=== PATIENT | female | born 1935 | race Caucasian/White ===

== ENCOUNTER 2023-12-02 19:39 | Inpatient (IN) | payer MEDICARE, SELFPAY ==
[2023-12-02 14:59] VITALS: BP 165/105
[2023-12-02 15:16] LABS: Glucose - Point of Care 185 mg/dl (70-99)
--- NOTE | 2023-12-02 15:25 | ED.CVA ---
History of Present Illness
General
Chief Complaint: CVA/TIA Symptoms
Source: patient and spouse
Exam Limitations: none
Time Seen by Provider: 12/02/23 15:22
Nursing documentation reviewed up to this point in time: agreed with
Onset of Stroke Symptoms
Onset of symptoms known: Yes
Date of onset of symptoms: 12/02/23
Time of onset of symptoms: 13:00
Travel History
Have you had any contact with someone who has COVID-19?: No
Do you have any symptoms of coronavirus? Fever > 100 degrees, chills, cough, shortness of breath, sore throat, loss of taste or smell, muscle aches, or headache?: No
History of Present Illness
History of Present Illness:
88 yo female presents to the emergency department c/o difficulty speaking lasting about 1 hour. It started at 1pm after eating lunch. Her symptoms have resolved en route to the ED.
Past History
Past History
ED Past Medical History: GERD, HTN, Hypercholesterolemia, NIDDM and Other (Thoracic vertebral compression fracture (T12), Headaches, Anemia, Breast calcifications, )
ED Past Surgical History: Cardiac (Heart valve replacement), Gynecological (Hysterectomy), Tonsilectomy and Other (Cataracts)
Social History
Tobacco: Former smoker
Alcohol: Daily (Vodka 1)
Drug: None
Personal:
Living: with family
Review of Systems
Review of Systems
Allergies reviewed?: Yes
All Other Systems: Not applicable
Constitutional: Reports no symptoms
EENT: Reports no symptoms
Respiratory: Reports no symptoms
Cardiac: Reports no symptoms
ABD/GI: Reports no symptoms
: Reports no symptoms
Musculoskeletal: Reports no symptoms
Skin: Reports no symptoms
Neurological: Reports other (Difficulty speaking)
Endocrine: Reports no symptoms
Hematologic/Lymphatic: Reports no symptoms
Psychiatric: Reports no symptoms
Phy Exam
Physical Exam
Physical Exam:
Physical Exam
General: no apparent distress, not acutely ill
Neck: supple. no meningeal signs. normal posterior pharynx
Heart: s1/s2 tachycardia, no murmur. equal radial
pulses.
HEENT: Pupils equal round reactive to light, EOMI
Lungs: no acute respiratory distress. clear bilaterally
Abdomen: normal bowel sounds. not tender. no CVAT
Neuro: alert and oriented. no focal neurological deficits cranial nerves II through XII intact
Skin: no rash
Psychiatric: well kept. interactive and cooperative
Extremities: no edema. no calf tenderness. negative homans. good distal pulses
Course
Orders/Labs/Results
Orders:
Orders
12/02/23 15:05
Electrocardiogram (*1) Urgent
Reason for Study: TIA/Stroke
EKG- Treatment ONCE
12/02/23 15:16
Complete Blood Count/With Diff Urgent
Comprehensive Metabolic Panel Urgent
Prothrombin Time Urgent
12/02/23 15:31
CT Head W/o Iv Contrast Urgent
Comment:
Reason For Exam: Stroke symptoms
12/02/23 18:17
Diltiazem HCl [Cardizem] 5 mg IV NOW STA
12/02/23 18:58
CT Head & Neck Angio W/wo IV Stat
Reason For Exam: aphasia, transient
12/02/23 18:59
CR Chest - 2 Views Stat
Comment:
Reason For Exam: cough
12/02/23 19:04
Admit/Transfer Patient As Directed
Co-Sign Provider:
Level of Care: Inpatient admission
Assign to:: Telemetry
Physician / Group: hospitalist
Diagnosis: CVA
Reason for Telemetry: Arrhythmia
Date to Stop Telemetry: 12/05/23
Time to Stop Telemetry: 11:00
Reason for Hospitalization: CVA/TIA, afib with RVR
Expected length of stay greater than two midnights?: Yes
ELOS- Estimated Length of Stay in days: 2
I certify the patient meets the requirements for IP care: Yes
12/02/23 19:06
Code Status As Directed
Resuscitation Status: Do not resuscitate
Reached after discussion with pt or family/Healthcare POA: Yes
12/02/23 19:07
DNR Bracelet Application ONCE
12/02/23 21:42
Acetaminophen [Tylenol/Feverall] 650 mg RECTAL Q4HPRN PRN
Acetaminophen [Tylenol] 650 mg PO Q4HPRN PRN
Apixaban [Eliquis] 2.5 mg PO BID
12/02/23 21:42
Echo 2D MMode Color/Doppler Routine
Reason for Study: stroke/TIA
CARDIOLOGY CONSULT Routine
Consulting Provider: Lance Mcdonald
Was physician already notified: Yes
Reason for consult: Afib with RVR
Case Management Consult ONCE
Case Management Consult: Discharge Planning
Comment: stroke/tia
DIETARY CONSULT Routine
Reason for Consult: stroke/TIA
NEUROLOGY CONSULT Urgent
Consulting Provider: Travis Peng
Was physician already notified: Yes
Reason for consult: CVA/TIA
Supervisor Sterile Processing Urgent
MR Brain Without Contrast Routine
Comment:
Reason For Exam: stroke/TIA
Recent pill cam endoscopy?: No
Activity As Directed
Activity Level: Out of Bed-Early Mobility
NIH Stroke Scale As Directed
Directions: Per protocol
Comment: every shift and with any change in condition or mental status
Neurological Checks As Directed
Frequency: q4h
Additional Instructions:: q4h x 24h upon admission to the floor, then qshift & with any change in condition
and mental status
Patient Education As Directed
Type: Stroke education packet
Comment: provide to patient and family
Pneumatic Compression Sleeves As Directed
Type: Knee high
Swallow Screening CVA/TIA ONLY As Directed
Comment: NPO until swallowing screening completed
If patient FAILS swallow screening:: NPO, Speech Therapy consult, Aspiration Precautions
If patient PASSES swallow screening, diet:: 1800 valentine/ 15 CHO Diabetic
Vital Signs As Directed
Frequency: Per unit guidelines
O2 Therapy [RESP] Routine
Nasal Cannula Liter Flow: 2 LPM
Titrate/Wean O2 to maintain O2 sat greater than (%): 94
Special Instructions: Titrate oxygen via nasal cannula starting at 2 liters/minute to keep SpO2 greater than
94%. Notify physician if greater than or equal to 6 liters/minute of O2
Ot Eval And Treat Routine
Pt Eval And Treat Routine
Activity Level: Out of Bed-Early Mobility
Speech Therapy Eval & Treat Routine
DX Deep Vein Thrombosis Video Routine
12/02/23 22:00
Magnesium Oxide 500 mg PO HS
12/03/23 06:00
Cardiovascular Evaluation IN AM
Complete Blood Count/No Diff IN AM
Comprehensive Metabolic Panel IN AM
Glycohemoglobin (HgbA1c) IN AM
LDL Cholesterol, Direct IN AM
Magnesium IN AM
TSH Reflex To Free T4 IN AM
12/03/23 08:00
Allopurinol [Zyloprim] 100 mg PO DAILY
Diltiazem Extended Release [Cardizem Cd] 180 mg PO DAILY
Ferrous Sulfate [Feosol] 325 mg PO DAILY
Pantoprazole [Protonix] 40 mg PO DAILY
12/05/23 11:00
DC Protocol for Telemetry ONCE
Abnormal Lab Results
12/02/23 12/02/23
15:15 15:16
RBC 3.82 L 10^6/uL
(4.20-5.40)
Hgb 11.4 L g/dL
(12.0-16.0)
Hct 34.3 L %
(37.0-47.0)
RDW 14.8 H %
(11.5-14.5)
MPV 11.2 H fL
(7.4-10.4)
Absolute Lymphs (auto) 0.7 L 10^3/uL
(1.2-3.4)
Neutrophils % 78.1 H %
(42.2-75.2)
Lymphocytes % 12.1 L %
(20.5-51.1)
PT 15.6 H Sec
(11.4-14.6)
Glucose 195 H mg/dl
(70-99)
POC Glucose 185 H mg/dl
(70-99)
12/02/23 15:16
12/02/23 15:16
Vital Signs
Initial and Last Documented VS:
Initial Vital Signs
Temp Pulse Resp BP Pulse Ox
98.7 F 117 18 165/105 94
12/02/23 14:59 12/02/23 14:59 12/02/23 14:59 12/02/23 14:59 12/02/23 14:59
Last Documented Vital Signs
Temp Pulse Resp BP Pulse Ox
97.8 F 103 20 166/103 98
12/02/23 21:57 12/02/23 21:57 12/02/23 21:57 12/02/23 21:57 12/02/23 21:57
MDM/Problems Addressed
Differential Diagnosis Includes:
TIA, CVA, intracranial hemorrhage
MDM/Problems Addressed:
88-year-old female with TIA. No indication for TNK or IAT. Admit to hospital for further workup.
Chronic conditions affecting care: Cardiomyopathy and Arrhythmia
Acute Exacerbation and/or Progression of Chronic Illness: Cardiomyopathy and Arrhythmia
*Radiology
Radiology exam reviewed: radiology read reviewed (CT head no acute findings)
*Pulse Oximetry
Patient hypoxic: no
*EKG
Interpreted by ED Provider?: Yes
EKG Intrepretation Date: 12/02/23
EKG Intrepretation Time: 15:08
Interpretation: abnormal
Comparison EKG: changes noted
Heart Rate: 129
Rate: tachycardiac
Rhythm: PVC's and sinus tachycardia
[place]: normal axis
Interval: normal interval
QRS Pattern: normal QRS
Ischemia: no ischemia
*Pacu Rn Interpretation
Rate: tachycardiac
Interpretation: abnormal
Heart Rate: 105
Rhythm: a-fib
*Critical Care Note
Total Time (30-74mins, 75-104mins- exclusive of procedures): 30
comment:
Critical care statement: A total of 30 minutes of critical care time was provided for this patient. This includes management of unstable vital signs, evaluation of the patient at bedside, reviewing the patient's pertinent medical records, discussion
with consultants, review of old EKGs and review of pertinent medical records. This time with separate from time utilized to perform the aforementioned documented procedures
Data Reviewed
Review of Other/Old Records Reveals: Testing (Prior echo shows left EF 65 to 70% on 05/02/2023)
Source: records
Patient Management
Social determinants of health affecting care: Living situation
Discussion with other providers: Hospitalist
Escalation/DeEscalation of care consider admission/obs:
Admit indicated
ED Attending Note
-
Portions of this chart may have been created with voice recognition software.� Occasional wrong word or��sound alike� substitutions may have occurred due to the inherent limitations of voice recognition software.
Discharge Plan
Departure
Patient Disposition: Admit
Date of Disposition: 12/02/23
Time of Disposition: 18:18
Admit to: Telemetry
Presentation/result/management discussed w/ accepting MD/DO: Hospitalist
Patient with high blood pressure during this ER visit?: Yes
Condition: Good
Discharge Problem:
TIA (transient ischemic attack), Atrial fibrillation with rapid ventricular response
Interventions
Interventions:
*Risk Screen - Suicide Last Done: 12/02/23 21:59
*General Assessment Last Done: 12/02/23 14:59
*Neglect/Abuse Screening Last Done: 12/02/23 14:59
ED- Fall Risk Assessment Last Done: 12/02/23 15:21
*ED COVID-19 Vaccine History Last Done: 12/02/23 21:59
*Nursing Disposition Last Done: 12/02/23 21:49
ED- Pulmonary Assessment Last Done: 12/02/23 15:21
ED- Neurological Assessment Last Done: 12/02/23 15:21
ED- Cardiac Assessment Last Done: 12/02/23 15:21
Discharge Date and Time
Discharge Date/Time: 12/02/23 21:53
[2023-12-02 15:35] LABS: % Basophils 0.8 % (0-2); % Eosinophils 1.3 % (0-6); % Immature Granulocytes 0.3 % (0-0.5); % Lymphocytes 12.1 % (20.5-51.1); % Monocytes 7.4 % (1.7-9.3); % Neutrophils 78.1 % (42.2-75.2); Absolute Basophils 0.1 10^3/uL (0-0.2); Absolute Eosinophils 0.1 10^3/uL (0-0.7); Absolute Lymphocytes 0.7 10^3/uL (1.2-3.4); Absolute Monocytes 0.5 10^3/uL (0.1-0.6); Absolute Neutrophils 4.8 10^3/uL (1.4-6.5); Hematocrit 34.3 % (37.0-47.0); Hemoglobin 11.4 g/dL (12.0-16.0); Mean Corp Hgb Conc. 33.2 g/dL (33.0-37.0); Mean Corpuscular Hgb 29.8 pg (27.0-31.0); Mean Corpuscular Volume 89.8 fL (81.0-99.0); Mean Platelet Volume 11.2 fL (7.4-10.4); Nucleated Red Blood Cells % 0 %; Platelet Count 202 10^3/uL (130-400); Red Blood Cell Count 3.82 10^6/uL (4.20-5.40); Red Cell Dist. Width 14.8 % (11.5-14.5); White Blood Cell Count 6.1 10^3/uL (4.8-10.8)
[2023-12-02 15:42] LABS: INR 1.26; PT 15.6 Sec (11.4-14.6)
[2023-12-02 15:47] LABS: ALT (SGPT) 13 U/L (0-35); AST (SGOT) 27 U/L (14-36); Albumin 4.3 g/dl (3.5-5.0); Alkaline Phosphatase 108 U/L (38-126); Blood Urea Nitrogen 15 mg/dl (7-17); Calcium 9.3 mg/dl (8.4-10.2); Carbon Dioxide 24 mmol/L (22-30); Chloride 101 mmol/L (98-107); Glucose 195 mg/dl (70-99); Potassium 4.3 mmol/L (3.5-5.1); Sodium 136 mmol/L (135-145); Total Bilirubin 0.7 mg/dl (0.2-1.3); Total Protein 7.7 g/dl (6.3-8.2); eGFR > 60.00
[2023-12-02 16:00] VITALS: BP 148/86
[2023-12-02 17:29] VITALS: BP 139/95
[2023-12-02 18:00] VITALS: BP 139/92
[2023-12-02] MEDS: CARDIZEM 5 MG IV (18:33)
--- NOTE | 2023-12-02 19:13 | HPS.HSE ---
Family Physician
-
Family Physician: Ricardo Alcantara MD
Chief Complaint
-
aphasia
History of Present Illness
88yo F with PMHx of bioprosthetic AV, Afib, HTN, HFpEF, DM, BECKA, gout came after 1 hour of transient aphasia on the day of admisision. In ED with no neurological deficit, so no additional w/u done. Also found in poorly controlled AFib with HR 110-130
Medical History
Past Medical History
Past Medical History: Reports Other
Additional Past Medical History:
See HPI
Past Surgical History: Reports Other
Additional Past Surgical History:
See HPI
Social History
Tobacco: Non-smoker
Alcohol: None
Drug: None
Family History
Family History: Not pertinent
Allergies / Home Medications
Allergies reflects when Allergies were last updated in [facility].
Home Medications with original date entered in [facility]
Allergy/Medication List:
Allergies
Allergy/AdvReac Type Severity Reaction Status Date / Time
ezetimibe [From Zetia] Allergy Unknown pain in Verified 07/28/23 22:44
muscles
simvastatin [From Zocor] Allergy Unknown pain in Verified 07/28/23 22:44
muscles
Home Medications
calcium carbonate 500 mg-vitamin D3 3.125 mcg (125 unit) tablet 1 tab PO DAILY Supplement 08/27/15
omeprazole 20 mg capsule,delayed release 20 mg PO DAILY Gastrointestinal issue 08/27/15
allopurinol 100 mg tablet 100 mg PO DAILY Gout 07/28/22
apixaban 2.5 mg tablet (Eliquis) 2.5 mg PO BID Arrhythmia 07/28/22
diltiazem HCl 120 mg capsule,extended release 24 hr 120 mg PO DAILY Arrhythmia 07/28/22
metformin 1,000 mg tablet 1,000 mg PO BID Diabetes 07/28/22
mirtazapine 7.5 mg tablet 7.5 mg PO HS Sleep 07/28/22
ferrous sulfate 325 mg (65 mg iron) tablet (FeroSul) 325 mg PO DAILY 12/02/23
magnesium oxide 500 mg PO HS 12/02/23
sitagliptin phosphate 100 mg tablet (Januvia) 100 mg PO HS 12/02/23
Review of Systems
-
A 12 point ROS was completed and negative except as noted: Yes
Neurological: Reports See HPI
Physical Exam
Vital Signs
Vital Signs
Temp Pulse Resp BP Pulse Ox
98.7 F 118 27 139/92 95
12/02/23 14:59 12/02/23 18:15 12/02/23 18:15 12/02/23 18:00 12/02/23 18:15
Physical Exam
General: No Apparent Distress and Comfortable
HEENT: NormoCephalic and Anicteric
Respiratory: Clear; No Wheezes or Rales
Cardiac: S1/S2 and Irregular Rhythm
GI: Soft, Non Tender and Non Distended
Genito-urinary: No costovertebral tender
Musculoskeletal: No Clubbing, No Cyanosis and No Edema
Neuro: Awake, Alert, Oriented, AO x 3 and No Motor Deficits
Psych: Calm
Laboratory Results
-
12/02/23 15:16
12/02/23 15:16
Laboratory Results
PT 15.6 Sec (11.4-14.6) H 12/02/23 15:16
INR 1.26 12/02/23 15:16
Total Bilirubin 0.7 mg/dl (0.2-1.3) 12/02/23 15:16
AST 27 U/L (14-36) 12/02/23 15:16
ALT 13 U/L (0-35) 12/02/23 15:16
Alkaline Phosphatase 108 U/L (38-126) 12/02/23 15:16
Data Reviewed
-
Lab Data: Labs Reviewed by me
Impression/Plan
-
IMPRESSION/PLAN:
#CVA/TIA
Echo, telemetry
CTA head/Neck
MRI brain
Neurochecks
Neurology consult
Intollerant of statinand zetia
HgbA1c, TSH, LDL
Permissive HTN
Labetalol for BP >180/105
#Acute hypoxic insufficiency
on 2L o2
with PMHx of COVID-19 in Jul 2023.
Chest HR
cont O2 and wean off, if able
#Afib, unspecified with RVR on admission
cont cardizem - increase to 180mg
cardio consult
COnt Eliquis
Telemetry
#HFpEF, chronic
#Essential HTN
#gout
#Bioprosthetic AV
cont home meds
#DM type 2 with neuropathy
Accuchecks, Insulin SS, DM diet, hold metformin
DVT ppx Eliquis
DNR/DNI as per patient and bedside
I have spent at least 78min preparing admission, communication with family and direct patient care
[2023-12-02 21:57] VITALS: BP 166/103
[2023-12-02 21:59] VITALS: BMI 20.8
[2023-12-02] MEDS: ELIQUIS 2.5 MG PO (22:27)
[2023-12-02] MEDS: MAGNESIUM OXIDE 500 MG PO (22:27)
[2023-12-02 23:30] VITALS: BP 154/97
[2023-12-03] VITALS (8 sets, daily range): BP systolic 96–147; BP diastolic 66–100; PULSE 93
[2023-12-03] MEDS: TYLENOL 650 MG PO (05:43)
[2023-12-03 06:47] LABS: Hematocrit 29.5 % (37.0-47.0); Hemoglobin 9.7 g/dL (12.0-16.0); Mean Corp Hgb Conc. 32.9 g/dL (33.0-37.0); Mean Corpuscular Hgb 29.8 pg (27.0-31.0); Mean Corpuscular Volume 90.5 fL (81.0-99.0); Mean Platelet Volume 9.9 fL (7.4-10.4); Platelet Count 168 10^3/uL (130-400); Red Blood Cell Count 3.26 10^6/uL (4.20-5.40); Red Cell Dist. Width 14.8 % (11.5-14.5); White Blood Cell Count 5.1 10^3/uL (4.8-10.8)
[2023-12-03 07:14] LABS: ALT (SGPT) 11 U/L (0-35); AST (SGOT) 23 U/L (14-36); Albumin 3.7 g/dl (3.5-5.0); Alkaline Phosphatase 90 U/L (38-126); Blood Urea Nitrogen 10 mg/dl (7-17); Calcium 8.9 mg/dl (8.4-10.2); Carbon Dioxide 26 mmol/L (22-30); Chloride 99 mmol/L (98-107); Estimated Creatinine Clearance 41 ml/min; Glucose 158 mg/dl (70-99); HDL Cholesterol 84 mg/dl; LDL Cholesterol, Calculated 43 mg/dl; Magnesium 1.1 mg/dl (1.6-2.3); Potassium 3.6 mmol/L (3.5-5.1); Sodium 135 mmol/L (135-145); Total Bilirubin 0.9 mg/dl (0.2-1.3); Total Cholesterol 144 mg/dl (50-199); Total Protein 6.9 g/dl (6.3-8.2); Triglyceride 89 mg/dl (10-149); Very Low Density Lipoprotein 17 mg/dl (0-30); eGFR > 60.00
[2023-12-03 07:25] LABS: LDL Cholesterol, Direct 68 mg/dl
[2023-12-03] MEDS: FEOSOL 325 MG PO ×2 (07:32→20:27)
[2023-12-03] MEDS: PROTONIX 40 MG PO (07:32)
[2023-12-03] MEDS: ELIQUIS 2.5 MG PO ×2 (07:32→20:27)
[2023-12-03] MEDS: ZYLOPRIM 100 MG PO (07:32)
[2023-12-03] MEDS: CARDIZEM CD 180 MG PO (07:33)
[2023-12-03 07:40] LABS: TSH Reflex To Free T4 3.93 uIU/ml (0.47-4.68)
--- NOTE | 2023-12-03 08:22 | CON.CAR ---
Consultation
Consultation Request
Date/Time Consultation Requested: 12/02/23 7:00pm
Date/Time Consultation Performed: 12/03/23 7:30 AM
Requesting Provider: Dr Helms
Performing Provider: Dr Mcdonald
Reason for Consultation: afib
Medical History
-
Chief Complaint: aphasia
History of Present Illness:
88-year-old female with past medical history of paroxysmal atrial fibrillation, aortic valve replacement, stroke, chronic diastolic heart failure, hypertension and hyperlipidemia presents with an episode of expressive aphasia. She states she was in
her usual state of health when she noticed yesterday difficulty finding words at the table. Ultimately she was brought to the emergency room. Her symptoms then resolved. She has also noticed some palpitations recently. She denies any chest pains
or shortness of breath. She denies any orthopnea or PND. She does get some intermittent leg edema. She has no fevers or chills. She has no coughing or wheezing. She was found to be in atrial fibrillation with modestly elevated rates. Her
neurologic symptoms have resolved. She has no bleeding.
Past Medical History
Past Medical History: Arrhythmias (Paroxysmal atrial fibrillation/atrial tachycardia), CHF (Chronic diastolic heart failure), CVA, HTN, Hypercholesterolemia, NIDDM and Valvular Disease (Status post aortic valve replacement)
Past Surgical History: Cardiac (Bioprosthetic aortic valve replacement 2016)
Social History
Tobacco: Non-Smoker
Alcohol: None
Drug: None
Living: With Family
Employment: Retired
Family History
Family History: Hypertension
Allergies / Home Medications
Allergy/AdvReac Type Severity Reaction Status Date / Time
ezetimibe [From Zetia] Allergy Unknown pain in Verified 07/28/23 22:44
muscles
simvastatin [From Zocor] Allergy Unknown pain in Verified 07/28/23 22:44
muscles
�Medication �Instructions �Recorded �Confirmed �Type
calcium carbonate 500 mg-vitamin 1 tab PO DAILY Supplement 08/27/15 12/02/23 History
D3 3.125 mcg (125 unit) tablet
omeprazole 20 mg capsule,delayed 20 mg PO DAILY Gastrointestinal 08/27/15 12/02/23 History
release issue
allopurinol 100 mg tablet 100 mg PO DAILY Gout 07/28/22 12/02/23 History
apixaban 2.5 mg tablet (Eliquis) 2.5 mg PO BID Arrhythmia 07/28/22 12/02/23 History
diltiazem HCl 120 mg 120 mg PO DAILY Arrhythmia 07/28/22 12/02/23 History
capsule,extended release 24 hr
metformin 1,000 mg tablet 1,000 mg PO BID Diabetes 07/28/22 12/02/23 History
mirtazapine 7.5 mg tablet 7.5 mg PO HS Sleep 07/28/22 12/02/23 History
ferrous sulfate 325 mg (65 mg 325 mg PO DAILY 12/02/23 12/02/23 History
iron) tablet (FeroSul)
magnesium oxide 500 mg PO HS 12/02/23 12/02/23 History
sitagliptin phosphate 100 mg 100 mg PO HS 12/02/23 12/02/23 History
tablet (Januvia)
Review of Systems
-
History Source: Patient
Constitutional: Weight Loss
EENT: No Symptoms
Respiratory: No Symptoms
Cardiac: Palpitations
Abdomen/GI: No Symptoms
: No Symptoms
Musculoskeletal: No Symptoms
Skin: No Symptoms
Neurological: Other (Expressive aphasia)
Endocrine: No Symptoms
Hematologic/Lymphatic: No Symptoms
Physical Exam
Vital Signs
Temp Pulse Resp BP Pulse Ox
98.0 F 118 18 147/100 91
12/03/23 07:30 12/03/23 07:33 12/03/23 07:30 12/03/23 07:33 12/03/23 07:30
Lab Results
12/03/23 06:30
12/03/23 06:30
Physical Exam
General: Well Developed, Well Nourished and No Apparent Distress
HEENT: Normocephalic and Anicteric
Respiratory: Clear and Non Labored Respirations
Cardiac: S1/S2, Irregular Rhythm and Murmur (2/6 systolic murmur at left sternal border)
GI: Soft, Non Tender and Non Distended
Musculoskeletal: No Clubbing, No Cyanosis and Edema (Trace edema)
Skin: Warm and Dry
Neuro: Awake and No Motor Deficits
Psych: Calm
Impression / Plan
-
PCP: Wandy Cody
Automotive Internet Sales Manager: Dr. Ness
Impression:
TIA/CVA, expressive aphasia
Atrial fibrillation with rapid ventricular rate
COVID-19 infection (07/28/2022) and discharge on 08/03/2022
Aortic valve replacement with 19 mm Trifecta supra-annular valve 08/26/2015
Severe tricuspid regurgitation, moderate mitral regurgitation
SVT
Atrial tachycardia
Hypertension
Hyperlipidemia
Type 2 diabetes
Stroke December 2015
Gout
History of falls with compression fractures
Skin cancer
Anxiety
Hysterectomy
Echo: 02/22/2022: EF 70%, severe biatrial enlargement, mild MR, mild MS with mean gradient 9, well-seated bioprosthetic AVR with peak/mean gradient 24/14 mmHg, moderate to severe TR with moderate pulmonary hypertension PAP 50 to 55 mmHg
Echo : May 02, 2023, EF 65 to 70%, mild mitral stenosis with moderate right regurgitation mean gradient of 6, stable bioprosthetic AVR with mean gradient of 15 and trace AI, severe TR with PA pressure 65
Cardiac catheterization 08/27/2015: No significant coronary artery disease
Plan:
She presents with expressive aphasia and possible stroke. MRI of the brain is pending although CT scan of the head and CTA of head and neck are both unremarkable.
She is in A-fib with elevated rates. At this point I would plan on rate control strategy. Continue diltiazem. Will add back metoprolol 100 mg p.o. every 12. She was on this medication as an outpatient.
With possible TIA/CA would avoid hypotension.
If she did have a stroke on Eliquis we could consider switching to a different anticoagulant, but for now I would await MRI. Another option would be to add aspirin to the Eliquis, however at 88 she clearly would be a bleeding risk. Hemoglobin is
also at 9.7. Would continue to follow. For now would continue Eliquis 2.5 mg p.o. twice daily.
Check lipids, however she has not tolerated statins or Zetia.
Will check echo if she remains in hospital, however if she needs to be discharged can be done as an outpatient.
Will discuss case with outpatient test engineer Dr. Ness.
Data Reviewed
-
EKG: Report Reviewed by me
Medical Tests (Nuc Med, Echo etc): Report Reviewed by me
Labs: Labs Reviewed by me
Old Records: Reviewed
--- NOTE | 2023-12-03 08:27 | CON.NEURO ---
Neuro Assessment/Plan
Assessment
CTA head and neck:No acute pathology. No evidence of M1 nor M2 occlusion. No carotid dissection.
CT head: negative
IMPRESSIONS/RECOMMENDATIONS:
Abrupt onset aphasia
May be due to TIA/stroke involving the left MCA territory although not demonstrated by CT of head. Differential diagnosis would include relative hypotension producing symptomatology
Continue current medications including apixaban
add Atorvastatin 10 mg daily to further lower the LDL from 68
Follow orthostatics
Gait dysfunction
May be due to a combination of sensory neuropathy and orthostasis
Will continue to follow patient. Thank you.
Plan
Subsequent to the initial evaluation of this patient during this hospitalization, approximately 30 minutes later, the patient underwent a stroke alert due to sudden aphasia recurrence. Reevaluation by means of CT of the head again failed to
demonstrate an acute ischemic or hemorrhagic lesion.
Patient was not a candidate for either tenecteplase or intra-arterial thrombectomy based on symptomatology and diagnosis. CTA was not repeated as it was performed the day before and failed to demonstrate using the patient's symptomatology.
The most likely etiology is either vascular in origin in the form of hypotension or seizure (unlikely).
Consultation
Order
Date of Consultation: 12/03/23
Requesting Provider: Hospitalists
Reason for Consult: Aphasia
Subjective/Objective
Subjective Data
Date of Service: December 03, 2023
Adapted from consultation in December 2015
80 year old right handed female admitted with c/o daily h/a x 1 month. The h/a's are bi-temporal. She came to ED with h/a 2 nights ago since it was more severe, had neg head CT and sent home. Returned yesterday with h/a and expressive and receptive
aphasia noted by around 1700. He thought she was incoherent-no prior hx of similar episodes in past. no associated visual changes, focal weakness or balance difficultly. He thinks she is better this AM but not back to normal. 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 feels h/a is worse in the evening. patient does recall her thinking she had a problem yesterday but she did
not feel she did. no prior hx strokes. still with c/o h/a but feels it is much better now. Feels tylenol sometimes took the pain away. She has been in an exercise program and her BP's have been ok. 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
decreased d/t her c/o headaches then but there has been no change in her h/a since then. Patient was not felt to be IV tpa candidate d/t NIHSS 0 in ED.
~~~
Subsequently, patient found to have a left MCA territory acute ischemic stroke. Patient was placed on a combination of aspirin and clopidogrel, then told to continue aspirin alone.
Patient returned to this hospital's emergency department with sudden onset aphasia lasting approximately 1 hour, resolving prior to presentation to this hospital's emergency department. BP was 'high' according to patient's prior to ED
presentation.
Objective Data
Vital Signs
Temp Pulse Resp BP Pulse Ox
36.7 C 118 18 147/100 91
12/03/23 07:30 12/03/23 07:33 12/03/23 07:30 12/03/23 07:33 12/03/23 07:30
Lab Results
12/03/23 06:30
12/03/23 06:30
PT 15.6 Sec (11.4-14.6) H 12/02/23 15:16
INR 1.26 12/02/23 15:16
Sodium 135 mmol/L (135-145) 12/03/23 06:30
Potassium 3.6 mmol/L (3.5-5.1) 12/03/23 06:30
BUN 10 mg/dl (7-17) 12/03/23 06:30
Glucose 158 mg/dl (70-99) H 12/03/23 06:30
Calcium 8.9 mg/dl (8.4-10.2) 12/03/23 06:30
LDL Cholesterol Direct 68 mg/dl 12/03/23 06:30
LDL Cholesterol, Calc 43 mg/dl 12/03/23 06:30
Patient Allergies
ezetimibe [From Zetia] Allergy (Unknown, Verified 07/28/23 22:44)
pain in muscles
simvastatin [From Zocor] Allergy (Unknown, Verified 07/28/23 22:44)
pain in muscles
CVA Assessment
Onset of Stroke Symptoms
Onset of symptoms known: Yes
Date of onset of symptoms: 12/03/23
Time of onset of symptoms: 11:45
Time pt last seen normal is known: Yes
Date last time pt seen normal: 12/03/23
Time last time pt seen normal: 11:45
NIH Stroke Score
Level of Consciousness: 0 - Alert
LOC Questions: 1-Answers one correctly
LOC Commands: 1-Performs one correctly
Best Horizontal Gaze: 0-Normal
Visual Robbins: 0=Normal, no visual loss
Facial Palsy: 0=Normal, symmetrical
Motor - Right Arm: 0=No drift 10 seconds
Motor - Left Arm: 0=No drift 10 seconds
Motor - Right Le-No drift 5 seconds
Motor - Left Le-No drift 5 seconds
Limb Ataxia: 0-Absent
Sensation: 0-Normal
Best Language: 1-Mild aphasia
Dysarthria: 0-Normal
Extinction and Inattention: 0-No abnormality
Total Score:: 3
Tenecteplase Contraindications
Inclusion and Exclusion criteria reviewed: Yes
IAT Contraindications: NIHSS < 6
Modified [place] Score (MRS)
-
Modified [place] Scale (mRS): Moderate disability. Requires some help, able to walk unassisted.
Score: 3
Review of Systems
-
History Source: Patient and Family
All other systems: Reviewed and negative
EENT: Negative Decreased Vision or Swallowing Difficulty
Respiratory: Negative Trouble Breathing
Cardiac: Negative Chest Pain
Abdomen/GI: Negative Incontinence of Stool
Genitourinary: Negative Incontinence
Musculoskeletal: Negative Back Pain or Neck Pain
Neuro: Negative Dizzy or Headache
Physical Exam
-
General: No Apparent Distress and Appears Stated Age
Eyes: OU Absent Papilledema, Round OU, [place] Conjunctivae and No Ptosis
HEENT: Anicteric and Moist Mucous Membranes
Neck: Full Range of Motion
Respiratory: No Dyspnea
Cardiac: No JVD
GI: Non-distended
Skin: Unremarkable
Extremities: No Clubbing, No Cyanosis and No Edema
Psych: Intact Judgement/Insight
Extended Neurological Exam
Mood & Affect: Mood Unremarkable and Affect Unremarkable
Attention Span & Concentration: Awake, Alert, Interactive and No Difficulty with 2 Step Request
Memory: Unremarkable
Tremor: Hand Tremor Absent and Head Tremor Absent
Speech: Quality Unremarkable and Quantity Unremarkable
Cranial Nerve II: Left Eye: Pupillary Reactivity Unremarkable, Pupillary Size Unremarkable and Visual Robbins Intact
Cranial Nerve II: Right Eye: Pupillary Reactivity Unremarkable, Pupillary Size Unremarkable and Visual Robbins Intact
Cranial Nerves III, IV, : Extraocular Movement: Extraocular Movement Full in all Directions
Cranial Nerve VII: Facial Symmetry: Normal Facial Symmetry
Cranial Nerve VIII: Hearing: Unremarkable Hearing to Normal Conversational Volume
Cranial Nerves IX, X: Palate Movement: Palate Elevation Symmetric
Cranial Nerve XI: Shoulder Shrug: Unremarkable
Cranial Nerve XII: Tongue Protusion: Midline
Muscle Strength, Overall: Full Throughout
Muscle Bulk & Tone: Bulk Unremarkable and Tone Unremarkable
Pronator Drift: No Drift in Upper Extremities
Deep Tendon Reflexes: Unremarkable Throughout
Touch Sensation: Unremarkable
Coordination: Wyocsx-labh-vefpoh Testing Unremarkable
Babinski Sign: Absent Bilaterally
Data Reviewed
-
CT-A: Report Reviewed
CT Head: Report Reviewed
MRI Head: Pending
Labs: Report Reviewed
Reviewed with: Physician, Patient and Family
Old Records: Summarized
Medications
-
Active Medications
Generic Name Dose Route Start Last Admin
Trade Name Freq PRN Reason Stop Dose Admin
Acetaminophen 650 mg 12/02/23 21:42
Acetaminophen 650 Mg Rectal Suppository RECTAL 12/30/23 21:41
Q4HPRN PRN
LAGOS, mild pain, or temp >100.4F
Acetaminophen 650 mg 12/02/23 21:42 12/03/23 05:43
Acetaminophen 325 Mg Tablet PO 12/30/23 21:41 650 mg
Q4HPRN PRN Administration
LAGOS, mild pain, or temp >100.4F
Allopurinol 100 mg 12/03/23 08:00 12/03/23 07:32
Allopurinol 100 Mg Tablet PO 12/31/23 07:59 100 mg
DAILY GIANCARLO Administration
Apixaban 2.5 mg 12/02/23 21:42 12/03/23 07:32
Apixaban (Eliquis) 2.5 Mg Tablet PO 12/30/23 21:41 2.5 mg
BID GIANCARLO Administration
Diltiazem HCl 180 mg 12/03/23 08:00 12/03/23 07:33
Diltiazem 180 Mg Extended Release (24 H) Capsule PO 12/31/23 07:59 180 mg
DAILY GIANCARLO Administration
Ferrous Sulfate 325 mg 12/03/23 08:00 12/03/23 07:32
Ferrous Sulfate 325 Mg Tablet PO 12/31/23 07:59 325 mg
DAILY GIANCARLO Administration
Magnesium Oxide 500 mg 12/02/23 22:00 12/02/23 22:27
Magnesium Oxide 500 Mg Tablet PO 12/30/23 21:59 500 mg
HS GIANCARLO Administration
Pantoprazole Sodium 40 mg 12/03/23 08:00 12/03/23 07:32
Pantoprazole 40 Mg Delayed Release Tablet PO 12/31/23 07:59 40 mg
DAILY GIANCARLO Administration
Sodium Chloride 0 flush 12/02/23 22:00
Sodium Chloride 0.9% (Flush) Syringe IV 12/30/23 21:59
PER PROTOCOL GIANCARLO
Home Medications
�Medication �Instructions �Recorded
calcium carbonate 500 mg-vitamin 1 tab PO DAILY Supplement 08/27/15
D3 3.125 mcg (125 unit) tablet
omeprazole 20 mg capsule,delayed 20 mg PO DAILY Gastrointestinal 08/27/15
release issue
allopurinol 100 mg tablet 100 mg PO DAILY Gout 07/28/22
apixaban 2.5 mg tablet (Eliquis) 2.5 mg PO BID Arrhythmia 07/28/22
diltiazem HCl 120 mg 120 mg PO DAILY Arrhythmia 07/28/22
capsule,extended release 24 hr
metformin 1,000 mg tablet 1,000 mg PO BID Diabetes 07/28/22
mirtazapine 7.5 mg tablet 7.5 mg PO HS Sleep 07/28/22
ferrous sulfate 325 mg (65 mg 325 mg PO DAILY 12/02/23
iron) tablet (FeroSul)
magnesium oxide 500 mg PO HS 12/02/23
sitagliptin phosphate 100 mg 100 mg PO HS 12/02/23
tablet (Januvia)
Past History
Past History
ED Past Medical History: Arrthythmia (Afib), CHF (HFpEF), CVA (Left MCA 2015), GERD, HTN, Hypercholesterolemia, NIDDM and Other (Thoracic vertebral compression fracture (T12), Headaches, Anemia, Breast calcifications, COVID-19 07/2023, gout)
ED Past Surgical History: Cardiac (Aortic valve replacement), Gynecological (Hysterectomy), Tonsilectomy and Other (Cataracts)
Social History
Tobacco: Former smoker
Alcohol: Daily (Vodka 1)
Drug: None
Personal:
Living: with family
Family History
Family History: Other (Reviewed and noncontributory)
[2023-12-03 08:33] LABS: Glucose - Point of Care 175 mg/dl (70-99)
[2023-12-03] MEDS: LOPRESSOR 100 MG PO (09:04)
--- NOTE | 2023-12-03 09:16 | W.PN.HOSP.TC ---
Today's Communication/Plan
-
MRI
HR Control
PT OT
Assessment / Plan
Assessment / Plan
88-year-old female presented to the hospital with 1 hour of transient aphasia. Patient also was found to have poorly controlled A-fib on admission.
CT of the head and neck-no acute pathology. Multilevel lower cervical spine DJD, retrolisthesis C5 on C6
Echo 05/02/2023-LV size small with normal LV chamber size. EF 65 to 70%. Paradoxical septal motion. Stage II diastolic dysfunction. Moderately dilated RV. Mild mitral stenosis and moderate MR. Well-seated bioprosthetic aortic valve. Severe TR.
Pulmonary pressure of 65 mmHg
CVS: S1-S2 irregular and tachycardic, SM at apex and RHB
Chest: CTA B/L
Abdomen: Soft, NT / Bowel sounds present
Extremities: No edema
ANGIOGRAPHY NURSE: Non focal exam, No facial droop, No motor or sensory defecits
# CVA/TIA
Neurochecks, and NIH score
Already on Eliquis as outpatient was not a candidate for thrombolytic therapy
Intolerant of statins
Permissive hypertension-however needs medicines to control heart rate
Patient on Eliquis already got a dose this morning-rest of the doses per neurology
MRI of the brain
Check echo
Neurology evaluation
PT OT
# Atrial fibrillation with RVR on admission history of atrial tachycardia
On Cardizem 120 mg as outpatient along with Eliquis 2.5 twice daily
Cardizem increased 280 mg daily and metoprolol 100 mg twice daily added
Cardiology consultation
Normal TSH
Patient on Eliquis as outpatient already got a dose this morning
# Acute hypoxic respiratory insufficiency on 2 L of oxygen
Wean oxygen as tolerated
Chest x-ray without any acute changes
# Anemia-check iron studies
# Hypomagnesemia-replace IV
# Chronic heart failure with preserved ejection fraction
# Diabetes continue Januvia. Hold metformin with IV dye
Sliding-scale coverage with Accu-Cheks
# Essential hypertension-CCB,BB
# Bioprosthetic aortic valve
# Atherosclerosis/hyperlipidemia-allergic to steroids. May need to look at Repatha or Praluent as OP
# Gout-allopurinol
# Pulmonary hypertension
# Insomnia-on Remeron as outpatient
# GERD-continue PPI
# History of COVID-19 infection July 2023
# Cervical spine DJD
# Ex-smoker
# DVT prophylaxis-already got a dose of Eliquis
# DNR
D/W RN
Anticipated Discharge: Within 24 hours
Subjective/Interval History
-
Date of Service: December 03, 2023
Objective Data
-
Labs:
Laboratory Results
12/03/23
06:30
WBC 5.1
Hgb 9.7 L
Hct 29.5 L
Plt Count 168
Sodium 135
Potassium 3.6
Chloride 99
Carbon Dioxide 26
BUN 10
Creatinine 0.6
Glucose 158 H
Calcium 8.9
Total Bilirubin 0.9
AST 23
ALT 11
Alkaline Phosphatase 90
Vital Signs:
Vital Signs
Temp Pulse Resp BP Pulse Ox
98.0 F 118 18 147/100 91
12/03/23 07:30 12/03/23 09:04 12/03/23 07:30 12/03/23 09:04 12/03/23 07:30
I&O
12/02/23 12/03/23 12/04/23
06:59 06:59 06:59
Intake Total 480 / 480
Output Total 1350 / 1350
Balance -870 / -870
[2023-12-03 09:52] LABS: Iron 58 ug/dl (37-170)
[2023-12-03] MEDS: MAGNESIUM SULFATE 100 IV (09:54)
[2023-12-03 10:01] LABS: Percent Saturation 13 % (20-50); Total Iron Binding Capacity 430 ug/dl (265-497)
[2023-12-03 10:48] LABS: Glycohemoglobin (HgbA1c) 7.5 % (4.0-5.6)
[2023-12-03 10:59] LABS: Folate 18.2 ng/ml (2.76-20); Vitamin B12 204 pg/ml (239-931)
[2023-12-03 11:30] LABS: Erythrocyte Sed Rate 30 mm/hour (0-20)
[2023-12-03 11:46] LABS: Glucose - Point of Care 197 mg/dl (70-99)
[2023-12-03 12:30] LABS: INR 1.29; PT 15.9 Sec (11.4-14.6)
[2023-12-03 12:31] LABS: APTT 29.8 Sec (23.4-35.0)
[2023-12-03] MEDS: NOVOLOG FLEXPEN-LOW RESISTANCE SC (13:40)
--- NOTE | 2023-12-03 14:36 | PTOTSP ---
Speech Therapy Assessment
Patient presents with signs of mild expressive and receptive language deficits mainly with increased complexity and amount of information. Swallowing grossly wfl with intermittent throat clearing suggesting possible pharyngeal dysphagia.
Recommend
1. Continue regular solids and thin liquids
2. Meds as tolerated
3. Aspiration Precautions.
4. ST will follow and further assess language and cognitive communication skills, and ensure diet tolerance need for objective testing.
[2023-12-03] MEDS: FERRLECIT 110 MG IV (15:26)
[2023-12-03] MEDS: VITAMIN B-12 1000 MCG PO (16:22)
--- NOTE | 2023-12-03 16:52 | PTCARENOTE ---
1136 Called to pt room by tech after pt alerted her that pt was having the same symptoms that brought her in. Upon entering the room pt in bed aphasic and slurring her words. Pt with noticeable left side facial droop. Pt sitting in the
chair during this time. Vs assessed- 97.4--94-16-122/87- pox 95% on room air.
[2023-12-03 17:01] LABS: Glucose - Point of Care 209 mg/dl (70-99)
[2023-12-03] MEDS: NOVOLOG FLEXPEN-LOW RESISTANCE 2 UNITS SC (17:03)
[2023-12-03] MEDS: LIPITOR 10 MG PO (17:03)
[2023-12-03 19:40] LABS: Urine Albumin 1+ (Neg - Trace); Urine Bilirubin Negative (Negative); Urine Character Clear (Clear); Urine Color Yellow; Urine Glucose Trace (Negative); Urine Ketone Negative (Negative); Urine Leukocyte Trace (Negative); Urine Nitrite Negative (Negative); Urine Occult Blood Negative (Negative); Urine Specific Gravity 1.015 (<1.030); Urine Urobilinogen Negative (Neg - 1+)
[2023-12-03 19:48] LABS: Urine Bacteria Few (Negative); Urine Red Blood Cell None Seen /HPF (0-2)
[2023-12-03] MEDS: LOPRESSOR PO (20:27)
[2023-12-03] MEDS: REMERON 7.5 MG PO (20:27)
[2023-12-03] MEDS: MAGNESIUM OXIDE 500 MG PO (20:27)
[2023-12-03 22:00] LABS: Glucose - Point of Care 177 mg/dl (70-99)
[2023-12-03] MEDS: JANUVIA 100 MG PO (23:01)
[2023-12-04] VITALS (13 sets, daily range): BP systolic 82–131; BP diastolic 51–71; PULSE 81–85; O2SAT 95; BMI 20.5
[2023-12-04 06:54] LABS: Hematocrit 31.7 % (37.0-47.0); Hemoglobin 10.3 g/dL (12.0-16.0); Mean Corp Hgb Conc. 32.5 g/dL (33.0-37.0); Mean Corpuscular Hgb 29.6 pg (27.0-31.0); Mean Corpuscular Volume 91.1 fL (81.0-99.0); Mean Platelet Volume 10.3 fL (7.4-10.4); Platelet Count 163 10^3/uL (130-400); Red Blood Cell Count 3.48 10^6/uL (4.20-5.40); Red Cell Dist. Width 15.1 % (11.5-14.5); White Blood Cell Count 4.6 10^3/uL (4.8-10.8)
[2023-12-04 07:24] LABS: Blood Urea Nitrogen 13 mg/dl (7-17); Carbon Dioxide 26 mmol/L (22-30); Chloride 98 mmol/L (98-107); Estimated Creatinine Clearance 41 ml/min; Glucose 146 mg/dl (70-99); Potassium 3.7 mmol/L (3.5-5.1); Sodium 135 mmol/L (135-145); eGFR > 60.00
[2023-12-04] MEDS: PROTONIX 40 MG PO (07:46)
[2023-12-04] MEDS: LOPRESSOR 100 MG PO (07:46)
[2023-12-04] MEDS: ZYLOPRIM 100 MG PO (07:47)
[2023-12-04] MEDS: CARDIZEM CD 180 MG PO (07:47)
[2023-12-04] MEDS: VITAMIN B-12 1000 MCG PO (07:47)
[2023-12-04] MEDS: ELIQUIS 2.5 MG PO ×2 (07:47→20:00)
[2023-12-04 08:03] LABS: Glucose - Point of Care 157 mg/dl (70-99)
--- NOTE | 2023-12-04 08:39 | W.PN.VS ---
Today's Communication / Plan
-
no vascular intervention at this time
plan per neurology and medicine
call with any other questions
Assessment/Plan
-
carotids patent
no vascular intervention at this time
plan per neurology and medicine
call with any other questions
Subjective Data
-
88yo F with PMHx of bioprosthetic AV, Afib, HTN, HFpEF, DM, BECKA, gout came after 1 hour of transient aphasia on the day of admisision. CUrrently feels well with no deficit appreciated
Objective Data
-
Vital Signs
Temp Pulse Resp BP Pulse Ox
98.5 F 88 18 113/70 94
12/04/23 07:53 12/04/23 07:53 12/04/23 07:53 12/04/23 07:53 12/04/23 07:53
Intake and Output
12/03/23 12/04/23 12/05/23
06:59 06:59 06:59
Intake Total 480 / 480 450 / 450
Output Total 1350 / 1350 750 / 750
Balance -870 / -870 -300 / -300
Intake:
Oral fluids 480 / 480 240 / 240
IV piggybacks 210 / 210
Output:
Urine, Voided 1350 / 1350 300 / 300
Straight cath output 450 / 450
Other:
Number of approximated LARGE 1
amounts of urine
Lab Results
12/04/23 06:18
12/04/23 06:18
Calcium 9.0 mg/dl (8.4-10.2) 12/04/23 06:18
Magnesium 2.0 mg/dl (1.6-2.3) 12/04/23 06:18
Total Bilirubin 0.9 mg/dl (0.2-1.3) 12/03/23 06:30
AST 23 U/L (14-36) 12/03/23 06:30
ALT 11 U/L (0-35) 12/03/23 06:30
Alkaline Phosphatase 90 U/L (38-126) 12/03/23 06:30
Total Protein 6.9 g/dl (6.3-8.2) 12/03/23 06:30
Albumin 3.7 g/dl (3.5-5.0) 12/03/23 06:30
Physical Exam
-
rrr
ctab
nt,nd,soft
2+ radial bilat
moving all 4 extremities
CTA - patent carotids bilat with no sig stenosis
--- NOTE | 2023-12-04 08:45 | CON.VAS ---
Consultation
Consultation Request
Performing Provider: Rima
Reason for Consultation: transient aphasia
Medical History
-
Chief Complaint: 1 hour of transient aphasia
History of Present Illness:
88 yo female with past medical history of paroxysmal atrial fibrillation, aortic valve replacement, CVA, CHF, hypertension and hyperlipidemia presents with an episode of expressive aphasia lasting about 1 hour. She was brought to the emergency room
where her symptoms resolved. Vascular consult for carotid evaluation. Patient seen by Dr. Abarca. Patient was back to baseline during this consultation.
Brain MRI negative, CT head negative
Past Medical History
Past Medical History: Arrhythmias (Paroxysmal atrial fibrillation/atrial tachycardia), CHF, CVA, HTN, Hypercholesterolemia, NIDDM and Valvular Disease
Past Surgical History: Cardiac (Bioprosthetic aortic valve replacement 2016)
Social History
Tobacco: Non-Smoker
Alcohol: None
Drug: None
Living: With Family
Employment: Retired
Family History
Family History: Hypertension
Allergies / Home Medications
Allergy/AdvReac Type Severity Reaction Status Date / Time
ezetimibe [From Zetia] Allergy Unknown pain in Verified 07/28/23 22:44
muscles
simvastatin [From Zocor] Allergy Unknown pain in Verified 07/28/23 22:44
muscles
�Medication �Instructions �Recorded �Confirmed �Type
calcium carbonate 500 mg-vitamin 1 tab PO DAILY Supplement 08/27/15 12/02/23 History
D3 3.125 mcg (125 unit) tablet
omeprazole 20 mg capsule,delayed 20 mg PO DAILY Gastrointestinal 08/27/15 12/02/23 History
release issue
allopurinol 100 mg tablet 100 mg PO DAILY Gout 07/28/22 12/02/23 History
apixaban 2.5 mg tablet (Eliquis) 2.5 mg PO BID Arrhythmia 07/28/22 12/02/23 History
diltiazem HCl 120 mg 120 mg PO DAILY Arrhythmia 07/28/22 12/02/23 History
capsule,extended release 24 hr
metformin 1,000 mg tablet 1,000 mg PO BID Diabetes 07/28/22 12/02/23 History
mirtazapine 7.5 mg tablet 7.5 mg PO HS Sleep 07/28/22 12/02/23 History
ferrous sulfate 325 mg (65 mg 325 mg PO DAILY 12/02/23 12/02/23 History
iron) tablet (FeroSul)
magnesium oxide 500 mg PO HS 12/02/23 12/02/23 History
sitagliptin phosphate 100 mg 100 mg PO HS 12/02/23 12/02/23 History
tablet (Januvia)
Review of Systems
-
History Source: Patient
All other systems: Negative unless noted
Physical Exam
Vital Signs
Temp Pulse Resp BP Pulse Ox
98.1 F 74 20 114/69 93
12/05/23 03:00 12/05/23 03:00 12/05/23 03:00 12/05/23 03:00 12/05/23 03:00
Lab Results
12/05/23 06:25
12/05/23 06:25
Physical Exam
General: No Apparent Distress
HEENT: Normocephalic and Atraumatic
Respiratory: Non Labored Respirations
Cardiac: Regular Rhythm and Other (+2 radial pulses BL)
GI: Soft, Non Tender and Non Distended
Neuro: Nonfocal/Grossly Intact (moving all 4 extremities)
Assessment / Plan
-
CTA - patent carotids bilat with no sig stenosis
no vascular intervention at this time
plan per neurology and medicine
call with any other questions
Data Reviewed
-
CT Scan: Discussed with Patient
[2023-12-04] MEDS: NOVOLOG FLEXPEN-LOW RESISTANCE 1 UNITS SC ×3 (09:05→17:54)
--- NOTE | 2023-12-04 09:31 | W.PN.NEURO.1 ---
Today's Communication / Plan
-
Check EEG
Follow orthostatics
Neuro Assessment/Plan
Assessment
CTA head and neck:No acute pathology. No evidence of M1 nor M2 occlusion. No carotid dissection.
CT head: negative
MRI of brain was unremarkable
IMPRESSIONS/RECOMMENDATIONS:
Abrupt onset aphasia, improving and then worsening
No evidence of stroke, possibility of TIA is present although less likely based on the on and off aspects in rapid fashion. Additionally it is possible the patient has had significant orthostasis or seizures
Continue current medications including apixaban
added Atorvastatin 10 mg daily to further lower the LDL from 68
Follow orthostatics
Gait dysfunction
May be due to a combination of sensory neuropathy and orthostasis
Plan
Check EEG
Follow orthostatics
Subjective/Objective
Subjective Data
Date of Service: December 04, 2023
Patient unable to provide her own medical history at length.
Objective Data
Vital Signs
Temp Pulse Resp BP Pulse Ox
36.9 C 88 18 113/70 94
12/04/23 07:53 12/04/23 07:53 12/04/23 07:53 12/04/23 07:53 12/04/23 07:53
Lab Results
12/04/23 06:18
12/04/23 06:18
PT 15.9 Sec (11.4-14.6) H 12/03/23 11:50
INR 1.29 12/03/23 11:50
APTT 29.8 Sec (23.4-35.0) 12/03/23 11:50
Sodium 135 mmol/L (135-145) 12/04/23 06:18
Potassium 3.7 mmol/L (3.5-5.1) 12/04/23 06:18
BUN 13 mg/dl (7-17) 12/04/23 06:18
Glucose 146 mg/dl (70-99) H 12/04/23 06:18
Calcium 9.0 mg/dl (8.4-10.2) 12/04/23 06:18
LDL Cholesterol Direct 68 mg/dl 12/03/23 06:30
LDL Cholesterol, Calc 43 mg/dl 12/03/23 06:30
Vitamin B12 204 pg/ml (239-931) L 12/03/23 06:30
Patient Allergies
ezetimibe [From Zetia] Allergy (Unknown, Verified 07/28/23 22:44)
pain in muscles
simvastatin [From Zocor] Allergy (Unknown, Verified 07/28/23 22:44)
pain in muscles
Review of Systems
-
History Source: Patient
All other systems: Reviewed and negative
EENT: Negative Decreased Vision or Swallowing Difficulty
Respiratory: Negative Trouble Breathing
Cardiac: Negative Chest Pain
Abdomen/GI: Negative Incontinence of Stool
Genitourinary: Negative Incontinence
Musculoskeletal: Negative Back Pain or Neck Pain
Neuro: Negative Dizzy or Headache
Physical Exam
-
General: No Apparent Distress and Appears Stated Age
Eyes: Round OU, [place] Conjunctivae and No Ptosis
HEENT: Anicteric and Moist Mucous Membranes
Neck: Full Range of Motion
Respiratory: No Dyspnea
Cardiac: No JVD
GI: Non-distended
Skin: Unremarkable
Extremities: No Clubbing, No Cyanosis and No Edema
Psych: Intact Judgement/Insight
Extended Neurological Exam
Mood & Affect: Mood Unremarkable and Affect Unremarkable
Attention Span & Concentration: Awake, Alert, Interactive and Mild Difficulty with 2 Step Request
Memory: Able to Recall (Month) and Reduced (For the correct year)
Tremor: Hand Tremor Absent and Head Tremor Absent
Speech: Quantity Unremarkable and Other (Intermittent stuttering)
Cranial Nerve II: Left Eye: Pupillary Size Unremarkable and Visual Robbins Grossly Intact
Cranial Nerve II: Right Eye: Pupillary Size Unremarkable and Visual Robbins Grossly Intact
Cranial Nerves III, IV, : Extraocular Movement: Grossly Intact
Cranial Nerve VII: Facial Symmetry: Normal Facial Symmetry
Cranial Nerve VIII: Hearing: Unremarkable Hearing to Normal Conversational Volume
Muscle Strength, Overall: Spontaneously Moves (All extremities)
Muscle Bulk & Tone: Bulk Unremarkable and Tone Unremarkable
Pronator Drift: No Drift in Upper Extremities
Coordination: [id number] Testing Unremarkable
Data Reviewed
-
MRI Head: Report Reviewed
EEG: Ordered
Reviewed with: Physician, Patient and Family
Old Records: Summarized
Past History
Past History
ED Past Medical History: Arrthythmia (Afib), CHF (HFpEF), CVA (Left MCA 2016), GERD, HTN, Hypercholesterolemia, NIDDM and Other (Thoracic vertebral compression fracture (T12), Headaches, Anemia, Breast calcifications, COVID-19 07/2023, gout)
ED Past Surgical History: Cardiac (Aortic valve replacement), Gynecological (Hysterectomy), Tonsilectomy and Other (Cataracts)
Social History
Tobacco: Former smoker
Alcohol: Daily (Vodka 1)
Drug: None
Personal:
Living: with family
Family History
Family History: Other (Reviewed and noncontributory)
Medications
-
Medications:
Generic Name Dose Route Start Last Admin
Trade Name Freq PRN Reason Stop Dose Admin
Acetaminophen 650 mg 12/02/23 21:42
Acetaminophen 650 Mg Rectal Suppository RECTAL 12/30/23 21:41
Q4HPRN PRN
LAGOS, mild pain, or temp >100.4F
Acetaminophen 650 mg 12/02/23 21:42 12/03/23 05:43
Acetaminophen 325 Mg Tablet PO 12/30/23 21:41 650 mg
Q4HPRN PRN Administration
LAGOS, mild pain, or temp >100.4F
Allopurinol 100 mg 12/03/23 08:00 12/04/23 07:47
Allopurinol 100 Mg Tablet PO 12/31/23 07:59 100 mg
DAILY GIANCARLO Administration
Apixaban 2.5 mg 12/02/23 21:42 12/04/23 07:47
Apixaban (Eliquis) 2.5 Mg Tablet PO 12/30/23 21:41 2.5 mg
BID GIANCARLO Administration
Atorvastatin Calcium 10 mg 12/03/23 18:00 12/03/23 17:03
Atorvastatin (Lipitor) 10 Mg Tablet PO 12/31/23 17:59 10 mg
QPM GIANCARLO Administration
Cyanocobalamin 1,000 mcg 12/03/23 16:00 12/04/23 07:47
Cyanocobalamin 1,000 Mcg Tablet PO 12/31/23 15:59 1,000 mcg
DAILY GIANCARLO Administration
Dextrose 12.5 grams 12/03/23 08:59
Dextrose 50% (0.5 Grams/Ml) 50 Ml Syringe IV 12/31/23 08:58
[id number] PRN
hypoglycemia
Protocol
Diltiazem HCl 180 mg 12/03/23 08:00 12/04/23 07:47
Diltiazem 180 Mg Extended Release (24 H) Capsule PO 12/31/23 07:59 180 mg
DAILY GIANCARLO Administration
Ferrous Sulfate 325 mg 12/03/23 22:00 12/03/23 20:27
Ferrous Sulfate 325 Mg Tablet PO 12/31/23 21:59 325 mg
HS GIANCARLO Administration
Glucagon 1 mg 12/03/23 08:59
Glucagon 1 Mg Vial IM 12/31/23 08:58
PRN PRN
hypoglycemia
Protocol
Insulin Aspart 0 units 12/03/23 11:30 12/04/23 09:05
Insulin Aspart Low Resistance 300 Units/3 Ml Pen.Injctr SC 12/31/23 11:29 1 units
AC GIANCARLO Administration
Protocol
Magnesium Oxide 500 mg 12/02/23 22:00 12/03/23 20:27
Magnesium Oxide 500 Mg Tablet PO 12/30/23 21:59 500 mg
HS GIANCARLO Administration
Metoprolol Tartrate 100 mg 12/03/23 09:00 12/04/23 07:46
Metoprolol 100 Mg Regular Release Tablet PO 12/31/23 08:59 100 mg
BID GIANCARLO Administration
Mirtazapine 7.5 mg 12/03/23 22:00 12/03/23 20:27
Mirtazapine 7.5 Mg Regular Release Tablet PO 12/31/23 21:59 7.5 mg
HS GIANCARLO Administration
Pantoprazole Sodium 40 mg 12/03/23 08:00 12/04/23 07:46
Pantoprazole 40 Mg Delayed Release Tablet PO 12/31/23 07:59 40 mg
DAILY GIANCARLO Administration
Sitagliptin Phosphate 100 mg 12/03/23 22:00 12/03/23 23:01
Sitagliptin (Januvia) 100 Mg Tablet PO 12/31/23 21:59 100 mg
HS GIANCARLO Administration
Sodium Chloride 0 flush 12/02/23 22:00
Sodium Chloride 0.9% (Flush) Syringe IV 12/30/23 21:59
PER PROTOCOL GIANCARLO
--- NOTE | 2023-12-04 10:41 | CM ---
Addendum entered by GLORIA Garcia 12/04/23 15:32:
referral with dannrr attached sent to [facility] in [facility].
Original Note:
MEt with patient in room and spoke to PT who treated her today. Patient and live in split level home. No steps to enter lowest level then 6 steps up to kitchen, living areas, then 6 more to full bathroom and bedrooms.
She has tub shower with tub rail and rail in front of shower. she has rolling walker and cane but was ambulating at home without device.
per PT notes recommend SNF. CM spoke to patient about stay at [facility] in 2022. Patient agreeable to return for short term rehab after this admit.
PCP Ricardo Lechuga.
Pharmacy: [facility] on [address] in [place]
SHe has had [facility] home care in past.
referral to be made in [facility] to [facility] SNF.
PLAN: SNF rehab.
[2023-12-04 12:16] LABS: Glucose - Point of Care 179 mg/dl (70-99)
--- NOTE | 2023-12-04 12:53 | W.PN.HOSP.TC ---
Today's Communication/Plan
-
500 mL of normal saline because of hypotension
Decrease metoprolol to 50 twice daily
Keep patient in bed supine until blood pressure improves
Routine EEG
Assessment / Plan
Assessment / Plan
88-year-old female presented to the hospital with 1 hour of transient aphasia. Patient also was found to have poorly controlled A-fib on admission.
CT of the head and neck-no acute pathology. Multilevel lower cervical spine DJD, retrolisthesis C5 on C6
Echo 05/02/2023-LV size small with normal LV chamber size. EF 65 to 70%. Paradoxical septal motion. Stage II diastolic dysfunction. Moderately dilated RV. Mild mitral stenosis and moderate MR. Well-seated bioprosthetic aortic valve. Severe TR.
Pulmonary pressure of 65 mmHg
CVS: S1-S2 irregular and tachycardic, SM at apex and RHB
Chest: CTA B/L
Abdomen: Soft, NT / Bowel sounds present
Extremities: No edema
BATH MIX OPERATOR: Non focal exam, No facial droop, No motor or sensory deficits, appears to be confused today
# APhasia and confusion
Stroke alert called 12/03/23- per nursing.
Was seen by neuro CT head repeat OK
MRI no CVA
Already on Eliquis as outpatient was not a candidate for thrombolytic therapy
Intolerant of statins
Patient on Eliquis already
Neurology evaluation appreciated
PT OT
#Confusion-suspect hypoperfusion from hypotension.
IV fluids
Cut back on metoprolol to 50 twice daily
No evidence of infection
Check EEG routine
# Atrial fibrillation with RVR on admission history of atrial tachycardia
On Cardizem 120 mg as outpatient along with Eliquis 2.5 twice daily
Cardizem increased to 180 mg daily and metoprolol 100 mg twice daily added on 12/03/23
Cardiology following
Normal TSH
Patient on Eliquis as outpatient already got a dose this morning
She converted to SR
BP running low
Decrease Metoprolol to 50 BID
# Acute hypoxic respiratory insufficiency on 2 L of oxygen
Off O2
Chest x-ray without any acute changes
# Anemia-Replace iron PO
B 12 def- Replace B12
# Hypomagnesemia-replaced
# Chronic heart failure with preserved ejection fraction
# Diabetes continue Januvia. Hold metformin with IV dye
Sliding-scale coverage with Accu-Cheks
# Essential hypertension-CCB,BB
# Bioprosthetic aortic valve
# Atherosclerosis/hyperlipidemia-allergic to statins. May need to look at Repatha or Praluent as OP
# Gout-allopurinol
# Pulmonary hypertension
# Insomnia-on Remeron as outpatient, hold
# GERD-continue PPI
# History of COVID-19 infection July 2023
# Cervical spine DJD
# Ex-smoker
# DVT prophylaxis-already got a dose of Eliquis
# DNR
D/W RN
Called and left a message for to update
spoke to him yesterday
D/W Cards and Neuro
Anticipated Discharge: 24 - 48 hours
Subjective/Interval History
-
Date of Service: December 04, 2023
Objective Data
-
Labs:
Laboratory Results
12/04/23
06:18
WBC 4.6 L
Hgb 10.3 L
Hct 31.7 L
Plt Count 163
Sodium 135
Potassium 3.7
Chloride 98
Carbon Dioxide 26
BUN 13
Creatinine 0.6
Glucose 146 H
Calcium 9.0
Vital Signs:
Vital Signs
Temp Pulse Resp BP Pulse Ox
97.6 F 86 18 90/69 90
12/04/23 11:52 12/04/23 11:52 12/04/23 11:52 12/04/23 11:52 12/04/23 11:52
I&O
12/03/23 12/04/23 12/05/23
06:59 06:59 06:59
Intake Total 480 / 480 450 / 450
Output Total 1350 / 1350 750 / 750 250 / 250
Balance -870 / -870 -300 / -300 -250 / -250
[2023-12-04] MEDS: NSS 500 IV (13:07)
[2023-12-04] MEDS: VITAMIN B1 100 MG PO (14:18)
[2023-12-04] MEDS: CYANOCOBALAMIN 1000 MCG IM (14:19)
[2023-12-04 17:42] LABS: Glucose - Point of Care 184 mg/dl (70-99)
[2023-12-04] MEDS: LIPITOR 10 MG PO (17:57)
--- NOTE | 2023-12-04 18:13 | W.PN.CARDCBS ---
Today's Communication / Plan
-
Decrease metoprolol to 50 mg twice daily, continue Cardizem
Monitor blood pressure, reduce medications further if needed
EEG per neurology
Continue oral anticoagulation monitor on telemetry
TTE pending for tomorrow
Impression / Plan
-
PCP: Wandy Cody
Grazing Examiner: Dr. Ness
Impression:
TIA/CVA, expressive aphasia
Atrial fibrillation with rapid ventricular rate
COVID-19 infection (07/28/2022) and discharge on 08/03/2022
Aortic valve replacement with 19 mm Trifecta supra-annular valve 08/26/2015
Severe tricuspid regurgitation, moderate mitral regurgitation
SVT
Atrial tachycardia
Hypertension
Hyperlipidemia
Type 2 diabetes
Stroke December 2015
Gout
History of falls with compression fractures
Skin cancer
Anxiety
Hysterectomy
Echo: 02/22/2022: EF 70%, severe biatrial enlargement, mild MR, mild MS with mean gradient 9, well-seated bioprosthetic AVR with peak/mean gradient 24/14 mmHg, moderate to severe TR with moderate pulmonary hypertension PAP 50 to 55 mmHg
Echo : May 02, 2023, EF 65 to 70%, mild mitral stenosis with moderate right regurgitation mean gradient of 6, stable bioprosthetic AVR with mean gradient of 15 and trace AI, severe TR with PA pressure 65
Cardiac catheterization 08/27/2015: No significant coronary artery disease
Plan:
She presents with expressive aphasia and possible stroke. MRI of the brain is negative although CT scan of the head and CTA of head and neck are both unremarkable.
She is in A-fib with elevated rates. At this point I would plan on rate control strategy. Continue diltiazem. Will add back metoprolol 100 mg p.o. every 12. She was on this medication as an outpatient. Can reduce doses based on blood pressure
and heart rate.
With possible TIA/CA would avoid hypotension.
No evidence of CVA on CT or MRI, continue Eliquis 2.5 mg p.o. twice daily.; Neurology planning EEG for aphasia
Check lipids, however she has not tolerated statins or Zetia.
Echocardiogram scheduled for tomorrow
Will discuss case with outpatient concert promoter Dr. Ness.
Progress Note - Grazing Examiner
Subjective
Date of Service: December 04, 2023
No acute events overnight. Patient resting comfortably. Expressive aphasia still noted. Sinus rhythm PACs noted on monitor. No other complaints at this time no chest pain, shortness of breath, palpitations.
Objective
Labs:
12/04/23 06:18
12/04/23 06:18
Labs
Hgb 10.3 g/dL (12.0-16.0) L 12/04/23 06:18
Hct 31.7 % (37.0-47.0) L 12/04/23 06:18
Plt Count 163 10^3/uL (130-400) 12/04/23 06:18
PT 15.9 Sec (11.4-14.6) H 12/03/23 11:50
INR 1.29 12/03/23 11:50
APTT 29.8 Sec (23.4-35.0) 12/03/23 11:50
Sodium 135 mmol/L (135-145) 12/04/23 06:18
Potassium 3.7 mmol/L (3.5-5.1) 12/04/23 06:18
BUN 13 mg/dl (7-17) 12/04/23 06:18
Creatinine 0.6 mg/dL (0.6-1.0) 12/04/23 06:18
Glucose 146 mg/dl (70-99) H 12/04/23 06:18
Vital Signs and I&O:
Vital Signs
Temp Pulse Resp BP Pulse Ox
97.6 F 78 16 113/54 95
12/04/23 15:51 12/04/23 15:51 12/04/23 15:51 12/04/23 15:51 12/04/23 15:51
Vital Signs
Temp Pulse Resp BP Pulse Ox
97.6 F 78 16 113/54 95
12/04/23 15:51 12/04/23 15:51 12/04/23 15:51 12/04/23 15:51 12/04/23 15:51
Intake & Output
12/02/23 12/03/23 12/04/23 12/05/23
06:59 06:59 06:59 06:59
Intake Total 480 / 480 450 / 450 325 / 325
Output Total 1350 / 1350 750 / 750 250 / 250
Balance -870 / -870 -300 / -300 75 / 75
Physical Exam
Physical Exam
GENERAL: no acute distress
EYE: sclera anicteric
NECK: Supple, no JVD, no carotid bruit appreciated
ENT: normal nose, moist mucosal membranes
CARDIAC: Regular rate and rhythm, +S1/S2, 2/6 holosystolic murmur; no rubs, or gallops
CHEST/PULMONARY: Normal effort, clear breath sounds
ABDOMEN: Soft, without focal tenderness or distention
NEUROLOGICAL: Alert and oriented x1 (self), expressive aphasia
SKIN: Warm and dry, no rash
PSYCH: Normal and appropriate interaction.
[2023-12-04] MEDS: LOPRESSOR PO (20:00)
[2023-12-04] MEDS: FEOSOL 325 MG PO (21:30)
[2023-12-04] MEDS: MAGNESIUM OXIDE 500 MG PO (21:30)
[2023-12-04] MEDS: JANUVIA 100 MG PO (21:31)
[2023-12-04 21:32] LABS: Glucose - Point of Care 196 mg/dl (70-99)
[2023-12-05] VITALS (8 sets, daily range): BP systolic 92–146; BP diastolic 62–91; PULSE 78–85; O2SAT 98; BMI 20.5
[2023-12-05 06:49] LABS: Hematocrit 29.3 % (37.0-47.0); Hemoglobin 9.5 g/dL (12.0-16.0); Mean Corp Hgb Conc. 32.4 g/dL (33.0-37.0); Mean Corpuscular Hgb 30.1 pg (27.0-31.0); Mean Corpuscular Volume 92.7 fL (81.0-99.0); Mean Platelet Volume 10.6 fL (7.4-10.4); Platelet Count 166 10^3/uL (130-400); Red Blood Cell Count 3.16 10^6/uL (4.20-5.40); Red Cell Dist. Width 15.3 % (11.5-14.5); White Blood Cell Count 4.8 10^3/uL (4.8-10.8)
[2023-12-05 07:06] LABS: Blood Urea Nitrogen 20 mg/dl (7-17); Calcium 8.9 mg/dl (8.4-10.2); Carbon Dioxide 29 mmol/L (22-30); Chloride 99 mmol/L (98-107); Estimated Creatinine Clearance 31 ml/min; Glucose 157 mg/dl (70-99); Sodium 135 mmol/L (135-145); eGFR > 60.00
[2023-12-05] MEDS: LOPRESSOR 100 MG PO (08:08)
[2023-12-05] MEDS: VITAMIN B1 100 MG PO (08:08)
[2023-12-05] MEDS: PROTONIX 40 MG PO (08:08)
[2023-12-05] MEDS: ELIQUIS 2.5 MG PO ×2 (08:09→19:12)
[2023-12-05] MEDS: ZYLOPRIM 100 MG PO (08:09)
[2023-12-05] MEDS: CYANOCOBALAMIN 1000 MCG IM (08:09)
[2023-12-05] MEDS: CARDIZEM CD 180 MG PO (08:09)
[2023-12-05] MEDS: NOVOLOG FLEXPEN-LOW RESISTANCE 1 UNITS SC ×2 (08:12→16:34)
[2023-12-05 08:13] LABS: Glucose - Point of Care 177 mg/dl (70-99)
--- NOTE | 2023-12-05 09:48 | W.PN.CARDCBS ---
Addendum entered and electronically signed by Marino Ness DO 12/05/23 12:33:
I saw and examined the patient.
The Practice Assistant's note was reviewed and I agree with the note.
Comment:
Plan:
Neuro work up continues, EEG pending.
states that she has memory issues which have worsened in the hospital.
HR and bp stable on Lopressor and Diltiazem. Checking orthostatics
Echo is pending
Cont Eliquis for PAfib/cva hx
Has not tolerated statins or zetia.
Discussed with at bedside. .
Original Note:
Today's Communication / Plan
-
Echo completed, report pending
Await EEG results
Continue Eliquis
HR stable on lopressor and diltiazem
Follow BPs.
Impression / Plan
-
PCP: Wandy Cody
Customer Experience Specialist: Dr. Ness
Impression:
TIA/CVA, expressive aphasia
Paroxysmal atrial fibrillation
COVID-19 infection (07/28/2022) and discharge on 08/03/2022
Aortic valve replacement with 19 mm Trifecta supra-annular valve 08/26/2015
Severe tricuspid regurgitation, moderate mitral regurgitation
SVT
Atrial tachycardia
Hypertension
Hyperlipidemia
Type 2 diabetes
Stroke December 2015
Gout
History of falls with compression fractures
Skin cancer
Anxiety
Hysterectomy
Echo: 02/22/2022: EF 70%, severe biatrial enlargement, mild MR, mild MS with mean gradient 9, well-seated bioprosthetic AVR with peak/mean gradient 24/14 mmHg, moderate to severe TR with moderate pulmonary hypertension PAP 50 to 55 mmHg
Echo : May 02, 2023, EF 65 to 70%, mild mitral stenosis with moderate right regurgitation mean gradient of 6, stable bioprosthetic AVR with mean gradient of 15 and trace AI, severe TR with PA pressure 65
Cardiac catheterization 08/27/2015: No significant coronary artery disease
Plan:
-Presented with aphasia and concern for TIA vs CVA. MRI of brain negative, although study noted to be limited by artifact from patient movement.
-Neurology following. EEG completed today, 12/04.
-In afib earlier this admission w/ elevated HR. Improved w/ diltiazem 180mg daily and lopressor 100mg BID.
-In SR currently on review of telemetry. HR stable.
-BP stable, has had some orthostasis. Continue to follow.
-Continue Eliquis 2.5 mg p.o. twice daily for anticoagulation.
-Direct LDL 68. Has not tolerated statins or Zetia.
-Echo completed, report pending 12/04.
Progress Note - Customer Experience Specialist
Subjective
Date of Service: December 05, 2023
Continues w/ aphasia. No other complaints currently.
Objective
Labs:
12/05/23 06:25
12/05/23 06:25
Labs
Hgb 9.5 g/dL (12.0-16.0) L 12/05/23 06:25
Hct 29.3 % (37.0-47.0) L 12/05/23 06:25
Plt Count 166 10^3/uL (130-400) 12/05/23 06:25
PT 15.9 Sec (11.4-14.6) H 12/03/23 11:50
INR 1.29 12/03/23 11:50
APTT 29.8 Sec (23.4-35.0) 12/03/23 11:50
Sodium 135 mmol/L (135-145) 12/05/23 06:25
Potassium 4.0 mmol/L (3.5-5.1) 12/05/23 06:25
BUN 20 mg/dl (7-17) H 12/05/23 06:25
Creatinine 0.8 mg/dL (0.6-1.0) 12/05/23 06:25
Glucose 157 mg/dl (70-99) H 12/05/23 06:25
Vital Signs and I&O:
Vital Signs
Temp Pulse Resp BP Pulse Ox
97.5 F 74 18 125/68 93
12/05/23 07:00 12/05/23 08:09 12/05/23 07:00 12/05/23 08:09 12/05/23 07:00
Vital Signs
Temp Pulse Resp BP Pulse Ox
97.5 F 74 18 125/68 93
12/05/23 07:00 12/05/23 08:09 12/05/23 07:00 12/05/23 08:09 12/05/23 07:00
Intake & Output
12/03/23 12/04/23 12/05/23 12/06/23
06:59 06:59 06:59 06:59
Intake Total 480 / 480 450 / 450 525 / 525
Output Total 1350 / 1350 750 / 750 250 / 250
Balance -870 / -870 -300 / -300 275 / 275
Physical Exam
Physical Exam
GENERAL: no acute distress
EYE: sclera anicteric
ENT: normal nose, moist mucosal membranes
CARDIAC: Regular rate and rhythm, +S1/S2, 2/6 holosystolic murmur; no rubs, or gallops
CHEST/PULMONARY: Normal effort, clear breath sounds
NEUROLOGICAL: expressive aphasia
SKIN: Warm and dry, no rash
--- NOTE | 2023-12-05 09:51 | W.PN.NEURO.1 ---
Addendum entered and electronically signed by Robby Georges MD 12/05/23 14:22:
I saw and evaluate the patient reviewed note by Ruchi Finch agree to find the following comments:
88-year-old woman with past medical history of headache, paroxysmal atrial fibrillation, chronic diastolic heart failure, hypertension presents to hospital with episode of expressive aphasia. This has improved somewhat although her feels
like she is around 50% of her normal mental status interaction and speech. She has had relative hypotension and positive orthostatic vital signs.
Neurologic examination shows fluent speech with naming repetition and comprehension of multistep commands intact
MRI brain reviewed with no infarct seen no masses or hemorrhages
EEG with single right C4 central sharp no seizures
Assessment: Probable TIA. Atrial fibrillation is minor risk factors ongoing fatigue and mild confusion probably attributable to other sources, relative hypotension. Low vitamin B12 may be contributing.
History does not seem consistent with seizure episode to me based on too long of duration and has not had repeated stereotyped episodes suggestive of seizure disorder.
Recommendations
-Continue to follow blood pressures repeat orthostatic vital signs and treat accordingly
-Not going to recommend any antiseizure medication
-Continue Eliquis full dose anticoagulation
-Would start p.o. vitamin B12
Will follow as needed call with questions and concerns
Original Note:
Today's Communication / Plan
-
.
Neuro Assessment/Plan
Assessment
IMPRESSIONS/RECOMMENDATIONS:
Abrupt onset aphasia, improving and then worsening
No evidence of stroke on MRI brain imaging, possibility of TIA is present although less likely based on the on and off aspects in rapid fashion. Additionally it is possible the patient has had significant orthostasis or seizures
Gait dysfunction
May be due to a combination of sensory neuropathy and orthostasis
CTA head and neck:No acute pathology. No evidence of M1 nor M2 occlusion. No carotid dissection.
CT head: negative
MRI of brain was unremarkable
Plan
-Routine EEG pending.
-Follow orthostatic vital signs BID.
-Goal normotension, avoid hypotension.
-Continue home Eliquis 2.5mg BID.
-Added Atorvastatin 10 mg daily to further lower the LDL from 68.
-Goal normoglycemia, hbA1c is 7.5.
-Neurological checks per unit guidelines.
-B12 level is low at 204, continue cyanocobalamin 1000mcg PO daily.
-PT/OT/ST evaluations.
-Will follow pending results.
Subjective/Objective
Subjective Data
Date of Service: December 05, 2023
No acute events overnight. Patient reports that her speech is somewhat improved but she still has constant slight difficulty getting her words out. She denies any headache, dizziness, swallowing difficulty, nausea, weakness, numbness, chest pain,
palpitations, and shortness of breath.
Objective Data
Vital Signs
Temp Pulse Resp BP Pulse Ox
97.5 F 74 18 125/68 93
12/05/23 07:00 12/05/23 08:09 12/05/23 07:00 12/05/23 08:09 12/05/23 07:00
Lab Results
12/05/23 06:25
12/05/23 06:25
PT 15.9 Sec (11.4-14.6) H 12/03/23 11:50
INR 1.29 12/03/23 11:50
APTT 29.8 Sec (23.4-35.0) 12/03/23 11:50
Sodium 135 mmol/L (135-145) 12/05/23 06:25
Potassium 4.0 mmol/L (3.5-5.1) 12/05/23 06:25
BUN 20 mg/dl (7-17) H 12/05/23 06:25
Glucose 157 mg/dl (70-99) H 12/05/23 06:25
Calcium 8.9 mg/dl (8.4-10.2) 12/05/23 06:25
LDL Cholesterol Direct 68 mg/dl 12/03/23 06:30
LDL Cholesterol, Calc 43 mg/dl 12/03/23 06:30
Vitamin B12 204 pg/ml (239-931) L 12/03/23 06:30
Patient Allergies
ezetimibe [From Zetia] Allergy (Unknown, Verified 07/28/23 22:44)
pain in muscles
simvastatin [From Zocor] Allergy (Unknown, Verified 07/28/23 22:44)
pain in muscles
LDL Level: <70, continue statin
Review of Systems
-
History Source: Patient
EENT: Negative Blurry Vision, Decreased Vision or Swallowing Difficulty
Respiratory: Negative Cough or Trouble Breathing
Cardiac: Negative Chest Pain or Palpitations
Abdomen/GI: Negative Nausea
Neuro: Speech Problem; Negative Dizzy, Headache, Weakness, Numbness or Ataxia
Physical Exam
-
General: Well Developed, Well Nourished and No Apparent Distress
Eyes: No Ptosis and PERRLA
HEENT: Normocephalic and Atraumatic
Neck: Full Range of Motion
Respiratory: No Dyspnea
GI: Non-distended
Extremities: No Clubbing, No Cyanosis and No Edema
Psych: Confused
Extended Neurological Exam
Mood & Affect: Mood Unremarkable and Affect Unremarkable
Attention Span & Concentration: Awake, Alert, Interactive and Moderate Difficulty with 2 Step Request
Memory: Reduced (oriented to self, month, place. Confused to situation and year.) and Incomplete Historian
Tremor: Hand Tremor Absent and Head Tremor Absent
Involuntary Movement: None
Speech: Expressive Aphasia (slow speech); Negative Dysarthric
Cranial Nerve II: Left Eye: Pupillary Reactivity Unremarkable, Pupillary Size Unremarkable and Visual Robbins Intact
Cranial Nerve II: Right Eye: Pupillary Reactivity Unremarkable, Pupillary Size Unremarkable and Visual Robbins Intact
Cranial Nerves III, IV, : Extraocular Movement: Extraocular Movement Full in all Directions
Cranial Nerve VII: Facial Symmetry: Reduced (slight right facial droop)
Cranial Nerve VIII: Hearing: Unremarkable Hearing to Normal Conversational Volume
Cranial Nerves IX, X: Palate Movement: Palate Elevation Symmetric
Cranial Nerve XII: Tongue Protusion: Midline
Muscle Strength, Overall: Reduced on Right (RLE 5-/5)
Muscle Bulk & Tone: Bulk Unremarkable and Tone Unremarkable
Pronator Drift: No Drift in Upper Extremities and Drift in Right Lower Extremity
Touch Sensation: Double Simultaneous Stimulation Unremarkable
Coordination: Cuprhp-[id number] Testing Unremarkable
Data Reviewed
-
CT-A: Report Reviewed and Image Reviewed
CT Head: Report Reviewed and Image Reviewed
MRI Head: Report Reviewed and Image Reviewed
EEG: Pending
Orthostatic Testing: Report Reviewed
Labs: Report Reviewed
Lipid Profile: Report Reviewed
HgbA1C: Report Reviewed
Reviewed with: Physician and Patient
Medications
-
Active Medications
Generic Name Dose Route Start Last Admin
Trade Name Freq PRN Reason Stop Dose Admin
Acetaminophen 650 mg 12/02/23 21:42
Acetaminophen 650 Mg Rectal Suppository RECTAL 12/30/23 21:41
Q4HPRN PRN
LAGOS, mild pain, or temp >100.4F
Acetaminophen 650 mg 12/02/23 21:42 12/03/23 05:43
Acetaminophen 325 Mg Tablet PO 12/30/23 21:41 650 mg
Q4HPRN PRN Administration
LAGOS, mild pain, or temp >100.4F
Allopurinol 100 mg 12/03/23 08:00 12/05/23 08:09
Allopurinol 100 Mg Tablet PO 12/31/23 07:59 100 mg
DAILY GIANCARLO Administration
Apixaban 2.5 mg 12/02/23 21:42 12/05/23 08:09
Apixaban (Eliquis) 2.5 Mg Tablet PO 12/30/23 21:41 2.5 mg
BID GIANCARLO Administration
Atorvastatin Calcium 10 mg 12/03/23 18:00 12/04/23 17:57
Atorvastatin (Lipitor) 10 Mg Tablet PO 12/31/23 17:59 10 mg
QPM GIANCARLO Administration
Benzocaine/Menthol 1 lozenge 12/05/23 01:44
Benzocaine/Menthol Lozenge PO 01/02/24 01:43
Q2HPRN PRN
sore throat/cough
Cyanocobalamin 1,000 mcg 12/04/23 14:00 12/05/23 08:09
Cyanocobalamin (1000 Mcg/Ml) 1 Ml Vial IM 01/01/24 13:59 1,000 mcg
DAILY GIANCARLO Administration
Dextrose 12.5 grams 12/03/23 08:59
Dextrose 50% (0.5 Grams/Ml) 50 Ml Syringe IV 12/31/23 08:58
[id number] PRN
hypoglycemia
Protocol
Diltiazem HCl 180 mg 12/03/23 08:00 12/05/23 08:09
Diltiazem 180 Mg Extended Release (24 H) Capsule PO 12/31/23 07:59 180 mg
DAILY GIANCARLO Administration
Ferrous Sulfate 325 mg 12/03/23 22:00 12/04/23 21:30
Ferrous Sulfate 325 Mg Tablet PO 12/31/23 21:59 325 mg
HS GIANCARLO Administration
Glucagon 1 mg 12/03/23 08:59
Glucagon 1 Mg Vial IM 12/31/23 08:58
PRN PRN
hypoglycemia
Protocol
Insulin Aspart 0 units 12/03/23 11:30 12/05/23 08:12
Insulin Aspart Low Resistance 300 Units/3 Ml Pen.Injctr SC 12/31/23 11:29 1 units
AC GIANCARLO Administration
Protocol
Magnesium Oxide 500 mg 12/02/23 22:00 12/04/23 21:30
Magnesium Oxide 500 Mg Tablet PO 12/30/23 21:59 500 mg
HS GIANCARLO Administration
Metoprolol Tartrate 100 mg 12/03/23 09:00 12/05/23 08:08
Metoprolol 100 Mg Regular Release Tablet PO 12/31/23 08:59 100 mg
BID GIANCARLO Administration
Mirtazapine 7.5 mg 12/03/23 22:00 12/03/23 20:27
Mirtazapine 7.5 Mg Regular Release Tablet PO 12/31/23 21:59 7.5 mg
HS GIANCARLO Administration
Pantoprazole Sodium 40 mg 12/03/23 08:00 12/05/23 08:08
Pantoprazole 40 Mg Delayed Release Tablet PO 12/31/23 07:59 40 mg
DAILY GIANCARLO Administration
Sitagliptin Phosphate 100 mg 12/03/23 22:00 12/04/23 21:31
Sitagliptin (Januvia) 100 Mg Tablet PO 12/31/23 21:59 100 mg
HS GIANCARLO Administration
Sodium Chloride 0 flush 12/02/23 22:00
Sodium Chloride 0.9% (Flush) Syringe IV 12/30/23 21:59
PER PROTOCOL GIANCARLO
Thiamine HCl 100 mg 12/04/23 14:00 12/05/23 08:08
Thiamine 100 Mg Tablet PO 12/06/23 08:01 100 mg
DAILY GIANCARLO Administration
Home Medications
�Medication �Instructions �Recorded
calcium carbonate 500 mg-vitamin 1 tab PO DAILY Supplement 08/27/15
D3 3.125 mcg (125 unit) tablet
omeprazole 20 mg capsule,delayed 20 mg PO DAILY Gastrointestinal 08/27/15
release issue
allopurinol 100 mg tablet 100 mg PO DAILY Gout 07/28/22
apixaban 2.5 mg tablet (Eliquis) 2.5 mg PO BID Arrhythmia 07/28/22
diltiazem HCl 120 mg 120 mg PO DAILY Arrhythmia 07/28/22
capsule,extended release 24 hr
metformin 1,000 mg tablet 1,000 mg PO BID Diabetes 07/28/22
mirtazapine 7.5 mg tablet 7.5 mg PO HS Sleep 07/28/22
ferrous sulfate 325 mg (65 mg 325 mg PO DAILY 12/02/23
iron) tablet (FeroSul)
magnesium oxide 500 mg PO HS 12/02/23
sitagliptin phosphate 100 mg 100 mg PO HS 12/02/23
tablet (Januvia)
[2023-12-05 12:41] LABS: Glucose - Point of Care 211 mg/dl (70-99)
--- NOTE | 2023-12-05 13:01 | W.PN.HOSP.TC ---
Today's Communication/Plan
-
.
Assessment / Plan
Assessment / Plan
88-year-old female presented to the hospital with 1 hour of transient aphasia. Patient also was found to have poorly controlled A-fib on admission.
CT of the head and neck-no acute pathology. Multilevel lower cervical spine DJD, retrolisthesis C5 on C6
Echo 05/02/2023-LV size small with normal LV chamber size. EF 65 to 70%. Paradoxical septal motion. Stage II diastolic dysfunction. Moderately dilated RV. Mild mitral stenosis and moderate MR. Well-seated bioprosthetic aortic valve. Severe TR.
Pulmonary pressure of 65 mmHg
Physical Exam
General: No in respiratory Distress.
HEENT: Normocephalic, Moist mucous membranes, Atraumatic, PERRLA and Oxygen
Respiratory: Crackles (faint bibasilar crackles)
Cardiac: S1/S2 and Tachycardia
GI: Soft, Non Tender, Non Distended and Normal Bowel Sounds
Rectal: No rectal bleeding
Genito-urinary: Clear Urine
Musculoskeletal: No Clubbing, No Cyanosis and No Edema
Skin: Warm and Dry
Neuro: awake, confused. Did not follow commands.
Psych: Calm
# Episodic aphasia and confusion
Stroke alert called 12/03/23- per nursing.
Was seen by neuro CT head repeat OK
MRI no CVA
Already on Eliquis as outpatient was not a candidate for thrombolytic therapy
Intolerant of statins
Patient on Eliquis already
Ordered EEG
Neurology evaluation appreciated
#Confusion-suspect hypoperfusion from hypotension.
Repeat orthostatic BP today looked normal
IV fluids
Cut back on metoprolol to 50 twice daily
No evidence of infection
Checking EEG routine
# Paroxysmal Atrial fibrillation with RVR on admission history of atrial tachycardia
On Cardizem 120 mg as outpatient along with Eliquis 2.5 twice daily
Cardizem increased to 180 mg daily and metoprolol 100 mg twice daily added on 12/03/23
Normal TSH
Patient on Eliquis as outpatient already got a dose this morning
She converted to SR
c/w BB
# Acute hypoxic respiratory insufficiency on 2 L of oxygen
Off O2
Chest x-ray without any acute changes
# Underweight
# Anemia-Replace iron PO
B 12 def- Replaced B12
# Hypomagnesemia-replaced
# Chronic heart failure with preserved ejection fraction
# Diabetes continue Januvia. Held metformin with IV dye, resume after 48 hours.
Sliding-scale coverage with Accu-Cheks
# Essential hypertension-CCB,BB
# Bioprosthetic aortic valve
# Atherosclerosis/hyperlipidemia-allergic to statins. May need to look at Repatha or Praluent as OP
# Gout-allopurinol
# Pulmonary hypertension
# Insomnia-on Remeron as outpatient
Resume
# GERD-continue PPI
# History of COVID-19 infection July 2023
# Cervical spine DJD
# Ex-smoker
# DVT prophylaxis-already got a dose of Eliquis
# DNR
Total time spent to see the patient, examine the patient on the floor, review data and lab results, discuss treatment plan with patient and nursing staff around 55 minutes
Anticipated Discharge: 24 - 48 hours
Subjective/Interval History
-
Date of Service: December 05, 2023
No sob
No chest pain
Objective Data
-
Labs:
Laboratory Results
12/05/23
06:25
WBC 4.8
Hgb 9.5 L
Hct 29.3 L
Plt Count 166
Sodium 135
Potassium 4.0
Chloride 99
Carbon Dioxide 29
BUN 20 H
Creatinine 0.8
Glucose 157 H
Calcium 8.9
Vital Signs:
Vital Signs
Temp Pulse Resp BP Pulse Ox
98.1 F 80 18 114/74 99
12/05/23 11:00 12/05/23 11:00 12/05/23 11:00 12/05/23 11:00 12/05/23 11:00
I&O
12/04/23 12/05/23 12/06/23
06:59 06:59 06:59
Intake Total 450 / 450 525 / 525
Output Total 750 / 750 250 / 250
Balance -300 / -300 275 / 275
--- NOTE | 2023-12-05 13:12 | EEG.RPT ---
Electroencephalogram Report
Recording
Date of EE12/05/23
Type of EEG: Routine
Length of EEG recordin minutes
Done with Video Recording: Yes
Patient Status: Inpatient
Recording Conditions: Awake and Drowsy
Hyperventilation Performed: No
Photic Stimulation Performed: Yes
Report
LESS THAN 1 HOUR EEG REPORT
LESS THAN 1 HOUR EEG INTERPRETATION:
Likely unremarkable EEG for age
CLINICAL CORRELATION:
Although normative values not been established for a person of this advanced age, the patient�s symmetry of the background suggests that this study was unremarkable with exception of a single right temporal (C4 maximal) sharp wave.
If clinical suspicion for seizure persists, a prolonged recording may be warranted.
Clinical correlation is advised.
METHODS:
A 21 channel digitized electroencephalogram (EEG) was performed using the 10/20 international system of electrode placement and one-lead of ECG recorded. The [employer]limi quantitative analysis system was utilized.
ELECTROENCEPHALOGRAPHER IMPRESSION(S):
Quality of study
Good
Background
There was an unremarkable anterior-posterior voltage gradient of alpha frequency.
With eye opening the background activity changed to a low voltage mixture of frequencies.
There were no significant asymmetries of background activity noted.
Sleep
Drowsiness present
Photic Stimulation
No driving
ECG
Normal sinus rhythm
Abnormal EEG findings
A single right central (C4 maximal sharp wave was demonstrated).
[2023-12-05] MEDS: NOVOLOG FLEXPEN-LOW RESISTANCE 2 UNITS SC (14:03)
--- NOTE | 2023-12-05 14:20 | PTOTSP ---
ST Follow-Up
Pt appears to have generally functional oropharyngeal and esophageal parameters for safe ingestion of all solids and liquids.
Recommendations:
- Continue with regular solids, thin liquids, and trial meds in pureed solids with encouragement.
- General aspiration precautions.
- LAUNDRY MARKER SUPERVISOR to reach out to family re: baseline cognitive linguistic status to determine if acute tx is deemed warranted.
- LAUNDRY MARKER SUPERVISOR will continue to monitor tolerance of PO intake and oral meds.
[2023-12-05] MEDS: GLUCOPHAGE 1000 MG PO (16:28)
[2023-12-05] MEDS: LIPITOR 10 MG PO (16:28)
[2023-12-05 16:35] LABS: Glucose - Point of Care 176 mg/dl (70-99)
[2023-12-05 16:51] LABS: Glucose - Point of Care 176 mg/dl (70-99)
[2023-12-05] MEDS: LOPRESSOR PO (19:11)
[2023-12-05] MEDS: REMERON 7.5 MG PO (21:21)
[2023-12-05] MEDS: FEOSOL 325 MG PO (21:21)
[2023-12-05] MEDS: MAGNESIUM OXIDE 500 MG PO (21:21)
[2023-12-05 21:27] LABS: Glucose - Point of Care 213 mg/dl (70-99)
[2023-12-05] MEDS: JANUVIA 100 MG PO (21:38)
--- NOTE | 2023-12-06 01:30 | PTCARENOTE ---
pt had a 10 beat run of vtach. pt sleeping. vss. informed AIRPLANE RENTAL CLERK Nadya Rendon
[2023-12-06 07:00] VITALS: BP 123/65
[2023-12-06 07:35] LABS: Blood Urea Nitrogen 23 mg/dl (7-17); Calcium 9.1 mg/dl (8.4-10.2); Carbon Dioxide 24 mmol/L (22-30); Chloride 100 mmol/L (98-107); Estimated Creatinine Clearance 31 ml/min; Glucose 153 mg/dl (70-99); Magnesium 1.7 mg/dl (1.6-2.3); Potassium 4.2 mmol/L (3.5-5.1); Sodium 135 mmol/L (135-145); eGFR > 60.00
[2023-12-06 08:11] LABS: Glucose - Point of Care 159 mg/dl (70-99)
[2023-12-06] MEDS: GLUCOPHAGE 1000 MG PO ×2 (08:16→17:13)
[2023-12-06] MEDS: PROTONIX 40 MG PO (08:16)
[2023-12-06] MEDS: CARDIZEM CD 180 MG PO (08:16)
[2023-12-06] MEDS: ELIQUIS 2.5 MG PO ×2 (08:16→19:00)
[2023-12-06] MEDS: VITAMIN B1 100 MG PO (08:16)
[2023-12-06] MEDS: LOPRESSOR 100 MG PO ×2 (08:16→19:00)
[2023-12-06] MEDS: CYANOCOBALAMIN 1000 MCG IM (08:17)
[2023-12-06] MEDS: NOVOLOG FLEXPEN-LOW RESISTANCE 1 UNITS SC ×2 (08:17→17:16)
[2023-12-06] MEDS: ZYLOPRIM 100 MG PO (08:17)
--- NOTE | 2023-12-06 08:35 | W.PN.CARDCBS ---
Today's Communication / Plan
-
Neuro does not feel pt has seizures. EEG as per neuro.
had stated that she has memory issues which have worsened in the hospital and likely metabolic.
HR and bp stable on Lopressor and Diltiazem. Follow orthostatics
Episode of NSVT 10 beats. Cont beta ronaldo. EF is preserved. Monitor lytes.
Echo Dec 05 2023: EF 69% with small ventricle, significant JON, mild MS, mod MR, well seated bioAVR with mean grad 16 mmHg, mild , severe TR with sever PHTN, PASP 63 mmHg, similar to echo from Apr 2023.
Cont Eliquis for PAfib/cva hx. Remains SR.
Has not tolerated statins or zetia. LDL 68
Discussed with last 24 hrs.
Discussed with nursing
Will arrange outpt follow up
Please recall if needed.
Impression / Plan
-
.
PCP: Wandy Cody
Linux Unix Engineer: Dr. Ness
Impression:
TIA/CVA, expressive aphasia
Paroxysmal atrial fibrillation
COVID-19 infection (07/28/2022) and discharge on 08/03/2022
Aortic valve replacement with 19 mm Trifecta supra-annular valve 08/26/2015
Severe tricuspid regurgitation, moderate mitral regurgitation
SVT
Atrial tachycardia
Hypertension
Hyperlipidemia
Type 2 diabetes
Stroke December 2015
Gout
History of falls with compression fractures
Skin cancer
Anxiety
Hysterectomy
Echo: 02/22/2022: EF 70%, severe biatrial enlargement, mild MR, mild MS with mean gradient 9, well-seated bioprosthetic AVR with peak/mean gradient 24/14 mmHg, moderate to severe TR with moderate pulmonary hypertension PAP 50 to 55 mmHg
Echo : May 02, 2023, EF 65 to 70%, mild mitral stenosis with moderate right regurgitation mean gradient of 6, stable bioprosthetic AVR with mean gradient of 15 and trace AI, severe TR with PA pressure 65
Cardiac catheterization 08/27/2015: No significant coronary artery disease
Plan:
Neuro does not feel pt has seizures. EEG as per neuro.
had stated that she has memory issues which have worsened in the hospital and likely metabolic.
HR and bp stable on Lopressor and Diltiazem. Follow orthostatics
Episode of NSVT 10 beats. Cont beta ronaldo. EF is preserved. Monitor lytes.
Echo Dec 05 2023: EF 69% with small ventricle, significant JON, mild MS, mod MR, well seated bioAVR with mean grad 16 mmHg, mild , severe TR with sever PHTN, PASP 63 mmHg, similar to echo from Apr 2023.
Cont Eliquis for PAfib/cva hx. Remains SR.
Has not tolerated statins or zetia. LDL 68
Discussed with last 24 hrs.
Discussed with nursing
Will arrange outpt follow up
Please recall if needed.
Progress Note - Linux Unix Engineer
Subjective
Date of Service: December 06, 2023
Pt seen and examined.
Objective
Labs:
12/05/23 06:25
12/06/23 06:29
Labs
Hgb 9.5 g/dL (12.0-16.0) L 12/05/23 06:25
Hct 29.3 % (37.0-47.0) L 12/05/23 06:25
Plt Count 166 10^3/uL (130-400) 12/05/23 06:25
PT 15.9 Sec (11.4-14.6) H 12/03/23 11:50
INR 1.29 12/03/23 11:50
APTT 29.8 Sec (23.4-35.0) 12/03/23 11:50
Sodium 135 mmol/L (135-145) 12/06/23 06:29
Potassium 4.2 mmol/L (3.5-5.1) 12/06/23 06:29
BUN 23 mg/dl (7-17) H 12/06/23 06:29
Creatinine 0.8 mg/dL (0.6-1.0) 12/06/23 06:29
Glucose 153 mg/dl (70-99) H 12/06/23 06:29
Vital Signs and I&O:
Vital Signs
Temp Pulse Resp BP Pulse Ox
97.8 F 81 18 146/91 91
12/05/23 22:55 12/06/23 08:16 12/05/23 22:55 12/06/23 08:16 12/05/23 22:55
Vital Signs
Temp Pulse Resp BP Pulse Ox
97.8 F 81 18 146/91 91
12/05/23 22:55 12/06/23 08:16 12/05/23 22:55 12/06/23 08:16 12/05/23 22:55
Intake & Output
12/04/23 12/05/23 12/06/23 12/07/23
06:59 06:59 06:59 06:59
Intake Total 450 / 450 525 / 525 360 / 360
Output Total 750 / 750 250 / 250
Balance -300 / -300 275 / 275 360 / 360
Physical Exam
Physical Exam
General: No acute distress, awake and alert
Neck: Negative JVD
Heart: Regular, Negative S3 positive S1/S2, Negative S4, No murmur
Lungs: CTA b/l, negative wheezes/rales/rhonchi
Abd: Positive BS, NT/ND, neg rebound/rigidity/guarding
Ext: Negative cyanosis/clubbing/edema
Neuro: nonfocal
--- NOTE | 2023-12-06 10:33 | W.PN.HOSP.TC ---
Today's Communication/Plan
-
.dc planning
Assessment / Plan
Assessment / Plan
88-year-old female presented to the hospital with 1 hour of transient aphasia. Patient also was found to have poorly controlled A-fib on admission.
CT of the head and neck-no acute pathology. Multilevel lower cervical spine DJD, retrolisthesis C5 on C6
Echo 05/02/2023-LV size small with normal LV chamber size. EF 65 to 70%. Paradoxical septal motion. Stage II diastolic dysfunction. Moderately dilated RV. Mild mitral stenosis and moderate MR. Well-seated bioprosthetic aortic valve. Severe TR.
Pulmonary pressure of 65 mmHg
Physical Exam
General: No in respiratory Distress.
HEENT: Normocephalic, Moist mucous membranes, Atraumatic, PERRLA and Oxygen
Respiratory: Crackles (faint bibasilar crackles)
Cardiac: S1/S2
GI: Soft, Non Tender, Non Distended and Normal Bowel Sounds
Rectal: No rectal bleeding
Genito-urinary: Clear Urine
Musculoskeletal: No Clubbing, No Cyanosis and No Edema
Skin: Warm and Dry
Neuro: awake, confused to time, place and person. Followed simple commands but overall restlessness in bed.
Psych: mild agitation noted in bed.
# Episodic aphasia and confusion.
reported memory loss around 1 year or so. Mostly short-term memory loss. Patient seems to have underlying cognitive impairment. Possible early stages of dementia either senile or vascular with history of stroke in the past and diabetes.
Nurses reported restlessness at night. Will do low dose Risperdal PRN.
Stroke alert called 12/03/23- per nursing.
Was seen by neuro CT head repeat OK
MRI no CVA
Already on Eliquis as outpatient was not a candidate for thrombolytic therapy
Intolerant of statins. LDL 43. Neurology started her on Lipitor.
Patient on Eliquis already
Ordered EEG, no seizure activity.
Neurology evaluation appreciated
# Paroxysmal Atrial fibrillation with RVR on admission history of atrial tachycardia
On Cardizem 120 mg as outpatient along with Eliquis 2.5 twice daily
Cardizem increased to 180 mg daily and metoprolol 100 mg twice daily added on 12/03/23
Normal TSH
Patient on Eliquis as outpatient already got a dose this morning
She converted to SR
c/w BB
# Acute hypoxic respiratory insufficiency on 2 L of oxygen
Off O2
Chest x-ray without any acute changes
# Underweight
# Anemia-Replace iron PO
B 12 def- Replaced B12
# Hypomagnesemia-replaced
# Chronic heart failure with preserved ejection fraction
# Diabetes continue Januvia. Held metformin with IV dye, resume after 48 hours.
Sliding-scale coverage with Accu-Cheks
# Essential hypertension-CCB,BB
# Bioprosthetic aortic valve
# Atherosclerosis/hyperlipidemia-allergic to statins. May need to look at Repatha or Praluent as OP
# Gout-allopurinol
# Pulmonary hypertension
# Insomnia-on Remeron as outpatient
Resume
# GERD-continue PPI
# History of COVID-19 infection July 2023
# Cervical spine DJD
# Ex-smoker
# DVT prophylaxis-already got a dose of Eliquis
# DNR
Total time spent to see the patient, examine the patient on the floor, review data and lab results, discuss treatment plan with patient, and nursing staff around 55 minutes
Anticipated Discharge: Within 24 hours
Subjective/Interval History
-
Date of Service: December 06, 2023
No chest pain
No sob
Nurses: She did not sleep well last night, confused
Objective Data
-
Labs:
Laboratory Results
12/06/23
06:29
Sodium 135
Potassium 4.2
Chloride 100
Carbon Dioxide 24
BUN 23 H
Creatinine 0.8
Glucose 153 H
Calcium 9.1
Vital Signs:
Vital Signs
Temp Pulse Resp BP Pulse Ox
97.6 F 81 17 146/91 92
12/06/23 07:00 12/06/23 08:16 12/06/23 07:00 12/06/23 08:16 12/06/23 09:26
I&O
12/05/23 12/06/23 12/07/23
06:59 06:59 06:59
Intake Total 525 / 525 360 / 360
Output Total 250 / 250
Balance 275 / 275 360 / 360
[2023-12-06 11:00] VITALS: BP 106/62
[2023-12-06 12:03] LABS: Glucose - Point of Care 221 mg/dl (70-99)
[2023-12-06] MEDS: NOVOLOG FLEXPEN-LOW RESISTANCE 2 UNITS SC (12:17)
[2023-12-06 15:00] VITALS: BP 119/74
[2023-12-06 15:57] VITALS: BP 135/90; PULSE 75; O2SAT 93
[2023-12-06 17:00] LABS: Glucose - Point of Care 184 mg/dl (70-99)
[2023-12-06] MEDS: LIPITOR 10 MG PO (17:13)
[2023-12-06 18:59] VITALS: BP 142/63
[2023-12-06] MEDS: RISPERDAL 0.25 MG PO (20:01)
[2023-12-06] MEDS: TYLENOL 650 MG PO (20:01)
[2023-12-06 21:17] LABS: Glucose - Point of Care 213 mg/dl (70-99)
[2023-12-06] MEDS: FEOSOL 325 MG PO (21:21)
[2023-12-06] MEDS: REMERON 7.5 MG PO (21:21)
[2023-12-06] MEDS: JANUVIA 100 MG PO (21:21)
[2023-12-06] MEDS: MAGNESIUM OXIDE 500 MG PO (21:21)
[2023-12-06 23:15] VITALS: BP 126/80
[2023-12-07 03:09] VITALS: BP 130/70
--- NOTE | 2023-12-07 03:12 | DOWNTIME ---
There was a [employer] Warehouse Worker 2Nd Shift Downtime on 12/06/2023 from 0100 to 12/07/2023 at 0300. Downtime documentation of patient's care, including medication administrations, has been reconciled in the electronic record per guidelines. Refer to the
patient's paper chart under the miscellaneous tab to see printed paper medication records and downtime forms.
[2023-12-07 06:00] VITALS: BMI 20.5
[2023-12-07 07:00] VITALS: BP 143/73
[2023-12-07 08:35] LABS: Glucose - Point of Care 185 mg/dl (70-99)
[2023-12-07] MEDS: NOVOLOG FLEXPEN-LOW RESISTANCE 1 UNITS SC ×2 (08:53→12:45)
[2023-12-07] MEDS: LOPRESSOR PO (08:54)
[2023-12-07] MEDS: ELIQUIS 2.5 MG PO (08:55)
[2023-12-07] MEDS: CYANOCOBALAMIN 1000 MCG IM (08:55)
[2023-12-07] MEDS: ZYLOPRIM 100 MG PO (08:55)
[2023-12-07] MEDS: CARDIZEM CD 180 MG PO (08:55)
[2023-12-07] MEDS: GLUCOPHAGE 1000 MG PO (08:55)
[2023-12-07] MEDS: PROTONIX 40 MG PO (08:55)
--- NOTE | 2023-12-07 10:58 | W.PN.HOSP.TC ---
Addendum entered and electronically signed by Elfego Walsh MD 12/07/23 14:43:
Addendum
Patient seems a stable. No agitation. No worsening neurological examination. No worsening cardiopulmonary examination. Patient will benefit from intermediate facility placement for now.
Cussed with casework supervisor. Will work on discharge, hopefully today
I talked to the yesterday about SNF discharge, he agreed
\\
End
Total discharge time spent to see the patient, examine the patient on the floor, review data and lab results, discuss discharge plan with patient, casework supervisor and nursing staff around 65 minutes
Original Note:
Today's Communication/Plan
-
dc planning
Assessment / Plan
Assessment / Plan
88-year-old female presented to the hospital with 1 hour of transient aphasia. Patient also was found to have poorly controlled A-fib on admission.
CT of the head and neck-no acute pathology. Multilevel lower cervical spine DJD, retrolisthesis C5 on C6
Echo 05/02/2023-LV size small with normal LV chamber size. EF 65 to 70%. Paradoxical septal motion. Stage II diastolic dysfunction. Moderately dilated RV. Mild mitral stenosis and moderate MR. Well-seated bioprosthetic aortic valve. Severe TR.
Pulmonary pressure of 65 mmHg
Physical Exam
General: No in respiratory Distress.
HEENT: Normocephalic, Moist mucous membranes, Atraumatic, PERRLA and Oxygen
Respiratory: much less Crackles (faint bibasilar crackles)
Cardiac: S1/S2
GI: Soft, Non Tender, Non Distended and Normal Bowel Sounds
Rectal: No rectal bleeding
Genito-urinary: Clear Urine
Musculoskeletal: No Clubbing, No Cyanosis and No Edema
Skin: Warm and Dry
Neuro: awake, confused to time, place and person. Followed simple commands.
Psych: calm.
# Episodic aphasia and confusion.
reported memory loss around 1 year or so. Mostly short-term memory loss. Patient seems to have underlying cognitive impairment. Possible early stages of dementia either senile or vascular with history of stroke in the past and diabetes.
Nurses reported restlessness at night. Will do low dose Risperdal PRN.
Stroke alert called 12/03/23- per nursing.
Was seen by neuro CT head repeat OK
MRI no CVA
Already on Eliquis as outpatient was not a candidate for thrombolytic therapy
Intolerant of statins. LDL 43. Neurology started her on Lipitor.
Patient on Eliquis already
Ordered EEG, no seizure activity.
Neurology evaluation appreciated
# Paroxysmal Atrial fibrillation with RVR on admission history of atrial tachycardia
On Cardizem 120 mg as outpatient along with Eliquis 2.5 twice daily
Cardizem increased to 180 mg daily and metoprolol 100 mg twice daily added on 12/03/23
Normal TSH
Patient on Eliquis as outpatient already got a dose this morning
She converted to SR
c/w BB
# Acute hypoxic respiratory insufficiency on 2 L of oxygen
Off O2
Chest x-ray without any acute changes
# Underweight
# Anemia-Replace iron PO
B 12 def- Replaced B12
# Hypomagnesemia-replaced
# Chronic heart failure with preserved ejection fraction
# Diabetes continue Januvia. Held metformin with IV dye, resume after 48 hours.
Sliding-scale coverage with Accu-Cheks
# Essential hypertension-CCB,BB
# Bioprosthetic aortic valve
# Atherosclerosis/hyperlipidemia-allergic to statins. May need to look at Repatha or Praluent as OP
# Gout-allopurinol
# Pulmonary hypertension
# Insomnia-on Remeron as outpatient
Resume
# GERD-continue PPI
# History of COVID-19 infection July 2023
# Cervical spine DJD
# Ex-smoker
# DVT prophylaxis-already got a dose of Eliquis
# DNR
Total time spent to see the patient, examine the patient on the floor, review data and lab results, discuss treatment plan with patient, and nursing staff around 45 minutes
Anticipated Discharge: Today
Subjective/Interval History
-
Date of Service: December 07, 2023
No pain issues
confused, did not sleep well last night
Objective Data
-
Vital Signs:
Vital Signs
Temp Pulse Resp BP Pulse Ox
98.3 F 67 17 143/73 93
12/07/23 07:00 12/07/23 07:00 12/07/23 07:00 12/07/23 07:00 12/07/23 07:15
I&O
12/06/23 12/07/23 12/08/23
06:59 06:59 06:59
Intake Total 360 / 360 710 / 710
Balance 360 / 360 710 / 710
[2023-12-07 11:00] VITALS: BP 138/75
--- NOTE | 2023-12-07 12:43 | CM ---
Addendum entered by GLORIA Rowland 12/07/23 13:25:
Placed a call to patient's spouse to discuss discharge however had to leave a voice mail. Advised patient of discharge. Reviewed IMM. RN reinforced to patient that she needs to go to rehab to get stronger.
Original Note:
Reviewed chart, spoke with attending who stated that patient is medically stable for discharge. Placed a call to [facility] and spoke with Jovita in admissions who confirmed bed availability for today. She requested Covid test. Requested one from
attending.
#Report [phone]
#fax [phone]
Plan: Case management will continue to follow and assist with discharge planning. Patient for discharge today/transfer to [facility].
[2023-12-07 12:44] LABS: Glucose - Point of Care 185 mg/dl (70-99)
--- NOTE | 2023-12-07 12:48 | W.DCSUMMARY ---
Discharge Summary
Discharge Data
Date of Admission: 12/02/23
Date of Discharge: 12/07/23
-
Pending Results: No
Hospital Course
88 years old female came into the hospital with history of transient aphasia. She was found to have atrial fibrillation with rapid ventricular response around 110-130. Patient was evaluated by neurologist for possible acute stroke. Scan of the
head and angiogram did not show acute stroke. No carotid dissection. Patient was taking apixaban for history of atrial fibrillation. No history of dose interruption. Patient was diagnosed with a transient aphasia secondary to possible transient
ischemic attack versus orthostatic hypotension. Repeat orthostatic vital signs did not show hypotension. Magnetic resonance imaging of the brain did not show acute stroke. Low-density lipoprotein was 43. Patient was noticed to have cognitive
impairment. According to the , patient was having short-term memory loss for a year or so. She became more confused in the hospital. Possible underlying senile dementia/vascular dementia. and patient were advised to follow-up with
neurology in the office. She did not have recurrent aphasia or focal neurological symptoms. She was evaluated by physical therapy and recommended to go for jail facility. She was seen by plant care worker. Cardizem dose was increased to
180 mg, continue with metoprolol. Patient remained hemodynamically stable and was discharged in a stable condition.
Discharge Plan
-
Patient Disposition: Intermediate/SNF
Discharge Diagnosis/Procedures: Episodic aphasia and confusion. Differential diagnosis include: TIA, low blood pressure, worsening cognitive impairment
Cognitive impairment with short term memory loss, possible Senile Versus Vascular dementia. Will need OP follow up with neurology.
Paroxysmal A fib.
underweight
Anemia, vitamin B12 deficiency
Bio-prosthetic aortic valve.
Diet: As tolerated
Referrals:
Analisa Resendiz PA-C [Specified Professional Personl] - 12/28/23 2:40 pm (You have a follow up visit with Dr. Thomass Analisa RODRIGUEZ, at the [facility] office. Please call with questions. )
Travis Peng MD [Active] - in one month
Ricardo Alcantara MD [Family Provider] - in one to two weeks
Prescriptions:
New
diltiazem HCl 180 mg Capsule,Extended Release 24hr
180 mg PO DAILY Qty: 30 0RF
metoprolol tartrate 100 mg Tablet
100 mg PO BID Qty: 60 0RF
risperidone 0.25 mg Tablet
0.25 mg PO Q8HPRN PRN (Reason: Agitation, confusion, restless) Qty: 10 0RF
bisacodyl [Dulcolax (bisacodyl)] 5 mg tablet,delayed release (DR/EC)
5 mg PO HS 90 Days Qty: 90 0RF
Continued
calcium carbonate-vitamin D3 1 EACH tablet
1 tab PO DAILY
omeprazole 20 MG capsule,delayed release(DR/EC)
20 mg PO DAILY
allopurinol 100 mg tablet
100 mg PO DAILY
metformin 1,000 mg tablet
1,000 mg PO BID
mirtazapine 7.5 mg tablet
7.5 mg PO HS
Eliquis 2.5 mg tablet
2.5 mg PO BID
ferrous sulfate [FeroSul] 325 mg (65 mg iron) tablet
325 mg PO DAILY
magnesium oxide 500 mg tablet
500 mg PO HS
Januvia 100 mg tablet
100 mg PO HS
Discontinued
diltiazem HCl 120 mg capsule,extended release 24hr
120 mg PO DAILY
Discharge Orders:
Discharge Patient (As Directed); Ordered 12/07/23
Ordered By: Elfego Walsh
Discharge Date and Time
Discharge Date/Time: 12/07/23 17:03
Print Language: QATARI
[2023-12-07 14:22] LABS: COVID-19 Antigen Negative (Negative)
[2023-12-07 15:00] VITALS: BP 113/61
== END 2023-12-07 17:03 | DRG 309 ==
LOC: 3 WEST ACU 19:39
PROVIDERS: Emergency Medicine; Hospitalist; Nurse Practitioner Family; ADMITTING PHYSICIAN Internal Medicine; ATTENDING PHYSICIAN Internal Medicine; CONSULT PHYSICIAN Internal Medicine Cardiovascular Disease; CONSULT PHYSICIAN Psychiatry & Neurology Neurology; EMERGENCY PHYSICIAN Emergency Medicine; FAMILY PHYSICIAN Family Medicine; OTHER PHYSICIAN Surgery
DX: I48.0 Paroxysmal atrial fibrillation (principal); G45.9 Transient cerebral ischemic attack, unspecified; I50.32 Chronic diastolic (congestive) heart failure; R41.89 Other symptoms and signs involving cognitive functions and awareness; D64.9 Anemia, unspecified; R63.6 Underweight; E53.8 Deficiency of other specified B group vitamins; I11.0 Hypertensive heart disease with heart failure; R09.02 Hypoxemia; E83.42 Hypomagnesemia; I27.20 Pulmonary hypertension, unspecified; E11.9 Type 2 diabetes mellitus without complications; Z66 Do not resuscitate; Z95.3 Presence of xenogenic heart valve; Z79.01 Long term (current) use of anticoagulants; Z79.84 Long term (current) use of oral hypoglycemic drugs; Z87.891 Personal history of nicotine dependence
CPT/HCPCS: 70450; 70496; 70498; 70551; 71046; 80048; 80053; 80061; 81003; 81015; 82607; 82728; 82746; 82962; 83036; 83540; 83550; 83721; 83735; 84443; 85025; 85027; 85610; 85652; 85730; 87811; 92523; 92526; 92610; 93005; 93306; 95816; 96374; 97163; 97166; 97530; 97535; 99291; J2916; Q9967

== ENCOUNTER 2024-02-29 23:38 | Inpatient (IN) | payer MEDICARE, SELFPAY ==
[2024-02-29 21:45] VITALS: BMI 19.2
[2024-02-29 21:50] LABS: Glucose - Point of Care 150 mg/dl (70-99)
--- NOTE | 2024-02-29 21:51 | ED.GENMED ---
History of Present Illness
General
Chief Complaint: CVA/TIA Symptoms
Time Seen by Provider: 02/29/24 21:47
History of Present Illness
History of Present Illness:
HPI: The patient presents with acute right-sided weakness started 9 PM. She is on Eliquis. Of note she has been feeling weak globally for the past week or so. Since 9 PM she has been unable to bear weight due to the weakness in the right lower
extremity. She also reports weakness of the right upper extremity.
EXAM:
GENERAL: Well appearing in no distress
HEENT: Moist oral mucosa
CARDIOVASCULAR: 2 out of 6 systolic murmur in the right upper sternal border, normal heart rate, regular rhythm, No chest wall tenderness
PULMONARY: No respiratory distress, some faint rales noted
ABDOMEN: Soft with no peritoneal signs, no tenderness
NEUROLOGIC: 4+ out of 5 strength in the right upper extremity, 3 out of 5 strength in the right lower; NIHSS equals 3, no aphasia
PSYCHIATRIC: Appropriate mental status, normal insight and judgement
EXTREMITIES: Nontender, no edema, moves all extremities equally
SKIN: No rash, no lesions
TIME OF INITIAL ENCOUNTER: 9:50 PM
NUMBER AND COMPLEXITY OF PROBLEMS ADDRESSED AT THE ENCOUNTER
� Chronic conditions affecting care: [place], aortic stenosis, has had TIA, she was just here with transient aphasia in November
� Acute Exacerbation and/or Progression of Chronic Illness: This is an acute problem
� Differential Diagnosis includes: CVA, TIA, intracranial hemorrhage
AMOUNT AND/OR COMPLEXITY OF DATA TO BE REVIEWED AND ANALYZED
� I performed an independent evaluation of and my interpretation is:
EKG: Sinus 80, leftward axis deviation, nonspecific ST admittedly
CT: CT imaging shows no acute abnormal to the brain, CTA head and neck also negative for acute abnormality
X-rays: Chest x-ray suggestive of mild interstitial edema or pneumonitis
Laboratory Studies: White count 5.5, hemoglobin 11.1, mild renal insufficiency noted but otherwise chemistries unremarkable
Other:
� Review of other/old records: I reviewed hospitalization notes from when she was here with transient aphasia in November 2023
� Clinical information was obtained by an independent historian:
� Prescriptions/Medications Considered but not given:
� Further testing considered but not performed:
RISK OF COMPLICATIONS AND/OR MORBIDITY OR MORTALITY OF PATIENT MANAGEMENT
� Social determinants of health affecting care: Lives at home
� Discussion with other providers: Discussed case with Dr. Alcides Bustamante, recommends giving evening dose of Eliquis. Hospitalist, Dr. Lloyd to admit
� Escalation of care including admission/observation vs risk of discharge considered: The patient arrived with an NIH stroke scale of 3. Without intervention NIH stroke scale as of 10:30 PM is 2 as right upper extremity weakness
has resolved. Nurse noted sats in the 70 to 80% range with a good waveform. She does have some rales in the chest x-ray does show some increased markings. However the patient denies any shortness of breath. She was placed on some supplemental
oxygen.
Past History
Past History
ED Past Medical History: Arrthythmia (Afib), CHF (HFpEF), CVA (Left MCA 2016), GERD, HTN, Hypercholesterolemia, NIDDM and Other (Thoracic vertebral compression fracture (T12), Headaches, Anemia, Breast calcifications, COVID-19 07/2023, gout)
ED Past Surgical History: Cardiac (Aortic valve replacement), Gynecological (Hysterectomy), Tonsilectomy and Other (Cataracts)
Social History
Tobacco: Former smoker
Alcohol: Daily (Vodka 1)
Drug: None
Personal:
Living: with family
Family History
Family History: Other (Reviewed and noncontributory)
Phy Exam
Physical Exam
Physical Exam:
See HPI
Course
Orders/Labs/Results
Orders:
Orders
02/29/24 21:47
CT Head W/o Cont STROKE ALERT Urgent
Comment:
Reason For Exam: abrupt RLE>RUE weakness on eliquis
CT Head/Neck Ang STROKE ALERT Urgent
Comment:
Reason For Exam: abrupt RLE>RUE weakness on eliquis
02/29/24 21:48
Electrocardiogram (*1) Urgent
Reason for Study: TIA/Stroke
EKG- Treatment ONCE
02/29/24 21:50
Complete Blood Count/With Diff Urgent
Comprehensive Metabolic Panel Urgent
02/29/24 22:07
Chest X-ray Portable [CR Chest Portable - 1 View] Stat
Comment:
Reason For Exam: hypoxia
Reason Study Needs to be Portable: Patient Unstable
02/29/24 22:31
Apixaban [Eliquis] 2.5 mg PO NOW STA
Abnormal Lab Results
02/29/24 02/29/24
21:49 21:50
RBC 3.54 L 10^6/uL
(4.20-5.40)
Hgb 11.1 L g/dL
(12.0-16.0)
Hct 33.4 L %
(37.0-47.0)
MCH 31.4 H pg
(27.0-31.0)
RDW 18.2 H %
(11.5-14.5)
Monocytes % 11.4 H %
(1.7-9.3)
Chloride 97 L mmol/L
(98-107)
BUN 32 H mg/dl
(7-17)
Creatinine 1.1 H mg/dL
(0.6-1.0)
Glucose 160 H mg/dl
(70-99)
POC Glucose 150 H mg/dl
(70-99)
02/29/24 21:50
02/29/24 21:50
Vital Signs
Initial and Last Documented VS:
Initial Vital Signs
Temp Pulse Resp BP Pulse Ox
97.5 F 81 22 115/80 76
02/29/24 22:00 02/29/24 22:00 02/29/24 22:00 02/29/24 22:00 02/29/24 22:00
Last Documented Vital Signs
Temp Pulse Resp BP Pulse Ox
97.5 F 81 22 115/80 76
02/29/24 22:00 02/29/24 22:00 02/29/24 22:00 02/29/24 22:00 02/29/24 22:00
*Critical Care Note
Total Time (30-74mins, 75-104mins- exclusive of procedures): Not Applicable
ED Attending Note
-
Portions of this chart may have been created with voice recognition software.� Occasional wrong word or��sound alike� substitutions may have occurred due to the inherent limitations of voice recognition software.
Discharge Plan
Departure
Patient Disposition: Admit
Date of Disposition: 02/29/24
Time of Disposition: 22:34
Presentation/result/management discussed w/ accepting MD/DO: Hospitalist
Discharge Problem:
Acute CVA (cerebrovascular accident)
Prescriptions:
No Action
calcium carbonate-vitamin D3 1 EACH tablet
1 tab PO DAILY
omeprazole 20 MG capsule,delayed release(DR/EC)
20 mg PO DAILY
allopurinol 100 mg tablet
100 mg PO DAILY
metformin 1,000 mg tablet
1,000 mg PO BID
Eliquis 2.5 mg tablet
2.5 mg PO BID
ferrous sulfate [FeroSul] 325 mg (65 mg iron) tablet
325 mg PO DAILY
magnesium oxide 500 mg tablet
500 mg PO HS
diltiazem HCl 120 mg capsule,extended release 24hr
120 mg PO DAILY
furosemide 20 mg tablet
20 mg PO DAILY
mirtazapine 15 mg tablet
15 mg PO HS
saxagliptin 5 mg tablet
5 mg PO HS
metoprolol tartrate 100 mg tablet
100 mg PO HS
Interventions
Interventions:
ED- Neurological Assessment Last Done: 02/29/24 22:28
Discharge Date and Time
Print Language: ARGENTINE
[2024-02-29 21:59] LABS: % Basophils 0.5 % (0-2); % Eosinophils 2.7 % (0-6); % Immature Granulocytes 0.2 % (0-0.5); % Lymphocytes 26.4 % (20.5-51.1); % Monocytes 11.4 % (1.7-9.3); % Neutrophils 58.8 % (42.2-75.2); Absolute Eosinophils 0.2 10^3/uL (0-0.7); Absolute Lymphocytes 1.5 10^3/uL (1.2-3.4); Absolute Monocytes 0.6 10^3/uL (0.1-0.6); Absolute Neutrophils 3.3 10^3/uL (1.4-6.5); Hematocrit 33.4 % (37.0-47.0); Hemoglobin 11.1 g/dL (12.0-16.0); Mean Corp Hgb Conc. 33.2 g/dL (33.0-37.0); Mean Corpuscular Hgb 31.4 pg (27.0-31.0); Mean Corpuscular Volume 94.4 fL (81.0-99.0); Mean Platelet Volume 10.2 fL (7.4-10.4); Nucleated Red Blood Cells % 0 %; Platelet Count 169 10^3/uL (130-400); Red Blood Cell Count 3.54 10^6/uL (4.20-5.40); Red Cell Dist. Width 18.2 % (11.5-14.5); White Blood Cell Count 5.5 10^3/uL (4.8-10.8)
[2024-02-29 22:00] VITALS: BP 115/80
[2024-02-29 22:04] VITALS: BP 115/80
[2024-02-29 22:10] LABS: ALT (SGPT) 14 U/L (0-35); AST (SGOT) 29 U/L (14-36); Alkaline Phosphatase 117 U/L (38-126); Blood Urea Nitrogen 32 mg/dl (7-17); Calcium 8.7 mg/dl (8.4-10.2); Carbon Dioxide 22 mmol/L (22-30); Chloride 97 mmol/L (98-107); Glucose 160 mg/dl (70-99); Potassium 4.3 mmol/L (3.5-5.1); Sodium 136 mmol/L (135-145); Total Bilirubin 0.4 mg/dl (0.2-1.3); Total Protein 6.9 g/dl (6.3-8.2); eGFR 48.94
[2024-02-29 23:00] VITALS: BP 105/58
--- NOTE | 2024-02-29 23:06 | HPS.HSE ---
Addendum entered and electronically signed by José Miguel Lloyd MD 03/01/24 13:26:
Brain MRI
small focus of diffusion hyperintense signal within the left mancia radiata with correlative low ADC value which likely represents an acute infarct.
Original Note:
Family Physician
-
Family Physician: Ricardo Alcantara MD
Chief Complaint
-
acute Rt sided weakness
History of Present Illness
88F HX Lt MCA in 2016,. Prx AF on chr Eliquis, Bioprosthetic AoV, HTN, chronic HFpEF, T2DM, BECKA, seen at ER for Rt sided weakness:
- abrupt onset around 9 pm preceded by general debility and weakness for a week
- around 9 pm she is unable to wt bear to weakness especially in Rt Hector and Rt UEx
- currently on Eliquis for Prx AF
- NIHSS 3 per ER attd evaluation
- NOT TNK candidate due to Eliquis use
Medical History
Past Medical History
Past Medical History: Reports Other
Additional Past Medical History:
Prx AF
CHF (HFpEF)
CVA (Left MCA 2015),
GERD
HTN
Hypercholesterolemia
NIDDM
Thoracic vertebral compression fracture (T12)
Headaches
Anemia
Breast calcifications
COVID-19 07/2023
Gout
Past Surgical History: Reports Other
Additional Past Surgical History:
Bioprosthetic Aortic valve replacement
Hysterectomy
Tonsillectomy
Cataracts
Social History
Tobacco: Former Smoker
Alcohol: Daily
Drug: None
Personal:
Living: With Family
Family History
Family History: Not pertinent
Allergies / Home Medications
Allergies reflects when Allergies were last updated in [facility].
Home Medications with original date entered in [facility]
Allergy/Medication List:
Allergies
Allergy/AdvReac Type Severity Reaction Status Date / Time
ezetimibe [From Zetia] Allergy Unknown pain in Verified 02/29/24 22:06
muscles
simvastatin [From Zocor] Allergy Unknown pain in Verified 02/29/24 22:06
muscles
Home Medications
calcium carbonate 500 mg-vitamin D3 3.125 mcg (125 unit) tablet 1 tab PO DAILY Supplement 08/27/15
omeprazole 20 mg capsule,delayed release 20 mg PO DAILY Gastrointestinal issue 08/27/15
allopurinol 100 mg tablet 100 mg PO DAILY Gout 07/28/22
apixaban 2.5 mg tablet (Eliquis) 2.5 mg PO BID Arrhythmia 07/28/22
metformin 1,000 mg tablet 1,000 mg PO BID Diabetes 07/28/22
ferrous sulfate 325 mg (65 mg iron) tablet (FeroSul) 325 mg PO DAILY Supplement 12/02/23
magnesium oxide 500 mg PO HS Electrolyte Repletion 12/02/23
diltiazem HCl 120 mg capsule,extended release 24 hr 120 mg PO DAILY 02/29/24
furosemide 20 mg tablet 20 mg PO DAILY 02/29/24
metoprolol tartrate 100 mg tablet 100 mg PO HS 02/29/24
mirtazapine 15 mg tablet 15 mg PO HS 02/29/24
saxagliptin 5 mg tablet 5 mg PO HS 02/29/24
Review of Systems
-
Constitutional: Reports No Symptoms
EENT: Reports No Symptoms
Respiratory: Reports No Symptoms
Cardiac: Reports No Symptoms
Abdomen/GI: Reports No Symptoms
: Reports No Symptoms
Musculoskeletal: Reports No Symptoms
Skin: Reports No Symptoms
Neurological: Reports Weakness (Lt sided weakness )
Endocrine: Reports No Symptoms
Hematologic/Lymphatic: Reports No Symptoms
Psych: Reports No Symptoms
Physical Exam
Vital Signs
Vital Signs
Temp Pulse Resp BP Pulse Ox
97.5 F 81 19 115/80 95
02/29/24 22:00 02/29/24 22:45 02/29/24 22:45 02/29/24 22:04 02/29/24 22:46
Physical Exam
General: No Apparent Distress, Comfortable, Conversant and Other (thin )
HEENT: NormoCephalic, Anicteric, Moist mucous membranes and No Ptosis
Respiratory: Clear; No Wheezes or Rales
Cardiac: S1/S2, Regular Rhythm and Murmur
GI: Soft, Non Tender and Non Distended
Genito-urinary: Deferred by me
Musculoskeletal: No Edema
Neuro: Awake, Alert, AO x 3 and Other (Rt sided weakness of UEx > Hector )
Psych: Calm
Laboratory Results
-
02/29/24 21:50
02/29/24 21:50
Laboratory Results
Total Bilirubin 0.4 mg/dl (0.2-1.3) 02/29/24 21:50
AST 29 U/L (14-36) 02/29/24 21:50
ALT 14 U/L (0-35) 02/29/24 21:50
Alkaline Phosphatase 117 U/L (38-126) 02/29/24 21:50
Data Reviewed
-
Diagnostic Radiology: Report Reviewed by me
CT Scan: Report Reviewed by me
Lab Data: Labs Reviewed by me
Old Records: Reviewed
Impression/Plan
-
Reviewed VS:
Vital Signs
Temp Pulse Resp BP Pulse Ox
97.5 F 81 19 115/80 95
02/29/24 22:00 02/29/24 22:45 02/29/24 22:45 02/29/24 22:04 02/29/24 22:46
Data
Hgb 11.1
Cl 97
BUN 32
eGFR 49
Cr 1.1
Pending pro BNP
02/29/24 CXR
Limited study, as described.
Cardiomegaly again seen.
Slightly prominent widespread pulmonary interstitial markings which could represent interstitial edema or pneumonitis.
02/29/24 HCT:
No acute intracranial abnormality or significant interval change
02/29/24 H & N CTA
- Atherosclerotic changes of the carotid arterial system bilaterally without hemodynamically significant stenosis or findings to suggest internal carotid artery dissection bilaterally.
- Mildly dominant left vertebral artery. No findings to suggest vertebral artery dissection bilaterally.
- No findings to suggest proximal intracranial arterial stenosis bilaterally.
12/05/23 TTE
- LVEF 69%
- Significant biatrial enlargement.
- Mild mitral stenosis. Moderate mitral regurgitation.
- Well-seated bioAVR with peak/mean gradients across the aortic valve are 26/16 mmHg.
- Mild aortic stenosis.
- Severe tricuspid regurgitation.
- Severe pulmonary hypertension with estimated pulmonary artery pressure of 63 mmHg.
Last hospitalist admission: 12/02/23 - 12/07/23 DC Dxs:
- Episodic aphasia and confusion. Differential diagnosis include: TIA, low blood pressure, worsening cognitive impairment
- Cognitive impairment with short term memory loss, possible Senile Versus Vascular dementia.
- Paroxysmal A fib.
- underweight
- Anemia, vitamin B12 deficiency
- Bio-prosthetic aortic valve.
ASSESSMENT & PLAN
Acute Rt sided weakness ( Hector > UEx ) with NIHSS 3
- suspect recrudescence Lt sided CVA
- NEG HCT and NEG H & N CTA
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
- HX Lt MCA CVA
- cont Eliquis per ER d/w Neuro
- Brain MRI in AM
- PT/OT
- Neuro consulted
HLD with HX allergic to Statin
- currently not on statin
DMT2
- add ISS low
- Held Metformin
- cont. Saxagliptin for now
Borderline hypotension
HX Chr HFpEF
HX severe PHT
- cont PO Lasix with hold parameters
HX Prx AF on Eliquis
- rate control with Diltiazem and Metoprolol tartrate
Valvular heart dz
HX Bioprosthetic AoVR
Mild aortic stenosis.
Severe tricuspid regurgitation.
Mild mitral stenosis.
Moderate mitral regurgitation
Essential HTN
- cont. Frusemide, BB and Diltiazem
Known HX
HX BECKA Anemia: on Fe tablet
HX Gout; on Allopurinol
Insomnia: on Remeron as outpatient
Cervical spine DJD
Ex-smoker
DVT Px: chr Eliquis
Code: DNR
IP TLM
[2024-02-29] MEDS: ELIQUIS 2.5 MG PO (23:15)
[2024-02-29 23:29] LABS: NT-proBNP 9240 pg/ml
[2024-02-29 23:45] VITALS: BP 115/81
[2024-03-01 00:12] VITALS: BP 106/69
[2024-03-01 00:47] VITALS: BP 132/79
--- NOTE | 2024-03-01 03:00 | PTCARENOTE ---
Received pt from ER.awake alert,tolerated transfer well.Pt NIH 3,due to Right lower leg weakness,pt passed swallow eval.VS stable,afebrile ,SR auto claim representative,physical assessment preformed with ease.Pt denies pain at this time.Close observation
ongoing throughout the night.
--- NOTE | 2024-03-01 07:30 | PTCARENOTE ---
NIH and neuro checks done at 0730 due to getting patient ready to go down to MRI and not being on floor.
[2024-03-01 07:51] VITALS: BP 144/98
[2024-03-01] MEDS: NOVOLOG FLEXPEN-LOW RESISTANCE SC (08:30)
[2024-03-01 08:59] LABS: HDL Cholesterol 57 mg/dl; LDL Cholesterol, Calculated 64 mg/dl; Total Cholesterol 135 mg/dl (50-199); Triglyceride 73 mg/dl (10-149); Very Low Density Lipoprotein 14 mg/dl (0-30)
--- NOTE | 2024-03-01 09:20 | CON.NEURO4 ---
Documented by User: Ruchi Soto NP 03/01/24 12:47
Consultation - Neurology 4
-
CONSULTING PHYSICIAN: Alcides Bustamante MD
REFERRING PHYSICIAN: Hospitalists/Dr. Lloyd
DICTATED BY: JANET Castillo
DATE/TIME OF REQUEST: 03/01/24
DATE/TIME OF CONSULTATION: 03/01/24
Reason for Consultation: Right-sided weakness
History of Present Illness:
This is an 88-year-old right-handed female who has presented to the hospital on 02/29/24 with report of right-sided weakness. Patient has been evaluated by our Neurology service in 2015 and again in November 2023 for expressive aphasia.
From previous evaluation by Dr. Peng on 12/03/23:
'Adapted from consultation in December 2015
80 year old right handed female admitted with c/o daily h/a x 1 month. The h/a's are bi-temporal. She came to ED with h/a 2 nights ago since it was more severe, had neg head CT and sent home. Returned yesterday with h/a and expressive and receptive
aphasia noted by around 1700. He thought she was incoherent-no prior hx of similar episodes in past. no associated visual changes, focal weakness or balance difficultly. He thinks she is better this AM but not back to normal. 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 feels h/a is worse in the evening. patient does recall her thinking she had a problem yesterday but she did
not feel she did. no prior hx strokes. still with c/o h/a but feels it is much better now. Feels tylenol sometimes took the pain away. She has been in an exercise program and her BP's have been ok. saw her stove bottom worker 01-12-16 and her metoprolol was
decreased d/t her c/o headaches then but there has been no change in her h/a since then. Patient was not felt to be IV tpa candidate d/t NIHSS 0 in ED.
~~~
Subsequently, patient found to have a left MCA territory acute ischemic stroke. Patient was placed on a combination of aspirin and clopidogrel, then told to continue aspirin alone.
Patient returned to this hospital's emergency department with sudden onset aphasia lasting approximately 1 hour, resolving prior to presentation to this hospital's emergency department. BP was 'high' according to patient's prior to ED
presentation.'
MRI brain on 12/03/23 with no infarct seen no masses or hemorrhages and EEG imaging demonstrated a single right C4 sharp wave but no seizures. Event was deemed a TIA.
Today (03/01/24), patient reports about a two week history of feeling generalized weakness and fatigue. Two nights ago on 02/28/24, she reports preparing to head upstairs to get ready for bed around 1830, when she suddenly developed RUE weakness and
couldn't grasp a cup with her right hand. Her RUE weakness seemed to improve in 1-1.5 hours, and by the time she went to bed it felt at her baseline. She reports waking up yesterday (03/01/24), and her RUE seemed okay but she noticed that her RLE felt
slightly weak. She was able to go about her day and walk without assistance but her RLE still felt 'off.' Around 2100, she reports a sudden worsening of her RLE weakness to the point of not being able to walk without assistance. CT head and CTA
head/neck were obtained on arrival in the ER and is negative for any acute findings. NIHSS was initially a 3 for RUE drift and RLE partial vs gravity, but her RUE improved and NIHSS became a 2 for RLE partial vs gravity. She was not a candidate for
TNK/IAT due to Eliquis usage/no LVO. She denies missing any doses of her Eliquis but she had not yet taken her evening dose so that was provided in the ER. Pro-BNP is elevated at 9,240 and GFR is 48.94. This morning (03/01/24), she reports that her
RUE feels at his baseline but her RLE is still weak. She denies any headache, dizziness, vision changes, speech/swallow difficulty, numbness, neck/back pain, chest pain, palpitations, and shortness of breath.
Past Medical History: L MCA small ischemic infarct 2016, Afib (Eliquis), HFpEF, HTN, HLD, NIDDM, GERD, T12 compression fracture, anemia, gout
Surgical History: AVR, hysterectomy, tonsillectomy, b/l cataract removal
Family History: Reviewed and noncontributory.
Social History: Former smoker. One vodka drink daily. Denies illicit drug use.
Allergies: Simvastatin, ezetimibe.
Home Medications: See below.
Review of Symptoms:
Patient denies any fever, headache, chest pain, shortness of breath, GI or symptoms.
�Per the HPI.�All systems are reviewed negative except above.
Physical Exam:
The patient is afebrile, abdomen is nondistended, breathing is unlabored, skin is warm and dry, no edema. Wearing oxygen via nasal cannula.
NIH Stroke Scale:
I performed the NIH stroke scale on the patient on 03/01/24 at 1015. The patient scored 2 points on the NIH stroke scale assessment, which were assigned as follows: See below.
Neurologic Examination:
The patient is awake, alert and oriented x 3. She is able to follow commands and answer questions appropriately. There is no aphasia or dysarthria. On cranial nerve assessment, pupils are 3 mm bilateral, round and reactive to light and
accommodation. Visual robbins are full. Extraocular movements are intact. Facial sensations are intact and bilaterally symmetrical, there is no facial asymmetry. Hearing is intact bilaterally to normal conversation volume. Tongue palate and uvula are
midline. Sternocleidomastoid strengths are full bilaterally. Motor strengths are 5/5 bilateral upper, 5/5 LLE, and 4-/5 RLE on medical research [place] scale. There is drift in the RLE. No involuntary movement noted. Deep tendon reflexes are 1+
bilateral upper and lower extremities and Babinski is absent bilaterally. Sensations of touch, temperature and vibration are intact and bilaterally symmetrical. There was no extinction noted on double simultaneous stimulation. Coordination is intact
by finger to nose bilaterally. RLE with mild ataxia.
Lab Results: See below.
Neuro Imaging:
1. CT Head 02/29/24: No acute intracranial abnormality or significant interval change. ASPECTS score: 10.
2. CTA head/neck 02/29/24: Atherosclerotic changes of the carotid arterial system bilaterally without hemodynamically significant stenosis or findings to suggest internal carotid artery dissection bilaterally. Mildly dominant left vertebral artery. No
findings to suggest vertebral artery dissection bilaterally. No findings to suggest proximal intracranial arterial stenosis bilaterally.
3. MRI brain 03/01/24: There is a small focus of diffusion hyperintense signal within the left mancia radiata with correlative low ADC value which likely represents an acute infarct. Sequelae of mild small vessel ischemic disease.
Differentials for the patient's presentation include:
1. Small left mancia radiata acute ischemic infarct likely producing RLE weakness. Etiology likely cardioembolic vs small vessel disease.
2. Low concern for spinal abnormality producing weakness given absence of back/neck pain and sudden onset.
3. Afib (Eliquis)
4. CHF exacerbation.
5. DEVANG.
Patient has the following risk factors for their symptoms: Afib, small vessel disease, HTN, HLD, NIDDM
IV Tenecteplase/IAT candidacy: She was not a candidate for TNK/IAT due to Eliquis usage/no LVO.
Recommendations:
-Okay to continue home Eliquis 2.5mg BID.
-Permissive hypertension SBP<220, DBP<120 until 2100 tonight, then goal normotension.
-LDL goal <70. LDL is 64. Patient is intolerant to statins. Okay to hold off on initiating statin therapy as LDL is at goal.
-Goal normoglycemia, hbA1c is 7.5.
-NIHSS and neurological checks per unit guidelines.
-Provide patient with a stroke education packet.
-Rechecking B12 level as it has been significantly low in the past/patient is not taking a B12 supplement.
-PT/OT/ST evaluations.
-DVT prophylaxis with OAC.
-Patient should follow-up with Neurology as an outpatient, may see the FOOD BROKER or one of the physicians.
Discussed patient care with: Dr. Bustamante, the patient
Vital Signs and Labs
-
Vital Signs and Labs:
Vital Signs
Temp Pulse Resp BP Pulse Ox
97.9 F 93 16 144/98 95
03/01/24 07:51 03/01/24 07:51 03/01/24 07:51 03/01/24 09:43 03/01/24 07:51
Lab Results
02/29/24 21:50
Sodium 136 mmol/L (135-145) 02/29/24 21:50
Potassium 4.3 mmol/L (3.5-5.1) 02/29/24 21:50
BUN 32 mg/dl (7-17) H 02/29/24 21:50
Glucose 160 mg/dl (70-99) H 02/29/24 21:50
Calcium 8.7 mg/dl (8.4-10.2) 02/29/24 21:50
Zaq-V-[id number] Pept 9240 pg/ml 02/29/24 21:50
LDL Cholesterol, Calc 64 mg/dl 03/01/24 07:46
Medications
-
Active Medications
Generic Name Dose Route Start Last Admin
Trade Name Freq PRN Reason Stop Dose Admin
Acetaminophen 650 mg 03/01/24 00:44
Acetaminophen 650 Mg Rectal Suppository RECTAL 03/29/24 00:43
Q4HPRN PRN
LAGOS, mild pain, or temp >100.4F
Acetaminophen 650 mg 03/01/24 00:44
Acetaminophen 325 Mg Tablet PO 03/29/24 00:43
Q4HPRN PRN
LAGOS, mild pain, or temp >100.4F
Allopurinol 50 mg 03/01/24 08:00 03/01/24 09:45
Allopurinol 100 Mg Tablet PO 03/29/24 07:59 50 mg
DAILY GIANCARLO Administration
Apixaban 2.5 mg 03/01/24 08:00 03/01/24 09:43
Apixaban (Eliquis) 2.5 Mg Tablet PO 03/29/24 07:59 2.5 mg
BID GIANCARLO Administration
Dextrose 12.5 grams 03/01/24 00:44
Dextrose 50% (0.5 Grams/Ml) 50 Ml Syringe IV 03/29/24 00:43
[id number] PRN
hypoglycemia
Protocol
Diltiazem HCl 120 mg 03/01/24 08:00 03/01/24 09:44
Diltiazem 120 Mg Extended Release (24 H) Capsule PO 03/29/24 07:59 120 mg
DAILY GIANCARLO Administration
Ferrous Sulfate 325 mg 03/01/24 08:00 03/01/24 09:43
Ferrous Sulfate 325 Mg Tablet PO 03/29/24 07:59 325 mg
DAILY GIANCARLO Administration
Furosemide 40 mg 03/02/24 08:00
Furosemide 40 Mg (10 Mg/Ml) 4 Ml Vial IV 03/30/24 07:59
DAILY GIANCARLO
Glucagon 1 mg 03/01/24 00:44
Glucagon 1 Mg Vial IM 03/29/24 00:43
PRN PRN
hypoglycemia
Protocol
Insulin Aspart 0 units 03/01/24 07:30
Insulin Aspart Low Resistance 300 Units/3 Ml Pen.Injctr SC 03/29/24 07:29
AC GIANCARLO
Protocol
Metoprolol Tartrate 100 mg 03/01/24 22:00
Metoprolol 100 Mg Regular Release Tablet PO 03/29/24 21:59
HS GIANCARLO
Mirtazapine 7.5 mg 03/01/24 22:00
Mirtazapine 7.5 Mg Regular Release Tablet PO 03/29/24 21:59
HS GIANCARLO
Pantoprazole Sodium 40 mg 03/01/24 08:00 03/01/24 09:43
Pantoprazole 40 Mg Delayed Release Tablet PO 03/29/24 07:59 40 mg
DAILY GIANCARLO Administration
Sitagliptin Phosphate 100 mg 03/01/24 22:00
Sitagliptin (Januvia) 100 Mg Tablet PO 03/29/24 21:59
HS GIANCARLO
Sodium Chloride 0 flush 03/01/24 01:00
Sodium Chloride 0.9% (Flush) Syringe IV 03/29/24 00:59
PER PROTOCOL GIANCARLO
Home Medications
�Medication �Instructions �Recorded
calcium carbonate 500 mg-vitamin 1 tab PO DAILY Supplement 08/27/15
D3 3.125 mcg (125 unit) tablet
omeprazole 20 mg capsule,delayed 20 mg PO DAILY Gastrointestinal 08/27/15
release issue
allopurinol 100 mg tablet 100 mg PO DAILY Gout 07/28/22
apixaban 2.5 mg tablet (Eliquis) 2.5 mg PO BID Arrhythmia 07/28/22
metformin 1,000 mg tablet 1,000 mg PO BID Diabetes 07/28/22
ferrous sulfate 325 mg (65 mg 325 mg PO DAILY Supplement 12/02/23
iron) tablet (FeroSul)
magnesium oxide 500 mg PO HS Electrolyte Repletion 12/02/23
diltiazem HCl 120 mg 120 mg PO DAILY 02/29/24
capsule,extended release 24 hr
furosemide 20 mg tablet 20 mg PO DAILY 02/29/24
metoprolol tartrate 100 mg tablet 100 mg PO HS 02/29/24
mirtazapine 15 mg tablet 15 mg PO HS 02/29/24
saxagliptin 5 mg tablet 5 mg PO HS 02/29/24
NIH Stroke Score
Subsequent NIH Scale
Date of Subsequent NIH Scale: 03/01/24
Time of Subsequent NIH Scale: 10:15
NIH Stroke Score
Level of Consciousness: 0 - Alert
LOC Questions: 0-Answers both correctly
LOC Commands: 0-Performs both correctly
Best Horizontal Gaze: 0-Normal
Visual Robbins: 0=Normal, no visual loss
Facial Palsy: 0=Normal, symmetrical
Motor - Right Arm: 0=No drift 10 seconds
Motor - Left Arm: 0=No drift 10 seconds
Motor - Right Le-Drift < 5 seconds
Motor - Left Le-No drift 5 seconds
Limb Ataxia: 1-Present in one limb
Sensation: 0-Normal
Best Language: 0-No aphasia
Dysarthria: 0-Normal
Extinction and Inattention: 0-No abnormality
Total Score:: 2
Modified [place] (mRS) Score
Modified [place] Scale (mRS): Slight disability. Able to look after own affairs.
Score: 2
Alteplase Contraindication
Inclusion and Exclusion criteria reviewed: Yes
Reasons for NON-Tx with Thrombolytics ABSOLUTE Exclusions: Patient taking oral anticoagulant and last dose within 48 hours
IAT Contraindications: Imaging doesn't show large vessel occlusion as cause of stroke

Documented by User: Alcides Bustamante MD 03/02/24 08:00
Consultation - Neurology 4
-
CONSULTING PHYSICIAN: Alcides Bustamante MD
REFERRING PHYSICIAN: Hospitalists/Dr. Lloyd
DICTATED BY: JANET Castillo
DATE/TIME OF REQUEST: 03/01/24
DATE/TIME OF CONSULTATION: 03/01/24
Reason for Consultation: Right-sided weakness
History of Present Illness:
This is an 88-year-old right-handed female who has presented to the hospital on 02/29/24 with report of right-sided weakness. Patient has been evaluated by our Neurology service in 2015 and again in November 2023 for expressive aphasia.
From previous evaluation by Dr. Peng on 12/03/23:
'Adapted from consultation in December 2015
80 year old right handed female admitted with c/o daily h/a x 1 month. The h/a's are bi-temporal. She came to ED with h/a 2 nights ago since it was more severe, had neg head CT and sent home. Returned yesterday with h/a and expressive and receptive
aphasia noted by around 1700. He thought she was incoherent-no prior hx of similar episodes in past. no associated visual changes, focal weakness or balance difficultly. He thinks she is better this AM but not back to normal. 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 feels h/a is worse in the evening. patient does recall her thinking she had a problem yesterday but she did
not feel she did. no prior hx strokes. still with c/o h/a but feels it is much better now. Feels tylenol sometimes took the pain away. She has been in an exercise program and her BP's have been ok. saw her stove bottom worker 01-12-16 and her metoprolol was
decreased d/t her c/o headaches then but there has been no change in her h/a since then. Patient was not felt to be IV tpa candidate d/t NIHSS 0 in ED.
~~~
Subsequently, patient found to have a left MCA territory acute ischemic stroke. Patient was placed on a combination of aspirin and clopidogrel, then told to continue aspirin alone.
Patient returned to this hospital's emergency department with sudden onset aphasia lasting approximately 1 hour, resolving prior to presentation to this hospital's emergency department. BP was 'high' according to patient's prior to ED
presentation.'
MRI brain on 12/03/23 with no infarct seen no masses or hemorrhages and EEG imaging demonstrated a single right C4 sharp wave but no seizures. Event was deemed a TIA.
Today (03/01/24), patient reports about a two week history of feeling generalized weakness and fatigue. Two nights ago on 02/28/24, she reports preparing to head upstairs to get ready for bed around 1830, when she suddenly developed RUE weakness and
couldn't grasp a cup with her right hand. Her RUE weakness seemed to improve in 1-1.5 hours, and by the time she went to bed it felt at her baseline. She reports waking up yesterday (03/01/24), and her RUE seemed okay but she noticed that her RLE felt
slightly weak. She was able to go about her day and walk without assistance but her RLE still felt 'off.' Around 2100, she reports a sudden worsening of her RLE weakness to the point of not being able to walk without assistance. CT head and CTA
head/neck were obtained on arrival in the ER and is negative for any acute findings. NIHSS was initially a 3 for RUE drift and RLE partial vs gravity, but her RUE improved and NIHSS became a 2 for RLE partial vs gravity. She was not a candidate for
TNK/IAT due to Eliquis usage/no LVO. She denies missing any doses of her Eliquis but she had not yet taken her evening dose so that was provided in the ER. Pro-BNP is elevated at 9,240 and GFR is 48.94. This morning (03/01/24), she reports that her
RUE feels at his baseline but her RLE is still weak. She denies any headache, dizziness, vision changes, speech/swallow difficulty, numbness, neck/back pain, chest pain, palpitations, and shortness of breath.
Past Medical History: L MCA small ischemic infarct 2016, Afib (Eliquis), HFpEF, HTN, HLD, NIDDM, GERD, T12 compression fracture, anemia, gout
Surgical History: AVR, hysterectomy, tonsillectomy, b/l cataract removal
Family History: Reviewed and noncontributory.
Social History: Former smoker. One vodka drink daily. Denies illicit drug use.
Allergies: Simvastatin, ezetimibe.
Home Medications: See below.
Review of Symptoms:
Patient denies any fever, headache, chest pain, shortness of breath, GI or symptoms.
�Per the HPI.�All systems are reviewed negative except above.
Physical Exam:
The patient is afebrile, abdomen is nondistended, breathing is unlabored, skin is warm and dry, no edema. Wearing oxygen via nasal cannula.
NIH Stroke Scale:
I performed the NIH stroke scale on the patient on 03/01/24 at 1015. The patient scored 2 points on the NIH stroke scale assessment, which were assigned as follows: See below.
Neurologic Examination:
The patient is awake, alert and oriented x 3. She is able to follow commands and answer questions appropriately. There is no aphasia or dysarthria. On cranial nerve assessment, pupils are 3 mm bilateral, round and reactive to light and
accommodation. Visual robbins are full. Extraocular movements are intact. Facial sensations are intact and bilaterally symmetrical, there is no facial asymmetry. Hearing is intact bilaterally to normal conversation volume. Tongue palate and uvula are
midline. Sternocleidomastoid strengths are full bilaterally. Motor strengths are 5/5 bilateral upper, 5/5 LLE, and 4-/5 RLE on medical research [place] scale. There is drift in the RLE. No involuntary movement noted. Deep tendon reflexes are 1+
bilateral upper and lower extremities and Babinski is absent bilaterally. Sensations of touch, temperature and vibration are intact and bilaterally symmetrical. There was no extinction noted on double simultaneous stimulation. Coordination is intact
by finger to nose bilaterally. RLE with mild ataxia.
Lab Results: See below.
Neuro Imaging:
1. CT Head 02/29/24: No acute intracranial abnormality or significant interval change. ASPECTS score: 10.
2. CTA head/neck 02/29/24: Atherosclerotic changes of the carotid arterial system bilaterally without hemodynamically significant stenosis or findings to suggest internal carotid artery dissection bilaterally. Mildly dominant left vertebral artery. No
findings to suggest vertebral artery dissection bilaterally. No findings to suggest proximal intracranial arterial stenosis bilaterally.
3. MRI brain 03/01/24: There is a small focus of diffusion hyperintense signal within the left mancia radiata with correlative low ADC value which likely represents an acute infarct. Sequelae of mild small vessel ischemic disease.
Differentials for the patient's presentation include:
1. Small left mancia radiata acute ischemic infarct likely producing RLE weakness. Etiology likely cardioembolic vs small vessel disease.
2. Low concern for spinal abnormality producing weakness given absence of back/neck pain and sudden onset.
3. Afib (Eliquis)
4. CHF exacerbation.
5. DEVANG.
Patient has the following risk factors for their symptoms: Afib, small vessel disease, HTN, HLD, NIDDM
IV Tenecteplase/IAT candidacy: She was not a candidate for TNK/IAT due to Eliquis usage/no LVO.
Recommendations:
-Okay to continue home Eliquis 2.5mg BID.
-Permissive hypertension SBP<220, DBP<120 until 2100 tonight, then goal normotension.
-LDL goal <70. LDL is 64. Patient is intolerant to statins. Okay to hold off on initiating statin therapy as LDL is at goal.
-Goal normoglycemia, hbA1c is 7.5.
-NIHSS and neurological checks per unit guidelines.
-Provide patient with a stroke education packet.
-Rechecking B12 level as it has been significantly low in the past/patient is not taking a B12 supplement.
-PT/OT/ST evaluations.
-DVT prophylaxis with OAC.
-Patient should follow-up with Neurology as an outpatient, may see the FOOD BROKER or one of the physicians.
Discussed patient care with: Dr. Bustamante, the patient
Addendum: Neurology Attending
88 yr. old lady with h/o chronic atrial fibrillation, HTN, CHF, NIDDM, gout, T12 compression fracture, OA with h/o small vessel disease who was admitted with right leg weakness with MRI finding of acute left centrum semiovale lacunar infarction
PLAN:
1. Continue Eliquis
2. Strict BP control
3. Strict glucose control
4. PT/OT
She can be discharged home
NIH Stroke Score
NIH Stroke Score
Total Score:: 2
Modified [place] (mRS) Score
Score: 2
[2024-03-01] MEDS: PROTONIX 40 MG PO (09:43)
[2024-03-01] MEDS: FEOSOL 325 MG PO (09:43)
[2024-03-01] MEDS: ELIQUIS 2.5 MG PO ×2 (09:43→22:46)
[2024-03-01] MEDS: LASIX 20 MG PO (09:43)
[2024-03-01] MEDS: CARDIZEM CD 120 MG PO (09:44)
[2024-03-01] MEDS: ZYLOPRIM 50 MG PO (09:45)
[2024-03-01 10:19] LABS: Glycohemoglobin (HgbA1c) 7.5 % (4.0-5.6)
--- NOTE | 2024-03-01 10:27 | W.PN.HOSP.TC ---
Today's Communication/Plan
-
F/U MRI
F/U Neuro recs
PT/OT
IV Diuresis
Assessment / Plan
Assessment / Plan
ASSESSMENT & PLAN
Acute Rt sided weakness ( Hector > UEx ) with NIHSS 3
HX Lt MCA CVA
- suspect recrudescence Lt sided CVA
- NEG HCT and NEG H & N CTA
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
- cont Eliquis per ER d/w Neuro
- Brain MRI
- PT/OT
- Neuro consult appreciated
Heart Failure preserved EF Acute Exacerbation
-patient on oxygen and appears volume overloaded on exam with elevated JVP
-s/p lasix 20mg IV in ER without significant resposne
-lasix 40mg IV x 1
-obtain labs now
HLD with HX allergic to Statin
- currently not on statin
DMT2
- add ISS low
- Held Metformin
- cont. Saxagliptin for now
HX Prx AF on Eliquis
- rate control with Diltiazem and Metoprolol tartrate
Valvular heart dz
HX Bioprosthetic AoVR
Mild aortic stenosis.
Severe tricuspid regurgitation.
Mild mitral stenosis.
Moderate mitral regurgitation
Essential HTN
- cont. Frusemide, BB and Diltiazem
Known HX
HX BECKA Anemia: on Fe tablet
HX Gout; on Allopurinol
Insomnia: on Remeron as outpatient
Cervical spine DJD
Ex-smoker
DVT Px: chr Eliquis
Code: DNR
IP TLM
51 minutes spent on patient care
Anticipated Discharge: 24 - 48 hours
Subjective/Interval History
-
Date of Service: March 01, 2024
she states she didn't urinate much overnight
she feels improvement in strength in arm but foot remains weak
no chest pain
Objective Data
-
Vital Signs:
Vital Signs
Temp Pulse Resp BP Pulse Ox
97.9 F 93 16 144/98 95
03/01/24 07:51 03/01/24 07:51 03/01/24 07:51 03/01/24 09:43 03/01/24 07:51
Review of Systems
-
History Source: Patient
All other systems: Reviewed and negative
Physical Exam
-
General: No Apparent Distress
HEENT: PERRLA
Respiratory: Clear to Auscultation; Negative Wheezes
Cardiac: Regular Rhythm, S1/S2 and JVD
Musculoskeletal: No Edema
Skin: Warm and Dry; Negative Rash
Neuro: AO x 3 and Other (can lift all 4 extremities off bed with resistance; speech clear, no facial asymmetry)
Psych: Calm
Data Reviewed
-
Diagnostic Radiology: Report Reviewed by me
Labs: Labs Reviewed by me
[2024-03-01] MEDS: LASIX 40 MG IV (10:55)
[2024-03-01 11:17] LABS: Glucose - Point of Care 187 mg/dl (70-99)
[2024-03-01] MEDS: NOVOLOG FLEXPEN-LOW RESISTANCE 1 UNITS SC (11:25)
[2024-03-01 11:43] LABS: Blood Urea Nitrogen 28 mg/dl (7-17); Calcium 8.9 mg/dl (8.4-10.2); Carbon Dioxide 30 mmol/L (22-30); Chloride 97 mmol/L (98-107); Estimated Creatinine Clearance 30 ml/min; Glucose 159 mg/dl (70-99); Magnesium 1.1 mg/dl (1.6-2.3); Potassium 4.2 mmol/L (3.5-5.1); Sodium 136 mmol/L (135-145); eGFR 54.87
[2024-03-01 12:03] VITALS: PULSE 100; PULSE 95; O2SAT 93; O2SAT 94
[2024-03-01] MEDS: MAGNESIUM SULFATE 100 IV (13:26)
--- NOTE | 2024-03-01 14:43 | PTCARENOTE ---
patient with right leg weakness, tolerating diet, sat oob in chair for breakfast and lunch, transferring with assist x1 with rolling walker to [facility], leans back and wants to hold onto furniture and loses balance at times, vss, will continue to monitor.
[2024-03-01 15:05] LABS: Vitamin B12 849 pg/ml (239-931)
[2024-03-01 15:24] VITALS: BP 140/82
--- NOTE | 2024-03-01 15:25 | PTOTSP ---
[employer] Evaluations
Quick Aphasia Battery Overall Score was 8.50 which is in the mild range and concerning for aphasia with deficits in both receptive language and expressive language.
Patient has been on a regular, thin liquid diet, passed nurse swallow screen, and has had no signs of dysphagia.
Recommend:
1. Language evaluation/therapy at the acute care level.
2. Further assessment of reading comprehension, written expression, and cognition.
3. Therapy warranted after D/C from the acute care level at this time.
--- NOTE | 2024-03-01 16:16 | CM ---
CM met with pt at bedside
Reports she lives with her in a split-level home - No steps to enter, 6 steps to bedroom
Mostly independent, does cooking, household management, needs assist. Daughter assists
DME - rolling walker, cane
SNF - [facility] in past
HH - [facility] in past
PCP - Dr Brian Alcantara
Pharm - [facility] or [facility]
PT recommending Acute rehab - pt reporting she would rather not go to rehab
Will discuss with family
Plan - anticipate acute rehab when medically stable
[2024-03-01 16:42] LABS: Glucose - Point of Care 218 mg/dl (70-99)
[2024-03-01] MEDS: NOVOLOG FLEXPEN-LOW RESISTANCE 2 UNITS SC (18:32)
[2024-03-01 21:19] LABS: Glucose - Point of Care 271 mg/dl (70-99)
[2024-03-01 22:45] VITALS: BP 114/68
[2024-03-01] MEDS: JANUVIA 100 MG PO (22:45)
[2024-03-01] MEDS: REMERON 7.5 MG PO (22:45)
[2024-03-01] MEDS: LOPRESSOR 100 MG PO (22:46)
[2024-03-02] VITALS (8 sets, daily range): BP systolic 113–159; BP diastolic 66–85; PULSE 86; O2SAT 95
[2024-03-02] MEDS: ELIQUIS 2.5 MG PO ×2 (07:54→21:00)
[2024-03-02] MEDS: CARDIZEM CD 120 MG PO (07:54)
[2024-03-02] MEDS: ZYLOPRIM 50 MG PO (07:54)
[2024-03-02] MEDS: PROTONIX 40 MG PO (07:54)
[2024-03-02] MEDS: FEOSOL 325 MG PO (07:54)
[2024-03-02 08:08] LABS: Blood Urea Nitrogen 23 mg/dl (7-17); Calcium 8.4 mg/dl (8.4-10.2); Carbon Dioxide 36 mmol/L (22-30); Chloride 95 mmol/L (98-107); Estimated Creatinine Clearance 38 ml/min; Glucose 148 mg/dl (70-99); Magnesium 1.7 mg/dl (1.6-2.3); Potassium 3.7 mmol/L (3.5-5.1); Sodium 136 mmol/L (135-145); eGFR > 60.00
[2024-03-02 08:11] LABS: Glucose - Point of Care 153 mg/dl (70-99)
[2024-03-02] MEDS: NOVOLOG FLEXPEN-LOW RESISTANCE 1 UNITS SC (09:09)
--- NOTE | 2024-03-02 09:31 | CM ---
Addendum entered by Kat Cruz 03/02/24 16:13:
[facility] accept when medically ready
Contact [facility] on - [phone]
R - [phone]
[phone]
Plan - anticipate acute rehab when medically ready
Original Note:
Case management following for discharge planning
PT recommending acute rehab
PM&R consult
Discussed with pt and - agreeable to plan, prefer [facility]
TT to [facility]
Referral sent in [facility]
Plan - anticipate acute rehab when medically ready
--- NOTE | 2024-03-02 10:02 | W.PN.HOSP.TC ---
Today's Communication/Plan
-
dispo planning
Assessment / Plan
Assessment / Plan
ASSESSMENT & PLAN
Brain MRI 03/01/24
There is a small focus of diffusion hyperintense signal within the left mancia radiata with correlative low ADC value which likely represents an acute infarct.
Acute Rt sided weakness ( Hector > UEx ) with NIHSS 3
HX Lt MCA CVA
Acute ischemic stroke
- NEG HCT and NEG H & N CTA
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
- s/p MRI 03/01 showing acute stroke
- appreciate neuro
- continue Eliquis
- PT/OT - acute rehab eval
Heart Failure preserved EF Acute Exacerbation
-s/p lasix 40mg IV on 03/01 with good response
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
HLD with HX allergic to Statin
- currently not on statin
DMT2
- add ISS low
- Held Metformin - ok to resume on DC
- cont. Saxagliptin for now
HX Prx AF on Eliquis
- rate control with Diltiazem and Metoprolol tartrate
Valvular heart dz
HX Bioprosthetic AoVR
Mild aortic stenosis.
Severe tricuspid regurgitation.
Mild mitral stenosis.
Moderate mitral regurgitation
Essential HTN
- cont. BB and Diltiazem
Known HX
HX BECKA Anemia: on Fe tablet
HX Gout; on Allopurinol
Insomnia: on Remeron as outpatient
Cervical spine DJD
Ex-smoker
DVT Px: chr Eliquis
Code: DNR
IP TLM
51 minutes spent on patient care
Anticipated Discharge: Within 24 hours
Subjective/Interval History
-
Date of Service: March 02, 2024
feels swelling and breathing greatly improved
no chest pain
weakness RUE improving; RLE remains weak but improving
Objective Data
-
Labs:
Laboratory Results
03/02/24
07:18
Sodium 136
Potassium 3.7
Chloride 95 L
Carbon Dioxide 36 H
BUN 23 H
Creatinine 0.8
Glucose 148 H
Calcium 8.4
Vital Signs:
Vital Signs
Temp Pulse Resp BP Pulse Ox
97.9 F 72 16 113/74 94
03/02/24 07:57 03/02/24 07:57 03/02/24 07:57 03/02/24 07:57 03/02/24 07:57
I&O
03/01/24 03/02/24 03/03/24
06:59 06:59 06:59
Intake Total 960 / 960
Balance 960 / 960
Review of Systems
-
History Source: Patient
All other systems: Reviewed and negative
Physical Exam
-
General: No Apparent Distress
HEENT: PERRLA
Respiratory: Clear to Auscultation; Negative Wheezes
Cardiac: Regular Rhythm, S1/S2 and JVD
Musculoskeletal: No Edema
Skin: Warm and Dry; Negative Rash
Neuro: AO x 3 and Other (can lift all 4 extremities off bed with resistance; speech clear, no facial asymmetry)
Psych: Calm
Data Reviewed
-
Diagnostic Radiology: Report Reviewed by me
Labs: Labs Reviewed by me
--- NOTE | 2024-03-02 10:03 | CON.MD ---
Consultation - Medical
-
Referring Provider:�Dr. Juju Castillo
Chief Complaint:�Stroke
�
History of Present Illness:�88-year-old right-handed female with PMH (as below) presented to [facility] on 02/29/2024 with right upper and lower extremity weakness. MRI of the brain noting small acute infarct in the left mancia radiata. Not
a candidate for TNK because she is on Eliquis. Chest x-ray noting slightly prominent wide spread pulmonary interstitial markings which could represent interstitial edema or pneumonitis. Treated with IV Lasix. Continues with IV Lasix for volume
overload, having some desaturations.
Overall she is feeling better with the right sided weakness. Still has some difficulties with movement. Denies any shortness of breath concerns but notes that she has been needing medications to help with her heart.
�
Past Medical History:�Paroxysmal atrial fibrillation, CHF with HFpEF, left MCA CVA 2015, GERD, HTN, HLD, NIDDM, T12 compression fracture, headaches, anemia, breast calcifications, COVID-19, gout
Procedure History:�Bioprosthetic aortic valve replacement, hysterectomy, tonsillectomy, cataracts
Family History:�None pertinent
�
Social History:�
Functional Level Premorbidly:�Independent with all activities�
Functional Level Currently:�Min assist lower extremity dressing, toileting, bed mobility, transfers. Min assist ambulate 40 feet x 2 with rolling walker.
�
Tobacco: Former
Alcohol: Daily
Drug use:�Denies�
�
Lives with:�
24-hour assistance available:�Yes
Number of floors:�Split-level home
# steps to enter:�0
# steps to second floor: 6+6
Potential First floor set up:�No
Driving:�No
Occupation:�Retired
�
�
Allergies:�
Allergy/AdvReac Type Severity Reaction Status Date / Time
ezetimibe [From Zetia] Allergy Unknown pain in Verified 02/29/24 22:06
muscles
simvastatin [From Zocor] Allergy Unknown pain in Verified 02/29/24 22:06
muscles
�
Review of Systems:�
Constitutional: (x) abNormal _fatigue
Eye: (x) Normal _
Ear/Nose/Throat: (x) Normal _
Respiratory: (x) Normal _
Cardiovascular: (x) Normal _
Gastrointestinal: (x) Normal _
Genitourinary: (x) abNormal _urinary frequency with water pills
Musculoskeletal: (x) Normal _
Integumentary: (x) Normal _
Neurologic: (x) abNormal _stroke with right-sided weakness
Psychiatric: (x) Normal _
Endocrine: (x) Normal _
Hematologic/Lymphatic: (x) Normal _
Allergic/Immunologic: (x) Normal _
�
Medications:�
Active Current Visit Medication List
Category Date Time Status
Acetaminophen [Tylenol/Feverall] Med 03/01/24 00:44 Active
650 mg RECTAL Q4HPRN PRN
Acetaminophen [Tylenol] Med 03/01/24 00:44 Active
650 mg PO Q4HPRN PRN
Allopurinol [Zyloprim] Med 03/01/24 08:00 Active
50 mg PO DAILY
Apixaban [Eliquis] Med 03/01/24 08:00 Active
2.5 mg PO BID
Dextrose 50%-Water [Dextrose 50% Syringe] Med 03/01/24 00:44 Active
12.5 grams IV [id number] PRN
Diltiazem Extended Release [Cardizem Cd] Med 03/01/24 08:00 Active
120 mg PO DAILY
Ferrous Sulfate [Feosol] Med 03/01/24 08:00 Active
325 mg PO DAILY
Flush (0.9% Sodium Chloride) [Flush (Nss)] Med 03/01/24 01:00 Active
See Dose Instructions IV PER PROTOCOL
Furosemide [Lasix] Med 03/03/24 08:00 Active
20 mg PO DAILY
Glucagon [GlucaGen] Med 03/01/24 00:44 Active
1 mg IM PRN PRN
Insulin Aspart Corrective Low [Novolog Flexpen-Low Med 03/01/24 07:30 Active
Resistance]
See Protocol SC AC
Metoprolol [Lopressor] Med 03/01/24 22:00 Active
100 mg PO HS
Mirtazapine [Remeron] Med 03/01/24 22:00 Active
7.5 mg PO HS
Pantoprazole [Protonix] Med 03/01/24 08:00 Active
40 mg PO DAILY
Sitagliptin Phosphate [Januvia] Med 03/01/24 22:00 Active
100 mg PO HS
�
Vitals:�
Temp Pulse Resp BP Pulse Ox
98.1 F 75 16 115/74 98
03/02/24 15:40 03/02/24 15:40 03/02/24 15:40 03/02/24 15:40 03/02/24 15:40
Height 5 ft 2 in
Actual Weight 47.5 kg
Body Mass Index (BMI) 19.2
�
Physical Exam:�
General Appearance/Observation: Well-developed, well-nourished female in no apparent distress.�
Pain/Comfort Assessment: Denies�
Mood/Affect: Appropriate�
�
Integumentary/Operative Site:�
�� Pressure Ulcer Evaluation: absent over heels.�
Eyes: Conjunctiva/Lids: normal���� Pupils: pupils equal round and reactive to light and Accommodation�
Ears/Nose/Throat: oral mucosa moist,� throat clear.������������ Lips/Teeth/Gums: normal�
Neck: No muscle spasm or tenderness�
Cardiovascular: Heart: regular, systolic murmur�
Pulses: dorsalis pedis 1+ bilaterally�
Respiratory: Respiratory Effort/Chest Expansion: normal������� Auscultation: Clear to auscultation bilaterally�
Gastrointestinal: abdomen not tender, no distension, normal abdominal bowel sounds
Genitourinary: No Tam�
Extremities:�Edema: None�Cyanosis: None�Trophic�changes: None
�
Neurology Exam:
Orientation: Alert, Oriented to self, Time, Place�
Memory: Intact for recent medical concerns
Repetition: Intact
Comprehension: Intact
Two step command: Intact
Naming: Intact
Cranial Nerves:
�� CNII:�Pupillary light reflex: Intact����Visual Field: Intact
�� CN III, IV, : Extraocular muscles: Intact�
�� CN V:�Facial Sensation�at�Forehead: Intact,�Maxilla: Intact,�Mandible: Intact
�� CN VII:�Facial movement: Slight right facial weakness
�� CN VIII:�Hearing: Normal
�� CN IX/X:�Speech & swallow: Normal,�Position of Uvula: Midline
�� CN XI:�Shoulder shrug: Symmetric
�� CN XII:�Tongue protrusion: Midline
Sensory:
�� Light touch: Intact in bilateral upper and lower extremities, no extinction to double simultaneous stimulation
�
Reflexes:
�� Biceps: 2+ bilaterally
�� Brachioradialis: 2+ bilaterally
�� Triceps: 2+ bilaterally
�� Patellar: 0 bilaterally
�� Achilles: 0 bilaterally
�� Babinski: Down going bilaterally
�� Clonus: None
�� [place]lin: Negative bilaterally�
Cerebellar: Dysmetria/Ataxia: None�
Musculoskeletal: Motor: (Manual muscle scale 0-5)�
Muscle SA EF WE EE FF FA HF KE DF EHL PF
Right� 4 4+ 4 4 4 3+ 4 5 5 5 5
Left 5 5 5 5 5 4 3+ 4+ 4 4 4
�
Tone: Normal in all extremities�
Range of Motion: Passively within normal limits in all extremities�
�
Lab Results
Laboratory Data
02/29/24 21:50
03/02/24 07:18
Total Bilirubin 0.4 mg/dl (0.2-1.3) 02/29/24 21:50
AST 29 U/L (14-36) 02/29/24 21:50
ALT 14 U/L (0-35) 02/29/24 21:50
Alkaline Phosphatase 117 U/L (38-126) 02/29/24 21:50
Total Protein 6.9 g/dl (6.3-8.2) 02/29/24 21:50
Albumin 4.0 g/dl (3.5-5.0) 02/29/24 21:50
�
Diagnostic Results: as per HPI�
02/29/24 CXR
Limited study, as described.
Cardiomegaly again seen.
Slightly prominent widespread pulmonary interstitial markings which could represent interstitial edema or pneumonitis.
02/29/24 HCT:
No acute intracranial abnormality or significant interval change
02/29/24 H & N CTA
- Atherosclerotic changes of the carotid arterial system bilaterally without hemodynamically significant stenosis or findings to suggest internal carotid artery dissection bilaterally.
- Mildly dominant left vertebral artery. No findings to suggest vertebral artery dissection bilaterally.
- No findings to suggest proximal intracranial arterial stenosis bilaterally.
12/05/23 TTE
- LVEF 69%
- Significant biatrial enlargement.
- Mild mitral stenosis. Moderate mitral regurgitation.
- Well-seated bioAVR with peak/mean gradients across the aortic valve are 26/16 mmHg.
- Mild aortic stenosis.
- Severe tricuspid regurgitation.
- Severe pulmonary hypertension with estimated pulmonary artery pressure of 63 mmHg.
Assessment
88-year-old right-handed female with PMH (Paroxysmal atrial fibrillation, CHF with HFpEF, left MCA CVA 2015, GERD, HTN, HLD, NIDDM, T12 compression fracture, headaches, anemia, breast calcifications, COVID-19, gout) with 02/29/2024 RUE/RLE weakness
from small acute infarct in the left mancia radiata complicated by acute heart failure exacerbation��with ADL and ambulatory dysfunction.
�
Plan�
PM&R PT/OT to increase independence with ADLs, improve balance, coordination, endurance, strength, mobility, community reintegration, decreased burden of care on others and family education.�
�
CVA: Secondary prophylaxis with Eliquis, statin, and blood pressure control (SBP less than 180 and diastolic less than 100 to participate with therapy for ischemic stroke). Continue to monitor neurologic status.�
Right dominant hemiparesis: Had risk for falls and sliding out of chair/bed. Safety reinforced.�
HTN: Diltiazem, Lasix, metoprolol, monitor closely�
HLD: Statin�
Atrial fibrillation:�Eliquis anticoagulation and rate control with metoprolol/diltiazem.�������������������������������������������
CHF: EF 69% on 12/05/2023, beta ronaldo, Lasix monitor fluid status. Has been desaturating to 80%. Continue with diuresis. Januvia.
Gout: Allopurinol
DM II: Accu-Cheks, insulin sliding scale, Januvia.�
Normocytic anemia: monitor.�
�
Psych: Psychology consult.� Monitor mood, medications as needed.�
Pain: acetaminophen as needed.�
Bowel: Colace and Senna, PRN bisacodyl.�
Bladder: Time void, PVRs, PRN straight cath.�
Alcohol use: Alcohol cessation education, offering of outpatient alcohol abuse program�
GI Prophylaxis: Pantoprazole�
DVT Prophylaxis: Mechanical and Eliquis
Pulmonary: Incentive spirometry�
Safety: Continue to reinforce assistance with all transfers.�
Code Status:� DNR�
Dispo (date/plan/equipment needs): Home with family care.� Social history reviewed.�
�Functional and Medical Goals:�Modified Independent with ADL�s, ambulation, transfers�
Discharge Destination: Acute inpatient rehabilitation when heart failure is stable
�
Summary of recommendations:
-�Discharge Destination:�Acute inpatient debilitation with heart failure stable.
CVA: Secondary prophylaxis with Eliquis, statin, and blood pressure control (SBP less than 180 and diastolic less than 100 to participate with therapy for ischemic stroke). Continue to monitor neurologic status.�
Right nondominant hemiparesis: Had risk for falls and sliding out of chair/bed. Safety reinforced.�
CHF: EF 69% on 12/05/2023, beta ronaldo, Lasix monitor fluid status. Has been desaturating to 80%. Continue with diuresis. Januvia.
DVT Prophylaxis: Mechanical and Eliquis
�
Thank you for allowing me to care for your patient. Please contact me with any questions or concerns.
--- NOTE | 2024-03-02 10:19 | PTOTSP ---
Speech Pathology Follow Up
Patient's cognitive communication ability was assessed via the MOCA cognitive assessment this date.
Gerber Cognitive Assessment (MOCA)
The MOCA screens for cognitive impairment amongst different domains including: attention/concentration, executive functions, visuoconstructional skills, conceptual thinking, calculations, and orientation. Mrs. Gant's results are as follows:
VERSION: 8.1, [place]
Visuospatial/Executive - 1/5
Alternating [place] Making - 0/1
Visuoconstructional Skills (Cube) - 0/
Visuoconstructional Skills (Clock) - 07/27 (adequate contour, missing x1 number, 'I can't' when asked to write the time)
Confrontation Naming - 09/24
Memory � no points for this section
Immediate Recall 1st trial - 09/26
Immediate Recall 2nd trial - 09/26
Attention - 09/27
Forward Digit Span - 1/1
Backward Digit Span - 0/1
Vigilance, Tap when hearing the letter �A� � 0/1 (2 errors)
Serial 7 Subtraction - 08/27
Language - 2/3
Sentence Repetition � 2/2
Verbal Fluency, Generative naming of abstract category (N>11 words) - 0/ (N = 8 words, x1 repetition)
Abstraction - 2/2
Delayed Recall - 09/26
Independent recall - 09/26
With category cue - 08/29
Orientation - 12/28
Memory Index Score (MIS): 1315
Interpretation: The MIS is a sub score where the examiner attributes points according to the type of recall on the delayed recall task. Use of cues provides clinical information on the nature of the memory deficits. For memory deficits due to
retrieval failures, performance can be improved with a cue. For memory deficits due to encoding failures, performance does not improve with a cue.
TOTAL SCORE: 21
Interpretation: One point it added for client who has 12 years or fewer of formal education. A final total score of 26 and above is considered normal.
Reading comprehension was screened utilizing passages of varying difficulties w/ reading comprehension questions. Pt's results are as follows:
EASY passage - 3/3
MEDIUM passage - 1/4
HARD passage - deferred 2/2 increased difficulty with medium passage.
Written expression was screened, but eventually deferred 2/2 increased pt difficulty with handwriting - 'my hands shake.'
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
Recommend:
1. 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
2. Cognitive communication treatment at the next level of care.
[2024-03-02] MEDS: MAGNESIUM SULFATE 102 GRAMS IV (10:49)
[2024-03-02 12:31] LABS: Glucose - Point of Care 232 mg/dl (70-99)
[2024-03-02] MEDS: NOVOLOG FLEXPEN-LOW RESISTANCE 2 UNITS SC (12:51)
--- NOTE | 2024-03-02 13:10 | W.PN.UPDATE ---
Update Note
Progress Note Update
patient O2 sats dropped to 80% with therapy - will keep another night for IV diuresis
[2024-03-02] MEDS: LASIX 40 MG IV (14:07)
[2024-03-02] MEDS: KCL 40 MEQ PO (14:07)
[2024-03-02 17:25] LABS: Glucose - Point of Care 139 mg/dl (70-99)
[2024-03-02] MEDS: NOVOLOG FLEXPEN-LOW RESISTANCE SC (17:28)
[2024-03-02] MEDS: LOPRESSOR 100 MG PO (21:00)
[2024-03-02] MEDS: REMERON 7.5 MG PO (21:01)
[2024-03-02] MEDS: JANUVIA 100 MG PO (21:01)
[2024-03-02 21:54] LABS: Glucose - Point of Care 285 mg/dl (70-99)
[2024-03-03 03:00] VITALS: BP 131/83
[2024-03-03 06:39] VITALS: BMI 16.7
[2024-03-03 07:39] VITALS: BP 124/80
[2024-03-03 07:57] LABS: Glucose - Point of Care 164 mg/dl (70-99)
[2024-03-03] MEDS: ZYLOPRIM 50 MG PO (08:04)
[2024-03-03] MEDS: FEOSOL 325 MG PO (08:04)
[2024-03-03] MEDS: PROTONIX 40 MG PO (08:04)
[2024-03-03] MEDS: LASIX 20 MG PO (08:04)
[2024-03-03] MEDS: CARDIZEM CD 120 MG PO (08:04)
[2024-03-03] MEDS: ELIQUIS 2.5 MG PO ×2 (08:05→20:00)
[2024-03-03 08:42] LABS: Blood Urea Nitrogen 22 mg/dl (7-17); Calcium 8.6 mg/dl (8.4-10.2); Carbon Dioxide 33 mmol/L (22-30); Chloride 97 mmol/L (98-107); Estimated Creatinine Clearance 33 ml/min; Glucose 142 mg/dl (70-99); Potassium 3.8 mmol/L (3.5-5.1); Sodium 136 mmol/L (135-145); eGFR > 60.00
[2024-03-03] MEDS: NOVOLOG FLEXPEN-LOW RESISTANCE 1 UNITS SC (09:16)
--- NOTE | 2024-03-03 09:27 | W.PN.HOSP.TC ---
Today's Communication/Plan
-
F/U ambulatory pulse ox with PT
if patient remains hypoxic than I believe this is more of a chronic lung issue (hx smoker) and would refer to pulmonary as outpatient for formal PFT's
continue oral lasix
hopefully DC to [facility] later today
Assessment / Plan
Assessment / Plan
ASSESSMENT & PLAN
Brain MRI 03/01/24
There is a small focus of diffusion hyperintense signal within the left mancia radiata with correlative low ADC value which likely represents an acute infarct.
Acute Rt sided weakness ( Hector > UEx ) with NIHSS 3
HX Lt MCA CVA
Acute ischemic stroke
- NEG HCT and NEG H & N CTA
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
- s/p MRI 03/01 showing acute stroke
- appreciate neuro
- continue Eliquis
- PT/OT - acute rehab eval
Heart Failure preserved EF Acute Exacerbation
-s/p lasix 40mg IV on 03/01 with good response
-she was hypoxic with ambulation on 03/02 - additional lasix given
-resume oral lasix and daily weights as outpatient
HLD with HX allergic to Statin
- currently not on statin
DMT2
- add ISS low
- Held Metformin - ok to resume on DC
- cont. Saxagliptin for now
HX Prx AF on Eliquis
- rate control with Diltiazem and Metoprolol tartrate
Valvular heart dz
HX Bioprosthetic AoVR
Mild aortic stenosis.
Severe tricuspid regurgitation.
Mild mitral stenosis.
Moderate mitral regurgitation
Essential HTN
- cont. BB and Diltiazem
Known HX
HX BECKA Anemia: on Fe tablet
HX Gout; on Allopurinol
Insomnia: on Remeron as outpatient
Cervical spine DJD
Ex-smoker
DVT Px: chr Eliquis
Code: DNR
IP TLM
51 minutes spent on patient care
Anticipated Discharge: Within 24 hours
Subjective/Interval History
-
Date of Service: March 03, 2024
feeling well
didn't urinate as much with lasix yesterday
Objective Data
-
Labs:
Laboratory Results
03/03/24
06:39
Sodium 136
Potassium 3.8
Chloride 97 L
Carbon Dioxide 33 H
BUN 22 H
Creatinine 0.8
Glucose 142 H
Calcium 8.6
Vital Signs:
Vital Signs
Temp Pulse Resp BP Pulse Ox
98 F 70 16 124/80 96
03/03/24 07:39 03/03/24 08:04 03/03/24 07:39 03/03/24 08:04 03/03/24 07:39
I&O
03/02/24 03/03/24 03/04/24
06:59 06:59 06:59
Intake Total 960 / 960 840 / 840
Output Total 150 / 150
Balance 960 / 960 690 / 690
Review of Systems
-
History Source: Patient
All other systems: Reviewed and negative
Physical Exam
-
General: No Apparent Distress
HEENT: PERRLA
Respiratory: Clear to Auscultation; Negative Wheezes
Cardiac: Regular Rhythm, S1/S2 and JVD
Musculoskeletal: No Edema
Skin: Warm and Dry; Negative Rash
Neuro: AO x 3 and Other (can lift all 4 extremities off bed with resistance; speech clear, no facial asymmetry)
Psych: Calm
Data Reviewed
-
Diagnostic Radiology: Report Reviewed by me
Labs: Labs Reviewed by me
[2024-03-03 09:44] VITALS: BP 127/75; PULSE 82; O2SAT 96
--- NOTE | 2024-03-03 09:49 | W.PN.UPDATE ---
Update Note
Progress Note Update
patient's oxygen dropped to 83% with ambulation. she states she was asymptomatic. On re-examine I now appreciate JVD persistent.
I will give additional lasix BID today and continue to monitor O2 sats.
If she appears overdiuresed and remains hypoxic, I will consult Pulmonary.
patient updated, unfortunately cannot discharge to rehab today
TTE in November
CONCLUSIONS
Small left ventricular size, normal wall thickness and systolic function. No
regional wall motion abnormalities are seen. LV ejection fraction is 69%.
Significant biatrial enlargement.
Mild mitral stenosis. Moderate mitral regurgitation.
Well-seated bioAVR with peak/mean gradients across the aortic valve are 26/16
mmHg. Mild aortic stenosis.
Severe tricuspid regurgitation. Severe pulmonary hypertension with estimated
pulmonary artery pressure of 63 mmHg.
Compared to previous echo from April 2023, findings are similar.
She had dilated IVC
[2024-03-03] MEDS: KCL 20 MEQ PO (10:15)
[2024-03-03] MEDS: LASIX 40 MG IV ×2 (10:15→16:58)
[2024-03-03 12:00] LABS: Glucose - Point of Care 308 mg/dl (70-99)
[2024-03-03] MEDS: NOVOLOG FLEXPEN-LOW RESISTANCE 4 UNITS SC (13:31)
[2024-03-03 15:49] VITALS: BP 121/80
[2024-03-03 17:00] LABS: Glucose - Point of Care 202 mg/dl (70-99)
[2024-03-03] MEDS: NOVOLOG FLEXPEN-LOW RESISTANCE 2 UNITS SC (17:06)
[2024-03-03 19:00] VITALS: BP 135/84
[2024-03-03] MEDS: REMERON 7.5 MG PO (20:00)
[2024-03-03] MEDS: JANUVIA 100 MG PO (20:00)
[2024-03-03] MEDS: LOPRESSOR 100 MG PO (20:00)
[2024-03-03 21:53] LABS: Glucose - Point of Care 194 mg/dl (70-99)
[2024-03-03 23:00] VITALS: BP 130/85
[2024-03-04 03:00] VITALS: BP 109/74
[2024-03-04 06:00] VITALS: BMI 16.2
[2024-03-04 07:00] VITALS: BP 144/87
[2024-03-04 07:59] LABS: Glucose - Point of Care 170 mg/dl (70-99)
[2024-03-04 08:03] LABS: Blood Urea Nitrogen 24 mg/dl (7-17); Calcium 8.9 mg/dl (8.4-10.2); Carbon Dioxide 36 mmol/L (22-30); Chloride 94 mmol/L (98-107); Estimated Creatinine Clearance 28 ml/min; Glucose 157 mg/dl (70-99); Potassium 3.9 mmol/L (3.5-5.1); Sodium 136 mmol/L (135-145); eGFR > 60.00
[2024-03-04] MEDS: ZYLOPRIM 50 MG PO (08:19)
[2024-03-04] MEDS: PROTONIX 40 MG PO (08:19)
[2024-03-04] MEDS: CARDIZEM CD 120 MG PO (08:19)
[2024-03-04] MEDS: ELIQUIS 2.5 MG PO ×2 (08:21→20:41)
[2024-03-04] MEDS: FEOSOL 325 MG PO (08:21)
[2024-03-04] MEDS: LASIX 40 MG IV ×2 (08:22→17:30)
[2024-03-04] MEDS: NOVOLOG FLEXPEN-LOW RESISTANCE 1 UNITS SC ×2 (08:22→12:58)
--- NOTE | 2024-03-04 10:19 | W.PN.HOSP.TC ---
Today's Communication/Plan
-
continue diuresis, plans for repeat TTE tomorrow AM
if weaned off oxygen with ambulation on Tuesday can hopefully DC to [facility]
Assessment / Plan
Assessment / Plan
ASSESSMENT & PLAN
Brain MRI 03/01/24
There is a small focus of diffusion hyperintense signal within the left mancia radiata with correlative low ADC value which likely represents an acute infarct.
Acute Rt sided weakness ( Hector > UEx ) with NIHSS 3
HX Lt MCA CVA
Acute ischemic stroke
- NEG HCT and NEG H & N CTA
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
- s/p MRI 03/01 showing acute stroke - results above
- appreciate neuro
- continue Eliquis
- PT/OT - acute rehab eval - hopefully DC on Monday 03/05
Heart Failure preserved EF Acute Exacerbation
Valvular heart dz
HX Bioprosthetic AoVR
Mild aortic stenosis.
Severe tricuspid regurgitation.
Mild mitral stenosis.
Moderate mitral regurgitation
-s/p lasix 40mg IV on 03/01 with good response
-she was hypoxic with ambulation on 03/02 - additional lasix given and she remained hypoxic with ambulation morning 03/03. On repeat eval, her JVP remains elevated. Lasix 40 IV BID ordered with good response and stable creatinine. I am continuing
diuresis today and will repeat home O2 eval tomorrow AM. If patient weaned off of oxygen then would discharge her on higher lasix dosing (40mg daily) with close follow up labs.
-TTE performed in 3 months ago (12/05/23) showing EF 69%, moderate MR, well seated bioprosthetic MVR, severe TR and dilated IVC. I will repeat echo tomorrow AM
HLD with HX allergic to Statin
- currently not on statin
DMT2
- add ISS low
- Held Metformin - ok to resume on DC
- cont. Saxagliptin for now
HX Prx AF on Eliquis
- rate control with Diltiazem and Metoprolol tartrate
Essential HTN
- cont. BB and Diltiazem
Known HX
HX BECKA Anemia: on Fe tablet
HX Gout; on Allopurinol
Insomnia: on Remeron as outpatient
Cervical spine DJD
Ex-smoker
DVT Px: chr Eliquis
Code: DNR
IP TLM
51 minutes spent on patient care
Anticipated Discharge: 24 - 48 hours
Subjective/Interval History
-
Date of Service: March 04, 2024
feelingi well and wants to leave the hospital
Objective Data
-
Labs:
Laboratory Results
03/04/24
06:14
Sodium 136
Potassium 3.9
Chloride 94 L
Carbon Dioxide 36 H
BUN 24 H
Creatinine 0.9
Glucose 157 H
Calcium 8.9
Vital Signs:
Vital Signs
Temp Pulse Resp BP Pulse Ox
97.6 F 73 17 144/87 98
03/04/24 07:00 03/04/24 07:00 03/04/24 07:00 03/04/24 07:00 03/04/24 07:00
I&O
03/03/24 03/04/24 03/05/24
06:59 06:59 06:59
Intake Total 840 / 840 1080 / 1080
Output Total 150 / 150
Balance 690 / 690 1080 / 1080
Review of Systems
-
History Source: Patient
All other systems: Reviewed and negative
Physical Exam
-
General: No Apparent Distress
HEENT: PERRLA
Respiratory: Clear to Auscultation; Negative Wheezes
Cardiac: Regular Rhythm, S1/S2 and JVD
Musculoskeletal: No Edema
Skin: Warm and Dry; Negative Rash
Neuro: AO x 3 and Other (can lift all 4 extremities off bed with resistance; speech clear, no facial asymmetry)
Psych: Calm
Data Reviewed
-
Diagnostic Radiology: Report Reviewed by me
Labs: Labs Reviewed by me
[2024-03-04] MEDS: KCL 20 MEQ PO (11:00)
[2024-03-04 12:08] VITALS: BP 120/76; PULSE 72; O2SAT 98
[2024-03-04 12:11] LABS: Glucose - Point of Care 192 mg/dl (70-99)
[2024-03-04 14:38] VITALS: BMI 16.2
--- NOTE | 2024-03-04 14:57 | PTCARENOTE ---
patient with improved weakness in right leg. tolerating diet, transferring to bsc/chair with rolling walker and contact guard, vss, will continue to monitor.
[2024-03-04 15:00] VITALS: BP 123/77
[2024-03-04 17:00] LABS: Glucose - Point of Care 246 mg/dl (70-99)
[2024-03-04] MEDS: NOVOLOG FLEXPEN-LOW RESISTANCE 2 UNITS SC (17:29)
[2024-03-04] MEDS: REMERON 7.5 MG PO (20:40)
[2024-03-04] MEDS: LOPRESSOR 100 MG PO (20:40)
[2024-03-04] MEDS: JANUVIA 100 MG PO (20:40)
--- NOTE | 2024-03-04 21:00 | PTCARENOTE ---
Pt moved to room 316-1. no issues.
[2024-03-04 21:53] LABS: Glucose - Point of Care 312 mg/dl (70-99)
[2024-03-04 22:49] VITALS: BP 132/89
[2024-03-05 03:10] VITALS: BP 113/78
[2024-03-05 06:00] VITALS: BMI 15.7
[2024-03-05 07:46] VITALS: BP 138/83
[2024-03-05 08:27] LABS: Glucose - Point of Care 177 mg/dl (70-99)
[2024-03-05] MEDS: ZYLOPRIM 50 MG PO (08:48)
[2024-03-05] MEDS: LASIX 40 MG PO (08:51)
[2024-03-05] MEDS: FEOSOL 325 MG PO (08:51)
[2024-03-05] MEDS: PROTONIX 40 MG PO (08:51)
[2024-03-05] MEDS: CARDIZEM CD 120 MG PO (08:51)
[2024-03-05] MEDS: ELIQUIS 2.5 MG PO (08:51)
[2024-03-05] MEDS: NOVOLOG FLEXPEN-LOW RESISTANCE 1 UNITS SC (08:58)
[2024-03-05 10:43] LABS: Blood Urea Nitrogen 24 mg/dl (7-17); Carbon Dioxide 28 mmol/L (22-30); Chloride 95 mmol/L (98-107); Estimated Creatinine Clearance 31 ml/min; Glucose 175 mg/dl (70-99); Magnesium 1.5 mg/dl (1.6-2.3); Potassium 4.3 mmol/L (3.5-5.1); Sodium 134 mmol/L (135-145); eGFR > 60.00
[2024-03-05 12:00] LABS: Glucose - Point of Care 258 mg/dl (70-99)
[2024-03-05] MEDS: NOVOLOG FLEXPEN-LOW RESISTANCE 3 UNITS SC (12:30)
--- NOTE | 2024-03-05 13:00 | W.PN.HOSP.TC ---
Today's Communication/Plan
-
d/c to [facility]
Assessment / Plan
Assessment / Plan
ASSESSMENT & PLAN
Brain MRI 03/01/24
There is a small focus of diffusion hyperintense signal within the left mancia radiata with correlative low ADC value which likely represents an acute infarct.
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
hopefully DC on Monday 03/05
acute hypoxemic resp insufficiency--due to Heart Failure preserved EF Acute Exacerbation--diuresing--HX Bioprosthetic AoVR--Mild aortic stenosis-- Severe tricuspid regurgitation-- Mild mitral stenosis-- Moderate mitral regurgitation--s/p lasix 40mg
IV BID with good response--TTE performed in 3 months ago (12/05/23) showing EF 69%, moderate MR, well seated bioprosthetic MVR, severe TR and dilated IVC.
HLD with HX allergic to Statin- currently not on statin
DMT2- add ISS low- Held Metformin - ok to resume on DC - cont. Saxagliptin for now
HX Paroxysmal afib on Eliquis - rate control with Diltiazem and Metoprolol tartrate
Essential HTN - cont. BB and Diltiazem
Known HX
HX BECKA Anemia: on Fe tablet
HX Gout; on Allopurinol
Insomnia: on Remeron as outpatient
Cervical spine DJD
Ex-smoker
DVT Px: chr Eliquis
Code: DNR
Anticipated Discharge: Today
Subjective/Interval History
-
Date of Service: March 05, 2024
pt waiting for [facility]
Objective Data
-
Labs:
Laboratory Results
03/05/24
08:21
Sodium 134 L
Potassium 4.3
Chloride 95 L
Carbon Dioxide 28
BUN 24 H
Creatinine 0.8
Glucose 175 H
Calcium 9.0
Vital Signs:
max temp for 24 hours
03/04/24
22:49
Temp 98 F
Vital Signs
Temp Pulse Resp BP Pulse Ox
97.6 F 78 17 138/83 94
03/05/24 07:46 03/05/24 07:46 03/05/24 07:46 03/05/24 07:46 03/05/24 08:45
I&O
03/04/24 03/05/24 03/06/24
06:59 06:59 06:59
Intake Total 1080 / 1080 780 / 780
Balance 1080 / 1080 780 / 780
Review of Systems
-
All other systems: Reviewed and negative
Physical Exam
-
General: Well Developed, Well Nourished and No Apparent Distress
HEENT: Normocephalic, Atraumatic and Oxygen
Respiratory: Clear to Auscultation; Negative Wheezes, Rales, Rhonchi or Crackles
Cardiac: Regular Rhythm, S1/S2 and Murmur
GI: Soft, Nontender, Nondistended and Normal Bowel Sounds
Musculoskeletal: No Clubbing, No Cyanosis and No Edema
Neuro: Awake and Alert
--- NOTE | 2024-03-05 13:07 | CM ---
Patient seen at bedside with physician. Patient is accepted for transfer to [facility] today, CM spoke with Liaison from [facility] patient has bed today. [facility] completed and signed form placed on chart. Patient called and is aware of the transfer.
Patient can come after 2 pm. Per admissions from [facility]. Patient nurse also aware. CM will continue to follow for discharge planning needs.
Plan; Transfer to [facility] today
[2024-03-05 13:29] VITALS: BP 106/63; PULSE 75; O2SAT 98
[2024-03-05 15:08] VITALS: BP 132/64
--- NOTE | 2024-03-05 16:39 | W.DCSUMMARY ---
Discharge Summary
Discharge Data
Date of Admission: 02/29/24
Date of Discharge: 03/05/24
-
Pending Results: No
Hospital Course
Primary care physician : Ricardo Alcantara
Principal Discharge diagnosis : Acute right-sided weakness due to acute ischemic stroke, acute hypoxemic respiratory insufficiency
Chronic Discharge diagnosis : Hyperlipidemia, type 2 diabetes mellitus, paroxysmal atrial fibrillation, essential hypertension, iron deficiency anemia, gout, insomnia, cervical spine arthritis
Hospital Course : Patient was an 88-year-old female with a past medical history of paroxysmal atrial fibrillation on chronic Eliquis and a history of a left MCA stroke in 2016 who had presented to the emergency room for right-sided weakness.
Apparently was an abrupt onset around 9 PM on the night of admission but had general debility and weakness for at least 1 week prior. She was unable to bear weight. Patient was not a lytic candidate due to Eliquis use. Patient was suspected to
have an acute stroke and was admitted.
Problem #1: Acute right-sided weakness due to acute ischemic stroke. Patient was admitted and seen in consultation by neurology. Again, she was not a lytic candidate due to her Eliquis use. She underwent MRI of her brain on March 01, 2024 which
showed the acute stroke. Patient had a negative head CT and negative head and neck CTA on admission. Lipid panel was checked and showed a total cholesterol of 135, LDL of 64, and HDL of 57. She does not appear to be on any chronic statin
medications due to allergies. Physical therapy and Occupational Therapy were consulted. Patient was also evaluated by the professional services manager and qualifies for acute rehab level of care. Patient is stable for discharge there today. Eliquis was resumed.
Problem #2: Acute hypoxemic respiratory insufficiency. This was likely due to a diastolic (preserved ejection fraction) heart failure exacerbation. Patient was given IV Lasix with good diuretic response. Trans thoracic echocardiogram was
performed in November which showed a preserved ejection fraction with moderate mitral regurgitation and a well-seated bioprosthetic mitral valve repair. Unfortunately, patient was unable to be weaned off oxygen. With exertion, she dropped to 86% on
room air from 96% at rest. Diuretics were increased to 40 mg of Lasix daily. Oxygen should be weaned as able.
Problem #3: All other medical issues. These include Hyperlipidemia, type 2 diabetes mellitus, paroxysmal atrial fibrillation, essential hypertension, iron deficiency anemia, gout, insomnia, cervical spine arthritis. These medical issues were
stable during her hospitalization. Medications were continued as able.
Patient is stable for discharge to [facility] at this time. If there are any questions regarding this dictation or her hospital stay, please do not hesitate to call. Our office number is [phone].
Important imaging findings :
HEAD CT SCAN IMPRESSION:
No acute intracranial abnormality or significant interval change.
HEAD AND NECK CTA IMPRESSION:
Atherosclerotic changes of the carotid arterial system bilaterally without hemodynamically significant stenosis or findings to suggest internal carotid artery dissection bilaterally.
Mildly dominant left vertebral artery. No findings to suggest vertebral artery dissection bilaterally.
No findings to suggest proximal intracranial arterial stenosis bilaterally.
BRAIN MRI IMPRESSION: There is a small focus of diffusion hyperintense signal within the left mancia radiata with correlative low ADC value which likely represents an acute infarct.
Discharge Plan
-
Patient Disposition: Acute Rehab Facility
Discharge Diagnosis/Procedures: acute ischemic stroke, heart failure preserved ejection fraction with acute exacerbation and acute hypoxemic respiratory insufficiency, hyperlipidemia, type 2 diabetes mellitus, paroxysmal atrial fibrillation, history
of iron deficiency anemia, gout, insomnia, cervical spine arthritis
Condition: Good
Diet: 2 Gram Sodium and Restrict fluids to 48 oz
Activity: As tolerated
Driving Restrictions: No driving
Bathing Restrictions: None
Blood Work: BMP in 5-7 days
Other Services: PT
Specialty Instructions: Weigh Daily- Call MD for wt gain/loss 3 lbs overnight/5 lbs in 1 week
Activity Restrictions/Additional Instructions:
wean oxygen to off as able
Instructions: *PCP/Other Printmaker Heart Failure Instructions
Referrals:
Alcides Bustamante MD [Active] - in one month
Ricardo Alcantara MD [Family Provider] - in less than 1 week
Additional Discharge Medication Instructions: Your Lasix is increased from 20mg daily to 40mg daily. Your labs will repeated in one week to monitor kidney function.
Prescriptions:
New
acetaminophen 325 mg Tablet
650 mg PO Q4HPRN PRN (Reason: LAGOS, mild pain, or temp >100.4F) Qty: 0 0RF
mirtazapine 7.5 mg Tablet
7.5 mg PO HS Qty: 0 0RF
Rx Instructions:
new dose
furosemide 40 mg Tablet
40 mg PO DAILY Qty: 0 0RF
Rx Instructions:
new dose
allopurinol 100 mg Tablet
50 mg PO DAILY Qty: 0 0RF
Rx Instructions:
new dose
Continued
omeprazole 20 MG capsule,delayed release(DR/EC)
20 mg PO DAILY
metformin 1,000 mg tablet
1,000 mg PO BID
Eliquis 2.5 mg tablet
2.5 mg PO BID
ferrous sulfate [FeroSul] 325 mg (65 mg iron) tablet
325 mg PO DAILY
magnesium oxide 500 mg tablet
500 mg PO HS
diltiazem HCl 120 mg capsule,extended release 24hr
120 mg PO DAILY Qty: 0 0RF
saxagliptin 5 mg tablet
5 mg PO HS Qty: 0 0RF
Changed
metoprolol tartrate 100 mg tablet
100 mg PO HS Qty: 0 0RF
Discontinued
allopurinol 100 mg tablet
100 mg PO DAILY
furosemide 20 mg tablet
20 mg PO DAILY
mirtazapine 15 mg tablet
15 mg PO HS
No Action
calcium carbonate-vitamin D3 500 mg-3.125 mcg (125 unit) Tablet
1 tab PO DAILY
Discharge Orders:
Discharge Patient (As Directed); Ordered 03/05/24
Ordered By: Maria Eugenia Aragon
Discharge Date and Time
Print Language: MARSHALLESE
== END 2024-03-05 17:14 | DRG 64 ==
LOC: 3 WEST ACU 23:38
PROVIDERS: Student in an Organized Health Care Education/Training Program; ADMITTING PHYSICIAN Internal Medicine; ATTENDING PHYSICIAN Internal Medicine; CONSULT PHYSICIAN Physical Medicine & Rehabilitation; CONSULT PHYSICIAN Psychiatry & Neurology Neurology; EMERGENCY PHYSICIAN Emergency Medicine; FAMILY PHYSICIAN Family Medicine
DX: I63.512 Cerebral infarction due to unspecified occlusion or stenosis of left middle cerebral artery (principal); I50.33 Acute on chronic diastolic (congestive) heart failure; G81.91 Hemiplegia, unspecified affecting right dominant side; Z87.891 Personal history of nicotine dependence; R09.02 Hypoxemia; R06.89 Other abnormalities of breathing; E11.36 Type 2 diabetes mellitus with diabetic cataract; I11.0 Hypertensive heart disease with heart failure; I48.0 Paroxysmal atrial fibrillation; M47.812 Spondylosis without myelopathy or radiculopathy, cervical region
CPT/HCPCS: 93308; 70450; 70496; 70498; 70551; 71045; 80048; 80053; 80061; 82607; 82962; 83036; 83735; 83880; 85025; 92507; 92610; 93005; 93321; 93325; 97110; 97116; 97129; 97163; 97167; 97530; 97535; 99285; Q9967

== ENCOUNTER → 2024-06-01 12:20 | Outpatient (REF) | payer MEDICARE, SELFPAY ==
[2024-06-01 13:01] LABS: Urine Albumin Trace (Neg - Trace); Urine Bilirubin Negative (Negative); Urine Character Clear (Clear); Urine Color Yellow; Urine Glucose Negative (Negative); Urine Ketone Negative (Negative); Urine Leukocyte Negative (Negative); Urine Nitrite Negative (Negative); Urine Occult Blood Negative (Negative); Urine Urobilinogen Negative (Neg - 1+)
== END ==
LOC: OLABPATH 12:20
PROVIDERS: ATTENDING PHYSICIAN Internal Medicine
DX: R82.90 Unspecified abnormal findings in urine (principal)
CPT/HCPCS: 81003

== ENCOUNTER → 2024-06-04 10:05 | Outpatient (REF) | payer MEDICARE, SELFPAY ==
[2024-06-04 12:32] LABS: Hematocrit 39.1 % (37.0-47.0); Hemoglobin 12.8 g/dL (12.0-16.0); Mean Corp Hgb Conc. 32.7 g/dL (33.0-37.0); Mean Platelet Volume 11.1 fL (7.4-10.4); Platelet Count 153 10^3/uL (130-400); Red Blood Cell Count 3.76 10^6/uL (4.20-5.40); Red Cell Dist. Width 15.9 % (11.5-14.5)
[2024-06-04 12:33] LABS: ALT (SGPT) 13 U/L (0-35); AST (SGOT) 25 U/L (14-36); Albumin 4.1 g/dl (3.5-5.0); Alkaline Phosphatase 86 U/L (38-126); Blood Urea Nitrogen 29 mg/dl (7-17); Calcium 9.3 mg/dl (8.4-10.2); Carbon Dioxide 31 mmol/L (22-30); Chloride 97 mmol/L (98-107); Glucose 157 mg/dl (70-99); Potassium 5.2 mmol/L (3.5-5.1); Sodium 139 mmol/L (135-145); Total Bilirubin 0.6 mg/dl (0.2-1.3); Total Protein 7.2 g/dl (6.3-8.2); eGFR 54.87
[2024-06-04 14:36] LABS: Glycohemoglobin (HgbA1c) 6.7 % (4.0-5.6)
== END ==
LOC: OLABPATH 10:05
PROVIDERS: ATTENDING PHYSICIAN Internal Medicine
DX: I10 Essential (primary) hypertension (principal); E08.65 Diabetes mellitus due to underlying condition with hyperglycemia; I48.20 Chronic atrial fibrillation, unspecified; I50.9 Heart failure, unspecified
CPT/HCPCS: 36415; 80053; 83036; 85027

== ENCOUNTER → 2024-10-25 12:19 | Outpatient (REF) | payer MEDICARE, SELFPAY ==
[2024-10-25 12:56] LABS: % Basophils 0.8 % (0-2); % Eosinophils 7.6 % (0-6); % Lymphocytes 28.5 % (20.5-51.1); % Neutrophils 51.1 % (42.2-75.2); Absolute Eosinophils 0.3 10^3/uL (0-0.7); Absolute Lymphocytes 1.1 10^3/uL (1.2-3.4); Absolute Monocytes 0.5 10^3/uL (0.1-0.6); Hemoglobin 9.8 g/dL (12.0-16.0); Mean Corp Hgb Conc. 32.7 g/dL (33.0-37.0); Mean Corpuscular Hgb 33.3 pg (27.0-31.0); Mean Platelet Volume 10.8 fL (7.4-10.4); Nucleated Red Blood Cells % 0 %; Platelet Count 121 10^3/uL (130-400); Red Blood Cell Count 2.94 10^6/uL (4.20-5.40); Red Cell Dist. Width 13.6 % (11.5-14.5); White Blood Cell Count 3.8 10^3/uL (4.8-10.8)
[2024-10-25 12:57] LABS: ALT (SGPT) 13 U/L (0-35); AST (SGOT) 22 U/L (14-36); Albumin 3.6 g/dl (3.5-5.0); Alkaline Phosphatase 81 U/L (38-126); Blood Urea Nitrogen 31 mg/dl (7-17); Calcium 9.1 mg/dl (8.4-10.2); Carbon Dioxide 31 mmol/L (22-30); Chloride 102 mmol/L (98-107); Glucose 88 mg/dl (70-99); Potassium 4.4 mmol/L (3.5-5.1); Sodium 140 mmol/L (135-145); Total Bilirubin 0.4 mg/dl (0.2-1.3); eGFR 54.53
== END ==
LOC: OLABPATH 12:19
PROVIDERS: ATTENDING PHYSICIAN Internal Medicine
DX: I10 Essential (primary) hypertension (principal); E08.65 Diabetes mellitus due to underlying condition with hyperglycemia
CPT/HCPCS: 36415; 80053; 84134; 85025

== ENCOUNTER → 2024-11-01 11:44 | Outpatient (REF) | payer MEDICARE, SELFPAY ==
[2024-11-01 12:29] LABS: % Basophils 0.8 % (0-2); % Eosinophils 6.4 % (0-6); % Lymphocytes 25.9 % (20.5-51.1); % Monocytes 10.5 % (1.7-9.3); % Neutrophils 56.4 % (42.2-75.2); Absolute Eosinophils 0.3 10^3/uL (0-0.7); Absolute Lymphocytes 1.3 10^3/uL (1.2-3.4); Absolute Monocytes 0.5 10^3/uL (0.1-0.6); Absolute Neutrophils 2.8 10^3/uL (1.4-6.5); Hematocrit 31.2 % (37.0-47.0); Hemoglobin 10.1 g/dL (12.0-16.0); Mean Corp Hgb Conc. 32.4 g/dL (33.0-37.0); Mean Corpuscular Hgb 33.7 pg (27.0-31.0); Mean Platelet Volume 10.4 fL (7.4-10.4); Nucleated Red Blood Cells % 0 %; Platelet Count 114 10^3/uL (130-400); White Blood Cell Count 4.9 10^3/uL (4.8-10.8)
[2024-11-01 12:58] LABS: Iron 52 ug/dl (37-170)
[2024-11-01 13:40] LABS: Ferritin 75.8 ng/ml (11.1-264.0)
[2024-11-01 14:10] LABS: Folate 8.2 ng/ml (2.76-20); Vitamin B12 575 pg/ml (239-931)
== END ==
LOC: OLABPATH 11:44
PROVIDERS: ATTENDING PHYSICIAN Internal Medicine
DX: I50.9 Heart failure, unspecified (principal); M81.0 Age-related osteoporosis without current pathological fracture; D52.9 Folate deficiency anemia, unspecified
CPT/HCPCS: 36415; 82607; 82728; 82746; 83540; 85025

== ENCOUNTER 2024-11-11 20:40 | Inpatient (IN) | payer MEDICARE, SELFPAY ==
[2024-11-11] VITALS (10 sets, daily range): BP systolic 80–117; BP diastolic 27–70; BMI 16.0; BMI 16.3
[2024-11-11] MEDS: LR 1000 IV (17:32)
[2024-11-11 17:38] LABS: % Basophils 0.3 % (0-2); % Eosinophils 2.8 % (0-6); % Immature Granulocytes 0.7 % (0-0.5); % Lymphocytes 23.6 % (20.5-51.1); % Monocytes 7.4 % (1.7-9.3); % Neutrophils 65.2 % (42.2-75.2); Absolute Eosinophils 0.2 10^3/uL (0-0.7); Absolute Lymphocytes 1.4 10^3/uL (1.2-3.4); Absolute Monocytes 0.5 10^3/uL (0.1-0.6); Hematocrit 34.9 % (37.0-47.0); Hemoglobin 11.6 g/dL (12.0-16.0); Mean Corp Hgb Conc. 33.2 g/dL (33.0-37.0); Mean Corpuscular Hgb 33.5 pg (27.0-31.0); Mean Corpuscular Volume 100.9 fL (81.0-99.0); Mean Platelet Volume 10.1 fL (7.4-10.4); Nucleated Red Blood Cells % 0 %; Platelet Count 204 10^3/uL (130-400); Red Blood Cell Count 3.46 10^6/uL (4.20-5.40); Red Cell Dist. Width 13.7 % (11.5-14.5); White Blood Cell Count 6.1 10^3/uL (4.8-10.8)
--- NOTE | 2024-11-11 17:38 | ED.GENMED ---
History of Present Illness
General
Chief Complaint: Fall
Source: patient, family and ambulance crew
Exam Limitations: none
Time Seen by Provider: 11/11/24 17:30
Nursing documentation reviewed up to this point in time: agreed with
History of Present Illness
History of Present Illness:
89-year-old female presents emergency department due to a fall last night, patient taking Eliquis, complaining of lethargy, nausea, vomiting and diarrhea. Patient hypoxic upon arrival.
Past History
Past History
ED Past Medical History: Arrthythmia (Afib), CHF (HFpEF), CVA (Left MCA 2016), GERD, HTN, Hypercholesterolemia, NIDDM and Other (Thoracic vertebral compression fracture (T12), Headaches, Anemia, Breast calcifications, COVID-19 07/2023, gout)
ED Past Surgical History: Cardiac (Aortic valve replacement), Gynecological (Hysterectomy), Tonsilectomy and Other (Cataracts)
Social History
Tobacco: Former smoker
Alcohol: Daily (Vodka 1)
Drug: None
Personal:
Living: with family
Family History
Family History: Other (Reviewed and noncontributory)
Review of Systems
Review of Systems
Allergies reviewed?: Yes
All Other Systems: Not applicable
Constitutional: Reports fatigue
EENT: Reports no symptoms
Respiratory: Reports trouble breathing
Cardiac: Reports no symptoms
ABD/GI: Reports no symptoms
: Reports no symptoms
Musculoskeletal: Reports no symptoms
Skin: Reports no symptoms
Neurological: Reports weakness
Endocrine: Reports no symptoms
Hematologic/Lymphatic: Reports no symptoms
Psychiatric: Reports no symptoms
Phy Exam
Physical Exam
Physical Exam:
Physical Exam
General: Elderly, afebrile
Neck: supple. no meningeal signs. normal posterior pharynx
Heart: s1/s2 regular rate and rhythm, systolic ejection murmur 5/6. equal radial
pulses.
HEENT: Pupils equal round reactive to light, EOMI
Lungs: no acute respiratory distress. Scattered rhonchi bilaterally
Abdomen: normal bowel sounds. not tender. no CVAT
Neuro: alert and oriented. no focal neurological deficits cranial nerves II through XII intact
Skin: no rash
Psychiatric: well kept. interactive and cooperative
Extremities: no edema. no calf tenderness. negative homans. good distal pulses
Scores
Heart Failure Risk
Heart Failure Risk Score: Yes
History of Stroke or TIA: Yes
History of intubation for respiratory distress: No
Heart rate on ED arrival >/= 110: No
SaO2 <90% on arrival on room air: Yes
HR >/=110 during 3min walk test (or too ill to perform test): Yes
ECG has acute ischemic changes: No
Urea >/=12mmol/L (BUN 33.6mg/dL): Yes
Serum CO2>/=35mmol/L: No
Troponin I or T elevated to SC Level (0.4mg/dL): No
NT-proBNP >/=5,000ng/L (5,000pg/ml): Yes
HF Risk Score: 6
Admission Status: VERY HIGH RISK 55.3% Consider admission to hospital
Course
Orders/Labs/Results
Orders:
Orders
11/11/24 17:05
EKG [Electrocardiogram (*1)] Urgent
Reason for Study: Tachycardia
EKG- Treatment ONCE
11/11/24 17:21
Complete Blood Count/With Diff Urgent
Comprehensive Metabolic Panel Urgent
11/11/24 17:32
Lactated Ringers [Lr] 1,000 ml IV BOLUS
11/11/24 17:37
CT Head W/o Iv Contrast Urgent
Comment:
Reason For Exam: fall
11/11/24 18:02
Dextrose 50%-Water [Dextrose 50% Syringe] 12.5 grams IV [id number] PRN
Dextrose 50%-Water [Dextrose 50% Syringe] 25 grams IV NOW STA
Insulin Human Regular [Novolin R] 5 units IV NOW STA
Sodium Bicarbonate 50 meq IV NOW STA
11/11/24 18:03
Bedside Glucose PRE IV Insulin- HyperK+ NOW
11/11/24 18:05
CR Chest Portable - 1 View Urgent
Comment:
Reason For Exam: short of breath, hypoxia
Reason Study Needs to be Portable: Patient Unstable
11/11/24 18:17
COVID-19 Antigen Urgent
Source: Nasal Swab
Lactic Acid Q4H
Comment: CANCEL 2nd LACTIC ACID IF 1st LACTIC ACID IS LESS THAN 2
NT-proBNP Urgent
Troponin I Urgent
Influenza A+B Rapid Molecular Urgent
NHAN Source: Nasal Swab
Specimen Description:
11/11/24 19:33
Bedside Glucose POST IV Insulin- HyperK+ Q1HX2,Q2HX2
11/11/24 20:20
Admit/Transfer Patient As Directed
Co-Sign Provider:
Level of Care: Inpatient admission
Assign to:: IMU- Intermediate Care
Physician / Group: Maximiliano
Diagnosis: DEVANG, Lactic Acidosis, Hyperkalemia
Reason for Hospitalization: DEVANG, Lactic Acidosis, Hyperkalemia
Expected length of stay greater than two midnights?: Yes
ELOS- Estimated Length of Stay in days: 4
I certify the patient meets the requirements for IP care: Yes
PRN Pain Medication Management As Directed
May give lesser potent ordered pain med per pt: Yes
preference::
Protocol:: Medication orders for pain may be administered in a
manner that supports deferring to patient preference
when the pt is:
- Requesting an ordered lesser potent pain medication.
Least to most potent pain medications are defined
as: acetaminophen < NSAID < tramadol < opioids
(morphine, oxycodone, hydromorphone).
- Requesting a lesser dose of the same medication IF
ORDERED.
- Requesting a less intrusive route of administration
if both routes are prescribed by the provider (PO <
IV).
11/11/24 20:21
Code Status As Directed
Resuscitation Status: Do not resuscitate
Reached after discussion with pt or family/Healthcare POA: Yes
11/11/24 20:22
DNR Bracelet Application ONCE
11/11/24 20:23
CT Abd/pelvis Wo Iv Cont Urgent
Comment:
Reason For Exam: DEVANG, N/V/D
11/11/24 20:25
Complete Blood Count/No Diff Urgent
Comment: Obtain baseline before beginning heparin infusion if not already collected
Heparin Protocol- PTT Orders As Directed
PTT per Heparin protocol: -Obtain CBC and baseline PTT - if not already collected.
-Obtain PTT 6 hours from start of infusion. Then, every 6 hours until 2 consecutive
PTT's are therapeutic. Then, PTT Daily.
-With each rate change, obtain PTT every 6 hours until 2 consecutive PTT's are
therapeutic. Then, PTT Daily.
Notify MD As Directed
Notify physician if: PTT is greater than or equal to 200.
11/11/24 20:30
Heparin 70566 Units/250 ml 25,000 units in 250 ml IV PER PROTOCOL
Weight to be used for heparin protocol in kilograms (kg):: 37.2
Protocol:: DVT/PE
PTT Goal Range to be used:: PTT 73 to 111 seconds
Order type:: Initial
INITIAL Infusion Dose (UNITS/KG/hr) & then follow protocol:: 18 units/kg/hr
Infusion Dose in UNITS/hr & then follow protocol (UNITS/hr):: 700
INFUSION RATE in mL/hr & then follow protocol (mL/hr):: 7
For DVT/PE algorithm, re-bolus for low PTT?: Yes
PTT less than or equal to 64 seconds:: Re-bolus 80 units/kg (max 10,000units). Increase by 100 units/hr
(+ 1mL/hr)
PTT 64.1 to 72.9 seconds:: Re-bolus 40 units/kg (max 5,000 units). Increase by 100 units/hr
(+ 1mL/hr)
PTT 73 to 111 seconds:: Target Range. No change in rate.
PTT 111.1 to 130.9 seconds:: Decrease rate by 100 units/hr (- 1 mL/hr)
PTT 131 to 199.9 seconds:: HOLD for 1 hr. Then decrease by 100 units/hr (- 1mL/hr)
PTT greater than or equal to 200 seconds:: HOLD for 2 hrs & Notify Provider. Then decrease by 200 units/hr
(- 2mL/hr)
Lab follow-up:: Each change, PTT q6h until 2 consecutive are therapeutic. Then
PTT daily.
11/11/24 20:31
Heparin 1,500 units IV PRN PRN
Heparin 3,000 units IV PRN PRN
11/11/24 20:45
PTT Urgent
Comment: Obtain baseline before beginning heparin infusion if not already collected
Potassium Urgent
Comment: draw 2 hours after regular insulin IV administration
11/11/24 21:00
Flush (0.9% Sodium Chloride) [Flush (Nss)] See Dose Instructions IV PER PROTOCOL
11/11/24 21:45
Lactic Acid Q4H
Comment: CANCEL 2nd LACTIC ACID IF 1st LACTIC ACID IS LESS THAN 2
11/13/24 06:00
Complete Blood Count/No Diff Q2D
Comment: Notify if platelet count is <130,000 or decreases by 50% from baseline
11/15/24 06:00
Complete Blood Count/No Diff Q2D
Comment: Notify MD if platelet count is <130,000 or decreases by 50% from baseline
11/17/24 06:00
Complete Blood Count/No Diff Q2D
Comment: Notify MD if platelet count is <130,000 or decreases by 50% from baseline
11/19/24 06:00
Complete Blood Count/No Diff Q2D
Comment: Notify MD if platelet count is <130,000 or decreases by 50% from baseline
11/21/24 06:00
Complete Blood Count/No Diff Q2D
Comment: Notify MD if platelet count is <130,000 or decreases by 50% from baseline
11/23/24 06:00
Complete Blood Count/No Diff Q2D
Comment: Notify MD if platelet count is <130,000 or decreases by 50% from baseline
11/25/24 06:00
Complete Blood Count/No Diff Q2D
Comment: Notify MD if platelet count is <130,000 or decreases by 50% from baseline
11/27/24 06:00
Complete Blood Count/No Diff Q2D
Comment: Notify MD if platelet count is <130,000 or decreases by 50% from baseline
Abnormal Lab Results
11/11/24 11/11/24 11/11/24
17:21 18:17 18:22
RBC 3.46 L 10^6/uL
(4.20-5.40)
Hgb 11.6 L g/dL
(12.0-16.0)
Hct 34.9 L %
(37.0-47.0)
MCV 100.9 H fL
(81.0-99.0)
MCH 33.5 H pg
(27.0-31.0)
Immature Gran % 0.7 H %
(0-0.5)
Potassium 7.5 H* mmol/L
(3.5-5.1)
Chloride 95 L mmol/L
(98-107)
Carbon Dioxide 14 L* mmol/L
(22-30)
BUN 77 H mg/dl
(7-17)
Creatinine 3.6 H mg/dL
(0.6-1.0)
Glucose 129 H mg/dl
(70-99)
Lactic Acid 11.6 H* mmol/L
(0.7-2.0)
Calcium 11.0 H mg/dl
(8.4-10.2)
Troponin I 0.116 H* ng/ml
POC Glucose 118 H mg/dl
()
11/11/24 11/11/24
19:32 20:34
RBC
Hgb
Hct
MCV
MCH
Immature Gran %
Potassium
Chloride
Carbon Dioxide
BUN
Creatinine
Glucose
Lactic Acid
Calcium
Troponin I
POC Glucose 154 H mg/dl 132 H mg/dl
(70-) (70-99)
11/11/24 17:21
Vital Signs
Initial and Last Documented VS:
Initial Vital Signs
Temp Pulse Resp BP Pulse Ox
98.2 F 77 15 88/51 88
11/11/24 17:02 11/11/24 17:02 11/11/24 17:02 11/11/24 17:02 11/11/24 17:02
Last Documented Vital Signs
Temp Pulse Resp BP Pulse Ox
98.2 F 74 18 80/57 95
11/11/24 17:02 11/11/24 20:45 11/11/24 20:45 11/11/24 20:28 11/11/24 20:00
MDM/Problems Addressed
Differential Diagnosis Includes:
Acute renal failure, pneumonia, CHF, hyperkalemia
MDM/Problems Addressed:
89-year-old female with acute renal failure, CHF exacerbation, hyperkalemia, lactic acidosis, hypoxia. Suspect hypoxia more likely due to interstitial pneumonitis. Unclear cause of lactic acidosis. IV fluids given initially. Admit to hospitalist.
Chronic conditions affecting care: HTN and Arrhythmia
Acute Exacerbation and/or Progression of Chronic Illness: HTN and Arrhythmia
*Radiology
Radiology exam reviewed: preliminary read by ED provider (Chest x-ray shows interstitial pneumonitis)
*Pulse Oximetry
Patient hypoxic: yes
*EKG
EKG Intrepretation Date: 11/11/24
EKG Intrepretation Time: 17:08
Interpretation: abnormal
Comparison EKG: changes noted
Heart Rate: 74
Rate: normal
Rhythm: sinus and sinus arrhythmia
[place]: normal axis
Interval: normal interval
QRS Pattern: normal QRS
Ischemia: non-specific ST changes
*Category Analyst Interpretation
Rate: normal
Interpretation: normal
Heart Rate: 75
Rhythm: sinus
*Critical Care Note
Total Time (30-74mins, 75-104mins- exclusive of procedures): 35
comment:
Critical care statement: A total of 35 minutes of critical care time was provided for this patient. This includes management of unstable vital signs, evaluation of the patient at bedside, reviewing the patient's pertinent medical records, discussion
with consultants, review of old EKGs and review of pertinent medical records. This time with separate from time utilized to perform the aforementioned documented procedures
Data Reviewed
Review of Other/Old Records Reveals: Testing (Prior echocardiogram from 03/05/2024 EF 65 to 70%)
Source: records
Patient Management
Social determinants of health affecting care: Living situation and Strong social support
Discussion with other providers: Hospitalist
Escalation/DeEscalation of care consider admission/obs:
Admission indicated
ED Attending Note
-
Portions of this chart may have been created with voice recognition software.� Occasional wrong word or��sound alike� substitutions may have occurred due to the inherent limitations of voice recognition software.
Discharge Plan
Departure
Patient Disposition: Admit
Date of Disposition: 11/11/24
Time of Disposition: 19:32
Admit to: IMU
Presentation/result/management discussed w/ accepting MD/DO: Hospitalist
Patient with high blood pressure during this ER visit?: No
Condition: Fair
Discharge Problem:
Acute renal failure, Aortic stenosis, Acidosis, lactic, Acute hyperkalemia, Fall, CHF (congestive heart failure), Hypoxia
Interventions
Interventions:
*Risk Screen - Suicide Last Done: 11/11/24 17:02
*General Assessment Last Done: 11/11/24 17:02
*Neglect/Abuse Screening Last Done: 11/11/24 17:02
*ED- Fall Risk Assessment Last Done: 11/11/24 17:02
*ED COVID-19 Vaccine History Last Done: 11/11/24 17:02
ED-Musculoskeletal Assessment Last Done: 11/11/24 17:09
ED- Neurological Assessment Last Done: 11/11/24 17:09
ED-Skin Assessment Last Done: 11/11/24 17:10
[2024-11-11 17:58] LABS: ALT (SGPT) < 30 U/L (0-35); AST (SGOT) 25 U/L (14-36); Albumin 4.7 g/dl (3.5-5.0); Alkaline Phosphatase 74 U/L (38-126); Blood Urea Nitrogen 77 mg/dl (7-17); Carbon Dioxide 14 mmol/L (22-30); Chloride 95 mmol/L (98-107); Estimated Creatinine Clearance 6 ml/min; Glucose 129 mg/dl (70-99); Potassium 7.5 mmol/L (3.5-5.1); Sodium 137 mmol/L (135-145); Total Bilirubin 0.5 mg/dl (0.2-1.3); Total Protein 7.4 g/dl (6.3-8.2); eGFR 11.72
[2024-11-11 18:23] LABS: Glucose - Point of Care 118 mg/dl (70-99)
[2024-11-11] MEDS: DEXTROSE 50% SYRINGE 25 GRAMS IV (18:24)
[2024-11-11] MEDS: NOVOLIN R 5 UNITS IV (18:27)
[2024-11-11] MEDS: SODIUM BICARBONATE 50 MEQ IV (18:28)
[2024-11-11 18:48] LABS: COVID-19 Antigen Negative (Negative)
[2024-11-11 19:04] LABS: NT-proBNP 25200 pg/ml; Troponin I 0.116 ng/ml
[2024-11-11 19:05] LABS: Lactic Acid 11.6 mmol/L (0.7-2.0)
[2024-11-11 19:34] LABS: Glucose - Point of Care 154 mg/dl (70-99)
--- NOTE | 2024-11-11 20:33 | HPS.HSE ---
Family Physician
-
Family Physician: Ricardo Alcantara MD
Chief Complaint
-
Weakness
History of Present Illness
Patient is an 89y F with PMH significant for CVA, hypertension and HFpEF who presents to ED complaining of generalized weakness, frequent falls and N/V/D. History obtained from patient and family at the bedside. Patient relates that she moved
into assisted living facility about 5 months ago. She reports issues with frequent loose stools and has been taking PRN Imodium for control of this. She also reports generally poor appetite / oral intake. Patient has felt progressively more weak
in the past few weeks and has fallen about 3-4 times in that span. She had her most recent fall last PM. She has a small abrasion to the R forearm but no other significant injuries. She denies any LOC. She denies any prodrome of chest pain,
palpitations, lightheadedness or dizziness. She complains of LE weakness / 'legs giving out' that leads to falls.
Last PM, patient became nauseated and has had multiple episodes of non-bloody emesis since that time.
Today she was even more weak / tired and she presented to the ED for further evaluation and treatment.
Patient does not know what her current medications are. She states that 'a lot' has changed since her last admission here in 02/2024.
At the time of my examination, patient was resting comfortably without specific complaints.
Medical History
Past Medical History
Past Medical History: Reports Other
Additional Past Medical History:
ASCVD / CVA
Hypertension
Paroxysmal Atrial Fibrillation
Aortic Stenosis
HFpEF
Gout
DM-II
Iron Deficiency Anemia
Past Surgical History: Reports Other
Additional Past Surgical History:
Bio AVR
Hysterectomy
T&A
Cataracts
Social History
Tobacco: Former Smoker (Quit smoking 25 years ago. Approx 30 pack years total use.)
Alcohol: None
Drug: None
Living: Assisted Living
Family History
Family History: Not pertinent
Allergies / Home Medications
Allergies reflects when Allergies were last updated in [facility].
Home Medications with original date entered in [facility]
Allergy/Medication List:
Patient cannot recite her current medications / doses.
List was given to EMS and is not present here in the ED.
If medication reconciliation has not been performed, why?: Medication List N/A
Review of Systems
-
History Source: Patient
A 12 point ROS was completed and negative except as noted: Yes
Constitutional: Reports Weight Loss (About 50 lbs weight loss in a year.) and Fatigue; Denies Fever or Chills
EENT: Denies Sore Throat
Respiratory: Denies Cough or Trouble Breathing
Cardiac: Denies Chest Pain or Palpitations
Abdomen/GI: Reports Nausea, Vomiting, Diarrhea and Anorexia; Denies Abdominal Pain, Bloody Stools or Black Stools
: Reports Other (Decreased volume of urination.); Denies Dysuria, Frequency or Flank Pain
Musculoskeletal: Denies Edema
Neurological: Reports Weakness; Denies Dizzy or Headache
Psych: Denies Depression or Anxiety
Physical Exam
Vital Signs
Vital Signs
Temp Pulse Resp BP Pulse Ox
98.2 F 72 18 91/63 95
11/11/24 17:02 11/11/24 20:15 11/11/24 20:15 11/11/24 19:30 11/11/24 20:00
Physical Exam
General: Other (Frail, cachectic 89y F in no acute distress.)
HEENT: Other (Dry MM, neck supple.)
Respiratory: Other (Few rales at bases - otherwise clear.)
Cardiac: S1/S2, Regular Rhythm and Murmur (IV / ADRIANA)
GI: Soft, Non Tender, Non Distended and Normal Bowel Sounds
Musculoskeletal: No Clubbing, No Cyanosis and No Edema
Skin: Other (Skin tear / abrasion R forearm with dressing in place.)
Neuro: AO x 3 and Nonfocal/grossly intact
Laboratory Results
-
Laboratory Results
Lactic Acid 11.6 mmol/L (0.7-2.0) H* 11/11/24 18:17
Total Bilirubin 0.5 mg/dl (0.2-1.3) 11/11/24 17:21
AST 25 U/L (14-36) 11/11/24 17:21
ALT < 30 U/L (0-35) 11/11/24 17:21
Alkaline Phosphatase 74 U/L (38-126) 11/11/24 17:21
Troponin I 0.116 ng/ml H* 11/11/24 18:17
Impression/Plan
-
A/P: Patient is an 89y F with PMH significant for ASCVD / CVA, HTN and DM-II who presents to ED complaining of generalized weakness, frequent falls and N/V/D.
DEVANG
Lactic Acidosis
Hyperkalemia
Hypotension / Shock - Likely Hypovolemic
- Admit for further evaluation and treatment.
- Suspect combination of chronic issues (weight loss, poor PO intake, medications) and acute volume losses (N/V/D).
- Patient unfortunately cannot recall her current meds for review.
- IVF support with NSS.
- Follow serial labs / lytes for improvement.
- Check CT now for any evidence of urinary obstruction - though seems less likely.
- Cannot use IV contrast given renal function - but no complaints of abdominal pain / no tenderness to suspect intestinal ischemia, etc.
- Nephrology evaluation for additional recommendations.
- IVFs and midodrine for BP support. Avoid hypotension.
- Follow serial lactate for improvement.
Abnormal Troponin
Elevated BNP
- Unclear etiology. No complaints of chest pain, dyspnea, etc. ? secondary to poor perfusion / shock as noted above.
- ? PE given marked change from prior (BNP increased 10 fold) with no evidence of hypervolemia.
- IV heparin infusion for now as cannot check CTA to rule out PE.
- Follow troponin to peak.
- Monitor for adequate oxygenation, perfusion, etc.
- Echo for further evaluation - history of BioAVR, severe TR, moderate MR.
- Cardiology evaluation for additional recommendations.
ASCVD / CVA
- Stable. Holding Eliquis acutely - IV heparin for now.
DM-II
- Stable. Hold all current meds pending formal reconciliation.
- Follow glucose and cover with SSI as needed.
- Update A1C.
Paroxysmal Atrial Fibrillation
- Stable. Currently in sinus rhythm.
- IV heparin for now as noted above.
Benign Hypertension
- Presently hypotensive.
- Was on midodrine during prior visits for hypotension as well.
- Need formal med rec to review current medications and make necessary adjustments.
DVT Prophylaxis: On IV Heparin
Code Status: DNR
[2024-11-11 20:36] LABS: Glucose - Point of Care 132 mg/dl (70-99)
[2024-11-11] MEDS: HEPARIN 25000 UNITS/250 ML IV (20:56)
[2024-11-11 21:02] LABS: APTT 32.7 Sec (23.4-35.0)
[2024-11-11 21:16] LABS: Potassium 6.6 mmol/L (3.5-5.1)
[2024-11-11 22:23] LABS: Lactic Acid 12.4 mmol/L (0.7-2.0)
[2024-11-11 22:54] LABS: Glucose - Point of Care 111 mg/dl (70-99)
[2024-11-11] MEDS: NSS 1000 IV (23:02)
[2024-11-12] VITALS (76 sets, daily range): BP systolic 59–142; BP diastolic 21–113; BMI 16.5
[2024-11-12 01:10] LABS: Hematocrit 32.8 % (37.0-47.0); Hemoglobin 11.6 g/dL (12.0-16.0); Mean Corp Hgb Conc. 35.4 g/dL (33.0-37.0); Mean Corpuscular Hgb 34.1 pg (27.0-31.0); Mean Corpuscular Volume 96.5 fL (81.0-99.0); Mean Platelet Volume 10.4 fL (7.4-10.4); Platelet Count 175 10^3/uL (130-400); Red Cell Dist. Width 13.8 % (11.5-14.5); White Blood Cell Count 13.6 10^3/uL (4.8-10.8)
--- NOTE | 2024-11-12 01:14 | PTCARENOTE ---
received pt from ED @22:15. Pt aaox3, able to make needs known. Admission questions completed, pt assessed. See worklist for assessment. VSS. Pt states her BP 'runs on the lower side' at baseline. Current BP 89/48. Pt asymptomatic. DEPENDENCY PROGRAM DIRECTOR notified via
tiger text.
[2024-11-12 01:44] LABS: Lactic Acid 10.2 mmol/L (0.7-2.0)
[2024-11-12 01:45] LABS: Troponin I 0.192 ng/ml
[2024-11-12 03:32] LABS: APTT 118.8 Sec (23.4-35.0)
[2024-11-12 05:04] LABS: Hematocrit 31.6 % (37.0-47.0); Hemoglobin 10.8 g/dL (12.0-16.0); Mean Corp Hgb Conc. 34.2 g/dL (33.0-37.0); Mean Corpuscular Hgb 33.8 pg (27.0-31.0); Mean Corpuscular Volume 98.8 fL (81.0-99.0); Mean Platelet Volume 10.6 fL (7.4-10.4); Platelet Count 173 10^3/uL (130-400); Red Cell Dist. Width 13.4 % (11.5-14.5); White Blood Cell Count 14.5 10^3/uL (4.8-10.8)
[2024-11-12 05:13] LABS: Lactic Acid 7.1 mmol/L (0.7-2.0)
[2024-11-12 05:35] LABS: Blood Urea Nitrogen 89 mg/dl (7-17); Calcium 10.1 mg/dl (8.4-10.2); Carbon Dioxide 16 mmol/L (22-30); Chloride 99 mmol/L (98-107); Estimated Creatinine Clearance 7 ml/min; Glucose 124 mg/dl (70-99); Magnesium 2.6 mg/dl (1.6-2.3); Phosphorus 5.7 mg/dl (2.5-4.5); Potassium 7.3 mmol/L (3.5-5.1); Sodium 136 mmol/L (135-145); eGFR 11.72
[2024-11-12 05:40] LABS: Troponin I 0.216 ng/ml
[2024-11-12 05:58] LABS: TSH Reflex To Free T4 2.29 uIU/ml (0.47-4.68)
[2024-11-12] MEDS: SODIUM BICARBONATE 50 MEQ IV (06:24)
[2024-11-12] MEDS: NOVOLIN R 0.1 UNITS IV (06:24)
[2024-11-12] MEDS: DEXTROSE 50% SYRINGE 25 GRAMS IV (06:26)
--- NOTE | 2024-11-12 06:26 | W.PN.UPDATE ---
Update Note
Progress Note Update
Hyperkalemia noted with this morning labs with K+7.3. Hyperkalemia protocol ordered. Reviewed with Dr. Viera and will add Michelle.
[2024-11-12 06:37] LABS: Glucose - Point of Care 122 mg/dl (70-99)
[2024-11-12] MEDS: LOKELMA 5 GRAM PO (06:47)
--- NOTE | 2024-11-12 07:00 | W.PN.UPDATE ---
Update Note
Progress Note Update
Nursing notes bp is dropping..Levophed with low dose and NS IVF bolus started.
[2024-11-12] MEDS: NSS 500 IV (07:20)
[2024-11-12] MEDS: LEVOPHED 250 IV (07:20)
--- NOTE | 2024-11-12 07:39 | W.PN.UPDATE ---
Update Note
Progress Note Update
Cross-cover patient this morning for hypotension. [employer]ERTER was called. I came to evaluate patient.
Patient denies chest pain or shortness of breath or lightheadedness at the moment. Feels tired.
Looks acutely ill
Heart regular rate and rhythm, systolic murmur present
Lungs clear to auscultation bilateral, no crackles or wheezes
Abdomen soft, bowel sounds normal, no tenderness, mild distention, mild suprapubic discomfort
Neuro alert oriented x 3 no focal neurological deficit but generalized weakness
A/P:
Shock either septic or hypovolemic/hyperkalemia in the setting of DEVANG--> bolus normal saline, monitor volume status, continue pressors, obtain blood cultures and follow up lactate. Twelve-lead EKG reviewed NSR @ 70 bpm, peaked P waves and
nonspecific ST-T changes abnormalities. calcium gluconate, glucose and insulin, Lokelma. Continue cardiac monitoring and follow up repeat K. Updated daughter, Waylon, about current status and also I let her know that attending physician will
update her later about her clinical course. Patient and family confirms DNR status. At this point we will continue IMU status since she is responding to fluids and pressors but if she worsens might either consider transfer to ICU or conservative
approach.
[2024-11-12 07:42] LABS: Glucose - Point of Care 191 mg/dl (70-99)
[2024-11-12 08:08] LABS: Urine Albumin 3+ (Neg - Trace); Urine Bilirubin Negative (Negative); Urine Character Clear (Clear); Urine Color Yellow; Urine Glucose Negative (Negative); Urine Ketone Negative (Negative); Urine Leukocyte Negative (Negative); Urine Nitrite Negative (Negative); Urine Occult Blood 4+ (Negative); Urine Specific Gravity 1.015 (<1.030); Urine Urobilinogen Negative (Neg - 1+)
--- NOTE | 2024-11-12 08:18 | CON.CAR ---
Addendum entered and electronically signed by Lance Mcdonald MD 11/12/24 09:48:
I saw and examined the patient.
[facility] [employer] Director's note was reviewed and I agree with the note.
Comment:
GEN: No distress, awake, frail
HEENT: supple, anicteric, mmm
LUNGS: scatt rhonchi
CV: Reg, S1/S2, 1/6 syst LSB, no gallop
ABD: soft, BS+, NT/ND
EXT: No edema
NEURO: Gross non-focal
SKIN: No rash
Plan:
89-year-old female with past medical history of paroxysmal atrial fibrillation, chronic heart failure preserved ejection fraction, hypertension, diabetes, prior stroke/TIA, falls, and anxiety presents with multiple falls over the past several weeks
and generalized weakness. She continues to have weight loss with nausea and vomiting. She was found to be hyperkalemic with a potassium of 7.5 and a creatinine of 3.6. Head CT was overall unremarkable. Cardy troponins were abnormal at 0.1 and
then 0.2. She denies any overt chest pains or shortness of breath. She was found to be hypotensive this morning and was placed on midodrine and Levophed for blood pressure support.
I suspect her abnormal troponins are from a nonischemic myocardial injury.
Recommend continue supportive care. Check blood cultures, consider IV antibiotics.
Status post Lokelma and IV fluids for hyperkalemia. EKG overall normal. Continue to trend. Creatinine at 3.6. Follow electrolytes
We will repeat her echocardiogram. She has a history of severe tricuspid regurgitation, bioprosthetic aortic valve with moderate MR.
Her overall prognosis is very poor. For now I would hold her Eliquis with her recent falls and weight loss. She remains in sinus rhythm. Hold metoprolol for now but eventually resume when blood pressure is improved
She has lost 20 pounds over the past 9 months.
Would begin discussing goals of care/palliative/hospice.
Original Note:
Consultation
Consultation Request
Date/Time Consultation Requested: 11/12/2024
Date/Time Consultation Performed: 11/12/2024
Requesting Provider: Dr. Viera
Performing Provider: Chanelle De Jesus PA-C for Dr. Mcdonald
Reason for Consultation: Elevated troponin
Medical History
-
History of Present Illness:
HPI: Is an 89-year-old female with past medical history of paroxysmal atrial fibrillation, AVR, chronic HFpEF, hypertension, hyperlipidemia, type II DM, prior CVA and TIA, falls, skin cancer, and anxiety. Presented to ER for evaluation of weakness
and falls over the past few weeks. She notes 3-4 falls within the past few weeks. Denies any loss of consciousness, but feels weakness in her legs reportedly get out. She also has been struggling with some nausea and vomiting and weight is down
to 84 pounds. On arrival to the emergency room, she was noted to be hyperkalemic with potassium of 7.5 with creatinine 3.6. She was admitted for further workup and evaluation. Head CT was without abnormality. Chest x-ray also unremarkable. CT
of abdomen and pelvis showed diffuse enteritis/ileus. Early this a.m., she had episode of hypotension and has been started on Levophed. Blood pressure improved. All outpatient medications on hold currently. Cardiology consulted for evaluation
given elevated troponin. Troponin was 0.116 on arrival and has trended up to 0.216. She denies any chest pain or shortness of breath at this time. Her only complaint is feeling tired and weak.
PMH:
Paroxysmal atrial fibrillation
Chronic Eliquis AC
Atrial tachycardia
Chronic HFpEF
s/p AVR w/ 19 mm Trifecta supra-annular valve 08/26/2015
Severe tricuspid regurgitation, moderate mitral regurgitation
Hypertension
Hyperlipidemia
Type 2 diabetes
h/o CVA December 2015
Gout
h/o falls with compression fractures
Skin cancer
Anxiety
Hysterectomy
Past Medical History
Past Medical History: Other (In HPI)
Past Surgical History: Cardiac (Bioprosthetic aortic valve replacement 2016)
Social History
Tobacco: Non-Smoker
Alcohol: None
Drug: None
Living: Assisted Living
Employment: Retired
Family History
Family History: Hypertension
Allergies / Home Medications
Allergy/AdvReac Type Severity Reaction Status Date / Time
ezetimibe [From Zetia] Allergy Unknown pain in Verified 11/11/24 17:23
muscles
simvastatin [From Zocor] Allergy Unknown pain in Verified 11/11/24 17:23
muscles
�Medication �Instructions �Recorded �Confirmed �Type
omeprazole 20 mg capsule,delayed 20 mg PO DAILY Gastrointestinal 08/27/15 03/05/24 History
release issue
apixaban 2.5 mg tablet (Eliquis) 2.5 mg PO BID Arrhythmia 07/28/22 03/05/24 History
metformin 1,000 mg tablet 1,000 mg PO BID Diabetes 07/28/22 03/05/24 History
ferrous sulfate 325 mg (65 mg 325 mg PO DAILY Supplement 12/02/23 03/05/24 History
iron) tablet (FeroSul)
magnesium oxide 500 mg PO HS Electrolyte Repletion 12/02/23 03/05/24 History
acetaminophen 325 mg tablet 650 mg (2 x 325 mg) PO Q4HPRN PRN 03/05/24 03/05/24 Rx
LAGOS, mild pain, or temp >100.4F #0
tabs
allopurinol 100 mg tablet 50 mg (1/2 x 100 mg) PO DAILY Gout 03/05/24 03/05/24 Rx
#0 tabs
furosemide 40 mg tablet 40 mg PO DAILY Heart Failure #0 03/05/24 03/05/24 Rx
tabs
mirtazapine 7.5 mg tablet 7.5 mg PO HS Mental Health/Anxiety 03/05/24 03/05/24 Rx
#0 tabs
saxagliptin 5 mg tablet 5 mg PO HS Diabetes #0 tabs 03/05/24 03/05/24 Rx
calcium 500 mg (as 1 tab PO DAILY supplement #0 tabs 03/19/24 03/05/24 Rx
carbonate)-vitamin D3 3.125 mcg
(125 unit) tablet
cholecalciferol (vitamin D3) 50 50 mcg PO DAILY supplement 30 days 03/19/24 Rx
mcg (2,000 unit) tablet #30 tabs
metoprolol tartrate 50 mg tablet 25 mg (1/2 x 50 mg) PO BID high 03/19/24 Rx
blood pressure 30 days #30 tabs
midodrine 5 mg tablet 10 mg (2 x 5 mg) PO 03/19/24 Rx
TID@0800,1300,1800 low blood
pressure-orthostasis 30 days #180
tabs
tiotropium bromide 2.5 2 puff inhalation R DAILY 03/19/24 Rx
mcg/actuation mist for inhalation Lung/breathing issues-can
(Spiriva Respimat) substitute comparable 30 days #1
container
Review of Systems
-
History Source: Patient
All other systems: Negative unless noted
Physical Exam
Vital Signs
Temp Pulse Resp BP Pulse Ox
97.6 F 76 16 108/62 96
11/12/24 03:36 11/12/24 08:00 11/12/24 08:00 11/12/24 08:00 11/12/24 08:00
Lab Results
11/12/24 04:37
Troponin I 0.216 ng/ml H* 11/12/24 04:37
Hke-O-Svdvcavkieq Pept 80847 pg/ml 11/11/24 18:17
Physical Exam
General: No Apparent Distress and Other (Frail)
HEENT: Normocephalic, Anicteric and Moist Mucous Membranes
Respiratory: Clear and Non Labored Respirations
Cardiac: S1/S2, Regular Rhythm and Murmur
Musculoskeletal: No Clubbing, No Cyanosis and No Edema
Skin: Warm and Dry
Neuro: Awake, Alert and Nonfocal/Grossly Intact
Psych: Calm
Impression / Plan
-
PCP: Dr. Alcantara
Cardiology: Dr. Ness
Impression:
Presented with weakness, falls
Suspected hypovolemic shock
Hyperkalemia
DEVANG
Elevated troponin
Paroxysmal atrial fibrillation
Chronic Eliquis AC
Atrial tachycardia
Chronic HFpEF
s/p AVR w/ 19 mm Trifecta supra-annular valve 08/26/2015
Severe tricuspid regurgitation, moderate mitral regurgitation
Hypertension
Hyperlipidemia
Type 2 diabetes
h/o CVA December 2015
Gout
h/o falls with compression fractures
Skin cancer
Anxiety
Hysterectomy
Cardiac catheterization 08/27/2015: No significant coronary artery disease
Echo 02/22/2022: EF 70%, severe biatrial enlargement, mild MR, mild MS with mean gradient 9, well-seated bioprosthetic AVR with peak/mean gradient 24/14 mmHg, moderate to severe TR with moderate pulmonary hypertension PAP 50 to 55 mmHg
Echo 05/02/2023: EF 65 to 70%, mild mitral stenosis with moderate right regurgitation mean gradient of 6, stable bioprosthetic AVR with mean gradient of 15 and trace AI, severe TR with PA pressure 65
Echo 12/05/2023: EF 69%, mild MS, moderate MR, well-seated bio AVR with peak/mean gradients 26/16 mmHg, mild , severe TR, severe pulmonary hypertension with estimated PAP 63 mmHg
Echo 03/05/2024: EF 65 to 70%, mild MS, moderate MR, bio AVR with peak/mean gradients 31/16 mmHg, severe TR, estimated PAP 59 mmHg
Echo 11/12/2024: Study pending
Plan:
- Presented with weakness, falls. Admitted with hypovolemic shock, DEVANG, hyperkalemia and elevated troponin.
- Episode of hypotension noted this a.m. Now on Levophed @4. BP improved. Continue to hold outpatient medications
- Management of DEVANG, hyperkalemia per nephrology. Status post 500 mL IVF bolus this a.m. as well as Lokelca.
-Elevated troponin noted, trending up to 0.216. Continue to trend to peak. Denies chest pain.
- Check echo. Prior echo 02/2024 showed preserved EF with moderate MR as noted above.
- Continue IV heparin.
- Known history of paroxysmal atrial fibrillation. Remains in SR by ECG reviewed by me and on review of telemetry.
- Chest x-ray without abnormality. No shortness of breath. proBNP is elevated at 25,200, but with creatinine of 3.6 and hypotension, will continue to hold Lasix.
- Weight down to 84 pounds. When seen in office most recently 01/2024, weight was 106 pounds. Follow volume status closely.
- Wean O2 as able
- DNR CODE STATUS noted
HPI: Is an 89-year-old female with past medical history of paroxysmal atrial fibrillation, AVR, chronic HFpEF, hypertension, hyperlipidemia, type II DM, prior CVA and TIA, falls, skin cancer, and anxiety. Presented to ER for evaluation of weakness
and falls over the past few weeks. She notes 3-4 falls within the past few weeks. Denies any loss of consciousness, but feels weakness in her legs reportedly get out. She also has been struggling with some nausea and vomiting and weight is down
to 84 pounds. On arrival to the emergency room, she was noted to be hyperkalemic with potassium of 7.5 with creatinine 3.6. She was admitted for further workup and evaluation. Head CT was without abnormality. Chest x-ray also unremarkable. CT
of abdomen and pelvis showed diffuse enteritis/ileus. Early this a.m., she had episode of hypotension and has been started on Levophed. Blood pressure improved. All outpatient medications on hold currently. Cardiology consulted for evaluation
given elevated troponin. Troponin was 0.116 on arrival and has trended up to 0.216. She denies any chest pain or shortness of breath at this time. Her only complaint is feeling tired and weak.
Data Reviewed
-
EKG: Tracing Personally Visualized and interpreted
Radiology: Report Reviewed by me
CT Scan: Report Reviewed by me
Labs: Labs Reviewed by me
Old Records: Reviewed
--- NOTE | 2024-11-12 08:25 | PTCARENOTE ---
Pt with K 7.3. CREATIVE ASSISTANT notified via tiger text. IV insulin, IV bicarb, and IV dextrose given per CREATIVE ASSISTANT orders. Accucheck 122 prior to insulin/dextrose admin. Hyperkalemia order set added to worklist. Accucheck to be obtained Q1x2 and then Q2x2.
--- NOTE | 2024-11-12 08:31 | PTCARENOTE ---
Michelle added and given.
--- NOTE | 2024-11-12 08:32 | RR ---
A Rapid Response was called on this patient, please see Rapid Response form. Pt noted to be increasingly drowsy, with BP 59/21. Called rapid response and texted CIVIL RIGHTS ATTORNEY. IVF bolus and IV levo ordered and hung. Accucheck 191. EKG showed NSR. No c/o
SOB/chest pain/discomfort. Bladder scan showed 270ml, however pt had not urinated since receiving over a liter of IVF. Tam catheter ordered for DEVANG by Dr. Garcia (cross coverage). UA ordered and sent. Blood cx ordered. BP stabilized with levo+IVF
bolus. Current BP 105/69. Pt more awake/less drowsy. Care ongoing.
[2024-11-12 08:37] LABS: Glycohemoglobin (HgbA1c) 6.3 % (4.0-5.6)
[2024-11-12 08:41] LABS: Glucose - Point of Care 123 mg/dl (70-99)
[2024-11-12 08:59] LABS: Urine Amorphous Seen; Urine Squamous Cell 0-2 /LPF (Few)
[2024-11-12 09:00] LABS: Urine White Cell 0-2 /HPF (0-5)
--- NOTE | 2024-11-12 10:16 | W.CON.NEPH ---
Consultation
-
Date/Time Consultation Requested: 11/12/24 0018
Date/Time Consultation Performed: 11/12/24 1000
Requesting Provider: Santiago Terry
Performing Provider: Una Rosenberg
Reason for Consultation: AIDEN, hyperkalemia
Medical History
-
Chief Complaint: weakness
History of Present Illness:
89y F with PMH significant for CVA, hypertension and HFpEF on lasix, history of severe tricuspid regurgitation, bioprosthetic aortic valve with moderate MR , chr hypotension on midodrine, DM on saxagliptin,meformin, p afib on AC with Eliquis who
presents to ED complaining of generalized weakness, frequent falls and N/V/D. History obtained from patient and family at the bedside. Patient reportedly moved into assisted living facility in May 2024, in same month. She reports
generally poor appetite / oral intake. Patient has felt progressively more weak in the past few weeks and has fallen about 3-4 times in that span. She had her most recent fall 2days ago. She has a small abrasion to the R forearm but no other
significant injuries. She denies any LOC. She denies any prodrome of chest pain, palpitations, lightheadedness or dizziness. yesterday patient became nauseated and has had multiple episodes of non-bloody emesis and felt very weak and brought to
the hospital. On admit cr cr 3.6, k 7.5, bicarb 14, bun 77, valentine 11, L acid of 11.6. her baseline cr at 1 on 10/25/24. She also note dhypotensive and started on pressors after IVF bolus. [place] 30588 but pt reports heidi CP or sob. No fever or
dysuria. History is limited from pt, most of the history obtained through chart and family at bedside. She had few doses of bicarb, insulin, dextrose and Lokelma.
Repeat labs during visit was 6.1, cr 3.6, bun 84. 300cc urine in nina bag. CT abd with out contrast shows no hydro, possible enteritis with mild ileus.
Past Medical History
Paroxysmal atrial fibrillation
Chronic Eliquis AC
Atrial tachycardia
Chronic HFpEF
s/p AVR w/ 19 mm Trifecta supra-annular valve 08/26/2015
Severe tricuspid regurgitation, moderate mitral regurgitation
Hypertension
Hyperlipidemia
Type 2 diabetes
h/o CVA December 2015
Gout
h/o falls with compression fractures
Skin cancer
Anxiety
Hysterectomy
Past Surgical History: Other (Bio AVR Hysterectomy T&A Cataracts)
Social History
Tobacco: Former Smoker
Alcohol: None
Drug: None
Living: Assisted Living
Family History
Family History: Not Pertinent
Allergies / Home Medications
Allergy/AdvReac Type Severity Reaction Status Date / Time
ezetimibe [From Zetia] Allergy Unknown pain in Verified 11/11/24 17:23
muscles
simvastatin [From Zocor] Allergy Unknown pain in Verified 11/11/24 17:23
muscles
�Medication �Instructions �Recorded �Confirmed �Type
omeprazole 20 mg capsule,delayed 20 mg PO DAILY Gastrointestinal 08/27/15 03/05/24 History
release issue
apixaban 2.5 mg tablet (Eliquis) 2.5 mg PO BID Arrhythmia 07/28/22 03/05/24 History
metformin 1,000 mg tablet 1,000 mg PO BID Diabetes 07/28/22 03/05/24 History
ferrous sulfate 325 mg (65 mg 325 mg PO DAILY Supplement 12/02/23 03/05/24 History
iron) tablet (FeroSul)
magnesium oxide 500 mg PO HS Electrolyte Repletion 12/02/23 03/05/24 History
acetaminophen 325 mg tablet 650 mg (2 x 325 mg) PO Q4HPRN PRN 03/05/24 03/05/24 Rx
LAGOS, mild pain, or temp >100.4F #0
tabs
allopurinol 100 mg tablet 50 mg (1/2 x 100 mg) PO DAILY Gout 03/05/24 03/05/24 Rx
#0 tabs
furosemide 40 mg tablet 40 mg PO DAILY Heart Failure #0 03/05/24 03/05/24 Rx
tabs
mirtazapine 7.5 mg tablet 7.5 mg PO HS Mental Health/Anxiety 03/05/24 03/05/24 Rx
#0 tabs
saxagliptin 5 mg tablet 5 mg PO HS Diabetes #0 tabs 03/05/24 03/05/24 Rx
calcium 500 mg (as 1 tab PO DAILY supplement #0 tabs 03/19/24 03/05/24 Rx
carbonate)-vitamin D3 3.125 mcg
(125 unit) tablet
cholecalciferol (vitamin D3) 50 50 mcg PO DAILY supplement 30 days 03/19/24 Rx
mcg (2,000 unit) tablet #30 tabs
metoprolol tartrate 50 mg tablet 25 mg (1/2 x 50 mg) PO BID high 03/19/24 Rx
blood pressure 30 days #30 tabs
midodrine 5 mg tablet 10 mg (2 x 5 mg) PO 03/19/24 Rx
TID@0800,1300,1800 low blood
pressure-orthostasis 30 days #180
tabs
tiotropium bromide 2.5 2 puff inhalation R DAILY 03/19/24 Rx
mcg/actuation mist for inhalation Lung/breathing issues-can
(Spiriva Respimat) substitute comparable 30 days #1
container
Review of Systems
-
All other systems: Negative unless noted
Physical Exam
Vital Signs
Vital Signs
Temp Pulse Resp BP Pulse Ox
97.6 F 74 13 105/69 97
11/12/24 03:36 11/12/24 08:30 11/12/24 08:30 11/12/24 08:30 11/12/24 08:30
Lab Results
WBC 14.5 10^3/uL (4.8-10.8) H 11/12/24 04:37
RBC 3.20 10^6/uL (4.20-5.40) L 11/12/24 04:37
Hgb 10.8 g/dL (12.0-16.0) L 11/12/24 04:37
Hct 31.6 % (37.0-47.0) L 11/12/24 04:37
Plt Count 173 10^3/uL (130-400) 11/12/24 04:37
eGFR 11.72 11/12/24 04:37
Phosphorus 5.7 mg/dl (2.5-4.5) H 11/12/24 04:37
Exs-H-Tvkcfkmtixk Pept 90451 pg/ml 11/11/24 18:17
Albumin 4.7 g/dl (3.5-5.0) 11/11/24 17:21
Abnormal Lab Results
11/11/24 11/11/24 11/11/24
17:21 18:17 18:22
WBC
RBC 3.46 L
Hgb 11.6 L
Hct 34.9 L
MCV 100.9 H
MCH 33.5 H
MPV
Immature Gran % 0.7 H
APTT
Sodium
Potassium 7.5 H*
Chloride 95 L
Carbon Dioxide 14 L*
BUN 77 H
Creatinine 3.6 H
Glucose 129 H
Hemoglobin A1c
Lactic Acid 11.6 H*
Calcium 11.0 H
Phosphorus
Magnesium
Troponin I 0.116 H*
Ur Occult Blood Reflex
Urine RBC
Urine Albumin (Reflex)
POC Glucose 118 H
11/11/24 11/11/24 11/11/24
19:32 20:34 20:45
WBC
RBC
Hgb
Hct
MCV
MCH
MPV
Immature Gran %
APTT
Sodium
Potassium 6.6 H*
Chloride
Carbon Dioxide
BUN
Creatinine
Glucose
Hemoglobin A1c
Lactic Acid
Calcium
Phosphorus
Magnesium
Troponin I
Ur Occult Blood Reflex
Urine RBC
Urine Albumin (Reflex)
POC Glucose 154 H 132 H
11/11/24 11/11/24 11/12/24
21:48 22:42 00:57
WBC 13.6 H
RBC 3.40 L
Hgb 11.6 L
Hct 32.8 L
MCV
MCH 34.1 H
MPV
Immature Gran %
APTT
Sodium
Potassium
Chloride
Carbon Dioxide
BUN
Creatinine
Glucose
Hemoglobin A1c
Lactic Acid 12.4 H* 10.2 H*
Calcium
Phosphorus
Magnesium
Troponin I 0.192 H* D
Ur Occult Blood Reflex
Urine RBC
Urine Albumin (Reflex)
POC Glucose 111 H
11/12/24 11/12/24 11/12/24
03:12 04:37 06:20
WBC 14.5 H
RBC 3.20 L
Hgb 10.8 L
Hct 31.6 L
MCV
MCH 33.8 H
MPV 10.6 H
Immature Gran %
APTT 118.8 H
Sodium
Potassium 7.3 H*
Chloride
Carbon Dioxide 16 L
BUN 89 H
Creatinine 3.6 H
Glucose 124 H
Hemoglobin A1c 6.3 H
Lactic Acid 7.1 H*
Calcium
Phosphorus 5.7 H
Magnesium 2.6 H
Troponin I 0.216 H*
Ur Occult Blood Reflex
Urine RBC
Urine Albumin (Reflex)
POC Glucose 122 H
04/11/12/24 11/12/24
07:10 07:39 08:29
WBC
RBC
Hgb
Hct
MCV
MCH
MPV
Immature Gran %
APTT
Sodium
Potassium
Chloride
Carbon Dioxide
BUN
Creatinine
Glucose
Hemoglobin A1c
Lactic Acid
Calcium
Phosphorus
Magnesium
Troponin I
Ur Occult Blood Reflex 4+ A
Urine RBC 3-6 A
Urine Albumin (Reflex) 3+ A
POC Glucose 191 H 123 H
11/12/24 11/12/24 11/12/24
09:49 09:50 11:25
WBC
RBC
Hgb
Hct
MCV
MCH
MPV
Immature Gran %
APTT 65.1 H
Sodium 132 L
Potassium 6.2 H* 6.1 H*
Chloride 95 L
Carbon Dioxide 18 L
BUN 84 H
Creatinine 3.6 H
Glucose 300 H
Hemoglobin A1c
Lactic Acid 5.7 H*
Calcium
Phosphorus
Magnesium
Troponin I 0.246 H*
Ur Occult Blood Reflex
Urine RBC
Urine Albumin (Reflex)
POC Glucose 100 H
11/12/24
13:15
WBC
RBC
Hgb
Hct
MCV
MCH
MPV
Immature Gran %
APTT
Sodium
Potassium
Chloride
Carbon Dioxide
BUN
Creatinine
Glucose
Hemoglobin A1c
Lactic Acid
Calcium
Phosphorus
Magnesium
Troponin I
Ur Occult Blood Reflex
Urine RBC
Urine Albumin (Reflex)
POC Glucose 122 H
Physical Exam
General: Awake, Alert, Oriented, AOx3 and No Distress
HEENT: Anicteric, Conjunctivae Clear and Facial Symmetry
Respiratory: Normal Excursion, Nonlabored Respirations and Other (decreased bs)
Cardiac: S1/S2, Regular Rate/Rhythm and Murmur
Breast: Deferred by me
Abdomen: Soft, Nontender and Nondistended
Musculoskeletal: No Cyanosis and No Edema
Skin: No Rash
Neuro: Nonfocal/Grossly Intact
Psych: Appropriate
Data Reviewed
-
Radiology: Report Reviewed by me, Discussed with Patient and Discussed with Family
Labs: Labs Reviewed by me, Discussed with Patient and Discussed with Family
Assessment/Plan
-
IMp:
AIDEN
severe A gap met acidosis with Lactic Acidosis
severe life threatening Hyperkalemia
Hypotension / Shock
Abnormal Troponin
Elevated BNP
history of BioAVR, severe TR, moderate MR.
ASCVD / CVA
DM-II
Paroxysmal Atrial Fibrillation
chr hypotension on midodrine
Plan:
A/w weakness and falls, new n/v/d
Aiden suspect AIDEN from hypovolemia
microscopic hematuria, 3+alb-?nina sample
check U fena, U CPR
non oliguric with nina
met acidosis and L acid improving
change iVF to bicarb
severe hyperkalemia improving, will give lokelma course
CT abd shows possible enteritis and ileus-but pt with having BMs. reviewed with primary
d/w pt and family detail, high risk of dialysis if no improvement in k
pt not very clear on dialysis, hopefully with improving k likely can be avoided
cont pressors to keep MAP>65
resume midodrine
vol status seem dry end though high BNP, CXR noted
she currently on 2lit of O2
cont to trend labs
adjust meds dose renally
abx per primary, await for cxs
over all prognosis is poor
d/w pt and family
d/w primary
CC time spent 45min
[2024-11-12 10:26] LABS: APTT 65.1 Sec (23.4-35.0)
[2024-11-12 10:28] LABS: Lactic Acid 5.7 mmol/L (0.7-2.0); Potassium 6.2 mmol/L (3.5-5.1)
[2024-11-12 10:29] LABS: Troponin I 0.246 ng/ml
[2024-11-12 10:37] LABS: Blood Urea Nitrogen 84 mg/dl (7-17); Calcium 9.2 mg/dl (8.4-10.2); Carbon Dioxide 18 mmol/L (22-30); Chloride 95 mmol/L (98-107); Estimated Creatinine Clearance 7 ml/min; Glucose 300 mg/dl (70-99); Potassium 6.1 mmol/L (3.5-5.1); Sodium 132 mmol/L (135-145); eGFR 11.72
[2024-11-12] MEDS: NOVOLOG FLEXPEN-LOW RESISTANCE SC ×3 (10:45→17:34)
[2024-11-12] MEDS: ProAmatine 5 MG PO (10:49)
[2024-11-12] MEDS: SODIUM BICARBONATE 1075 MEQ IV ×2 (10:56→19:40)
[2024-11-12 11:03] LABS: Creatine Phosphokinase 107 U/L (30-135)
[2024-11-12] MEDS: NSS IV (11:08)
[2024-11-12] MEDS: HEPARIN 1500 UNITS IV (11:12)
[2024-11-12] MEDS: LOKELMA 10 GRAM PO ×3 (11:26→18:28)
--- NOTE | 2024-11-12 11:31 | CM ---
Patient from [facility] at [facility] with Hx falls/weakness with Dx Shock either septic or hypovolemic/hyperkalemia with DEVANG. O2 4L. Receiving IVF, Levophed gtt, Heparin gtt. Rapid response today for drowsy mentation, low BP.
Clear liquds. PT/OT held.
Spoke with TAM Smith, [facility];
the patient has been A/O, requires min assist for ADLs and was ambulatory with her RW.
Regular diet.
No PT/OT currently.
Sarah is only aware of 1 recent fall.
DME - only RW, she had no O2.
PCP- Semaj Machuca
Pharmacy -[facility]
Sarah confirms that they are able to accept the patient back if she needs palliative care or hospice.
CM continuing to follow.
Plan possible return to [facility].
[2024-11-12 11:36] LABS: Glucose - Point of Care 100 mg/dl (70-99)
[2024-11-12 13:26] LABS: Glucose - Point of Care 122 mg/dl (70-99)
[2024-11-12] MEDS: ProAmatine PO (14:07)
--- NOTE | 2024-11-12 14:34 | PTCARENOTE ---
At change of shift patients blood pressure required rapid response, Levophed initiated and bolus of NSS 500 adminsitered. Second order for NSS 1000ml bolus discontinued after discussion with cardiology and Dr. Garcia. Patient responded well to
interventions and Levophed has been weaned to 1mcg, oxygen weaned to 2 liters via nasal cannula. Tam was placed as per doctors orders, urine output 725ml. Patient is oriented, denying pain when asked. Patient tolerating clear liquid appetite, no
nausea or vomiting. High potassium treated with Lokelma.
--- NOTE | 2024-11-12 15:58 | W.PN.HOSP.TC ---
Addendum entered and electronically signed by Geoffrey Platt DO 11/13/24 13:38:
Severe Protein Calorie Malnutrition of chronic illness is an additional diagnosis
Original Note:
Today's Communication/Plan
-
Assessment / Plan
Assessment / Plan
General: No Apparent Distress, cachectic
HEENT: NormoCephalic, Moist mucous membranes, Atraumatic
Respiratory: Clear and Non Labored Respirations
Cardiac: Regular rhythm, heart rate around 80, 3/6 systolic murmur left sternal border
GI: Soft, Non Tender, Non Distended and Normal Bowel Sounds
Musculoskeletal: No Edema, no deformity, decreased muscle bulk throughout
Skin: Warm and dry
: Tam draining clear yellow urine
Neuro: Awake, Alert, Nonfocal/grossly intact
Psych: Calm and cooperative
Ms. Gant is an 89-year-old female with a medical history of bioprosthetic aortic valve replacement, moderate mitral regurgitation, severe tricuspid regurgitation, paroxysmal A-fib (on low-dose Eliquis), HFpEF, CVA (December 2015), chronic hypotension
(on midodrine), and ecl-vultjxd-buhdmrues diabetes mellitus who presented who presented with generalized weakness, frequent falls, and nausea with vomiting and diarrhea. She has been experiencing progressive generalized weakness for the past 2 to 3
weeks with multiple falls during that time. She developed nausea with vomiting 1 day prior to arrival. She was found to be hypotensive not responsive to IV fluids and so was started on vasopressors. She has multiple significant metabolic
derangements on labs. She has been admitted for further evaluation and management.
Gapped metabolic acidosis:
-Suspect due to ongoing nausea with vomiting and diarrhea, possibly due to enteritis
- Improving, will check stool for norovirus and C. difficile however reportedly this has been an ongoing problem for several months managed with Imodium
- IV fluids switched to bicarb drip
- Lactic acid peaked at 12.4 and continues to improve, will monitor
- Will treat with Zosyn for now
- If no significant improvement in the next 24 hours will recommend considering palliative options
Hypovolemic shock:
- Suspect due to volume loss in the setting of GI symptoms in addition to baseline hypotension requiring midodrine
- Continue vasopressors and midodrine
- IV fluids
- Management of GI symptoms
Severe hyperkalemia:
- Likely due to DEVANG secondary to hypovolemia
- No significant T wave abnormalities
- Given multiple doses of Lokelma
- Improving, will monitor with frequent labs
DEVANG:
- Initial creatinine 3.6, baseline appears to be around 1.0
- Suspect due to hypovolemia
- Continue treatment as outlined above
- Close monitoring for renal recovery, no plans for dialysis at this time, if needed will further discuss goals of care prior to initiating
Troponin elevation:
- Suspect nonischemic
- Echocardiogram shows preserved ejection fraction, no regional wall motion abnormalities, moderate MR and severe TR
- Continue supportive care for now
- Monitor on telemetry
- IV heparin drip for now
- Appreciate cardiology guidance
Paroxysmal A-fib:
- Currently holding beta-ronaldo considering hypotension, ultimately will plan to restart
- She is a poor candidate for anticoagulation considering recurrent falls, will not restart Eliquis
CODE STATUS: DNR
Anticipated Discharge: > 48 hours
Subjective/Interval History
-
Date of Service: November 12, 2024
Patient was seen and examined at bedside this morning. She reports feeling generally well but very tired despite being on vasopressors and IV heparin drip.
Objective Data
-
Labs:
Laboratory Results
11/12/24 11/12/24 11/12/24
04:37 09:49 09:50
WBC 14.5 H
Hgb 10.8 L
Hct 31.6 L
Plt Count 173
APTT 65.1 H
Sodium 136 132 L
Potassium 7.3 H* 6.2 H* 6.1 H*
Chloride 99 95 L
Carbon Dioxide 16 L 18 L
BUN 89 H 84 H
Creatinine 3.6 H 3.6 H
Glucose 124 H 300 H
Calcium 10.1 9.2
11/12/24 11/12/24
14:00 17:00
WBC
Hgb
Hct
Plt Count
APTT Pending
Sodium Pending
Potassium Pending
Chloride Pending
Carbon Dioxide Pending
BUN Pending
Creatinine Pending
Glucose Pending
Calcium Pending
Vital Signs:
Vital Signs
Temp Pulse Resp BP Pulse Ox
98 F 73 18 118/86 93
11/12/24 11:05 11/12/24 14:30 11/12/24 14:30 11/12/24 14:30 11/12/24 14:30
I&O
11/11/24 11/12/24 11/13/24
06:59 06:59 06:59
Intake Total 320 / 320
Output Total 725 / 725
Balance -405 / -405
Review of Systems
-
History Source: Patient
All other systems: Reviewed and negative
Constitutional: Reports Fatigue
Physical Exam
-
General: No Apparent Distress and Appears Chronically Ill
[2024-11-12 16:32] LABS: Protein/creatinine Ratio 2.6; Urine Protein 138 mg/dl; Urine Sodium 85 mmol/L (30-90)
[2024-11-12 16:35] LABS: Glucose - Point of Care 138 mg/dl (70-99)
[2024-11-12] MEDS: ZOSYN 50 IV (16:50)
[2024-11-12 17:11] LABS: Troponin I 0.185 ng/ml
[2024-11-12 17:32] LABS: APTT > 200 Sec (23.4-35.0)
[2024-11-12 17:45] LABS: Blood Urea Nitrogen 73 mg/dl (7-17); Calcium 8.2 mg/dl (8.4-10.2); Carbon Dioxide 15 mmol/L (22-30); Chloride 107 mmol/L (98-107); Estimated Creatinine Clearance 9 ml/min; Glucose 124 mg/dl (70-99); Potassium 5.1 mmol/L (3.5-5.1); Sodium 138 mmol/L (135-145); eGFR 15.85
[2024-11-12 18:03] LABS: Blood Urea Nitrogen 82 mg/dl (7-17); Calcium 8.7 mg/dl (8.4-10.2); Carbon Dioxide 16 mmol/L (22-30); Chloride 103 mmol/L (98-107); Estimated Creatinine Clearance 7 ml/min; Glucose 137 mg/dl (70-99); Potassium 5.6 mmol/L (3.5-5.1); Sodium 136 mmol/L (135-145)
[2024-11-12] MEDS: ProAmatine 10 MG PO (18:27)
--- NOTE | 2024-11-12 18:41 | PTCARENOTE ---
PTT greater than 200, notified hospitalist. Heparin on hold as per policy.Will endorse to next shift for restart.
--- NOTE | 2024-11-12 18:52 | PTCARENOTE ---
Patient coughing on occasion when drinking her Lokelma today. Notified hospitalist, speech consulted.
--- NOTE | 2024-11-12 22:13 | PTCARENOTE ---
Pt BP 69/42 MAP 52, repeat BP 79/49 MAP 60. SPOOL TENDER notified via tiger text. Levo gtt restarted@22:06.
[2024-11-12 22:36] LABS: Glucose - Point of Care 147 mg/dl (70-99)
[2024-11-13] VITALS (47 sets, daily range): BP systolic 86–136; BP diastolic 55–85; PULSE 85–92; O2SAT 93–94; BMI 18.1
[2024-11-13 02:02] LABS: APTT 61.7 Sec (23.4-35.0)
--- NOTE | 2024-11-13 02:14 | PTCARENOTE ---
noted pt to have small amount of blood in nina catheter tubing. UA also showed RBCs and occult blood. Pt currently on heparin gtt. SURVEY INSTRUMENT OPERATOR notified via tiger text. Next PTT drawn, resulted 61.7. Order set instructions to rebolus and increase rate of
heparin gtt. Per SURVEY INSTRUMENT OPERATOR, skip bolus this time and only increase rate. Rate increased by 1ml/hr per order set instructions, no bolus given.
[2024-11-13] MEDS: ZOSYN 50 IV ×3 (03:01→17:28)
[2024-11-13] MEDS: SODIUM BICARBONATE 1075 MEQ IV ×2 (04:34→13:32)
--- NOTE | 2024-11-13 06:01 | PTCARENOTE ---
levo gtt off @ 0557
[2024-11-13 06:29] LABS: Blood Urea Nitrogen 83 mg/dl (7-17); Carbon Dioxide 25 mmol/L (22-30); Chloride 98 mmol/L (98-107); Estimated Creatinine Clearance 8 ml/min; Glucose 153 mg/dl (70-99); Potassium 4.9 mmol/L (3.5-5.1); Sodium 135 mmol/L (135-145); eGFR 12.56
--- NOTE | 2024-11-13 08:04 | W.PN.CARDCBS ---
Addendum entered and electronically signed by Lance Mcdonald MD 11/13/24 12:44:
I saw and examined the patient.
The Last Sawyer's note was reviewed and I agree with the note.
Comment:
GEN: No distress, awake, fatigued
HEENT: supple, anicteric, mmm
LUNGS: CTA, no wheezes/rales
CV: Reg, S1/S2, 1/6 syst LSB, no gallop
ABD: soft, BS+, NT/ND
EXT: No edema
NEURO: Gross non-focal
SKIN: No rash
Plan:
Okay to discontinue heparin. Would restart Eliquis tonight 2.5 mg p.o. twice daily.
Abnormal troponin is non-ischemic myocardial injury.
Weight is climbing. proBNP greater than 27,000. Echo reviewed, with severe TR will need to restart Lasix 40 mg daily.
Okay to continue midodrine.
Would be reasonable to consider hospice/palliative care.
Original Note:
Today's Communication / Plan
-
Stop Heparin gtt
Restart Eliquis
Weight is up 8 lbs which is closer to her dry weight, recheck pro-BNP to trend
Impression / Plan
-
PCP: Dr. Alcantara
Cardiology: Dr. Ness
Impression:
Presented with weakness, falls
Suspected hypovolemic shock
Hyperkalemia
DEVANG
Elevated troponin
Paroxysmal atrial fibrillation
Chronic Eliquis AC
Atrial tachycardia
Chronic HFpEF
s/p AVR w/ 19 mm Trifecta supra-annular valve 08/26/2015
Severe tricuspid regurgitation by echo 11/12/24
Mild MS and moderate MR
Hypertension
Hyperlipidemia
Type 2 diabetes
h/o CVA December 2015
Gout
h/o falls with compression fractures
Skin cancer
Anxiety
Hysterectomy
Cardiac catheterization 08/27/2015: No significant coronary artery disease
Echo 02/22/2022: EF 70%, severe biatrial enlargement, mild MR, mild MS with mean gradient 9, well-seated bioprosthetic AVR with peak/mean gradient 24/14 mmHg, moderate to severe TR with moderate pulmonary hypertension PAP 50 to 55 mmHg
Echo 05/02/2023: EF 65 to 70%, mild mitral stenosis with moderate right regurgitation mean gradient of 6, stable bioprosthetic AVR with mean gradient of 15 and trace AI, severe TR with PA pressure 65
Echo 12/05/2023: EF 69%, mild MS, moderate MR, well-seated bio AVR with peak/mean gradients 26/16 mmHg, mild , severe TR, severe pulmonary hypertension with estimated PAP 63 mmHg
Echo 03/05/2024: EF 65 to 70%, mild MS, moderate MR, bio AVR with peak/mean gradients 31/16 mmHg, severe TR, estimated PAP 59 mmHg
Echo 11/12/2024: EF 65 to 70%, normal regional wall motion, normal LV wall thickness, normal RV size and function, mild MS peak/mean 13/4 mmHg, moderate MR, tissue AVR peak/mean 25/13 mmHg and no aortic regurgitation, severe TR, compared to study
03/05/2024 the aortic valve gradient was previously 31/16 mmHg and is now 25/13 mmHg, otherwise no significant change
Plan:
-Patient with hypovolemia, DEVANG and hyperkalemia in the setting of N/V/D on admission. Nephrology following and patient given IVF and then bicarb plus a course of Lokelma. Potassium has improved to 4.9 on labs reviewed by me 11/13/24
-Levophed gtt weaned off 11/13/24 AM, BP 118/71 on my review of VS 11/13/24.
-Outpatient dose of midodrine 10 mg TID has been continued
-Outpatient dose of Lopressor 25 mg BID has been on hold since admission due to hypotension
-Patient has received 5.75 L IVFs as of 11/13/24 AM.
-Outpatient dose of Lasix 40 mg PO daily has been on hold since admission due ot DEVANG and hypotension. If recorded weights are correct then the patient has gain 8 lbs since admission. pro-BNP was 18485 on admission 11/11/24, will recheck 11/13/24,
ordered by me
-Troponin peaked at 0.216 and no acute ischemic changes on ECG and no WMA on echo, will be managed as a nonischemic myocardial injury Troponin elevation.
-No significant CAD on last cath in 2015
-Echo reviewed by me and summarized above, 11/13/24. EF stable and stable mild MS/mod MR and stable AVR
-Patient was started on Heparin gtt on admission, but echo as noted above. On admission there was concern for PE, but no evidence of significant RV changes on echo. No cardiac indication to continue heparin gtt and would recommend stopping, orders
placed by me 11/13/24.
-Patient was supposed to be taking Eliquis 2.5 mg BID (age 89, wt 42 kg) prior to admission, but outpatient med list has not been confirmed. Would restart Eliquis 2.5 mg BID 11/13/24, ordered by me. Hgb stable at 10.8.
-Patient with known paroxysmal Afib, tele reviewed by me 11/13/24 and remains in SR. Lopressor on hold as above
-DNR CODE STATUS noted
HPI: Is an 89-year-old female with past medical history of paroxysmal atrial fibrillation, AVR, chronic HFpEF, hypertension, hyperlipidemia, type II DM, prior CVA and TIA, falls, skin cancer, and anxiety. Presented to ER for evaluation of weakness
and falls over the past few weeks. She notes 3-4 falls within the past few weeks. Denies any loss of consciousness, but feels weakness in her legs reportedly get out. She also has been struggling with some nausea and vomiting and weight is down
to 84 pounds. On arrival to the emergency room, she was noted to be hyperkalemic with potassium of 7.5 with creatinine 3.6. She was admitted for further workup and evaluation. Head CT was without abnormality. Chest x-ray also unremarkable. CT
of abdomen and pelvis showed diffuse enteritis/ileus. Early this a.m., she had episode of hypotension and has been started on Levophed. Blood pressure improved. All outpatient medications on hold currently. Cardiology consulted for evaluation
given elevated troponin. Troponin was 0.116 on arrival and has trended up to 0.216. She denies any chest pain or shortness of breath at this time. Her only complaint is feeling tired and weak.
Progress Note - Museum Exhibit Designer
Subjective
Date of Service: November 13, 2024
Feels well, didn't realized it was just Easter and she usually like to celebrate Easter, no pain
Objective
Labs:
11/12/24 04:37
11/13/24 04:25
Labs
Hgb 10.8 g/dL (12.0-16.0) L 11/12/24 04:37
Hct 31.6 % (37.0-47.0) L 11/12/24 04:37
Plt Count 173 10^3/uL (130-400) 11/12/24 04:37
APTT 61.7 Sec (23.4-35.0) H 11/13/24 01:41
Sodium 135 mmol/L (135-145) 11/13/24 04:25
Potassium 4.9 mmol/L (3.5-5.1) 11/13/24 04:25
BUN 83 mg/dl (7-17) H 11/13/24 04:25
Creatinine 3.4 mg/dL (0.6-1.0) H 11/13/24 04:25
Glucose 153 mg/dl (70-99) H 11/13/24 04:25
Troponins
11/11/24 11/12/24 11/12/24
18:17 00:57 04:37
Troponin I 0.116 H* 0.192 H* D 0.216 H*
11/12/24 11/12/24
09:49 16:36
Troponin I 0.246 H* 0.185 H*
Vital Signs and I&O:
Vital Signs
Temp Pulse Resp BP Pulse Ox
98.6 F 83 19 118/71 95
11/13/24 03:00 11/13/24 06:01 11/13/24 06:01 11/13/24 06:01 11/13/24 06:00
Vital Signs
Temp Pulse Resp BP Pulse Ox
98.6 F 83 19 118/71 95
11/13/24 03:00 11/13/24 06:01 11/13/24 06:01 11/13/24 06:01 11/13/24 06:00
Intake & Output
11/11/24 11/12/24 11/13/24 11/14/24
06:59 06:59 06:59 06:59
Intake Total 3425 / 3425
Output Total 725 / 725
Balance 2700 / 2700
Physical Exam
Physical Exam
General: NAD. AAO to self only
HEENT: EOMI
Respiratory: RA. No audible wheeze
Cardiac: SR on tele.
Ext: No edema B/L
[2024-11-13 08:39] LABS: Glucose - Point of Care 177 mg/dl (70-99)
[2024-11-13 09:00] LABS: APTT 64.8 Sec (23.4-35.0)
--- NOTE | 2024-11-13 09:10 | PTOTSP ---
Speech Language Pathology
Pt seen for clinical bedside swallow evaluation. Alert, but minimal verbalizations or responses to questions noted. P.O. trials of puree, regular solids, and thin liquids provided. Slightly prolonged mastication noted, but this was functional
given additional time. No overt signs of aspiration. Also seen with meds 1 at a time whole in puree. Pt chewed pills at times, but was able to clear oral cavity with cued liquid wash. Belching and questionable regurgitation noted after P.O.
intake. Per H&P, pt with frequent loose stools at baseline and poor P.O. intake.
Recommend:
(1) Regular solids/thin liquids
(2) Esophageal precautions
(3) Meds as tolerated
(4) Consider GI consult given belching/questionable regurgitation, reported weight loss/poor P.O. intake, N/V AIR ANTISUBMARINE OFFICER, and reports of chronic loose stools
(5) HAND STRAIGHTENER to continue to follow
[2024-11-13] MEDS: ProAmatine 10 MG PO ×3 (09:19→17:27)
--- NOTE | 2024-11-13 10:27 | W.PN.NEPH.PH ---
Today's Communication / Plan
-
Maintain pressor support to keep systolic blood pressure 90 or greater
No more IV fluids as weights now up
Kidney function continues to worsen
Assessment/Plan
-
IMp:
AIDEN
severe A gap met acidosis with Lactic Acidosis
severe life threatening Hyperkalemia
Hypotension / Shock
Abnormal Troponin
Elevated BNP
history of BioAVR, severe TR, moderate MR.
ASCVD / CVA
DM-II
Paroxysmal Atrial Fibrillation
chronic hypotension on midodrine
Plan:
A/w weakness and falls, new n/v/d
Aiden suspect AIDEN from hypovolemia and/or hemodynamic compromise, creatinine remains elevated at 3.4 but grossly non oliguric
microscopic hematuria, 3+alb-?nina sample (2.6 grams of protein by up/ucr)
non oliguric with nina
met acidosis and L acid improving with sodium bicarbonate IVFs, can d/c sodium bicarbonate IVFs as K and metabolic acidosis corrected
severe hyperkalemia improving after lokelma and sodium bicarbonate IVFs
CT abd shows possible enteritis and ileus-but pt with having BMs. reviewed with primary
d/w pt and family detail, high risk of dialysis if no improvement in k
pt not very clear on dialysis, hopefully with improving k likely can be avoided
continue pressors to keep MAP>65
resume midodrine
vol status seem dry end though high BNP, CXR noted
she currently on 2lit of O2
cont to trend labs
adjust meds dose renally
abx per primary, await for cxs
over all prognosis is poor
Patient acute kidney injury worsening and still requires pressor for hemodynamics, patient critically ill
CC time spent 45min
-
-
Date of Service: November 13, 2024
CC / HPI / ROS
-
Chief Complaint:
Acute kidney
History of Present Illness:
Remains hemodynamically unstable on pressor support
Hyperkalemia metabolic acidosis resolved
Acute kidney injury worsening with creatinine up to 3.4 and BUN 83
Review of Systems:
Grossly nonoliguric
Nnia
No fever
Labs
-
Labs:
WBC 14.5 10^3/uL (4.8-10.8) H 11/12/24 04:37
RBC 3.20 10^6/uL (4.20-5.40) L 11/12/24 04:37
Hgb 10.8 g/dL (12.0-16.0) L 11/12/24 04:37
Hct 31.6 % (37.0-47.0) L 11/12/24 04:37
Plt Count 173 10^3/uL (130-400) 11/12/24 04:37
Sodium 135 mmol/L (135-145) 11/13/24 04:25
Potassium 4.9 mmol/L (3.5-5.1) 11/13/24 04:25
Chloride 98 mmol/L (98-107) 11/13/24 04:25
Carbon Dioxide 25 mmol/L (22-30) 11/13/24 04:25
BUN 83 mg/dl (7-17) H 11/13/24 04:25
Creatinine 3.4 mg/dL (0.6-1.0) H 11/13/24 04:25
eGFR 12.56 11/13/24 04:25
Glucose 153 mg/dl (70-99) H 11/13/24 04:25
Calcium 8.0 mg/dl (8.4-10.2) L 11/13/24 04:25
Phosphorus 5.7 mg/dl (2.5-4.5) H 11/12/24 04:37
Albumin 4.7 g/dl (3.5-5.0) 11/11/24 17:21
Physical Exam
-
Vital Signs:
Vital Signs
Temp Pulse Resp BP Pulse Ox
98.5 F 83 19 118/71 95
11/13/24 07:27 11/13/24 06:01 11/13/24 06:01 11/13/24 06:01 11/13/24 06:00
Cardiovascular:: Regular rate and rhythm
Respiratory:: Bilateral: Coarse
Lung Excursion:: Normal
Abdomen:: Nontender and Soft
Bowel Sounds:: Normal
Extremity Edema:: None: Bilateral:
Nina Catheter: Yes
--- NOTE | 2024-11-13 10:44 | PN.CDI ---
CDI
- -
CDI:
Physician Documentation Request
Admit Date: 11/11/24 20:40
Dear Doctor Giulia,
Please review the following and provide your response in the progress notes.
Clinical Indicators:
Field Agent, 11/12
#...consult for weight loss.
#...lost 20 lbs over the past 9 months. This is a 19.3%BW loss over 9 months (significant).
#...Current BW: (11/12) 84 lbs 6.993 oz BMI: 16.5 (underweight).
#...Weight history (02/29/24) 104 lbs.
#...meets AND and ASPEN criteria for severe protein calorie malnutrition of chronic illness
#...due to a loss of more than 10% BW loss over 6 months
#...and less than 75% estimated nutrient intake for for over 1 month.
Based on the above information and your assessment, which of the following most accurately represents the patient's nutritional status?
Severe Protein Calorie Malnutrition of chronic illness, POA
Other (please specify)
Lockridge Criteria ([facility] 2017)
2 or more criteria must be present for either
non severe or severe malnutrition
Note that the criteria differs related to the
presence of an acute or chronic illness
Chronic Illness
Energy Intake Non Severe: <75% for >1 month
Severe: <75% for >1 month
Weight Loss Non Severe: 5% over 1 month
7.5% over 3 months
10% over 6 months
20% over 1 year
Severe: >5% over 1 month
>7.5% over 3 months
>10% over 6 months
>20% over 1 year
Body Fat Non Severe: Mild Loss
Severe: Severe Loss
Muscle Mass Non Severe: Mild Loss
Severe: Severe Loss
Use of terms such as suspected, likely, concern for, or probable (associated with a specific diagnosis that is being evaluated, monitored, or treated as if it exists) are acceptable and can be coded in the inpatient setting, when documented at the
time of discharge.
Thank you,
Maria Eugenia Victoria RN BSN CDS
CDI Specialist
Please contact via tiger text
Please use your independent medical judgment in providing your response.
[2024-11-13] MEDS: NOVOLOG FLEXPEN-LOW RESISTANCE 1 UNITS SC ×2 (11:09→19:39)
[2024-11-13] MEDS: ELIQUIS 2.5 MG PO ×2 (11:14→21:01)
--- NOTE | 2024-11-13 11:15 | PTCARENOTE ---
Heparin drip discontinued as per cardiology. Eliquis started. Patient alert and oriented to self and sometimes place. drowsy. Not interested in eating. Denies N/V,denies abdominal pain. 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 BP's soft but MAPS
have remained > 65. BA on. Patient is complete in care.
[2024-11-13 11:20] LABS: NT-proBNP > 27000 pg/ml
[2024-11-13] MEDS: NOVOLOG FLEXPEN-LOW RESISTANCE 2 UNITS SC (13:12)
[2024-11-13 13:25] LABS: Glucose - Point of Care 219 mg/dl (70-99)
--- NOTE | 2024-11-13 15:25 | W.PN.HOSP.TC ---
Today's Communication/Plan
-
Assessment / Plan
Assessment / Plan
General: No Apparent Distress, cachectic
HEENT: NormoCephalic, Moist mucous membranes, Atraumatic
Respiratory: Clear and Non Labored Respirations
Cardiac: Regular rhythm, heart rate around 80, 3/6 systolic murmur left sternal border
GI: Soft, Non Tender, Non Distended and Normal Bowel Sounds
Musculoskeletal: No Edema, no deformity, decreased muscle bulk throughout
Skin: Warm and dry
: Tam draining clear yellow urine
Neuro: Awake, Alert, Nonfocal/grossly intact
Psych: Calm and cooperative
Ms. Gant is an 89-year-old female with a medical history of bioprosthetic aortic valve replacement, moderate mitral regurgitation, severe tricuspid regurgitation, paroxysmal A-fib (on low-dose Eliquis), HFpEF, CVA (December 2015), chronic hypotension
(on midodrine), and clc-stfmzpm-[id number] diabetes mellitus who presented who presented with generalized weakness, frequent falls, and nausea with vomiting and diarrhea. She has been experiencing progressive generalized weakness for the past 2 to 3
weeks with multiple falls during that time. She developed nausea with vomiting 1 day prior to arrival. She was found to be hypotensive not responsive to IV fluids and so was started on vasopressors. She has multiple significant metabolic
derangements on labs. She has been admitted for further evaluation and management.
Gapped metabolic acidosis:
- Suspect due to nausea with vomiting and diarrhea secondary to enteritis
- Acidosis resolved, lactate now within normal limits
- Stopping bicarb drip for now
- Continuing antibiotics with Zosyn
Hypovolemic shock:
- Suspect due to volume loss in the setting of GI symptoms in addition to baseline hypotension requiring midodrine
- Intermittently requiring vasopressors past 12 hours, continue scheduled midodrine
- Has been adequately volume resuscitated
- Management of GI symptoms
Severe hyperkalemia:
- Likely due to DEVANG secondary to hypovolemia
- No significant T wave abnormalities
- Given multiple doses of Lokelma
- Now resolved
DEVANG:
- Initial creatinine 3.6, baseline appears to be around 1.0
- Suspect due to hypovolemia
- Creatinine 3.4 on labs this morning, making adequate urine
- Continue treatment as outlined above
- Close monitoring for renal recovery, no plans for dialysis at this time, if needed will further discuss goals of care prior to initiating
Troponin elevation:
- Suspect nonischemic
- Echocardiogram shows preserved ejection fraction, no regional wall motion abnormalities, moderate MR and severe TR
- Continue supportive care for now
- Monitor on telemetry
- IV heparin drip discontinued
- Appreciate cardiology guidance
Paroxysmal A-fib:
- Currently holding beta-ronaldo considering hypotension, ultimately will plan to restart
- Restarted home Eliquis, will discuss risk versus benefits of anticoagulation going forward considering multiple falls
HFpEF:
- Chronic, currently likely euvolemic
- Holding further IV fluids for now, restart diuretics in the next 24-48 hours as blood pressure tolerates
- Restart home metoprolol tartrate as blood pressure tolerates
Severe protein calorie malnutrition:
- Appreciate superintendent system operation input
- Dietary supplements as tolerated
CODE STATUS: DNR
Anticipated Discharge: > 48 hours
Subjective/Interval History
-
Date of Service: November 13, 2024
Patient was seen and examined at bedside this morning. Clinically more stable this morning compared to yesterday. Has been intermittently requiring vasopressors for the past 12 hours, currently Levophed running at 1.
Objective Data
-
Labs:
Laboratory Results
11/13/24 11/13/24
04: 08:36
APTT 64.8 H
Sodium 135
Potassium 4.9
Chloride 98
Carbon Dioxide 25
BUN 83 H
Creatinine 3.4 H
Glucose 153 H
Calcium 8.0 L
Vital Signs:
Vital Signs
Temp Pulse Resp BP Pulse Ox
98.5 F 88 22 106/73 95
11/13/24 07:27 11/13/24 13:15 11/13/24 13:15 11/13/24 13:01 11/13/24 13:01
I&O
11/12/24 11/13/24 11/14/24
06:59 06:59 06:59
Intake Total 3425 / 3425 50 / 50
Output Total 725 / 725 1999
Balance 2700 / 2700 -1950 / -1950
Review of Systems
-
History Source: Patient
All other systems: Reviewed and negative
Constitutional: Reports Fatigue and Weakness
Physical Exam
-
General: No Apparent Distress
[2024-11-13 18:00] LABS: Glucose - Point of Care 170 mg/dl (70-99)
[2024-11-13 22:36] LABS: Glucose - Point of Care 164 mg/dl (70-99)
[2024-11-14] VITALS (37 sets, daily range): BP systolic 77–128; BP diastolic 39–84; BMI 17.0
[2024-11-14] MEDS: ZOSYN 50 IV ×3 (01:33→17:15)
[2024-11-14 05:38] LABS: % Basophils 0.6 % (0-2); % Eosinophils 0.6 % (0-6); % Immature Granulocytes 0.4 % (0-0.5); % Lymphocytes 16.8 % (20.5-51.1); % Monocytes 7.2 % (1.7-9.3); % Neutrophils 74.4 % (42.2-75.2); Absolute Lymphocytes 1.2 10^3/uL (1.2-3.4); Absolute Monocytes 0.5 10^3/uL (0.1-0.6); Absolute Neutrophils 5.2 10^3/uL (1.4-6.5); Hematocrit 30.3 % (37.0-47.0); Hemoglobin 10.3 g/dL (12.0-16.0); Mean Corpuscular Hgb 32.9 pg (27.0-31.0); Mean Corpuscular Volume 96.8 fL (81.0-99.0); Mean Platelet Volume 10.6 fL (7.4-10.4); Nucleated Red Blood Cells % 0 %; Platelet Count 138 10^3/uL (130-400); Red Blood Cell Count 3.13 10^6/uL (4.20-5.40); Red Cell Dist. Width 13.4 % (11.5-14.5); White Blood Cell Count 6.9 10^3/uL (4.8-10.8)
[2024-11-14 05:55] LABS: Blood Urea Nitrogen 70 mg/dl (7-17); Calcium 7.4 mg/dl (8.4-10.2); Carbon Dioxide 25 mmol/L (22-30); Chloride 99 mmol/L (98-107); Estimated Creatinine Clearance 7 ml/min; Glucose 149 mg/dl (70-99); Magnesium 1.9 mg/dl (1.6-2.3); Phosphorus 4.5 mg/dl (2.5-4.5); Potassium 4.2 mmol/L (3.5-5.1); Sodium 136 mmol/L (135-145); eGFR 13.01
--- NOTE | 2024-11-14 06:15 | PTCARENOTE ---
Patients IVF not continued. Patient aao x2-3 at start of shift. Patient slow to respond however is able to make needs known. Repositioned throughout shift for comfort and pressure relief. Will continue to monitor patient closely.
--- NOTE | 2024-11-14 08:08 | W.PN.CARDCBS ---
Addendum entered and electronically signed by Marino Ness DO 11/14/24 09:50:
I saw and examined the patient.
The Manager Intermediate's note was reviewed and I agree with the note.
Comment:
Plan:
Lasix on hold with volume contraction. Defer to nephrology.l
Received IVF hydration
Remains sinus.
She is poor candidate for anticoagulation with falls and dementia. Anticoagulation has been stopped
Cont med tx of nonMI trop
Goals of care to be discussed.
Original Note:
Today's Communication / Plan
-
Remains hypoxic on 2 L NC.
Weight is not accurate
pro-BNP >15203, received almost 6 L this admission, Lasix on hold, Cre 3.3
Impression / Plan
-
PCP: Dr. Alcantara
Cardiology: Dr. Ness
Impression:
Presented with weakness, falls
Suspected hypovolemic shock
Hyperkalemia
DEVANG
Elevated troponin
Paroxysmal atrial fibrillation
Chronic Eliquis AC
Atrial tachycardia
Chronic HFpEF
s/p AVR w/ 19 mm Trifecta supra-annular valve 08/26/2015
Severe tricuspid regurgitation by echo 11/12/24
Mild MS and moderate MR
Hypertension
Hyperlipidemia
Type 2 diabetes
h/o CVA December 2015
Gout
h/o falls with compression fractures
Skin cancer
Anxiety
Hysterectomy
Cardiac catheterization 08/27/2015: No significant coronary artery disease
Echo 02/22/2022: EF 70%, severe biatrial enlargement, mild MR, mild MS with mean gradient 9, well-seated bioprosthetic AVR with peak/mean gradient 24/14 mmHg, moderate to severe TR with moderate pulmonary hypertension PAP 50 to 55 mmHg
Echo 05/02/2023: EF 65 to 70%, mild mitral stenosis with moderate right regurgitation mean gradient of 6, stable bioprosthetic AVR with mean gradient of 15 and trace AI, severe TR with PA pressure 65
Echo 12/05/2023: EF 69%, mild MS, moderate MR, well-seated bio AVR with peak/mean gradients 26/16 mmHg, mild , severe TR, severe pulmonary hypertension with estimated PAP 63 mmHg
Echo 03/05/2024: EF 65 to 70%, mild MS, moderate MR, bio AVR with peak/mean gradients 31/16 mmHg, severe TR, estimated PAP 59 mmHg
Echo 11/12/2024: EF 65 to 70%, normal regional wall motion, normal LV wall thickness, normal RV size and function, mild MS peak/mean 13/4 mmHg, moderate MR, tissue AVR peak/mean 25/13 mmHg and no aortic regurgitation, severe TR, compared to study
03/05/2024 the aortic valve gradient was previously 31/16 mmHg and is now 25/13 mmHg, otherwise no significant change
Plan:
-Labs reviewed by me, Cre 3.3 on 11/14/24, was 3.6 on admission. Potassium 7.5 on admission and down to 4.2 on 11/14/24.
-Hypovolemic on admission in the setting of N/V/D.
-Briefly on Levophed 11/13/24, but now off.
-Remains on outpatient dose of midodrine 10 mg TID. Orthostatic VS 11/13/24: supine BP 108/65, sitting BP 109/82, standing BP 112/72.
-Outpatient dose of Lopressor 25 mg BID has been on hold since admission due to hypotension
-Patient received 5.75 L IVFs this admission
-Patient is hypoxic and remains on 2 L NC, but was not on supplemental oxygen prior to admission. pro-BNP >48085 on 11/13/24, was 26560 on admission 11/11/24.
-Outpatient dose of Lasix 40 mg PO daily has been on hold since admission due to DEVANG and hypotension. Weight is down 5 lbs overnight without use of diuretic, suspect recorded bed scale weights are not accurate.
-Nephrology following and no plans to restart Lasix as of 11/14/24
-Troponin peaked at 0.216 and no acute ischemic changes on ECG and no WMA on echo, will be managed as a nonischemic myocardial injury Troponin elevation.
-No significant CAD on last cath in 2015
-EF stable and stable mild MS/mod MR and stable AVR
-Patient with known paroxysmal Afib, tele reviewed by me 11/14/24 and remains in SR. Lopressor on hold as above
-Outpatient dose of Eliquis 2.5 mg BID (age 89, wt 39.5 kg) restarted 11/13/24. Briefly on Heparin gtt
-DNR CODE STATUS noted
HPI: Is an 89-year-old female with past medical history of paroxysmal atrial fibrillation, AVR, chronic HFpEF, hypertension, hyperlipidemia, type II DM, prior CVA and TIA, falls, skin cancer, and anxiety. Presented to ER for evaluation of weakness
and falls over the past few weeks. She notes 3-4 falls within the past few weeks. Denies any loss of consciousness, but feels weakness in her legs reportedly get out. She also has been struggling with some nausea and vomiting and weight is down
to 84 pounds. On arrival to the emergency room, she was noted to be hyperkalemic with potassium of 7.5 with creatinine 3.6. She was admitted for further workup and evaluation. Head CT was without abnormality. Chest x-ray also unremarkable. CT
of abdomen and pelvis showed diffuse enteritis/ileus. Early this a.m., she had episode of hypotension and has been started on Levophed. Blood pressure improved. All outpatient medications on hold currently. Cardiology consulted for evaluation
given elevated troponin. Troponin was 0.116 on arrival and has trended up to 0.216. She denies any chest pain or shortness of breath at this time. Her only complaint is feeling tired and weak.
Progress Note - Facilities Officer
Subjective
Date of Service: November 14, 2024
She didn't know today was Tuesday, denies pain
Objective
Labs:
11/14/24 04:58
11/14/24 04:58
Labs
Hgb 10.3 g/dL (12.0-16.0) L 11/14/24 04:58
Hct 30.3 % (37.0-47.0) L 11/14/24 04:58
Plt Count 138 10^3/uL (130-400) D 11/14/24 04:58
APTT 64.8 Sec (23.4-35.0) H 11/13/24 08:36
Sodium 136 mmol/L (135-145) 11/14/24 04:58
Potassium 4.2 mmol/L (3.5-5.1) 11/14/24 04:58
BUN 70 mg/dl (7-17) H 11/14/24 04:58
Creatinine 3.3 mg/dL (0.6-1.0) H 11/14/24 04:58
Glucose 149 mg/dl (70-99) H 11/14/24 04:58
Troponins
11/11/24 11/12/24 11/12/24
18:17 00:57 04:37
Troponin I 0.116 H* 0.192 H* D 0.216 H*
11/12/24 11/12/24
09:49 16:36
Troponin I 0.246 H* 0.185 H*
Vital Signs and I&O:
Vital Signs
Temp Pulse Resp BP Pulse Ox
99.8 F 90 18 103/65 95
11/14/24 08:00 11/14/24 06:00 11/14/24 06:00 11/14/24 06:00 11/14/24 06:00
Vital Signs
Temp Pulse Resp BP Pulse Ox
99.8 F 90 18 103/65 95
11/14/24 08:00 11/14/24 06:00 11/14/24 06:00 11/14/24 06:00 11/14/24 06:00
Intake & Output
11/12/24 11/13/24 11/14/24 11/15/24
06:59 06:59 06:59 06:59
Intake Total 3425 / 3425 1725 / 1725
Output Total 725 / 725 3750 / 3750
Balance 2700 / 2700 -2024 /
Physical Exam
Physical Exam
General: NAD. AAO to self only
HEENT: EOMI
Respiratory: 2 L NC. No audible wheeze
Cardiac: SR on tele.
Ext: No edema B/L
[2024-11-14 08:26] LABS: Glucose - Point of Care 172 mg/dl (70-99)
[2024-11-14] MEDS: NOVOLOG FLEXPEN-LOW RESISTANCE 1 UNITS SC ×2 (09:09→13:05)
[2024-11-14] MEDS: ProAmatine 10 MG PO ×3 (09:10→17:15)
[2024-11-14] MEDS: ELIQUIS 2.5 MG PO ×2 (09:10→20:05)
--- NOTE | 2024-11-14 10:08 | CM ---
Patient from [facility] with Hx falls/weakness with Dx Gapped metabolic acidosis, enteritis, DEVANG. O2 2L. Receiving midodrine, IV Abx. PT/OT; requires assist of 2, recommend skilled rehab. Per nurse; forgetful.
Received phone call from TAM Smith, [facility]; she requested clinical update which was provided. Sarah is aware that patient currently requires assist of 2 - they are able to accept the patient back if family wants. They would place the
patient on a 1:1 to help prevent falls. They use [facility] with [facility].
Spoke with daughter Waylon;
she will discuss with her brother if they prefer discharge back to [facility] or to SNF for rehab. Patient had been to [facility] previously. Daughter asked about having PT/OT for her mother at [facility]- confirms it would be setup if she
is returning there at d/c.
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
Daughter shared that patient's passed in May 2024.
Daughter aware of patients falls at [facility] and poor appetite. She says her mother has had poor appetite for a while, prior to when .
Plan follow up with daughter re; return to [facility] vs SNF.
--- NOTE | 2024-11-14 10:42 | W.PN.NEPH.PH ---
Today's Communication / Plan
-
Continue to hold diuretics
Assessment/Plan
-
IMp:
AIDEN
severe A gap met acidosis with Lactic Acidosis
severe life threatening Hyperkalemia
Hypotension / Shock
Abnormal Troponin
Elevated BNP
history of BioAVR, severe TR, moderate MR.
ASCVD / CVA
DM-II
Paroxysmal Atrial Fibrillation
chronic hypotension on midodrine
Plan:
A/w weakness and falls, new n/v/d
Aiden suspect AIDEN from hypovolemia and/or hemodynamic compromise, creatinine remains elevated at 3.4 but grossly non oliguric
microscopic hematuria, 3+alb-?nina sample (2.6 grams of protein by up/ucr)
non oliguric with nina
met acidosis resolved
severe hyperkalemia resolved
CT abd shows possible enteritis and ileus-but pt with having BMs. reviewed with primary
Previously d/w pt and family detail, high risk of dialysis if no improvement in k
resume midodrine
vol status seem dry end though high BNP, CXR noted
adjust meds dose renally
abx per primary, await for cxs
over all prognosis is poor
Creatinine stable off pressors
Continue supportive care= remains off diuretics
-
-
Date of Service: November 14, 2024
CC / HPI / ROS
-
Chief Complaint:
Acute kidney
History of Present Illness:
Hemodynamically stable off pressors
Hyperkalemia metabolic acidosis resolved
Acute kidney injury creatinine plateaued
Review of Systems:
Grossly nonoliguric
Nina
No fever
Labs
-
Labs:
WBC 6.9 10^3/uL (4.8-10.8) 11/14/24 04:58
RBC 3.13 10^6/uL (4.20-5.40) L 11/14/24 04:58
Hgb 10.3 g/dL (12.0-16.0) L 11/14/24 04:58
Hct 30.3 % (37.0-47.0) L 11/14/24 04:58
Plt Count 138 10^3/uL (130-400) D 11/14/24 04:58
Sodium 136 mmol/L (135-145) 11/14/24 04:58
Potassium 4.2 mmol/L (3.5-5.1) 11/14/24 04:58
Chloride 99 mmol/L (98-107) 11/14/24 04:58
Carbon Dioxide 25 mmol/L (22-30) 11/14/24 04:58
BUN 70 mg/dl (7-17) H 11/14/24 04:58
Creatinine 3.3 mg/dL (0.6-1.0) H 11/14/24 04:58
eGFR 13.01 11/14/24 04:58
Glucose 149 mg/dl (70-99) H 11/14/24 04:58
Calcium 7.4 mg/dl (8.4-10.2) L 11/14/24 04:58
Phosphorus 4.5 mg/dl (2.5-4.5) 11/14/24 04:58
Albumin 4.7 g/dl (3.5-5.0) 11/11/24 17:21
Vxl-Q-Yxacbmjafru Pept > 84765 pg/ml 11/13/24 04:25
Physical Exam
-
Vital Signs:
Vital Signs
Temp Pulse Resp BP Pulse Ox
99.8 F 90 18 103/65 96
11/14/24 08:00 11/14/24 06:00 11/14/24 06:00 11/14/24 06:00 11/14/24 08:06
Cardiovascular:: Regular rate and rhythm
Respiratory:: Bilateral: Coarse
Lung Excursion:: Normal
Abdomen:: Nontender and Soft
Bowel Sounds:: Normal
Extremity Edema:: None: Bilateral:
Nina Catheter: Yes
[2024-11-14 12:19] LABS: Glucose - Point of Care 176 mg/dl (70-99)
--- NOTE | 2024-11-14 15:17 | W.PN.HOSP.TC ---
Today's Communication/Plan
-
Assessment / Plan
Assessment / Plan
General: No Apparent Distress, cachectic
HEENT: NormoCephalic, Moist mucous membranes, Atraumatic
Respiratory: Clear and Non Labored Respirations
Cardiac: Regular rhythm, heart rate around 80, 3/6 systolic murmur left sternal border
GI: Soft, Non Tender, Non Distended and Normal Bowel Sounds
Musculoskeletal: No Edema, no deformity, decreased muscle bulk throughout
Skin: Warm and dry
: Tam draining clear yellow urine
Neuro: Awake, Alert, Nonfocal/grossly intact
Psych: Calm and cooperative
Ms. Gant is an 89-year-old female with a medical history of bioprosthetic aortic valve replacement, moderate mitral regurgitation, severe tricuspid regurgitation, paroxysmal A-fib (on low-dose Eliquis), HFpEF, CVA (December 2015), chronic hypotension
(on midodrine), and hgf-nlxivtu-[id number] diabetes mellitus who presented who presented with generalized weakness, frequent falls, and nausea with vomiting and diarrhea. She has been experiencing progressive generalized weakness for the past 2 to 3
weeks with multiple falls during that time. She developed nausea with vomiting 1 day prior to arrival. She was found to be hypotensive not responsive to IV fluids and so was started on vasopressors. She has multiple significant metabolic
derangements on labs. She has been admitted for further evaluation and management.
Gapped metabolic acidosis:
- Suspect due to nausea with vomiting and diarrhea secondary to enteritis
- Acidosis resolved, lactate now within normal limits
- Continuing antibiotics with Zosyn, today is day 2 of antibiotics
Hypovolemic shock:
- Suspect due to volume loss in the setting of GI symptoms in addition to baseline hypotension requiring midodrine
- Now off vasopressors, continue scheduled midodrine
- Has been adequately volume resuscitated, will give additional boluses as needed
- Management of GI symptoms
Severe hyperkalemia:
- Likely due to DEVANG secondary to hypovolemia
- No significant T wave abnormalities
- Given multiple doses of Lokelma
- Now resolved
DEVANG:
- Initial creatinine 3.6, baseline appears to be around 1.0
- Suspect due to hypovolemia
- Creatinine 3.3 on labs this morning, making adequate urine
- Continue treatment as outlined above
- Close monitoring for renal recovery, no plans for dialysis at this time, if needed will further discuss goals of care prior to initiating
Troponin elevation:
- Suspect nonischemic
- Echocardiogram shows preserved ejection fraction, no regional wall motion abnormalities, moderate MR and severe TR
- Continue supportive care for now
- Monitor on telemetry
- IV heparin drip discontinued
- Appreciate cardiology guidance
Paroxysmal A-fib:
- Currently holding beta-ronaldo considering hypotension, ultimately will plan to restart
- Restarted home Eliquis, will discuss risk versus benefits of anticoagulation going forward considering multiple falls
HFpEF:
- Chronic, currently likely euvolemic
- Holding further IV fluids for now, restart diuretics in the next 24-48 hours as blood pressure tolerates
- Restart home metoprolol tartrate as blood pressure tolerates
Severe protein calorie malnutrition:
- Appreciate assistant professor of mathematics input
- Dietary supplements as tolerated
CODE STATUS: DNR
Anticipated Discharge: > 48 hours
Subjective/Interval History
-
Date of Service: November 14, 2024
Patient was seen and examined sitting in chair at bedside this morning. In better spirits today. No pain or trouble breathing.
Objective Data
-
Labs:
Laboratory Results
11/14/24
04:58
WBC 6.9
Hgb 10.3 L
Hct 30.3 L
Plt Count 138 D
Sodium 136
Potassium 4.2
Chloride 99
Carbon Dioxide 25
BUN 70 H
Creatinine 3.3 H
Glucose 149 H
Calcium 7.4 L
Vital Signs:
Vital Signs
Temp Pulse Resp BP Pulse Ox
99.6 F 90 18 103/65 96
11/14/24 11:35 11/14/24 06:00 11/14/24 06:00 11/14/24 06:00 11/14/24 08:06
I&O
11/13/24 11/14/24 11/15/24
06:59 06:59 06:59
Intake Total 3425 / 3425 1725 / 1725
Output Total 725 / 725 3750 / 3750
Balance 2700 / 2700 -2024 /
Review of Systems
-
History Source: Patient
All other systems: Reviewed and negative
Physical Exam
-
General: No Apparent Distress
[2024-11-14] MEDS: NSS 1000 IV (15:25)
--- NOTE | 2024-11-14 15:45 | PTCARENOTE ---
Addendum entered by Cierra Victoria 11/14/24 16:33:
Bolus completed, BP improved at this time.
Original Note:
Pt hypotensive with SBP in the 80s. Pt asymptomatic. Hospitalist notified. Order received for IVF bolus. Administered as ordered, see SEP.
--- NOTE | 2024-11-14 16:34 | PTCARENOTE ---
Tam removed; DTV by 22:25.
[2024-11-14] MEDS: NOVOLOG FLEXPEN-LOW RESISTANCE 3 UNITS SC (17:24)
[2024-11-14 17:34] LABS: Glucose - Point of Care 276 mg/dl (70-99)
[2024-11-14] MEDS: LR 1000 IV (18:46)
--- NOTE | 2024-11-14 18:47 | PTCARENOTE ---
Pt remains hypotensive with SBP in the 80s. Hospitalist notified. Order received for additional IVF. Administered as ordered, see MAR.
[2024-11-14 22:00] LABS: Glucose - Point of Care 266 mg/dl (70-99)
[2024-11-15] VITALS (17 sets, daily range): BP systolic 73–136; BP diastolic 40–112; PULSE 89; O2SAT 97; BMI 18.1
[2024-11-15] MEDS: ZOSYN 50 IV ×3 (01:31→17:38)
[2024-11-15 05:08] LABS: % Basophils 0.6 % (0-2); % Immature Granulocytes 0.4 % (0-0.5); Absolute Eosinophils 0.2 10^3/uL (0-0.7); Absolute Lymphocytes 0.6 10^3/uL (1.2-3.4); Absolute Monocytes 0.3 10^3/uL (0.1-0.6); Hematocrit 27.2 % (37.0-47.0); Hemoglobin 9.4 g/dL (12.0-16.0); Mean Corp Hgb Conc. 34.6 g/dL (33.0-37.0); Mean Corpuscular Hgb 33.7 pg (27.0-31.0); Mean Corpuscular Volume 97.5 fL (81.0-99.0); Mean Platelet Volume 10.5 fL (7.4-10.4); Nucleated Red Blood Cells % 0 %; Platelet Count 109 10^3/uL (130-400); Red Blood Cell Count 2.79 10^6/uL (4.20-5.40); Red Cell Dist. Width 13.4 % (11.5-14.5)
[2024-11-15 05:26] LABS: Blood Urea Nitrogen 60 mg/dl (7-17); Calcium 7.4 mg/dl (8.4-10.2); Carbon Dioxide 25 mmol/L (22-30); Chloride 100 mmol/L (98-107); Estimated Creatinine Clearance 9 ml/min; Glucose 160 mg/dl (70-99); Magnesium 1.6 mg/dl (1.6-2.3); Phosphorus 3.3 mg/dl (2.5-4.5); Potassium 3.7 mmol/L (3.5-5.1); Sodium 134 mmol/L (135-145); eGFR 15.85
--- NOTE | 2024-11-15 06:14 | PTCARENOTE ---
Patient forgetful but able to state place, time and situation. Unable to sleep overnight. Repositioned throughout the night, heels floated. Straight cathed this morning for 500cc clear yellow urine as pt was unable to void and didnt feel the urge.
NSR w/ short episodes of parox. afib. IVF discontinued this morning. BPs have been stable. able to swallow pills whole with water. pt did not want to be washed this morning; partial bath done. call romeo within reach. bed alarm set for safety.
[2024-11-15 07:45] LABS: Glucose - Point of Care 151 mg/dl (70-99)
[2024-11-15] MEDS: NOVOLOG FLEXPEN-LOW RESISTANCE 1 UNITS SC (08:31)
[2024-11-15] MEDS: ProAmatine 10 MG PO ×3 (09:01→17:37)
[2024-11-15] MEDS: ELIQUIS 2.5 MG PO ×2 (09:01→20:08)
--- NOTE | 2024-11-15 09:13 | W.PN.CARDCBS ---
Addendum entered and electronically signed by Marino Ness DO 11/15/24 10:46:
I saw and examined the patient.
The Puller Through's note was reviewed and I agree with the note.
Comment:
Plan:
She is back in AFib
Resume Lopressor for better rate control.
Will discuss with daughter about whether or not to continue with Eliquis as she is fall risk and bleeding risk
Her Pox is currently inaccurate.
Cont to remain off lasix per nephrology and monitor volume status
Midodrine for bp support
Prognosis is very poor as she is very frail
Will update family today.
Discussed with nursing.
Original Note:
Today's Communication / Plan
-
9 L positive this admission, weight seems stable
Stable hypoxia
Will talk with daughter, Waylon, today about continuing Eliquis
Impression / Plan
-
PCP: Dr. Alcantara
Cardiology: Dr. Ness
Impression:
Presented with weakness, falls
Suspected hypovolemic shock
Hyperkalemia
DEVANG
Elevated troponin
Paroxysmal atrial fibrillation
Chronic Eliquis AC
Atrial tachycardia
Chronic HFpEF
s/p AVR w/ 19 mm Trifecta supra-annular valve 08/26/2015
Severe tricuspid regurgitation by echo 11/12/24
Mild MS and moderate MR
Hypertension
Hyperlipidemia
Type 2 diabetes
h/o CVA December 2015
Gout
h/o falls with compression fractures
Skin cancer
Anxiety
Hysterectomy
Cardiac catheterization 08/27/2015: No significant coronary artery disease
Echo 02/22/2022: EF 70%, severe biatrial enlargement, mild MR, mild MS with mean gradient 9, well-seated bioprosthetic AVR with peak/mean gradient 24/14 mmHg, moderate to severe TR with moderate pulmonary hypertension PAP 50 to 55 mmHg
Echo 05/02/2023: EF 65 to 70%, mild mitral stenosis with moderate right regurgitation mean gradient of 6, stable bioprosthetic AVR with mean gradient of 15 and trace AI, severe TR with PA pressure 65
Echo 12/05/2023: EF 69%, mild MS, moderate MR, well-seated bio AVR with peak/mean gradients 26/16 mmHg, mild , severe TR, severe pulmonary hypertension with estimated PAP 63 mmHg
Echo 03/05/2024: EF 65 to 70%, mild MS, moderate MR, bio AVR with peak/mean gradients 31/16 mmHg, severe TR, estimated PAP 59 mmHg
Echo 11/12/2024: EF 65 to 70%, normal regional wall motion, normal LV wall thickness, normal RV size and function, mild MS peak/mean 13/4 mmHg, moderate MR, tissue AVR peak/mean 25/13 mmHg and no aortic regurgitation, severe TR, compared to study
03/05/2024 the aortic valve gradient was previously 31/16 mmHg and is now 25/13 mmHg, otherwise no significant change
Plan:
-Cre continues to improve, Cre 2.8 on 11/15/24 compared to 3.6 on admission. Potassium 7.5 on admission and down to 3.7 on 11/15/24, all labs reviewed by me.
-Hypovolemic on admission in the setting of N/V/D, but weight is up 8 lbs this admission. Patient received almost 9 L IVFs this admission and outpatient dose of Lasix 40 mg PO daily remains on hold.
-Hypotensive on admission and briefly on Levophed 11/13/24, but now off.
-Remains on outpatient dose of midodrine 10 mg TID. Orthostatic VS negative on 11/13/24.
-Outpatient dose of Lopressor 25 mg BID has been on hold since admission due to hypotension. Resting BP 101/70 on 11/15/24
-Patient is hypoxic and remains on 2 L NC, but was not on supplemental oxygen prior to admission. pro-BNP >12089 on 11/13/24, was 31543 on admission 11/11/24.
-Outpatient dose of Lasix 40 mg PO daily has been on hold since admission due to DEVANG and hypotension.
-Nephrology following and no plans to restart Lasix as of 11/14/24
-Troponin peaked at 0.216 and no acute ischemic changes on ECG and no WMA on echo, will be managed as a nonischemic myocardial injury Troponin elevation.
-No significant CAD on last cath in 2015
-EF stable and stable mild MS/mod MR and stable AVR
-Patient with known paroxysmal Afib, tele reviewed by me 11/14/24 and remains in SR. Lopressor on hold as above
-Outpatient dose of Eliquis 2.5 mg BID (age 89, wt 39.5 kg) restarted 11/13/24. Briefly on Heparin gtt. At one point as an outpatient there was consideration to stop OAC. Will review with patient's daughter, Waylon, on 11/15/24.
-Hgb 9.4 on 11/15/24
-DNR CODE STATUS noted
HPI: Is an 89-year-old female with past medical history of paroxysmal atrial fibrillation, AVR, chronic HFpEF, hypertension, hyperlipidemia, type II DM, prior CVA and TIA, falls, skin cancer, and anxiety. Presented to ER for evaluation of weakness
and falls over the past few weeks. She notes 3-4 falls within the past few weeks. Denies any loss of consciousness, but feels weakness in her legs reportedly get out. She also has been struggling with some nausea and vomiting and weight is down
to 84 pounds. On arrival to the emergency room, she was noted to be hyperkalemic with potassium of 7.5 with creatinine 3.6. She was admitted for further workup and evaluation. Head CT was without abnormality. Chest x-ray also unremarkable. CT
of abdomen and pelvis showed diffuse enteritis/ileus. Early this a.m., she had episode of hypotension and has been started on Levophed. Blood pressure improved. All outpatient medications on hold currently. Cardiology consulted for evaluation
given elevated troponin. Troponin was 0.116 on arrival and has trended up to 0.216. She denies any chest pain or shortness of breath at this time. Her only complaint is feeling tired and weak.
Progress Note - Hardware Test Engineer
Subjective
Date of Service: November 15, 2024
Denies pain
Objective
Labs:
11/15/24 04:32
11/15/24 04:32
Labs
Hgb 9.4 g/dL (12.0-16.0) L 11/15/24 04:32
Hct 27.2 % (37.0-47.0) L 11/15/24 04:32
Plt Count 109 10^3/uL (130-400) L D 11/15/24 04:32
APTT 64.8 Sec (23.4-35.0) H 11/13/24 08:36
Sodium 134 mmol/L (135-145) L 11/15/24 04:32
Potassium 3.7 mmol/L (3.5-5.1) 11/15/24 04:32
BUN 60 mg/dl (7-17) H 11/15/24 04:32
Creatinine 2.8 mg/dL (0.6-1.0) H 11/15/24 04:32
Glucose 160 mg/dl (70-99) H 11/15/24 04:32
Troponins
11/12/24 11/12/24
09:49 16:36
Troponin I 0.246 H* 0.185 H*
Vital Signs and I&O:
Vital Signs
Temp Pulse Resp BP Pulse Ox
98.3 F 120 16 101/70 98
11/15/24 07:35 11/15/24 09:01 11/15/24 06:00 11/15/24 09:01 11/15/24 06:00
Vital Signs
Temp Pulse Resp BP Pulse Ox
98.3 F 120 16 101/70 98
11/15/24 07:35 11/15/24 09:01 11/15/24 06:00 11/15/24 09:01 11/15/24 06:00
Intake & Output
11/13/24 11/14/24 11/15/2425
06:59 06:59 06:59 06:59
Intake Total 3425 / 3425 1725 / 1725 50 / 50
Output Total 725 / 725 3750 / 3750 1200 / 1200
Balance 2700 / 2700 -2024 / -2024 -0 / -1149
Physical Exam
Physical Exam
General: NAD. AAO to self only
HEENT: EOMI
Respiratory: 2 L NC. No audible wheeze
Cardiac: SR on tele.
Ext: No edema B/L
[2024-11-15] MEDS: LOPRESSOR PO (11:10)
--- NOTE | 2024-11-15 11:41 | W.PN.NEPH.PH ---
Today's Communication / Plan
-
Maintain off diuretic
Assessment/Plan
-
IMp:
AIDEN
severe A gap met acidosis with Lactic Acidosis
severe life threatening Hyperkalemia
Hypotension / Shock
Abnormal Troponin
Elevated BNP
history of BioAVR, severe TR, moderate MR.
ASCVD / CVA
DM-II
Paroxysmal Atrial Fibrillation
chronic hypotension on midodrine
Plan:
A/w weakness and falls, new n/v/d
Aiden suspect IADEN from hypovolemia and/or hemodynamic compromise
microscopic hematuria, 3+alb-?nina sample (2.6 grams of protein by up/ucr)
non oliguric with nina
met acidosis resolved
severe hyperkalemia resolved
CT abd shows possible enteritis and ileus-but pt with having BMs. reviewed with primary
Previously d/w pt and family detail, high risk of dialysis if no improvement in k
resume midodrine
adjust meds dose renally
abx per primary, await for cxs= negative to date 72 hours
over all prognosis is poor
Creatinine stable off pressors now
Continues to improve renal function current creatinine 2.8 with a peak of 3.6
Continue supportive care= remains off diuretics weights labile overall up since admission though presented hypovolemic
-
-
Date of Service: November 15, 2024
CC / HPI / ROS
-
Chief Complaint:
Acute kidney
History of Present Illness:
Hemodynamically stable off pressors
Hyperkalemia metabolic acidosis resolved
Acute kidney injury creatinine plateaued
Review of Systems:
Grossly nonoliguric
Nina
No fever
Labs
-
Labs:
WBC 5.0 10^3/uL (4.8-10.8) 11/15/24 04:32
RBC 2.79 10^6/uL (4.20-5.40) L 11/15/24 04:32
Hgb 9.4 g/dL (12.0-16.0) L 11/15/24 04:32
Hct 27.2 % (37.0-47.0) L 11/15/24 04:32
Plt Count 109 10^3/uL (130-400) L D 11/15/24 04:32
Sodium 134 mmol/L (135-145) L 11/15/24 04:32
Potassium 3.7 mmol/L (3.5-5.1) 11/15/24 04:32
Chloride 100 mmol/L (98-107) 11/15/24 04:32
Carbon Dioxide 25 mmol/L (22-30) 11/15/24 04:32
BUN 60 mg/dl (7-17) H 11/15/24 04:32
Creatinine 2.8 mg/dL (0.6-1.0) H 11/15/24 04:32
eGFR 15.85 11/15/24 04:32
Glucose 160 mg/dl (70-99) H 11/15/24 04:32
Calcium 7.4 mg/dl (8.4-10.2) L 11/15/24 04:32
Phosphorus 3.3 mg/dl (2.5-4.5) 11/15/24 04:32
Albumin 4.7 g/dl (3.5-5.0) 11/11/24 17:21
Ofb-I-Nbbbmxskvcl Pept > 60177 pg/ml 11/13/24 04:25
Physical Exam
-
Vital Signs:
Vital Signs
Temp Pulse Resp BP Pulse Ox
98.3 F 100 21 73/63 92
11/15/24 07:35 11/15/24 11:10 11/15/24 08:00 11/15/24 11:10 11/15/24 08:00
Cardiovascular:: Regular rate and rhythm
Respiratory:: Bilateral: Coarse
Lung Excursion:: Normal
Abdomen:: Nontender and Soft
Bowel Sounds:: Normal
Extremity Edema:: None: Bilateral:
Nina Catheter: Yes
--- NOTE | 2024-11-15 11:47 | PTCARENOTE ---
Pt AAOx3 OOB tochair. HR afib Midodrine given for BP support.
[2024-11-15 12:23] LABS: Glucose - Point of Care 287 mg/dl (70-99)
[2024-11-15] MEDS: NOVOLOG FLEXPEN-LOW RESISTANCE 3 UNITS SC (12:36)
--- NOTE | 2024-11-15 16:03 | W.PN.HOSP.TC ---
Today's Communication/Plan
-
Assessment / Plan
Assessment / Plan
General: No Apparent Distress, cachectic
HEENT: NormoCephalic, Moist mucous membranes, Atraumatic
Respiratory: Clear and Non Labored Respirations
Cardiac: Regular rhythm, heart rate around 100, 3/6 systolic murmur left sternal border
GI: Soft, Non Tender, Non Distended and Normal Bowel Sounds
Musculoskeletal: No Edema, no deformity, decreased muscle bulk throughout
Skin: Warm and dry
: Tam draining clear yellow urine
Neuro: Awake, Alert, Nonfocal/grossly intact
Psych: Calm and cooperative
Ms. Gant is an 89-year-old female with a medical history of bioprosthetic aortic valve replacement, moderate mitral regurgitation, severe tricuspid regurgitation, paroxysmal A-fib (on low-dose Eliquis), HFpEF, CVA (December 2015), chronic hypotension
(on midodrine), and mvw-bhwblqu-cyjjcyxla diabetes mellitus who presented who presented with generalized weakness, frequent falls, and nausea with vomiting and diarrhea. She has been experiencing progressive generalized weakness for the past 2 to 3
weeks with multiple falls during that time. She developed nausea with vomiting 1 day prior to arrival. She was found to be hypotensive not responsive to IV fluids and so was started on vasopressors. She has multiple significant metabolic
derangements on labs. She has been admitted for further evaluation and management.
Gapped metabolic acidosis:
- Suspect due to nausea with vomiting and diarrhea secondary to enteritis
- Acidosis resolved, lactate now within normal limits
- Continuing antibiotics with Zosyn, today is day 3 of antibiotics
Hypovolemic shock:
- Suspect due to volume loss in the setting of GI symptoms in addition to baseline hypotension requiring midodrine
- Now off vasopressors, continue scheduled midodrine
- Has been adequately volume resuscitated, will give additional boluses as needed
- Management of GI symptoms
Severe hyperkalemia:
- Likely due to DEVANG secondary to hypovolemia
- No significant T wave abnormalities
- Given multiple doses of Lokelma
- Now resolved
DEVANG:
- Initial creatinine 3.6, baseline appears to be around 1.0
- Suspect due to hypovolemia
- Creatinine 2.8 on labs this morning, making adequate urine
- Continue treatment as outlined above
- Close monitoring for renal recovery, no plans for dialysis at this time, if needed will further discuss goals of care prior to initiating
Troponin elevation:
- Suspect nonischemic
- Echocardiogram shows preserved ejection fraction, no regional wall motion abnormalities, moderate MR and severe TR
- Continue supportive care for now
- Monitor on telemetry
- IV heparin drip discontinued
- Appreciate cardiology guidance
Paroxysmal A-fib:
- Restarted low-dose metoprolol tartrate with holding parameters for hypotension
- Restarted home Eliquis, have discussed with patient and family the risks versus benefits of long-term anticoagulation considering multiple falls
HFpEF:
- Chronic, currently likely euvolemic
- Holding further IV fluids for now, restart diuretics as blood pressure tolerates
- Restarted home metoprolol tartrate with holding parameters
Severe protein calorie malnutrition:
- Appreciate supercharge repair supervisor input
- Dietary supplements as tolerated
CODE STATUS: DNR
Anticipated Discharge: > 48 hours
Subjective/Interval History
-
Date of Service: November 15, 2024
Patient was seen and examined at bedside this morning. Renal function slightly improved today. Patient feels overall about the same as yesterday but improved from when she was first admitted.
Objective Data
-
Labs:
Laboratory Results
11/15/24
04:32
WBC 5.0
Hgb 9.4 L
Hct 27.2 L
Plt Count 109 L D
Sodium 134 L
Potassium 3.7
Chloride 100
Carbon Dioxide 25
BUN 60 H
Creatinine 2.8 H
Glucose 160 H
Calcium 7.4 L
Vital Signs:
Vital Signs
Temp Pulse Resp BP Pulse Ox
98.5 F 116 32 90/63 98
11/15/24 16:00 11/15/24 12:33 11/15/24 12:00 11/15/24 14:46 11/15/24 10:58
I&O
11/14/24 11/15/24 11/16/24
06:59 06:59 06:59
Intake Total 1725 / 1725 50 / 50 50 / 50
Output Total 3750 / 3750 1200 / 1200
Balance -2024 / -2024 -1150 / -1150 50 / 50
Review of Systems
-
History Source: Patient
All other systems: Reviewed and negative
Physical Exam
-
General: No Apparent Distress
--- NOTE | 2024-11-15 16:55 | W.PN.UPDATE ---
Update Note
Progress Note Update
Tried calling patient's daughter, Waylon, and left a message asking for a call back to discuss Eliquis.
Update: Talked with patient's daughter for 6:52 min and plan is to continue Eliquis.
[2024-11-15 17:16] LABS: Glucose - Point of Care 206 mg/dl (70-99)
[2024-11-15] MEDS: NOVOLOG FLEXPEN-LOW RESISTANCE 2 UNITS SC (17:36)
[2024-11-15] MEDS: LOPRESSOR 12.5 MG PO (20:08)
[2024-11-15 22:41] LABS: Glucose - Point of Care 237 mg/dl (70-99)
[2024-11-16] VITALS (17 sets, daily range): BP systolic 84–148; BP diastolic 54–109; PULSE 82; O2SAT 97; BMI 18.5
[2024-11-16] MEDS: ZOSYN 50 IV ×3 (02:27→17:44)
[2024-11-16 04:45] LABS: % Basophils 0.4 % (0-2); % Eosinophils 5.4 % (0-6); % Immature Granulocytes 0.4 % (0-0.5); % Lymphocytes 10.1 % (20.5-51.1); % Monocytes 6.7 % (1.7-9.3); Absolute Eosinophils 0.3 10^3/uL (0-0.7); Absolute Lymphocytes 0.5 10^3/uL (1.2-3.4); Absolute Monocytes 0.4 10^3/uL (0.1-0.6); Absolute Neutrophils 4.1 10^3/uL (1.4-6.5); Hematocrit 27.4 % (37.0-47.0); Hemoglobin 9.6 g/dL (12.0-16.0); Mean Corpuscular Hgb 33.6 pg (27.0-31.0); Mean Corpuscular Volume 95.8 fL (81.0-99.0); Mean Platelet Volume 10.2 fL (7.4-10.4); Nucleated Red Blood Cells % 0 %; Platelet Count 101 10^3/uL (130-400); Red Blood Cell Count 2.86 10^6/uL (4.20-5.40); Red Cell Dist. Width 13.2 % (11.5-14.5); White Blood Cell Count 5.4 10^3/uL (4.8-10.8)
[2024-11-16 05:10] LABS: Blood Urea Nitrogen 45 mg/dl (7-17); Calcium 7.5 mg/dl (8.4-10.2); Carbon Dioxide 23 mmol/L (22-30); Chloride 102 mmol/L (98-107); Estimated Creatinine Clearance 13 ml/min; Glucose 189 mg/dl (70-99); Magnesium 1.4 mg/dl (1.6-2.3); Phosphorus 2.7 mg/dl (2.5-4.5); Potassium 3.5 mmol/L (3.5-5.1); Sodium 134 mmol/L (135-145); eGFR 22.38
--- NOTE | 2024-11-16 06:38 | PTCARENOTE ---
Addendum entered by Karlee Cruz RN 11/16/24 22:02:
unable to accurately measure urine output due to loose stools mixed with urine.
Original Note:
Patient with one episode of urinary retention. Bladder scanned for 500 at 2000 and straight cathed for 600. Patient was able to urinate on her own this am with a PVR of 183. No episodes of hypotension. Two loose BMs overnight.
[2024-11-16 08:19] LABS: Glucose - Point of Care 207 mg/dl (70-99)
[2024-11-16] MEDS: LOPRESSOR 12.5 MG PO ×2 (08:20→20:07)
[2024-11-16] MEDS: ELIQUIS 2.5 MG PO ×2 (08:20→20:07)
[2024-11-16] MEDS: ProAmatine 10 MG PO ×3 (08:20→17:12)
[2024-11-16] MEDS: MAGNESIUM SULFATE 100 IV (08:21)
[2024-11-16] MEDS: NOVOLOG FLEXPEN-LOW RESISTANCE 2 UNITS SC ×2 (08:31→13:38)
--- NOTE | 2024-11-16 09:24 | W.PN.CARDCBS ---
Today's Communication / Plan
-
Continue current cardiac meds on discharge:
Midodrine 10 mg 3 times daily
Eliquis 2.5 mg twice daily
Metoprolol 12.5 p.o. twice daily
Defer diuretic dosing to nephrology
We will sign off, please recall as needed
Impression / Plan
-
PCP: Dr. Alcantara
Cardiology: Dr. Ness
Impression:
Presented with weakness, falls
Suspected hypovolemic shock
Hyperkalemia
DEVANG
Elevated troponin
Paroxysmal atrial fibrillation
Chronic Eliquis AC
Atrial tachycardia
Chronic HFpEF
s/p AVR w/ 19 mm Trifecta supra-annular valve 08/26/2015
Severe tricuspid regurgitation by echo 11/12/24
Mild MS and moderate MR
Hypertension
Hyperlipidemia
Type 2 diabetes
h/o CVA December 2015
Gout
h/o falls with compression fractures
Skin cancer
Anxiety
Hysterectomy
Cardiac catheterization 08/27/2015: No significant coronary artery disease
Echo 02/22/2022: EF 70%, severe biatrial enlargement, mild MR, mild MS with mean gradient 9, well-seated bioprosthetic AVR with peak/mean gradient 24/14 mmHg, moderate to severe TR with moderate pulmonary hypertension PAP 50 to 55 mmHg
Echo 05/02/2023: EF 65 to 70%, mild mitral stenosis with moderate right regurgitation mean gradient of 6, stable bioprosthetic AVR with mean gradient of 15 and trace AI, severe TR with PA pressure 65
Echo 12/05/2023: EF 69%, mild MS, moderate MR, well-seated bio AVR with peak/mean gradients 26/16 mmHg, mild , severe TR, severe pulmonary hypertension with estimated PAP 63 mmHg
Echo 03/05/2024: EF 65 to 70%, mild MS, moderate MR, bio AVR with peak/mean gradients 31/16 mmHg, severe TR, estimated PAP 59 mmHg
Echo 11/12/2024: EF 65 to 70%, normal regional wall motion, normal LV wall thickness, normal RV size and function, mild MS peak/mean 13/4 mmHg, moderate MR, tissue AVR peak/mean 25/13 mmHg and no aortic regurgitation, severe TR, compared to study
03/05/2024 the aortic valve gradient was previously 31/16 mmHg and is now 25/13 mmHg, otherwise no significant change
Plan:
-Presented with hypovolemia and DEVANG in the setting of N/V/D. Patient received almost 9 L IVFs this admission and outpatient dose of Lasix 40 mg PO daily remains on hold.
-Cre continues to improve
-Remains on outpatient dose of midodrine 10 mg TID. Orthostatic VS negative on 11/13/24.
-Outpatient dose of Lopressor decreased due to hypotension
-Nephrology following and managing diuretics
-Troponin peaked at 0.216 and no acute ischemic changes on ECG and no WMA on echo, will be managed as a nonischemic myocardial injury Troponin elevation.
-No significant CAD on last cath in 2015
-EF stable and stable mild MS/mod MR and stable AVR
-Patient with known paroxysmal Afib, tele reviewed by me 11/14/24 and remains in SR with frequent PACs. Continue Lopressor as above.
-Outpatient dose of Eliquis 2.5 mg BID (age 89, wt 39.5 kg) restarted 11/13/24.
We will sign off, please recall as needed
HPI: Is an 89-year-old female with past medical history of paroxysmal atrial fibrillation, AVR, chronic HFpEF, hypertension, hyperlipidemia, type II DM, prior CVA and TIA, falls, skin cancer, and anxiety. Presented to ER for evaluation of weakness
and falls over the past few weeks. She notes 3-4 falls within the past few weeks. Denies any loss of consciousness, but feels weakness in her legs reportedly get out. She also has been struggling with some nausea and vomiting and weight is down
to 84 pounds. On arrival to the emergency room, she was noted to be hyperkalemic with potassium of 7.5 with creatinine 3.6. She was admitted for further workup and evaluation. Head CT was without abnormality. Chest x-ray also unremarkable. CT
of abdomen and pelvis showed diffuse enteritis/ileus. Early this a.m., she had episode of hypotension and has been started on Levophed. Blood pressure improved. All outpatient medications on hold currently. Cardiology consulted for evaluation
given elevated troponin. Troponin was 0.116 on arrival and has trended up to 0.216. She denies any chest pain or shortness of breath at this time. Her only complaint is feeling tired and weak.
Progress Note - Credit Assistant
Subjective
Date of Service: November 16, 2024
No acute overnight events. Resting comfortably in bed in the IMU. No cardiac complaints.
Objective
Labs:
11/16/24 03:56
11/16/24 03:56
Labs
Hgb 9.6 g/dL (12.0-16.0) L 11/16/24 03:56
Hct 27.4 % (37.0-47.0) L 11/16/24 03:56
Plt Count 101 10^3/uL (130-400) L 11/16/24 03:56
APTT 64.8 Sec (23.4-35.0) H 11/13/24 08:36
Sodium 134 mmol/L (135-145) L 11/16/24 03:56
Potassium 3.5 mmol/L (3.5-5.1) 11/16/24 03:56
BUN 45 mg/dl (7-17) H 11/16/24 03:56
Creatinine 2.1 mg/dL (0.6-1.0) H 11/16/24 03:56
Glucose 189 mg/dl (70-99) H 11/16/24 03:56
Vital Signs and I&O:
Vital Signs
Temp Pulse Resp BP Pulse Ox
97.5 F 117 21 118/86 92
11/16/24 07:50 11/16/24 08:20 11/16/24 06:40 11/16/24 08:20 11/15/24 21:43
Vital Signs
Temp Pulse Resp BP Pulse Ox
97.5 F 117 21 118/86 92
11/16/24 07:50 11/16/24 08:20 11/16/24 06:40 11/16/24 08:20 11/15/24 21:43
Intake & Output
11/14/24 11/15/24 11/16/24 11/17/24
06:59 06:59 06:59 06:59
Intake Total 1725 / 1725 50 / 50 100 / 100
Output Total 3750 / 3750 1200 / 1200
Balance -2024 / -2025 -1150 / -1150 100 / 100
Physical Exam
Physical Exam
Gen: NAD, AA, frail-appearing
HEENT: NC/AT, sclera anicteric
Neck: No JVD
CV: RRR, NL s1/s2
Lungs: No increased work of breathing on 2 L nasal cannula
Abd: S/ND
Ext: No LE edema
Skin: Warm, dry
Neuro: Non-focal
--- NOTE | 2024-11-16 09:31 | W.PN.NEPH.PH ---
Today's Communication / Plan
-
follow bmp
Assessment/Plan
-
IMp:
AIDEN
severe A gap met acidosis with Lactic Acidosis
severe life threatening Hyperkalemia
Hypotension / Shock
Abnormal Troponin
Elevated BNP
history of BioAVR, severe TR, moderate MR.
ASCVD / CVA
DM-II
Paroxysmal Atrial Fibrillation
chronic hypotension on midodrine
Plan:
A/w weakness and falls, new n/v/d
Aiden suspect AIDEN from hypovolemia and/or hemodynamic compromise
microscopic hematuria, 3+alb-?nina sample (2.6 grams of protein by up/ucr)
non oliguric with nina , creatinine down to 2.1, urine output not recorded
met acidosis resolved
severe hyperkalemia resolved
CT abd shows possible enteritis and ileus-but pt with having BMs. reviewed with primary
Previously d/w pt and family detail, high risk of dialysis if no improvement in k
Maintain midodrine for chronic hypotension
adjust meds dose renally
abx per primary, await for cxs= negative to date 72 hours
over all prognosis is poor
Creatinine stable off pressors now
Will eventually restart diuretics
-
-
Date of Service: November 16, 2024
CC / HPI / ROS
-
Chief Complaint:
Acute kidney
History of Present Illness:
Hemodynamically stable off pressors
Hyperkalemia metabolic acidosis resolved
Acute kidney injury creatinine plateaued and down to 2.1
Review of Systems:
Grossly nonoliguric
Nina
No fever
Labs
-
Labs:
WBC 5.4 10^3/uL (4.8-10.8) 11/16/24 03:56
RBC 2.86 10^6/uL (4.20-5.40) L 11/16/24 03:56
Hgb 9.6 g/dL (12.0-16.0) L 11/16/24 03:56
Hct 27.4 % (37.0-47.0) L 11/16/24 03:56
Plt Count 101 10^3/uL (130-400) L 11/16/24 03:56
Sodium 134 mmol/L (135-145) L 11/16/24 03:56
Potassium 3.5 mmol/L (3.5-5.1) 11/16/24 03:56
Chloride 102 mmol/L (98-107) 11/16/24 03:56
Carbon Dioxide 23 mmol/L (22-30) 11/16/24 03:56
BUN 45 mg/dl (7-17) H 11/16/24 03:56
Creatinine 2.1 mg/dL (0.6-1.0) H 11/16/24 03:56
eGFR 22.38 11/16/24 03:56
Glucose 189 mg/dl (70-99) H 11/16/24 03:56
Calcium 7.5 mg/dl (8.4-10.2) L 11/16/24 03:56
Phosphorus 2.7 mg/dl (2.5-4.5) 11/16/24 03:56
Albumin 4.7 g/dl (3.5-5.0) 11/11/24 17:21
Vou-C-Rybmoftnsom Pept > 38926 pg/ml 11/13/24 04:25
Physical Exam
-
Vital Signs:
Vital Signs
Temp Pulse Resp BP Pulse Ox
97.5 F 117 21 118/86 92
11/16/24 07:50 11/16/24 08:20 11/16/24 06:40 11/16/24 08:20 11/15/24 21:43
Cardiovascular:: Regular rate and rhythm
Respiratory:: Bilateral: Coarse
Lung Excursion:: Normal
Abdomen:: Nontender and Soft
Bowel Sounds:: Normal
Extremity Edema:: None: Bilateral:
Nina Catheter: Yes
--- NOTE | 2024-11-16 11:24 | PTCARENOTE ---
Assumed care of patient at beginning of this shift from previous RN with O2 4l n/c in use; able to wean to 2L n/c with POx 96%. Patient was working with OT this morning; when ambulating to BR at approx 0900, HR went sustained 160s, hitting 180
briefly while on toilet. Assisted patient back to bed with use of RW; HR 113, then 90s. BP 129/79. Patient was asymptomatic. Dr Douglas notified via TT with picture of telemetry strips attached. No further orders were given. Dr Douglas was up to see
patient prior to this happening; scheduled Lopressor was given at 08:20.
--- NOTE | 2024-11-16 12:22 | PTCARENOTE ---
Addendum entered by Christina Thakkar RN 11/16/24 12:23:
TT sent to Dr Douglas.
Original Note:
HR continues 130s-140s sitting in chair; patient remains asymptomatic. BP 110/98 at this time.
[2024-11-16 13:28] LABS: Glucose - Point of Care 218 mg/dl (70-99)
[2024-11-16] MEDS: NOVOLOG FLEXPEN-MODERATE RESISTANCE SC (13:28)
--- NOTE | 2024-11-16 13:35 | PTCARENOTE ---
Patient assisted to commode, voided only small amount mixed with bm. Bladder scan showed 490. Straight cath 650ml. HR now low 90s-114.
--- NOTE | 2024-11-16 16:21 | CM ---
storage manager reviewed patient's chart and per physical therapy notes recommendation is for skilled placement, options reviewed and patient's daughter has selected [facility] for skilled placement, referral sent to [facility].
Plan; Skilled placement at [facility] pending approval, referral sent.
--- NOTE | 2024-11-16 16:33 | W.PN.HOSP.TC ---
Today's Communication/Plan
-
Assessment / Plan
Assessment / Plan
General: No Apparent Distress, cachectic
HEENT: NormoCephalic, Moist mucous membranes, Atraumatic
Respiratory: Clear and Non Labored Respirations
Cardiac: Regular rhythm, heart rate around 100, 3/6 systolic murmur left sternal border
GI: Soft, Non Tender, Non Distended and Normal Bowel Sounds
Musculoskeletal: No Edema, no deformity, decreased muscle bulk throughout
Skin: Warm and dry
: Tam draining clear yellow urine
Neuro: Awake, Alert, Nonfocal/grossly intact
Psych: Calm and cooperative
Ms. Gant is an 89-year-old female with a medical history of bioprosthetic aortic valve replacement, moderate mitral regurgitation, severe tricuspid regurgitation, paroxysmal A-fib (on low-dose Eliquis), HFpEF, CVA (December 2015), chronic hypotension
(on midodrine), and ftg-gdzbzgm-vukznuzzj diabetes mellitus who presented who presented with generalized weakness, frequent falls, and nausea with vomiting and diarrhea. She has been experiencing progressive generalized weakness for the past 2 to 3
weeks with multiple falls during that time. She developed nausea with vomiting 1 day prior to arrival. She was found to be hypotensive not responsive to IV fluids and so was started on vasopressors. She has multiple significant metabolic
derangements on labs. She has been admitted for further evaluation and management.
Gapped metabolic acidosis:
- Suspect due to nausea with vomiting and diarrhea secondary to enteritis
- Acidosis resolved, lactate now within normal limits
- Continuing antibiotics with Zosyn, today is day 4 of antibiotics
Hypovolemic shock:
- Suspect due to volume loss in the setting of GI symptoms in addition to baseline hypotension requiring midodrine
- Now off vasopressors, continue scheduled midodrine
- Has been adequately volume resuscitated, will give additional boluses as needed
- Management of GI symptoms
Severe hyperkalemia:
- Likely due to DEVANG secondary to hypovolemia
- No significant T wave abnormalities
- Given multiple doses of Lokelma
- Now resolved
DEVANG:
- Initial creatinine 3.6, baseline appears to be around 1.0
- Suspect due to hypovolemia
- Continues to improve
- Creatinine 2.1 on labs this morning, making adequate urine
- Continue treatment as outlined above
- Close monitoring for renal recovery, no plans for dialysis at this time
Hyponatremia:
- Mild, suspect hypovolemic
- Monitor, encourage p.o. fluids
Troponin elevation:
- Suspect nonischemic
- Echocardiogram shows preserved ejection fraction, no regional wall motion abnormalities, moderate MR and severe TR
- Continue supportive care for now
- Monitor on telemetry
- IV heparin drip discontinued
- Appreciate cardiology guidance
Paroxysmal A-fib:
- Restarted low-dose metoprolol tartrate with holding parameters for hypotension
- Restarted home Eliquis, have discussed with patient and family the risks versus benefits of long-term anticoagulation considering multiple falls
HFpEF:
- Chronic, currently likely euvolemic
- Holding further IV fluids for now, restart diuretics as blood pressure tolerates
- Restarted home metoprolol tartrate with holding parameters
Severe protein calorie malnutrition:
- Appreciate laundry laborer input
- Dietary supplements as tolerated
CODE STATUS: DNR
Anticipated Discharge: > 48 hours
Subjective/Interval History
-
Date of Service: November 16, 2024
Patient was seen and examined at bedside this morning. Feeling well but still somewhat fatigued. Her kidney function continues to improve.
Objective Data
-
Labs:
Laboratory Results
11/16/24
03:56
WBC 5.4
Hgb 9.6 L
Hct 27.4 L
Plt Count 101 L
Sodium 134 L
Potassium 3.5
Chloride 102
Carbon Dioxide 23
BUN 45 H
Creatinine 2.1 H
Glucose 189 H
Calcium 7.5 L
Vital Signs:
Vital Signs
Temp Pulse Resp BP Pulse Ox
98.4 F 128 15 106/76 99
11/16/24 14:50 11/16/24 14:00 11/16/24 14:00 11/16/24 14:00 11/16/24 14:00
I&O
11/15/24 11/16/24 11/17/24
06:59 06:59 06:59
Intake Total 50 / 50 100 / 100 290 / 290
Output Total 1200 / 1200 650 / 650
Balance -1150 / -1150 100 / 100 -360 / -360
Review of Systems
-
History Source: Patient
All other systems: Reviewed and negative
Constitutional: Reports Fatigue
Physical Exam
-
General: No Apparent Distress
[2024-11-16] MEDS: NOVOLOG FLEXPEN-MODERATE RESISTANCE 5 UNITS SC (16:34)
[2024-11-16 16:43] LABS: Glucose - Point of Care 295 mg/dl (70-99)
[2024-11-16] MEDS: MELATONIN 5 MG PO (20:07)
[2024-11-17] VITALS (15 sets, daily range): BP systolic 84–144; BP diastolic 55–114; PULSE 126–165; O2SAT 97; BMI 17.9
[2024-11-17] MEDS: ZOSYN 50 IV ×3 (01:46→17:02)
[2024-11-17 04:28] LABS: Blood Urea Nitrogen 30 mg/dl (7-17); Calcium 8.2 mg/dl (8.4-10.2); Carbon Dioxide 26 mmol/L (22-30); Chloride 102 mmol/L (98-107); Estimated Creatinine Clearance 19 ml/min; Glucose 161 mg/dl (70-99); Potassium 3.8 mmol/L (3.5-5.1); Sodium 138 mmol/L (135-145); eGFR 36.41
--- NOTE | 2024-11-17 04:28 | PTCARENOTE ---
Patient continues with urinary retention at times. Bladder scanned for 699 this am after attempting to use the commode. Straight cathed for 700.
[2024-11-17] MEDS: ELIQUIS 2.5 MG PO ×2 (07:56→20:00)
[2024-11-17] MEDS: LOPRESSOR 12.5 MG PO (07:56)
[2024-11-17] MEDS: ProAmatine 10 MG PO (07:57)
[2024-11-17] MEDS: TYLENOL 650 MG PO (08:24)
[2024-11-17 08:31] LABS: Glucose - Point of Care 146 mg/dl (70-99)
[2024-11-17] MEDS: NOVOLOG FLEXPEN-MODERATE RESISTANCE SC (08:37)
--- NOTE | 2024-11-17 09:28 | PTCARENOTE ---
Patient received from fish conservationist. Patient resting comfortably in bed. AAO, VSS. No events noted overnight. Complaints of some discomfort laying in bed, also some complaints of a headache, see MAR. No fluids through IV. Continue ABX. To get
patient OOB to chair. No testing scheduled at this time. Call romeo in reach.
--- NOTE | 2024-11-17 10:28 | W.PN.NEPH.PH ---
Today's Communication / Plan
-
Restarted diuretic
Sign off
Assessment/Plan
-
IMp:
AIDEN
severe A gap met acidosis with Lactic Acidosis
severe life threatening Hyperkalemia
Hypotension / Shock
Abnormal Troponin
Elevated BNP
history of BioAVR, severe TR, moderate MR.
ASCVD / CVA
DM-II
Paroxysmal Atrial Fibrillation
chronic hypotension on midodrine
Plan:
A/w weakness and falls, new n/v/d
Aiden suspect AIDEN from hypovolemia and/or hemodynamic compromise
microscopic hematuria, 3+alb-?nina sample (2.6 grams of protein by up/ucr)
non oliguric with nina , creatinine down to 1.4 urine output via straight cath 1750cc
met acidosis resolved
severe hyperkalemia resolved
CT abd shows possible enteritis and ileus-but pt with having BMs. reviewed with primary
Previously d/w pt and family detail, high risk of dialysis if no improvement in k
Maintain midodrine for chronic hypotension
adjust meds dose renally
abx per primary, await for cxs= negative to date 72 hours
over all prognosis is poor
Creatinine stable off pressors now
will restart diuretics tomorrow
Would cautiously observe urine output as patient has high postvoid residuals and may need catheter again
sign off
-
-
Date of Service: November 17, 2024
CC / HPI / ROS
-
Chief Complaint:
Acute kidney
History of Present Illness:
Hemodynamically stable off pressors
Hyperkalemia metabolic acidosis resolved
Acute kidney injury creatinine plateaued and down to 1.4
Review of Systems:
Grossly nonoliguric
Nina was removed now with high postvoid residual and difficulty voiding
No fever
Labs
-
Labs:
WBC 5.4 10^3/uL (4.8-10.8) 11/16/24 03:56
RBC 2.86 10^6/uL (4.20-5.40) L 11/16/24 03:56
Hgb 9.6 g/dL (12.0-16.0) L 11/16/24 03:56
Hct 27.4 % (37.0-47.0) L 11/16/24 03:56
Plt Count 101 10^3/uL (130-400) L 11/16/24 03:56
Sodium 138 mmol/L (135-145) 11/17/24 03:42
Potassium 3.8 mmol/L (3.5-5.1) 11/17/24 03:42
Chloride 102 mmol/L (98-107) 11/17/24 03:42
Carbon Dioxide 26 mmol/L (22-30) 11/17/24 03:42
BUN 30 mg/dl (7-17) H 11/17/24 03:42
Creatinine 1.4 mg/dL (0.6-1.0) H 11/17/24 03:42
eGFR 36.41 11/17/24 03:42
Glucose 161 mg/dl (70-99) H 11/17/24 03:42
Calcium 8.2 mg/dl (8.4-10.2) L 11/17/24 03:42
Phosphorus 2.7 mg/dl (2.5-4.5) 11/16/24 03:56
Albumin 4.7 g/dl (3.5-5.0) 11/11/24 17:21
Xlv-N-Srbmzepgpuq Pept > 34565 pg/ml 11/13/24 04:25
Physical Exam
-
Vital Signs:
Vital Signs
Temp Pulse Resp BP Pulse Ox
97.8 F 108 16 132/95 96
11/17/24 07:00 11/17/24 07:56 11/17/24 06:00 11/17/24 07:56 11/17/24 09:19
Cardiovascular:: Regular rate and rhythm
Respiratory:: Bilateral: Coarse
Lung Excursion:: Normal
Abdomen:: Nontender and Soft
Bowel Sounds:: Normal
Extremity Edema:: None: Bilateral:
Nina Catheter: No
[2024-11-17 10:51] LABS: Glucose - Point of Care 260 mg/dl (70-99)
[2024-11-17 12:56] LABS: Glucose - Point of Care 220 mg/dl (70-99)
[2024-11-17] MEDS: ProAmatine PO ×2 (13:25→17:54)
[2024-11-17] MEDS: NOVOLOG FLEXPEN-MODERATE RESISTANCE 3 UNITS SC (13:25)
--- NOTE | 2024-11-17 17:31 | W.PN.HOSP.TC ---
Today's Communication/Plan
-
Assessment / Plan
Assessment / Plan
General: No Apparent Distress, cachectic
HEENT: NormoCephalic, Moist mucous membranes, Atraumatic
Respiratory: Clear and Non Labored Respirations
Cardiac: Regular rhythm, heart rate around 100, 3/6 systolic murmur left sternal border
GI: Soft, Non Tender, Non Distended and Normal Bowel Sounds
Musculoskeletal: No Edema, no deformity, decreased muscle bulk throughout
Skin: Warm and dry
: Tam back in place
Neuro: Awake, Alert, Nonfocal/grossly intact
Psych: Calm and cooperative
Ms. Gant is an 89-year-old female with a medical history of bioprosthetic aortic valve replacement, moderate mitral regurgitation, severe tricuspid regurgitation, paroxysmal A-fib (on low-dose Eliquis), HFpEF, CVA (December 2015), chronic hypotension
(on midodrine), and hga-kuozojc-[id number] diabetes mellitus who presented who presented with generalized weakness, frequent falls, and nausea with vomiting and diarrhea. She has been experiencing progressive generalized weakness for the past 2 to 3
weeks with multiple falls during that time. She developed nausea with vomiting 1 day prior to arrival. She was found to be hypotensive not responsive to IV fluids and so was started on vasopressors. She has multiple significant metabolic
derangements on labs. She has been admitted for further evaluation and management.
Gapped metabolic acidosis:
- Suspect due to nausea with vomiting and diarrhea secondary to enteritis
- Acidosis resolved, lactate now within normal limits
- Completing 5 days of antibiotic treatment with Zosyn today 11/17
Hypovolemic shock:
- Suspect due to volume loss in the setting of GI symptoms in addition to baseline hypotension requiring midodrine
- Now off vasopressors, continue scheduled midodrine
- Has been adequately volume resuscitated, will give additional boluses as needed
- Management of GI symptoms
Severe hyperkalemia:
- Likely due to DEVANG secondary to hypovolemia
- No significant T wave abnormalities
- Given multiple doses of Lokelma
- Now resolved
DEVANG:
- Initial creatinine 3.6, baseline appears to be around 1.0
- Suspect due to hypovolemia
- Significantly proved today with creatinine 1.4
- Making adequate urine although has been acutely retaining requiring multiple straight caths, Tam catheter now back in place
- Close monitoring for continued renal recovery
- Restarted home Lasix
Acute urinary retention:
- Has required multiple straight catheterizations over the past 24 hours
- Tam catheter now replaced
- Started tamsulosin
- Can be discharged to rehab with Tam catheter when otherwise medically stable, voiding trial at rehab, urology follow-up if needed
Hyponatremia:
- Resolved
Troponin elevation:
- Suspect nonischemic
- Echocardiogram shows preserved ejection fraction, no regional wall motion abnormalities, moderate MR and severe TR
- Continue supportive care for now
- Monitor on telemetry
- IV heparin drip discontinued
- Appreciate cardiology guidance
Paroxysmal A-fib:
- Restarted low-dose metoprolol tartrate with holding parameters for hypotension
- Restarted home Eliquis, have discussed with patient and family the risks versus benefits of long-term anticoagulation considering multiple falls
HFpEF:
- Chronic, currently euvolemic
- Restarted home Lasix 20 mg p.o. daily now that renal function has recovered
- Restarted home metoprolol tartrate with holding parameters
Severe protein calorie malnutrition:
- Appreciate creche attendant input
- Dietary supplements as tolerated
CODE STATUS: DNR
Anticipated Discharge: 24 - 48 hours
Subjective/Interval History
-
Date of Service: November 17, 2024
Patient was seen and examined at bedside this morning. No acute distress. However she has been retaining urine requiring multiple straight catheterizations. Placing Tam now. Renal function continues to improve significantly.
Objective Data
-
Vital Signs:
Vital Signs
Temp Pulse Resp BP Pulse Ox
98.1 F 114 30 117/82 99
11/17/24 15:00 11/17/24 15:00 11/17/24 15:00 11/17/24 14:00 11/17/24 15:00
I&O
11/16/24 11/17/24 11/18/24
06:59 06:59 06:59
Intake Total 100 / 100 530 / 530
Output Total 500 / 500 1750 / 1750 110 / 110
Balance -400 / -400 -1220 / -1220 -110 / -110
Review of Systems
-
History Source: Patient
All other systems: Reviewed and negative
Physical Exam
-
General: No Apparent Distress
[2024-11-17 17:44] LABS: Glucose - Point of Care 287 mg/dl (70-99)
[2024-11-17] MEDS: NOVOLOG FLEXPEN-MODERATE RESISTANCE 5 UNITS SC (17:52)
[2024-11-17] MEDS: LOPRESSOR 25 MG PO (20:00)
[2024-11-17] MEDS: MELATONIN 5 MG PO (20:01)
[2024-11-17 22:09] LABS: Glucose - Point of Care 141 mg/dl (70-99)
[2024-11-18] VITALS (17 sets, daily range): BP systolic 106–144; BP diastolic 74–117; BMI 17.5
--- NOTE | 2024-11-18 06:21 | PTCARENOTE ---
Caring for pt overnight. aaox3, Afib/SA on monitor. HR running 110-130's. HR up to 200's when ambulating from bed to chair. BP's stable. Afebrile. Q2T. Sheehan in place draining well. Denies pain. no Bm in 2 days. Will monitor.
[2024-11-18 06:42] LABS: Blood Urea Nitrogen 20 mg/dl (7-17); Calcium 8.5 mg/dl (8.4-10.2); Carbon Dioxide 27 mmol/L (22-30); Chloride 102 mmol/L (98-107); Estimated Creatinine Clearance 23 ml/min; Glucose 140 mg/dl (70-99); Potassium 3.7 mmol/L (3.5-5.1); Sodium 137 mmol/L (135-145); eGFR 48.63
[2024-11-18 07:51] LABS: Glucose - Point of Care 150 mg/dl (70-99)
[2024-11-18] MEDS: LASIX 20 MG PO (08:27)
[2024-11-18] MEDS: ProAmatine PO ×2 (08:28→17:50)
[2024-11-18] MEDS: FLOMAX 0.4 MG PO (08:28)
[2024-11-18] MEDS: ELIQUIS 2.5 MG PO ×2 (08:28→20:52)
[2024-11-18] MEDS: LOPRESSOR PO ×2 (08:28→08:52)
[2024-11-18] MEDS: NOVOLOG FLEXPEN-MODERATE RESISTANCE 1 UNITS SC (08:29)
[2024-11-18] MEDS: TOPROL XL 50 MG PO ×2 (08:47→20:52)
[2024-11-18 09:43] LABS: Hematocrit 30.4 % (37.0-47.0); Hemoglobin 10.6 g/dL (12.0-16.0); Mean Corp Hgb Conc. 34.9 g/dL (33.0-37.0); Mean Corpuscular Hgb 33.3 pg (27.0-31.0); Mean Corpuscular Volume 95.6 fL (81.0-99.0); Mean Platelet Volume 10.3 fL (7.4-10.4); Platelet Count 138 10^3/uL (130-400); Red Blood Cell Count 3.18 10^6/uL (4.20-5.40); Red Cell Dist. Width 13.4 % (11.5-14.5); White Blood Cell Count 5.9 10^3/uL (4.8-10.8)
[2024-11-18] MEDS: CORDARONE 103 MG IV (09:45)
--- NOTE | 2024-11-18 09:47 | RR ---
A Rapid Response was called on this patient, please see Rapid Response form. Pt's HR up to 250s, diaphoretic, some mild nausea.
[2024-11-18 09:48] LABS: APTT 32.7 Sec (23.4-35.0); INR 1.14; PT 14.9 Sec (11.4-14.6)
[2024-11-18] MEDS: CORDARONE 518 MG IV (09:54)
[2024-11-18 10:01] LABS: Troponin I < 0.012 ng/ml
--- NOTE | 2024-11-18 10:43 | W.PN.CARDCBS ---
Today's Communication / Plan
-
Continue Amio drip and monitor on telemetry
Impression / Plan
-
PCP: Dr. Alcantara
Cardiology: Dr. Ness
Impression:
Presented with weakness, falls
Suspected hypovolemic shock
Hyperkalemia
DEVANG
Elevated troponin
Paroxysmal atrial fibrillation
Chronic Eliquis AC
Atrial tachycardia
Chronic HFpEF
s/p AVR w/ 19 mm Trifecta supra-annular valve 08/26/2015
Severe tricuspid regurgitation by echo 11/12/24
Mild MS and moderate MR
Hypertension
Hyperlipidemia
Type 2 diabetes
h/o CVA December 2015
Gout
h/o falls with compression fractures
Skin cancer
Anxiety
Hysterectomy
Cardiac catheterization 08/27/2015: No significant coronary artery disease
Echo 02/22/2022: EF 70%, severe biatrial enlargement, mild MR, mild MS with mean gradient 9, well-seated bioprosthetic AVR with peak/mean gradient 24/14 mmHg, moderate to severe TR with moderate pulmonary hypertension PAP 50 to 55 mmHg
Echo 05/02/2023: EF 65 to 70%, mild mitral stenosis with moderate right regurgitation mean gradient of 6, stable bioprosthetic AVR with mean gradient of 15 and trace AI, severe TR with PA pressure 65
Echo 12/05/2023: EF 69%, mild MS, moderate MR, well-seated bio AVR with peak/mean gradients 26/16 mmHg, mild , severe TR, severe pulmonary hypertension with estimated PAP 63 mmHg
Echo 03/05/2024: EF 65 to 70%, mild MS, moderate MR, bio AVR with peak/mean gradients 31/16 mmHg, severe TR, estimated PAP 59 mmHg
Echo 11/12/2024: EF 65 to 70%, normal regional wall motion, normal LV wall thickness, normal RV size and function, mild MS peak/mean 13/4 mmHg, moderate MR, tissue AVR peak/mean 25/13 mmHg and no aortic regurgitation, severe TR, compared to study
03/05/2024 the aortic valve gradient was previously 31/16 mmHg and is now 25/13 mmHg, otherwise no significant change
Plan:
-Presented with hypovolemia and DEVANG in the setting of N/V/D. Patient received almost 9 L IVFs this admission and outpatient dose of Lasix 40 mg PO daily remains on hold.
-Cr continues to improve
-Nephrology following and managing diuretics
-Patient with known paroxysmal Afib
-Developed rapid atrial tachycardia morning of 11/18/2024 for which NEEDLE LOOM TENDER was called and I responded
-Home metoprolol dose was recently uptitrated
-Amiodarone bolus and drip ordered, would continue with plan to transition to oral amiodarone on discharge
-Outpatient dose of Eliquis 2.5 mg BID (age 89, wt 39.5 kg) restarted 11/13/24.
-History of orthostasis and remains on outpatient dose of midodrine 10 mg TID
-Troponin peaked at 0.216 and no acute ischemic changes on ECG and no WMA on echo, will be managed as a nonischemic myocardial injury Troponin elevation.
-No significant CAD on last cath in 2015
-EF stable and stable mild MS/mod MR and stable AVR
CC: 35 min including initial evaluation, responding to NEEDLE LOOM TENDER and reevaluation after
HPI: Is an 89-year-old female with past medical history of paroxysmal atrial fibrillation, AVR, chronic HFpEF, hypertension, hyperlipidemia, type II DM, prior CVA and TIA, falls, skin cancer, and anxiety. Presented to ER for evaluation of weakness
and falls over the past few weeks. She notes 3-4 falls within the past few weeks. Denies any loss of consciousness, but feels weakness in her legs reportedly get out. She also has been struggling with some nausea and vomiting and weight is down
to 84 pounds. On arrival to the emergency room, she was noted to be hyperkalemic with potassium of 7.5 with creatinine 3.6. She was admitted for further workup and evaluation. Head CT was without abnormality. Chest x-ray also unremarkable. CT
of abdomen and pelvis showed diffuse enteritis/ileus. Early this a.m., she had episode of hypotension and has been started on Levophed. Blood pressure improved. All outpatient medications on hold currently. Cardiology consulted for evaluation
given elevated troponin. Troponin was 0.116 on arrival and has trended up to 0.216. She denies any chest pain or shortness of breath at this time. Her only complaint is feeling tired and weak.
Progress Note - Environmental Issues Instructor
Subjective
Date of Service: November 18, 2024
Patient tachycardic overnight seem to be asymptomatic. This morning heart rate was elevated into the 220s around the time she was due for morning metoprolol and an NEEDLE LOOM TENDER was called. Patient did report feeling unwell, flushed sensation at the time.
Amiodarone drip started and heart rate improved. Symptoms resolved.
Objective
Labs:
11/18/24 09:32
11/18/24 06:01
Labs
Hgb 10.6 g/dL (12.0-16.0) L 11/18/24 09:32
Hct 30.4 % (37.0-47.0) L 11/18/24 09:32
Plt Count 138 10^3/uL (130-400) D 11/18/24 09:32
PT 14.9 Sec (11.4-14.6) H 11/18/24 09:32
INR 1.14 11/18/24 09:32
APTT 32.7 Sec (23.4-35.0) 11/18/24 09:32
Sodium 137 mmol/L (135-145) 11/18/24 06:01
Potassium 3.7 mmol/L (3.5-5.1) 11/18/24 06:01
BUN 20 mg/dl (7-17) H 11/18/24 06:01
Creatinine 1.1 mg/dL (0.6-1.0) H 11/18/24 06:01
Glucose 140 mg/dl (70-99) H 11/18/24 06:01
Troponins
11/18/24
09:32
Troponin I < 0.012
Vital Signs and I&O:
Vital Signs
Temp Pulse Resp BP Pulse Ox
98.1 F 187 24 121/91 99
11/18/24 07:30 11/18/24 09:40 11/18/24 09:40 11/18/24 09:26 11/18/24 08:23
Vital Signs
Temp Pulse Resp BP Pulse Ox
98.1 F 187 24 121/91 99
11/18/24 07:30 11/18/24 09:40 11/18/24 09:40 11/18/24 09:26 11/18/24 08:23
Intake & Output
11/16/24 11/17/24 11/18/24 11/19/24
06:59 06:59 06:59 06:59
Intake Total 100 / 100 530 / 530 100 / 100
Output Total 500 / 500 1750 / 1750 1110 / 1110
Balance -400 / -400 -1220 / -1220 -1010 / -1010
Physical Exam
Physical Exam
Gen: NAD, AA, frail-appearing
HEENT: NC/AT, sclera anicteric, temporal wasting
Neck: No JVD
CV: Tachy, irregularly irregular
Lungs: CTAB on 2 L nasal cannula
Abd: S/ND
Ext: No LE edema
Skin: Warm, dry
Neuro: Non-focal
[2024-11-18 10:55] LABS: Glucose - Point of Care 304 mg/dl (70-99)
[2024-11-18] MEDS: NOVOLOG FLEXPEN-MODERATE RESISTANCE 7 UNITS SC (11:44)
[2024-11-18] MEDS: ProAmatine 10 MG PO (14:11)
--- NOTE | 2024-11-18 15:25 | W.PN.HOSP.TC ---
Today's Communication/Plan
-
Assessment / Plan
Assessment / Plan
General: No Apparent Distress, cachectic
HEENT: NormoCephalic, Moist mucous membranes, Atraumatic
Respiratory: Clear and Non Labored Respirations
Cardiac: A-fib with RVR, heart rate around 110, 3/6 systolic murmur left sternal border
GI: Soft, Non Tender, Non Distended and Normal Bowel Sounds
Musculoskeletal: No Edema, no deformity, decreased muscle bulk throughout
Skin: Warm and dry
: Tam back in place
Neuro: Awake, Alert, Nonfocal/grossly intact
Psych: Calm and cooperative
Ms. Gant is an 89-year-old female with a medical history of bioprosthetic aortic valve replacement, moderate mitral regurgitation, severe tricuspid regurgitation, paroxysmal A-fib (on low-dose Eliquis), HFpEF, CVA (December 2015), chronic hypotension
(on midodrine), and [id number] diabetes mellitus who presented who presented with generalized weakness, frequent falls, and nausea with vomiting and diarrhea. She has been experiencing progressive generalized weakness for the past 2 to 3
weeks with multiple falls during that time. She developed nausea with vomiting 1 day prior to arrival. She was found to be hypotensive not responsive to IV fluids and so was started on vasopressors. She has multiple significant metabolic
derangements on labs. She has been admitted for further evaluation and management.
A-fib with RVR:
- Heart rate as high as 236 today, patient relatively asymptomatic other than reported dizziness
- Started on amiodarone drip with bolus, heart rate significantly improved
- Increased beta-ronaldo dose to metoprolol succinate 50 mg p.o. twice daily
- Continue telemetry monitoring
- Appreciate cardiology input
DEVANG:
- Initial creatinine 3.6, baseline appears to be around 1.0
- Suspect due to hypovolemia
- Renal function has now returned close to baseline
- Making adequate urine although has been acutely retaining requiring multiple straight caths, Tam catheter now back in place
- Restarted home Lasix
- Will need ongoing monitoring of renal function after discharge
Acute urinary retention:
- Has required multiple straight catheterizations
- Tam catheter now replaced
- Started tamsulosin
- Can be discharged to rehab with Tam catheter when otherwise medically stable, voiding trial at rehab, urology follow-up if needed
Gapped metabolic acidosis:
- Suspect due to nausea with vomiting and diarrhea secondary to enteritis
- Acidosis resolved, lactate now within normal limits
- Completed 5 days of antibiotic treatment with Zosyn 11/17
Hypovolemic shock:
- Suspect due to volume loss in the setting of GI symptoms in addition to baseline hypotension requiring midodrine
- Now off vasopressors, continue scheduled midodrine
- Has been adequately volume resuscitated, will give additional boluses as needed
- Management of GI symptoms
Severe hyperkalemia:
- Likely due to DEVANG secondary to hypovolemia
- No significant T wave abnormalities
- Given multiple doses of Lokelma
- Now resolved
Hyponatremia:
- Resolved
Troponin elevation:
- Suspect nonischemic
- Echocardiogram shows preserved ejection fraction, no regional wall motion abnormalities, moderate MR and severe TR
- Continue supportive care for now
- Monitor on telemetry
- IV heparin drip discontinued
- Appreciate cardiology guidance
Paroxysmal A-fib:
- Restarted low-dose metoprolol tartrate with holding parameters for hypotension
- However now on amiodarone drip and titrated beta-ronaldo up to metoprolol succinate 50 mg p.o. twice daily after episode of A-fib with RVR
- Restarted home Eliquis, have discussed with patient and family the risks versus benefits of long-term anticoagulation considering multiple falls
HFpEF:
- Chronic, currently euvolemic
- Restarted home Lasix 20 mg p.o. daily now that renal function has recovered
- Beta-blockade with metoprolol succinate 50 mg p.o. twice daily
Severe protein calorie malnutrition:
- Appreciate registered nurse cardiac telemetry input
- Dietary supplements as tolerated
CODE STATUS: DNR
Anticipated Discharge: 24 - 48 hours
Subjective/Interval History
-
Date of Service: November 18, 2024
Patient was seen and examined at bedside this morning. Rapid response was called for uncontrolled A-fib with heart rate reaching as high as 230s. She was started on amiodarone drip with improvement in her heart rate. She was relatively
asymptomatic throughout.
Objective Data
-
Labs:
Laboratory Results
11/18/24 11/18/24
06:01 09:32
WBC 5.9
Hgb 10.6 L
Hct 30.4 L
Plt Count 138 D
PT 14.9 H
INR 1.14
APTT 32.7
Sodium 137
Potassium 3.7
Chloride 102
Carbon Dioxide 27
BUN 20 H
Creatinine 1.1 H
Glucose 140 H
Calcium 8.5
Vital Signs:
Vital Signs
Temp Pulse Resp BP Pulse Ox
98.0 F 98 24 110/84 93
11/18/24 11:00 11/18/24 14:11 11/18/24 09:40 11/18/24 14:11 11/18/24 12:30
I&O
11/17/24 11/18/24 11/19/24
06:59 06:59 06:59
Intake Total 530 / 530 100 / 100
Output Total 1750 / 1750 1110 / 1110
Balance -1220 / -1220 -1010 / -1010
Review of Systems
-
History Source: Patient
All other systems: Reviewed and negative
Constitutional: Reports Fatigue
Physical Exam
-
General: No Apparent Distress
[2024-11-18 17:19] LABS: Glucose - Point of Care 286 mg/dl (70-99)
[2024-11-18] MEDS: NOVOLOG FLEXPEN-MODERATE RESISTANCE 5 UNITS SC (17:50)
[2024-11-18] MEDS: MELATONIN 5 MG PO (20:52)
[2024-11-18 22:03] LABS: Glucose - Point of Care 144 mg/dl (70-99)
[2024-11-19] VITALS (17 sets, daily range): BP systolic 105–139; BP diastolic 56–99; PULSE 90; BMI 17.9
[2024-11-19 08:05] LABS: Glucose - Point of Care 166 mg/dl (70-99)
[2024-11-19] MEDS: NOVOLOG FLEXPEN-MODERATE RESISTANCE 1 UNITS SC (08:38)
[2024-11-19] MEDS: FLOMAX 0.4 MG PO (08:39)
[2024-11-19] MEDS: LASIX 20 MG PO (08:40)
[2024-11-19] MEDS: TOPROL XL 50 MG PO ×2 (08:40→19:56)
[2024-11-19] MEDS: ELIQUIS 2.5 MG PO ×2 (08:40→19:55)
[2024-11-19] MEDS: ProAmatine PO ×3 (08:43→17:35)
--- NOTE | 2024-11-19 09:36 | W.PN.CARDCBS ---
Today's Communication / Plan
-
Lasix has been resumed.
cr continues to improve and is 1.1.
Nephrology signed off.
Developed raid Atrial tach Apri 27 and rapid called.
Metoprolol had been titrated up.
Continues with IV amiodarone, wean off today and start Amiodarone 200 mg TID.
Cont Eliquis at 2.5 mg BID (age 89, wt 39.5 kg) restarted 11/13/24.
History of orthostasis and remains on outpatient dose of midodrine 10 mg TID
Troponin peaked at 0.216 and no acute ischemic changes on ECG and no WMA on echo, cont medi therapy of nonMI troponin.
-No significant CAD on last cath in 2015
-EF stable and stable mild MS/mod MR and stable AVR
Impression / Plan
-
.
PCP: Dr. Alcantara
Cardiology: Dr. Ness
Impression:
Presented with weakness, falls
Suspected hypovolemic shock
Hyperkalemia
DEVANG
Elevated troponin
Paroxysmal atrial fibrillation
Chronic Eliquis AC
Atrial tachycardia
Chronic HFpEF
s/p AVR w/ 19 mm Trifecta supra-annular valve 08/26/2015
Severe tricuspid regurgitation by echo 11/12/24
Mild MS and moderate MR
Hypertension
Hyperlipidemia
Type 2 diabetes
h/o CVA December 2015
Gout
h/o falls with compression fractures
Skin cancer
Anxiety
Hysterectomy
Cardiac catheterization 08/27/2015: No significant coronary artery disease
Echo 02/22/2022: EF 70%, severe biatrial enlargement, mild MR, mild MS with mean gradient 9, well-seated bioprosthetic AVR with peak/mean gradient 24/14 mmHg, moderate to severe TR with moderate pulmonary hypertension PAP 50 to 55 mmHg
Echo 05/02/2023: EF 65 to 70%, mild mitral stenosis with moderate right regurgitation mean gradient of 6, stable bioprosthetic AVR with mean gradient of 15 and trace AI, severe TR with PA pressure 65
Echo 12/05/2023: EF 69%, mild MS, moderate MR, well-seated bio AVR with peak/mean gradients 26/16 mmHg, mild , severe TR, severe pulmonary hypertension with estimated PAP 63 mmHg
Echo 03/05/2024: EF 65 to 70%, mild MS, moderate MR, bio AVR with peak/mean gradients 31/16 mmHg, severe TR, estimated PAP 59 mmHg
Echo 11/12/2024: EF 65 to 70%, normal regional wall motion, normal LV wall thickness, normal RV size and function, mild MS peak/mean 13/4 mmHg, moderate MR, tissue AVR peak/mean 25/13 mmHg and no aortic regurgitation, severe TR, compared to study
03/05/2024 the aortic valve gradient was previously 31/16 mmHg and is now 25/13 mmHg, otherwise no significant change
Plan:
Presented with hypovolemia and DEVANG in the setting of N/V/D. Patient received almost 9 L IVFs this admission and outpatient dose of Lasix 40 mg PO daily was held on admit.
Lasix has been resumed.
cr continues to improve and is 1.1.
Nephrology signed off.
Developed raid Atrial tach Apri 27 and rapid called.
Metoprolol had been titrated up.
Continues with IV amiodarone, wean off today and start Amiodarone 200 mg TID.
Cont Eliquis at 2.5 mg BID (age 89, wt 39.5 kg) restarted 11/13/24.
History of orthostasis and remains on outpatient dose of midodrine 10 mg TID
Troponin peaked at 0.216 and no acute ischemic changes on ECG and no WMA on echo, cont medi therapy of nonMI troponin.
-No significant CAD on last cath in 2015
-EF stable and stable mild MS/mod MR and stable AVR
Discucssed with nursing.
HPI: Is an 89-year-old female with past medical history of paroxysmal atrial fibrillation, AVR, chronic HFpEF, hypertension, hyperlipidemia, type II DM, prior CVA and TIA, falls, skin cancer, and anxiety. Presented to ER for evaluation of weakness
and falls over the past few weeks. She notes 3-4 falls within the past few weeks. Denies any loss of consciousness, but feels weakness in her legs reportedly get out. She also has been struggling with some nausea and vomiting and weight is down
to 84 pounds. On arrival to the emergency room, she was noted to be hyperkalemic with potassium of 7.5 with creatinine 3.6. She was admitted for further workup and evaluation. Head CT was without abnormality. Chest x-ray also unremarkable. CT
of abdomen and pelvis showed diffuse enteritis/ileus. Early this a.m., she had episode of hypotension and has been started on Levophed. Blood pressure improved. All outpatient medications on hold currently. Cardiology consulted for evaluation
given elevated troponin. Troponin was 0.116 on arrival and has trended up to 0.216. She denies any chest pain or shortness of breath at this time. Her only complaint is feeling tired and weak.
Progress Note - Household Manager
Subjective
Date of Service: November 19, 2024
Pt seen and examined. Breathing better
Objective
Labs:
11/18/24 09:32
11/18/24 06:01
Labs
Hgb 10.6 g/dL (12.0-16.0) L 11/18/24 09:32
Hct 30.4 % (37.0-47.0) L 11/18/24 09:32
Plt Count 138 10^3/uL (130-400) D 11/18/24 09:32
PT 14.9 Sec (11.4-14.6) H 11/18/24 09:32
INR 1.14 11/18/24 09:32
APTT 32.7 Sec (23.4-35.0) 11/18/24 09:32
Sodium 137 mmol/L (135-145) 11/18/24 06:01
Potassium 3.7 mmol/L (3.5-5.1) 11/18/24 06:01
BUN 20 mg/dl (7-17) H 11/18/24 06:01
Creatinine 1.1 mg/dL (0.6-1.0) H 11/18/24 06:01
Glucose 140 mg/dl (70-99) H 11/18/24 06:01
Troponins
11/18/24
09:32
Troponin I < 0.012
Vital Signs and I&O:
Vital Signs
Temp Pulse Resp BP Pulse Ox
98.2 F 115 18 132/78 98
11/19/24 07:30 11/19/24 08:40 11/19/24 06:00 11/19/24 08:43 11/19/24 06:00
Vital Signs
Temp Pulse Resp BP Pulse Ox
98.2 F 115 18 132/78 98
11/19/24 07:30 11/19/24 08:40 11/19/24 06:00 11/19/24 08:43 11/19/24 06:00
Intake & Output
11/17/24 11/18/24 11/19/24 11/20/24
06:59 06:59 06:59 06:59
Intake Total 530 / 530 100 / 100
Output Total 1750 / 1750 1110 / 1110 1025 / 1025
Balance -1220 / -1220 -1010 / -1010 -1025 / -1025
Physical Exam
Physical Exam
General: No acute distress, Awake and alert
Neck: Negative JVD
Heart: Irregularly egular, Negative S3 positive S1/S2, Negative S4, No murmur
Lungs: CTA b/l, negative wheezes/rales/rhonchi
Abd: Positive BS, NT/ND, neg rebound/rigidity/guarding
Ext: Negative cyanosis/clubbing/edema
Neuro: nonfocal
[2024-11-19] MEDS: PACERONE 200 MG PO ×3 (10:05→19:56)
--- NOTE | 2024-11-19 10:10 | W.PN.HOSP.TC ---
Today's Communication/Plan
-
wean off O2 - if unable, will check XR chest
add bronchodilators
Cardio for HR mgmt
Assessment / Plan
Assessment / Plan
89yo F with PMHX of s/p bioprosthetic valve, severe TR, paroxysmal A.fib on low dose Eliquis, HFpEF, CVA, orthostatic hypotension, DM came with weakness, nausea and diarrhea, found DEVANG, most likely 2/2 hypotension and dehydration and noticed with
Afib with RVR on 11/18/24 with rapid responce called.
A/P:
#DEVANG with hypovolemic shock on admisison
#Hyperkalemia
resolved
most likely 2/2 hypotension and diarrhea
Avoid hypotension
Nephrology followed
#acute respiratory insufficiency
#COPD not in exacerbation
XR on admisison without acute findings
rui off O2
cont home bronchodilators
#Afib with RVR
#Non-ischemic myocardial injury
Cardiology for rhythm and rate control. Heparin drip stopped
Telemetry
cont Eliquis
TSH WNL
#Acute urinary retention with microscopic hematuria
with Hx of urinary retention and high postvoid reidual
Tam and outpatient Urology for urodynamic studies
no additional LE focal neurologic deficit
#Severe T12 compression deformity 2/2
progressed since 2021
most likely 2/2 osteoporosis
outpatient treatment to be considered by PCP
#Diverticulosis without diverticulitis
high fiber diset
#Diarrhea on admission
resolved
possible transient gastroenteritis
#Severe protein calorie malnutrition
Increase calorie intake
Suplements
Dietitican consult
#Ambulatory dysfunction
2/2 deconditioning
PT/OT
#DM type 2 with unspecified complications
DM diet
accuchecks, insulin SS
#Chronic hypotension
#GERD
#Gout
cont home meds
#Mild anemia, BECKA
Hgb stable
outpatient w/u advised
DVT ppx Eliquis
DNR/DNI
I have spent at least 58min reviewing chart, test results, communication with consultants and providing direct patient care
Anticipated Discharge: 24 - 48 hours
Subjective/Interval History
-
Date of Service: November 19, 2024
Objective Data
-
Vital Signs:
Vital Signs
Temp Pulse Resp BP Pulse Ox
98.2 F 90 24 112/79 98
11/19/24 07:30 11/19/24 10:05 11/19/24 08:00 11/19/24 10:05 11/19/24 08:00
I&O
11/18/24 11/19/24 11/20/24
06:59 06:59 06:59
Intake Total 100 / 100
Output Total 1110 / 1110 1025 / 1025
Balance -1010 / -1010 -1025 / -1025
[2024-11-19 12:40] LABS: Glucose - Point of Care 238 mg/dl (70-99)
[2024-11-19] MEDS: NOVOLOG FLEXPEN-MODERATE RESISTANCE 3 UNITS SC (12:43)
[2024-11-19] MEDS: NOVOLOG FLEXPEN-MODERATE RESISTANCE 5 UNITS SC (16:53)
[2024-11-19 17:14] LABS: Glucose - Point of Care 254 mg/dl (70-99)
--- NOTE | 2024-11-19 17:46 | PTCARENOTE ---
Rec'd pt this AM. Pt OOB x1 with walker, on RA most of the day. HR much improved to 80s-90s. reports feeling much better. Update Dr. Helms
[2024-11-19] MEDS: MELATONIN 5 MG PO (19:56)
[2024-11-19] MEDS: ProAmatine 10 MG PO (19:56)
[2024-11-19 21:15] LABS: Glucose - Point of Care 247 mg/dl (70-99)
[2024-11-20] VITALS (19 sets, daily range): BP systolic 91–137; BP diastolic 52–97; BMI 19.2
[2024-11-20 04:31] LABS: % Basophils 0.3 % (0-2); % Eosinophils 6.2 % (0-6); % Immature Granulocytes 0.3 % (0-0.5); % Lymphocytes 21.8 % (20.5-51.1); % Monocytes 11.5 % (1.7-9.3); % Neutrophils 59.9 % (42.2-75.2); Absolute Eosinophils 0.2 10^3/uL (0-0.7); Absolute Lymphocytes 0.7 10^3/uL (1.2-3.4); Absolute Monocytes 0.4 10^3/uL (0.1-0.6); Absolute Neutrophils 1.9 10^3/uL (1.4-6.5); Hematocrit 25.4 % (37.0-47.0); Hemoglobin 8.7 g/dL (12.0-16.0); Mean Corp Hgb Conc. 34.3 g/dL (33.0-37.0); Mean Corpuscular Hgb 33.3 pg (27.0-31.0); Mean Corpuscular Volume 97.3 fL (81.0-99.0); Mean Platelet Volume 10.7 fL (7.4-10.4); Nucleated Red Blood Cells % 0 %; Platelet Count 118 10^3/uL (130-400); Red Blood Cell Count 2.61 10^6/uL (4.20-5.40); Red Cell Dist. Width 13.3 % (11.5-14.5); White Blood Cell Count 3.2 10^3/uL (4.8-10.8)
[2024-11-20 04:59] LABS: ALT (SGPT) 12 U/L (0-35); AST (SGOT) 17 U/L (14-36); Albumin 3.1 g/dl (3.5-5.0); Alkaline Phosphatase 69 U/L (38-126); Blood Urea Nitrogen 15 mg/dl (7-17); Calcium 8.3 mg/dl (8.4-10.2); Carbon Dioxide 26 mmol/L (22-30); Chloride 101 mmol/L (98-107); Estimated Creatinine Clearance 29 ml/min; Glucose 160 mg/dl (70-99); Potassium 4.2 mmol/L (3.5-5.1); Sodium 136 mmol/L (135-145); Total Bilirubin 0.5 mg/dl (0.2-1.3); Total Protein 5.7 g/dl (6.3-8.2); eGFR > 60.00
--- NOTE | 2024-11-20 06:10 | PTCARENOTE ---
No acute events overnight. Tam removed at 0600. Due to void at 1200.
[2024-11-20 08:33] LABS: Glucose - Point of Care 173 mg/dl (70-99)
[2024-11-20] MEDS: NOVOLOG FLEXPEN-MODERATE RESISTANCE 1 UNITS SC (08:50)
[2024-11-20] MEDS: PACERONE 200 MG PO ×2 (08:51→20:37)
[2024-11-20] MEDS: ZYLOPRIM 50 MG PO (08:51)
[2024-11-20] MEDS: ELIQUIS 2.5 MG PO ×2 (08:52→20:23)
[2024-11-20] MEDS: LASIX 20 MG PO (08:52)
[2024-11-20] MEDS: FLOMAX 0.4 MG PO (08:52)
[2024-11-20] MEDS: TOPROL XL 50 MG PO ×2 (08:52→20:37)
--- NOTE | 2024-11-20 09:30 | W.PN.CARDCBS ---
Today's Communication / Plan
-
Cont oral Lasix
Cr stable at 0.9.
HR improved and converted to sinus.
Cont Metoprolol
Transition to amiodaroone 200 mg BID for one week and then 200 mg daily
Cont Eliquis at 2.5 mg BID (age 89, wt 39.5 kg) restarted 11/13/24.
Will arrange outpt follow up
Please recall if needed.
Impression / Plan
-
.
PCP: Dr. Alcantara
Cardiology: Dr. Ness
Impression:
Presented with weakness, falls
Suspected hypovolemic shock
Hyperkalemia
DEVANG
Elevated troponin
Paroxysmal atrial fibrillation
Chronic Eliquis AC
Atrial tachycardia
Chronic HFpEF
s/p AVR w/ 19 mm Trifecta supra-annular valve 08/26/2015
Severe tricuspid regurgitation by echo 11/12/24
Mild MS and moderate MR
Hypertension
Hyperlipidemia
Type 2 diabetes
h/o CVA December 2015
Gout
h/o falls with compression fractures
Skin cancer
Anxiety
Hysterectomy
Cardiac catheterization 08/27/2015: No significant coronary artery disease
Echo 02/22/2022: EF 70%, severe biatrial enlargement, mild MR, mild MS with mean gradient 9, well-seated bioprosthetic AVR with peak/mean gradient 24/14 mmHg, moderate to severe TR with moderate pulmonary hypertension PAP 50 to 55 mmHg
Echo 05/02/2023: EF 65 to 70%, mild mitral stenosis with moderate right regurgitation mean gradient of 6, stable bioprosthetic AVR with mean gradient of 15 and trace AI, severe TR with PA pressure 65
Echo 12/05/2023: EF 69%, mild MS, moderate MR, well-seated bio AVR with peak/mean gradients 26/16 mmHg, mild , severe TR, severe pulmonary hypertension with estimated PAP 63 mmHg
Echo 03/05/2024: EF 65 to 70%, mild MS, moderate MR, bio AVR with peak/mean gradients 31/16 mmHg, severe TR, estimated PAP 59 mmHg
Echo 11/12/2024: EF 65 to 70%, normal regional wall motion, normal LV wall thickness, normal RV size and function, mild MS peak/mean 13/4 mmHg, moderate MR, tissue AVR peak/mean 25/13 mmHg and no aortic regurgitation, severe TR, compared to study
03/05/2024 the aortic valve gradient was previously 31/16 mmHg and is now 25/13 mmHg, otherwise no significant change
Plan:
Presented with hypovolemia and DEVANG in the setting of N/V/D. Patient received almost 9 L IVFs this admission and outpatient dose of Lasix 40 mg PO daily was held on admit.
Cont oral Lasix
Cr stable at 0.9. Nephrology signed off.
HR improved and converted to sinus.
Cont Metoprolol
Transition to amiodaroone 200 mg BID for one week and then 200 mg daily
Cont Eliquis at 2.5 mg BID (age 89, wt 39.5 kg) restarted 11/13/24.
History of orthostasis and remains on outpatient dose of midodrine 10 mg TID
Troponin peaked at 0.216 and no acute ischemic changes on ECG and no WMA on echo, cont medi therapy of nonMI troponin.
-No significant CAD on last cath in 2015
-EF stable and stable mild MS/mod MR and stable AVR
Discussed with nursing.
Will arrange outpt follow up
Please recall if needed.
HPI: Is an 89-year-old female with past medical history of paroxysmal atrial fibrillation, AVR, chronic HFpEF, hypertension, hyperlipidemia, type II DM, prior CVA and TIA, falls, skin cancer, and anxiety. Presented to ER for evaluation of weakness
and falls over the past few weeks. She notes 3-4 falls within the past few weeks. Denies any loss of consciousness, but feels weakness in her legs reportedly get out. She also has been struggling with some nausea and vomiting and weight is down
to 84 pounds. On arrival to the emergency room, she was noted to be hyperkalemic with potassium of 7.5 with creatinine 3.6. She was admitted for further workup and evaluation. Head CT was without abnormality. Chest x-ray also unremarkable. CT
of abdomen and pelvis showed diffuse enteritis/ileus. Early this a.m., she had episode of hypotension and has been started on Levophed. Blood pressure improved. All outpatient medications on hold currently. Cardiology consulted for evaluation
given elevated troponin. Troponin was 0.116 on arrival and has trended up to 0.216. She denies any chest pain or shortness of breath at this time. Her only complaint is feeling tired and weak.
Progress Note - Medical Research Scientist
Subjective
Date of Service: November 20, 2024
Pt seen and examined. No complaints. No chest pain or shortness of breath.
Objective
Labs:
11/20/24 04:17
Labs
Hgb 8.7 g/dL (12.0-16.0) L 11/20/24 04:17
Hct 25.4 % (37.0-47.0) L 11/20/24 04:17
Plt Count 118 10^3/uL (130-400) L 11/20/24 04:17
PT 14.9 Sec (11.4-14.6) H 11/18/24 09:32
INR 1.14 11/18/24 09:32
APTT 32.7 Sec (23.4-35.0) 11/18/24 09:32
Sodium 136 mmol/L (135-145) 11/20/24 04:17
Potassium 4.2 mmol/L (3.5-5.1) 11/20/24 04:17
BUN 15 mg/dl (7-17) 11/20/24 04:17
Creatinine 0.9 mg/dL (0.6-1.0) 11/20/24 04:17
Glucose 160 mg/dl (70-99) H 11/20/24 04:17
Troponins
11/18/24
09:32
Troponin I < 0.012
Vital Signs and I&O:
Vital Signs
Temp Pulse Resp BP Pulse Ox
98.6 F 73 12 129/85 100
11/20/24 03:15 11/20/24 06:00 11/20/24 06:00 11/20/24 06:00 11/20/24 06:00
Vital Signs
Temp Pulse Resp BP Pulse Ox
98.6 F 73 12 129/85 100
11/20/24 03:15 11/20/24 06:00 11/20/24 06:00 11/20/24 06:00 11/20/24 06:00
Intake & Output
11/18/24 11/19/24 11/20/24 11/21/24
06:59 06:59 06:59 06:59
Intake Total 100 / 100
Output Total 1110 / 1110 1025 / 1025 800 / 800
Balance -1010 / -1010 -1025 / -1025 -800 / -800
Physical Exam
Physical Exam
General: No acute distress, AAOX3
Neck: Negative JVD
Heart: Regular, Negative S3 positive S1/S2, Negative S4, No murmur
Lungs: CTA b/l, negative wheezes/rales/rhonchi
Abd: Positive BS, NT/ND, neg rebound/rigidity/guarding
Ext: Negative cyanosis/clubbing/edema
Neuro: nonfocal
--- NOTE | 2024-11-20 12:07 | W.PN.HOSP.TC ---
Today's Communication/Plan
-
anemia w/u
check FOBT - RN informed
TOV today
Assessment / Plan
Assessment / Plan
89yo F with PMHX of s/p bioprosthetic valve, severe TR, paroxysmal A.fib on low dose Eliquis, HFpEF, CVA, orthostatic hypotension, DM came with weakness, nausea and diarrhea, found DEVANG, most likely 2/2 hypotension and dehydration and noticed with
Afib with RVR on 11/18/24 with rapid response called. Eventually converted to sinus.
A/P:
#DEVANG with hypovolemic shock on admission
#Hyperkalemia
resolved
most likely 2/2 hypotension and diarrhea
Avoid hypotension
Nephrology followed
#Chronic anemia
brown stools
follow CBC
#acute respiratory insufficiency
#COPD not in exacerbation
XR on admission without acute findings
rui off O2
cont home bronchodilators
#Afib with RVR
#Non-ischemic myocardial injury
Cardiology for rhythm and rate control. Heparin drip stopped
Telemetry
cont Eliquis
TSH WNL
#Acute urinary retention with microscopic hematuria
with Hx of urinary retention and high postvoid residual
Tam and outpatient Urology for urodynamic studies
no additional LE focal neurologic deficit, no concern for spinal etiology for retention. Most likely 2/2 poor ambulatory capacity
#Severe T12 compression deformity 2/2
progressed since 2021
most likely 2/2 osteoporosis
outpatient treatment to be considered by PCP
#Diverticulosis without diverticulitis
high fiber diset
#Diarrhea on admission
resolved
possible transient gastroenteritis
#Severe protein calorie malnutrition
Increase calorie intake
Supplements
Instrument Tech consult
#Ambulatory dysfunction
2/2 deconditioning
PT/OT
#DM type 2 with unspecified complications
DM diet
accuchecks, insulin SS
#Chronic hypotension
#GERD
#Gout
cont home meds
#Mild anemia, BECKA
Hgb stable
outpatient w/u advised
DVT ppx Eliquis
DNR/DNI
I have spent at least 58min reviewing chart, test results, communication with consultants and providing direct patient care
Anticipated Discharge: Within 24 hours
Subjective/Interval History
-
Date of Service: November 20, 2024
Objective Data
-
Labs:
Laboratory Results
11/20/24 11/20/24
04:17 14:00
WBC 3.2 L
Hgb 8.7 L Pending
Hct 25.4 L Pending
Plt Count 118 L
Sodium 136
Potassium 4.2
Chloride 101
Carbon Dioxide 26
BUN 15
Creatinine 0.9
Glucose 160 H
Calcium 8.3 L
Total Bilirubin 0.5
AST 17
ALT 12
Alkaline Phosphatase 69
Vital Signs:
Vital Signs
Temp Pulse Resp BP Pulse Ox
97.7 F 92 21 116/66 96
11/20/24 07:45 11/20/24 10:00 11/20/24 10:00 11/20/24 10:00 11/20/24 10:09
I&O
11/19/24 11/20/24 11/21/24
06:59 06:59 06:59
Intake Total 240 / 240
Output Total 1025 / 1025 800 / 800 100 / 100
Balance -1025 / -1025 -800 / -800 140 / 140
Review of Systems
-
History Source: Patient
All other systems: Reviewed and negative
Physical Exam
-
General: No Apparent Distress
HEENT: Normocephalic
Cardiac: Regular Rhythm
GI: Soft
Musculoskeletal: No Clubbing, No Cyanosis and No Edema
Skin: Warm
Neuro: Awake, Alert, Oriented and AO x 3
Psych: Apparent Dementia
[2024-11-20] MEDS: NOVOLOG FLEXPEN-MODERATE RESISTANCE 5 UNITS SC (12:30)
[2024-11-20] MEDS: ProAmatine PO (12:34)
--- NOTE | 2024-11-20 12:35 | WOUNDNOTE ---
[facility] RN NOTE: Reviewed chart and met with patient. Patient admitted on 11/11 for weakness. Per chart review, some MASD noted on sacrum on admission. [facility] RN consult received for DTI of sacral/coccyx first reported on 11/20 7:17 am. Upon assessment, a
DTI of sacral coccyx is noted and appears as ecchymotic red/purple non-blanchable skin. No open areas noted but a scant amount of drainage was noted on dressing. Patient denies pain or discomfort. Patient already had an additional air cushion in her
[facility]. Patient demonstrated ability to stand from chair with assist of 1. Air cushion in chair. Patient reports improving appetite. Heels intact. Instructed patient on frequent turning and repositioning herself a few times/hours when
in chair and in bed and continuing to increase PO intake as able. This publicity writer also explained to patient that wound may evolve and worsen. Will notify Hospitalist. NITO Melgar updated on plan. Will continue to follow during in-patient stay.
[2024-11-20 12:45] LABS: Glucose - Point of Care 256 mg/dl (70-99)
--- NOTE | 2024-11-20 14:35 | WOUNDNOTE ---
W[facility] RN NOTE: Z-foam cushion given to patient to help off-load sacrum. Patient instructed on use and RN given update.
[2024-11-20 14:52] LABS: Hematocrit 30.1 % (37.0-47.0); Hemoglobin 10.2 g/dL (12.0-16.0)
[2024-11-20 18:08] LABS: Glucose - Point of Care 144 mg/dl (70-99)
[2024-11-20] MEDS: NOVOLOG FLEXPEN-MODERATE RESISTANCE SC (18:10)
[2024-11-20] MEDS: ProAmatine 10 MG PO (19:04)
[2024-11-20] MEDS: MELATONIN 5 MG PO (20:37)
[2024-11-20 21:18] LABS: Glucose - Point of Care 302 mg/dl (70-99)
[2024-11-20] MEDS: NOVOLOG FLEXPEN 6 UNITS SC (21:39)
[2024-11-20 23:55] LABS: Glucose - Point of Care 134 mg/dl (70-99)
[2024-11-21] VITALS (15 sets, daily range): BP systolic 99–138; BP diastolic 61–81; PULSE 82; BMI 17.7
--- NOTE | 2024-11-21 01:06 | PTCARENOTE ---
Pt denies complaints at this time. VSS, SaO2 97% on 2L. Pt able to ambulate to BSC with assist x1 and rw to void. PVR 1ml.
[2024-11-21 04:14] LABS: Glucose - Point of Care 150 mg/dl (70-99)
[2024-11-21 05:58] LABS: Hematocrit 25.7 % (37.0-47.0); Hemoglobin 8.9 g/dL (12.0-16.0); Mean Corp Hgb Conc. 34.6 g/dL (33.0-37.0); Mean Corpuscular Hgb 33.5 pg (27.0-31.0); Mean Corpuscular Volume 96.6 fL (81.0-99.0); Mean Platelet Volume 10.5 fL (7.4-10.4); Platelet Count 125 10^3/uL (130-400); Red Blood Cell Count 2.66 10^6/uL (4.20-5.40); Red Cell Dist. Width 13.6 % (11.5-14.5); White Blood Cell Count 3.4 10^3/uL (4.8-10.8)
[2024-11-21 06:05] LABS: ALT (SGPT) 11 U/L (0-35); AST (SGOT) 16 U/L (14-36); Albumin 2.9 g/dl (3.5-5.0); Alkaline Phosphatase 71 U/L (38-126); Blood Urea Nitrogen 18 mg/dl (7-17); Calcium 8.4 mg/dl (8.4-10.2); Carbon Dioxide 30 mmol/L (22-30); Chloride 100 mmol/L (98-107); Estimated Creatinine Clearance 29 ml/min; Glucose 139 mg/dl (70-99); Iron 62 ug/dl (37-170); LDH 213 U/L (120-246); Potassium 4.1 mmol/L (3.5-5.1); Sodium 138 mmol/L (135-145); Total Bilirubin 0.5 mg/dl (0.2-1.3); Total Protein 5.4 g/dl (6.3-8.2); eGFR > 60.00
[2024-11-21 06:15] LABS: Percent Saturation 21 % (20-50); Total Iron Binding Capacity 295 ug/dl (265-497)
[2024-11-21 07:13] LABS: Folate 6.1 ng/ml (2.76-20); Vitamin B12 959 pg/ml (239-931)
[2024-11-21 07:39] LABS: Absolute Neutrophils -Man Diff 2.5 10^3/uL (1.4-6.5); Anisocytosis 1+; Band Neutrophils 0 % (0-3); Eosinophils 2 % (0-6); Lymphocytes 19 % (20-51); Monocytes 5 % (2-9); Normal RBC Morphology No; Platelets Checked Yes; Polychromasia Slight; Segmented Neutrophils 74 % (42-75)
[2024-11-21 07:40] LABS: Reticulocyte Count 2.9 % (0.4-2.8); Total Cells Counted 100
--- NOTE | 2024-11-21 08:06 | W.PN.HOSP.TC ---
Today's Communication/Plan
-
dc
Assessment / Plan
Assessment / Plan
89yo F with PMHX of s/p bioprosthetic valve, severe TR, paroxysmal A.fib on low dose Eliquis, HFpEF, CVA, orthostatic hypotension, DM came with weakness, nausea and diarrhea, found DEVANG, most likely 2/2 hypotension and dehydration and noticed with
Afib with RVR on 11/18/24 with rapid response called. Eventually converted to sinus. Cardiology started on amiodarone and will follow as outpatient. Passed TOV. No focal neurological deficit noted, recommnedation for osteoporosis eval as outpatient.
Nocturnal O2 ot facility and outpatient sleep study. Hemartology referral for pancytopenia seen at least since 2015. Medically stable for rehab
A/P:
#DEVANG with hypovolemic shock on admission
#Hyperkalemia
resolved
most likely 2/2 hypotension and diarrhea
Avoid hypotension
Nephrology followed
#Chronic anemia, BECKA
brown stools
Hgb stable
#Pancytopenia
chronic since 2015 - outpatient hematology referral
#acute respiratory insufficiency
#Nocturnal hypoxia, most likely MANUEL
outpatient sleep study
#COPD not in exacerbation
XR on admission without acute findings
wean off O2
cont home bronchodilators
#Afib with RVR
#Non-ischemic myocardial injury
Cardiology for rhythm and rate control. Heparin drip stopped
Telemetry
cont Eliquis
TSH WNL
#Acute urinary retention with microscopic hematuria
Hematuria most likely traumatic 2/2 cath
outpatient urologist
with Hx of urinary retention and high postvoid residual
Tam removed and outpatient Urology for urodynamic studies advised
no additional LE focal neurologic deficit, no concern for spinal etiology for retention. Most likely 2/2 poor ambulatory capacity
#Severe T12 compression deformity 2/2 osteoporosis
neurologically intact without symptoms
progressed since 2021
most likely 2/2 osteoporosis
outpatient treatment to be considered by PCP
#Diverticulosis without diverticulitis
high fiber diset
#Diarrhea on admission
resolved
possible transient gastroenteritis
#Severe protein calorie malnutrition
Increase calorie intake
Supplements
Ep Specialist consult
#Ambulatory dysfunction
2/2 deconditioning
PT/OT
#DM type 2 with unspecified complications
DM diet
accuchecks, insulin SS
#Chronic hypotension
#GERD
#Gout
cont home meds
DVT ppx Eliquis
DNR/DNI
I have spent at least 38min reviewing chart, test results, communication with consultants and providing direct patient care
Anticipated Discharge: Today
Subjective/Interval History
-
Date of Service: November 21, 2024
Objective Data
-
Labs:
Laboratory Results
11/21/24
05:20
WBC 3.4 L
Hgb 8.9 L
Hct 25.7 L
Plt Count 125 L
Sodium 138
Potassium 4.1
Chloride 100
Carbon Dioxide 30
BUN 18 H
Creatinine 0.9
Glucose 139 H
Calcium 8.4
Total Bilirubin 0.5
AST 16
ALT 11
Alkaline Phosphatase 71
Vital Signs:
Vital Signs
Temp Pulse Resp BP Pulse Ox
97.7 F 69 15 120/68 99
11/21/24 03:19 11/21/24 06:00 11/21/24 06:00 11/21/24 06:00 11/21/24 06:00
I&O
11/20/24 11/21/24 11/22/24
06:59 06:59 06:59
Intake Total 240 / 240
Output Total 800 / 800 675 / 675
Balance -800 / -800 -435 / -435
Review of Systems
-
History Source: Patient
All other systems: Reviewed and negative
Physical Exam
-
General: No Apparent Distress
HEENT: Normocephalic
Respiratory: Clear to Auscultation
GI: Soft, Nontender and Nondistended
Musculoskeletal: No Clubbing, No Cyanosis and No Edema
Neuro: Awake, Alert, Oriented and AO x 3
Psych: Calm
[2024-11-21 08:11] LABS: Glucose - Point of Care 171 mg/dl (70-99)
--- NOTE | 2024-11-21 08:13 | W.DCSUMMARY ---
Discharge Summary
Discharge Data
Date of Admission: 11/11/24
Date of Discharge: 11/21/24
-
Pending Results: No
Hospital Course
89yo F with PMHX of s/p bioprosthetic valve, severe TR, paroxysmal A.fib on low dose Eliquis, HFpEF, CVA, orthostatic hypotension, DM came with weakness, nausea and diarrhea, found DEVANG, most likely 2/2 hypotension and dehydration and noticed with
Afib with RVR on 11/18/24 with rapid response called. Eventually converted to sinus. Cardiology started on amiodarone and will follow as outpatient. Passed TOV. No focal neurological deficit noted, recommnedation for osteoporosis eval as outpatient.
Nocturnal O2 ot facility and outpatient sleep study. Hemartology referral for pancytopenia seen at least since 2015. Medically stable for rehab
I have spent at least 38min reviewing chart, test results, communication with consultants and providing direct patient care
Patient was managed for:
#DEVANG with hypovolemic shock on admission
#Hyperkalemia
#Chronic anemia, BECKA
#Pancytopenia
#acute respiratory insufficiency
#Nocturnal hypoxia, most likely MANUEL
#COPD not in exacerbation
#Afib with RVR, paroxysmal
#Non-ischemic myocardial injury
#Acute urinary retention with microscopic hematuria
#Severe T12 compression deformity 2/2 osteoporosis
#Diverticulosis without diverticulitis
#Diarrhea on admission
#Severe protein calorie malnutrition
#Ambulatory dysfunction
#DM type 2 with unspecified complications
#Chronic hypotension
#GERD
#Gout
Discharge Plan
-
Patient Disposition: Acute Rehab Facility
Discharge Diagnosis/Procedures: CHF
Diet: Diabetic, Carb Controlled and No added salt
Activity: As tolerated
Specialty Instructions: Weigh Daily- Call MD for wt gain/loss 3 lbs overnight/5 lbs in 1 week
Activity Restrictions/Additional Instructions:
Wound Care Instructions Sacrum- Keep covered with sacral border foam. Change Q 72 hours and PRN. Call WOC RN if wound opens or drainage increases.
Referrals:
Francisco Ramsey DO [Active] - in one to two months (chronic pancytopenia)
Marino Ness DO [Active] - 12/11/24 2:40 pm (You have an appt to see Dr. Ness's physician preschool assistant, Michelle at the [place] office on 12/11/24 at 2:40 PM. Please call [phone] if you need to rescehdule.)
Ricardo Alcantara MD [Family Provider] - in less than 1 week (Sleep study referral)
Prescriptions:
New
amiodarone 200 mg Tablet
200 mg PO DIRECTED Qty: 60 0RF
Rx Instructions:
BID for 6 days, then daily
midodrine 5 mg Tablet
10 mg PO TID@0800,1300,1800 Qty: 90 0RF
furosemide 20 mg Tablet
20 mg PO DAILY Qty: 30 0RF
metoprolol succinate 50 mg Tablet Extended Release 24 Hr
50 mg PO BID Qty: 60 0RF
Continued
omeprazole 20 MG capsule,delayed release(DR/EC)
20 mg PO DAILY
metformin 1,000 mg tablet
1,000 mg PO BID
Eliquis 2.5 mg tablet
2.5 mg PO BID
ferrous sulfate [FeroSul] 325 mg (65 mg iron) tablet
325 mg PO DAILY
magnesium oxide 500 mg tablet
500 mg PO HS
acetaminophen 325 mg Tablet
650 mg PO Q4HPRN PRN (Reason: LAGOS, mild pain, or temp >100.4F) Qty: 0 0RF
allopurinol 100 mg Tablet
50 mg PO DAILY Qty: 0 0RF
Rx Instructions:
new dose
saxagliptin 5 mg tablet
5 mg PO HS Qty: 0 0RF
Spiriva Respimat 2.5 mcg/actuation Mist
2 puff inhalation R DAILY 30 Days Qty: 1 0RF
cholecalciferol (vitamin D3) 50 mcg (2,000 unit) Tablet
50 mcg PO DAILY 30 Days Qty: 30 0RF
calcium carbonate-vitamin D3 500 mg-3.125 mcg (125 unit) Tablet
1 tab PO DAILY Qty: 0 0RF
Discontinued
mirtazapine 7.5 mg Tablet
7.5 mg PO HS Qty: 0 0RF
Rx Instructions:
new dose
furosemide 40 mg Tablet
40 mg PO DAILY Qty: 0 0RF
Rx Instructions:
new dose
midodrine 5 mg Tablet
10 mg PO TID@0800,1300,1800 30 Days Qty: 180 0RF
metoprolol tartrate 50 mg Tablet
25 mg PO BID 30 Days Qty: 30 0RF
Discharge Orders:
Discharge Patient (As Directed); Ordered 11/21/24
Ordered By: Bryce Helms
Discharge Date and Time
Print Language: JAPANESE
[2024-11-21] MEDS: NOVOLOG FLEXPEN-MODERATE RESISTANCE 1 UNITS SC (08:41)
[2024-11-21] MEDS: FLOMAX 0.4 MG PO (08:42)
[2024-11-21] MEDS: PACERONE 200 MG PO (08:42)
[2024-11-21] MEDS: ZYLOPRIM 50 MG PO (08:42)
[2024-11-21] MEDS: TOPROL XL 50 MG PO (08:42)
[2024-11-21] MEDS: ProAmatine 10 MG PO ×2 (08:42→14:13)
[2024-11-21] MEDS: LASIX 20 MG PO (08:43)
[2024-11-21] MEDS: ELIQUIS 2.5 MG PO (08:43)
[2024-11-21 11:04] LABS: Glucose - Point of Care 277 mg/dl (70-99)
[2024-11-21] MEDS: NOVOLOG FLEXPEN-MODERATE RESISTANCE 5 UNITS SC (11:30)
--- NOTE | 2024-11-21 11:41 | CM ---
Patient from [facility] with Hx falls/weakness with Dx DEVANG, hyperkalemia. Room air. Per nurse; forgetful. PT/OT; recommend skilled rehab. Covid test pending.
Spoke with Jovita, [facility]; they are able to accept the patient today. Covid test is needed. The ph for report [phone], fax [phone].
Met with patient and spoke with daughter Waylon; both agree with d/c today to [facility]. IMM completed. Daughter will meet patient over at [facility] to help her get signed in.
Plan [facility] today by ambulance.
[2024-11-21 11:56] LABS: COVID-19 Antigen Negative (Negative)
== END 2024-11-21 14:58 | DRG 682 ==
LOC: IMU 20:40
PROVIDERS: Hospitalist; Internal Medicine; Physician Assistant; Registered Nurse; Specialist; ADMITTING PHYSICIAN Hospitalist; ATTENDING PHYSICIAN Internal Medicine; CONSULT PHYSICIAN Internal Medicine; EMERGENCY PHYSICIAN Emergency Medicine; FAMILY PHYSICIAN Family Medicine; OTHER PHYSICIAN Internal Medicine Cardiovascular Disease
DX: N17.9 Acute kidney failure, unspecified (principal); E43 Unspecified severe protein-calorie malnutrition; R57.1 Hypovolemic shock; E87.20 Acidosis, unspecified; I50.32 Chronic diastolic (congestive) heart failure; I5A Non-ischemic myocardial injury (non-traumatic); I47.19 Other supraventricular tachycardia; Z68.1 Body mass index [BMI] 19.9 or less, adult; E87.1 Hypo-osmolality and hyponatremia; D61.818 Other pancytopenia; Z11.52 Encounter for screening for COVID-19; E87.5 Hyperkalemia; Z66 Do not resuscitate; Z87.891 Personal history of nicotine dependence; I25.10 Atherosclerotic heart disease of native coronary artery without angina pectoris; E11.36 Type 2 diabetes mellitus with diabetic cataract; I48.0 Paroxysmal atrial fibrillation; I11.0 Hypertensive heart disease with heart failure; Z79.01 Long term (current) use of anticoagulants; I95.89 Other hypotension; K57.30 Diverticulosis of large intestine without perforation or abscess without bleeding; K21.9 Gastro-esophageal reflux disease without esophagitis; J44.9 Chronic obstructive pulmonary disease, unspecified; E11.9 Type 2 diabetes mellitus without complications
CPT/HCPCS: 70450; 71045; 74176; 80048; 80053; 81003; 81015; 82550; 82570; 82607; 82728; 82746; 82962; 83036; 83540; 83550; 83605; 83615; 83735; 83880; 84100; 84132; 84156; 84300; 84443; 84484; 85014; 85018; 85025; 85027; 85045; 85610; 85730; 87040; 87070; 87502; 87811; 92526; 92610; 93005; 93306; 96361; 96374; 96375; 97116; 97163; 97167; 97530; 97535; 99291; J7030

== ENCOUNTER 2024-12-23 11:43 | Inpatient (IN) | payer MEDICARE, SELFPAY ==
[2024-12-23] VITALS (10 sets, daily range): BP systolic 97–166; BP diastolic 52–85; PULSE 67; O2SAT 98; BMI 17.7
[2024-12-23 08:27] LABS: % Basophils 0.7 % (0-2); % Eosinophils 1.2 % (0-6); % Immature Granulocytes 0.2 % (0-0.5); % Lymphocytes 11.5 % (20.5-51.1); % Monocytes 7.2 % (1.7-9.3); % Neutrophils 79.2 % (42.2-75.2); Absolute Eosinophils 0.1 10^3/uL (0-0.7); Absolute Lymphocytes 0.7 10^3/uL (1.2-3.4); Absolute Monocytes 0.4 10^3/uL (0.1-0.6); Absolute Neutrophils 4.5 10^3/uL (1.4-6.5); Hematocrit 33.2 % (37.0-47.0); Hemoglobin 11.1 g/dL (12.0-16.0); Mean Corp Hgb Conc. 33.4 g/dL (33.0-37.0); Mean Corpuscular Hgb 33.7 pg (27.0-31.0); Mean Corpuscular Volume 100.9 fL (81.0-99.0); Mean Platelet Volume 10.6 fL (7.4-10.4); Nucleated Red Blood Cells % 0 %; Platelet Count 201 10^3/uL (130-400); Red Blood Cell Count 3.29 10^6/uL (4.20-5.40); Red Cell Dist. Width 17.1 % (11.5-14.5); White Blood Cell Count 5.7 10^3/uL (4.8-10.8)
--- NOTE | 2024-12-23 08:33 | ED.GENMED ---
History of Present Illness
General
Chief Complaint: Weakness
Source: patient and family
Exam Limitations: none
Time Seen by Provider: 12/23/24 08:07
Nursing documentation reviewed up to this point in time: agreed with
History of Present Illness
History of Present Illness:
Patient is an 89-year-old female with past medical history of acute kidney injury diabetes A-fib hypertension hyperlipidemia valve disorder stroke from our community hospital in [place] presents to the ER for evaluation. Patient complains of worsening
progressive weakness however this morning she felt that she cannot get out of bed. Family reports she recently got out of rehab on Tuesday, Home of back to our community hospital. She did not start physical therapy yet however she is scheduled to start
physical therapy soon. Daughter reports patient has not been eating and drinking as is not necessarily new. Patient complains of decreased appetite mild nausea denies any fever chills chest pain shortness of breath. Patient's pulse ox was mildly
low however she has no shortness of breath. Patient was admitted November 11 for 10 days due to acute kidney injury with hypovolemic shock hyperkalemia nausea and diarrhea.
Past History
Past History
ED Past Medical History: Arrthythmia (Afib), CHF (HFpEF), CVA (Left MCA 2016), GERD, HTN, Hypercholesterolemia, NIDDM and Other (Thoracic vertebral compression fracture (T12), Headaches, Anemia, Breast calcifications, COVID-19 07/2023, gout)
ED Past Surgical History: Cardiac (Aortic valve replacement), Gynecological (Hysterectomy), Tonsilectomy and Other (Cataracts)
Social History
Tobacco: Former smoker
Alcohol: Daily (Vodka 1)
Drug: None
Personal:
Living: with family
Family History
Family History: Other (Reviewed and noncontributory)
Review of Systems
Review of Systems
Allergies reviewed?: Yes
Other source history: family and detention
All Other Systems: ROS reviewed and negative except as documented in HPI and ROS
Constitutional: Reports fatigue; Denies fever
Respiratory: Reports no symptoms; Denies trouble breathing
Cardiac: Reports no symptoms
ABD/GI: Reports nausea and anorexia; Denies abdominal pain, vomiting or diarrhea
: Reports no symptoms; Denies dysuria, incontinence, urgency or discharge
Musculoskeletal: Reports no symptoms
Skin: Reports no symptoms
Neurological: Reports no symptoms
Psychiatric: Reports no symptoms
Phy Exam
General Physical Exam
General Presentation: no apparent distress
General age: appears stated age
General Skin: warm and dry
General Habitus: normal
General Mental: alert
General Hydration: appears well hydrated
Cardiovascular Exam
Cardiovascular Exam: regular rate/rhythm, normal peripheral pulses and systolic murmur
Pulmonary Exam
Pulmonary Exam: lungs clear and no respiratory distress
Neurological Exam
Neurological Exam: alert and oriented x3
Musculoskeletal Exam
Musculoskeletal Exam: full ROM
Skin Exam
Skin Exam: normal color and warm/dry
Psychiatric Exam
Psychiatric Exam: normal mood/affect
Course
Orders/Labs/Results
Orders:
Orders
12/23/24 08:11
Electrocardiogram (*1) Urgent
Reason for Study: Fatigue / Weakness
12/23/24 08:12
EKG- Treatment ONCE
12/23/24 08:13
Basic Metabolic Panel Urgent
Complete Blood Count/With Diff Urgent
12/23/24 08:42
Comprehensive Metabolic Panel Urgent
12/23/24 09:56
0.9% Sodium Chloride 500 ml [Nss] 500 ml IV BOLUS
12/23/24 Lunch
2000 calorie (17 carb) Diabetic
At Your Request: Full Participation
Oral Supplement (If unsure of flavor order apple or vanilla): Glucerna
Supplement Frequency: TID
12/23/24 11:07
Admit/Transfer Patient As Directed
Co-Sign Provider:
Level of Care: Inpatient admission
Assign to:: Telemetry
Physician / Group: steven garcia
Diagnosis: Acute renal failure
Patient Condition: Fair
Reason for Telemetry: Arrhythmia
Date to Stop Telemetry: 12/26/24
Time to Stop Telemetry: 11:00
Reason for Hospitalization: Acute renal failure
Expected length of stay greater than two midnights?: Yes
ELOS- Estimated Length of Stay in days: 2
I certify the patient meets the requirements for IP care: Yes
PRN Pain Medication Management As Directed
May give lesser potent ordered pain med per pt: Yes
preference::
Protocol:: Medication orders for pain may be administered in a
manner that supports deferring to patient preference
when the pt is:
- Requesting an ordered lesser potent pain medication.
Least to most potent pain medications are defined
as: acetaminophen < NSAID < tramadol < opioids
(morphine, oxycodone, hydromorphone).
- Requesting a lesser dose of the same medication IF
ORDERED.
- Requesting a less intrusive route of administration
if both routes are prescribed by the provider (PO <
IV).
12/23/24 11:13
Code Status As Directed
Resuscitation Status: Do not resuscitate
Reached after discussion with pt or family/Healthcare POA: Yes
12/23/24 11:14
DNR Bracelet Application ONCE
12/23/24 11:15
Urinalysis Reflex To Culture Urgent
Date Specimen was Collected: 12/23/24
Time Specimen was Collected: 11:14
Urine Microscopic Reflex Cult Urgent
Urine Culture Urgent
NHAN Source: U
Specimen Description:
Date Specimen was Collected: 12/23/24
Time Specimen was Collected: 11:14
12/23/24 13:26
0.9% Sodium Chloride 1000 ml [Nss] 1,000 ml IV 80 mls/hr
Acetaminophen [Tylenol] 650 mg PO Q4HPRN PRN LAGOS, mild pain, or temp >100.4F
Amiodarone [Pacerone] 200 mg PO DAILY
Bisacodyl [Dulcolax] 10 mg RECTAL W18ORMG PRN
Dextrose 50%-Water [Dextrose 50% Syringe] 12.5 grams IV Q84VEOP PRN
Docusate W/Senna [Senokot-S] 1 tablet PO BIDPRN PRN
Glucagon [GlucaGen] 1 mg IM PRN PRN
Ipratropium/Albuterol Sulfate [Duoneb] 3 ml INH R Q4HPRN PRN
Midodrine [ProAmatine] 10 mg PO TID@0800,1300,1800
Polyethylene Glycol Powder [Miralax] 17 grams PO DAILYPRN PRN
12/23/24 13:26
Urinalysis Reflex To Culture Routine
Date Specimen was Collected: 12/23/24
Time Specimen was Collected: 15:59
Activity As Directed
Activity Level: With Assistance
Bedside Glucose Monitoring As Directed
Frequency: AC&HS
Additional Instructions:: Change to q6h if pt on TPN, tube feeding or not eating
Pneumatic Compression Sleeves As Directed
Type: Knee high
Vital Signs As Directed
Frequency: Per unit guidelines
Ot Eval And Treat Routine
Pt Eval And Treat Routine
Activity Level: With Assistance
DX Deep Vein Thrombosis Video Routine
12/23/24 16:30
Insulin Aspart Corrective Low [Novolog Flexpen-Low Resistance] See Protocol SC AC
12/23/24 18:00
BMP [Basic Metabolic Panel] Routine
12/23/24 20:00
Apixaban [Eliquis] 2.5 mg PO BID
Metoprolol Xl [Toprol Xl] 50 mg PO BID
12/23/24 22:00
Magnesium Oxide 500 mg PO HS
Sitagliptin Phosphate [Januvia] 25 mg PO HS
12/24/24 06:00
Aldosterone, Serum [S] IN AM
Basic Metabolic Panel IN AM
Complete Blood Count/No Diff IN AM
Cortisol, Random IN AM
Glycohemoglobin (HgbA1c) IN AM
Magnesium IN AM
NT-proBNP IN AM
12/24/24 08:00
Allopurinol [Zyloprim] 50 mg PO DAILY
Calcium Carbonate/Vitamin D3 [Oscal 500 + D] 1 mg PO DAILY
Cholecalciferol (Vitamin D3) [VITAMIN D3 (cholecalciferol)] 50 mcg PO DAILY
Ferrous Sulfate [Feosol] 325 mg PO DAILY
Pantoprazole [Protonix] 40 mg PO DAILY
Tiotropium [place] 2.5 Mcg [Spiriva Respimat 2.5 Mcg] 2 puff INH R DAILY
12/26/24 11:00
DC Protocol for Telemetry ONCE
Abnormal Lab Results
12/23/24 12/23/24 12/23/24
08:13 08:42 11:15
RBC 3.29 L 10^6/uL
(4.20-5.40)
Hgb 11.1 L g/dL
(12.0-16.0)
Hct 33.2 L %
(37.0-47.0)
MCV 100.9 H fL
(81.0-99.0)
MCH 33.7 H pg
(27.0-31.0)
RDW 17.1 H %
(11.5-14.5)
MPV 10.6 H fL
(7.4-10.4)
Absolute Lymphs (auto) 0.7 L 10^3/uL
(1.2-3.4)
Neutrophils % 79.2 H %
(42.2-75.2)
Lymphocytes % 11.5 L %
(20.5-51.1)
Sodium 129 L mmol/L 129 L mmol/L
(135-145) (135-145)
Potassium 5.5 H mmol/L
(3.5-5.1)
Chloride 94 L mmol/L 95 L mmol/L
(98-107) (98-107)
Carbon Dioxide 21 L mmol/L
(22-30)
BUN 77 H mg/dl 76 H mg/dl
(7-17) (7-17)
Creatinine 1.5 H mg/dL 1.6 H mg/dL
(0.6-1.0) (0.6-1.0)
Glucose 166 H mg/dl 160 H mg/dl
(70-99) (70-99)
Urine Ketones 1+ A
(Negative)
Leukocyte Esterase Rfl 1+ A
(Negative)
Urine Bacteria (Reflex) Few A
(Negative)
Urine Albumin (Reflex) 2+ A
(Neg - Trace)
12/23/24 08:13
12/23/24 08:42
Vital Signs
Initial and Last Documented VS:
Initial Vital Signs
Temp Pulse Resp Pulse Ox
97.7 F 65 16 93
12/23/24 08:04 12/23/24 08:04 12/23/24 08:04 12/23/24 08:04
Last Documented Vital Signs
Temp Pulse Resp BP Pulse Ox
97.7 F 67 14 104/71 95
12/23/24 14:06 12/23/24 14:06 12/23/24 14:06 12/23/24 14:06 12/23/24 14:06
MDM/Problems Addressed
Differential Diagnosis Includes:
not limited to: dehydration, electrolyte abnormality infection
MDM/Problems Addressed:
As documented patient is an 89-year-old female presents for nausea weakness. Patient was found to be hyponatremic with a sodium of 129 , and renal function also increased. Patient was admitted at the end of October for acute kidney injury related to
hypovolemic shock related to nausea vomiting and diarrhea. Patient recently cut back from rehab continues to not feel well is nauseous has decreased appetite. Daughter also believes she is not taking enough oral fluids and solids. Patient's
creatinine is increased from discharge creatinine of 1.1-1.6 today. Likely related to dehydration insufficient p.o. intake small bolus of fluids ordered. With weakness and electrolyte abnormalities will require admission. She denies any fever
chills urinary symptoms ; urine pending at this time.
*Critical Care Note
Total Time (30-74mins, 75-104mins- exclusive of procedures): Not Applicable
ED Attending Note
-
Portions of this chart may have been created with voice recognition software.� Occasional wrong word or��sound alike� substitutions may have occurred due to the inherent limitations of voice recognition software.
Discharge Plan
Departure
Patient Disposition: Admit
Date of Disposition: 12/23/24
Time of Disposition: 09:59
Admit to: Telemetry
Admit to doctor: hospitaist
Presentation/result/management discussed w/ accepting MD/DO: Hospitalist
Patient with high blood pressure during this ER visit?: Yes
Condition: Fair
Covid-19: Not Applicable
Discharge Problem:
Acute hyponatremia, Acute renal insufficiency, Acute dehydration
Interventions
Interventions:
*Risk Screen - Suicide Last Done: 12/23/24 08:03
*General Assessment Last Done: 12/23/24 11:08
*Neglect/Abuse Screening Last Done: 12/23/24 08:03
*ED- Fall Risk Assessment Last Done: 12/23/24 11:08
*ED COVID-19 Vaccine History Last Done: 12/23/24 14:25
*Nursing Disposition Last Done: 12/23/24 13:26
ED- Cardiac Assessment Last Done: 12/23/24 09:25
ED- Neurological Assessment Last Done: 12/23/24 09:25
ED- Pulmonary Assessment Last Done: 12/23/24 09:25
Discharge Date and Time
Discharge Date/Time: 12/23/24 13:27
[2024-12-23 08:40] LABS: Blood Urea Nitrogen 77 mg/dl (7-17); Carbon Dioxide 26 mmol/L (22-30); Chloride 94 mmol/L (98-107); Estimated Creatinine Clearance 17 ml/min; Glucose 166 mg/dl (70-99); Sodium 129 mmol/L (135-145); eGFR 33.52
[2024-12-23 09:27] LABS: ALT (SGPT) 20 U/L (0-35); AST (SGOT) 30 U/L (14-36); Albumin 4.1 g/dl (3.5-5.0); Alkaline Phosphatase 91 U/L (38-126); Blood Urea Nitrogen 76 mg/dl (7-17); Carbon Dioxide 21 mmol/L (22-30); Chloride 95 mmol/L (98-107); Estimated Creatinine Clearance 16 ml/min; Glucose 160 mg/dl (70-99); Potassium 5.5 mmol/L (3.5-5.1); Sodium 129 mmol/L (135-145); eGFR 31.02
[2024-12-23] MEDS: NSS 500 IV (09:58)
--- NOTE | 2024-12-23 10:45 | HPS.HSE ---
Family Physician
-
Family Physician: Semaj Machuca
Chief Complaint
-
Weakness
History of Present Illness
Patient is 89 years old with past medical history known for diabetes, A-fib, hypertension, hyperlipidemia who came to [place] ER today from [facility] [place] with generalized weakness.
Patient was recently admitted to our facility and discharged on November 21 to rehab [facility], she was recently got out of rehab on Tuesday back to [facility].
Patient was feeling weak but today morning she was not able to get out of bed.
Patient has nausea and no vomiting but dry heaves.
Patient is having diarrhea which is once daily of soft stool.
Denies chest pain or shortness of breath, no recent fever or chills, no palpitations.
Low oral intake but takes Ensure.
Medical History
Past Medical History
Past Medical History: Reports Other
Additional Past Medical History:
Arrthythmia (Afib), CHF (HFpEF), CVA (Left MCA 2016), GERD, HTN, Hypercholesterolemia, NIDDM and Other (Thoracic vertebral compression fracture (T12), Headaches, Anemia, Breast calcifications, COVID-19 07/2023, gout)
Past Surgical History: Reports Other
Additional Past Surgical History:
Cardiac (Aortic valve replacement), Gynecological (Hysterectomy), Tonsilectomy and Other (Cataracts)
Social History
Tobacco: Former Smoker
Alcohol: Former
Drug: None
Personal:
Living: Other (Lives in [facility])
Family History
Family History: Not pertinent
Allergies / Home Medications
Allergies reflects when Allergies were last updated in [employer].
Home Medications with original date entered in [employer]
Allergy/Medication List:
Allergies
Allergy/AdvReac Type Severity Reaction Status Date / Time
ezetimibe (From Zetia) Allergy pain in Verified 11/16/24 19:59
muscles
simvastatin (From Zocor) Allergy pain in Verified 11/16/24 19:59
muscles
Home Medications
omeprazole 20 mg capsule,delayed release 20 mg PO DAILY Gastrointestinal issue 08/27/15
apixaban 2.5 mg tablet (Eliquis) 2.5 mg PO BID Arrhythmia 07/28/22
metformin 1,000 mg tablet 1,000 mg PO BID Diabetes 07/28/22
ferrous sulfate 325 mg (65 mg iron) tablet (FeroSul) 325 mg PO DAILY Supplement 12/02/23
magnesium oxide 500 mg PO HS Electrolyte Repletion 12/02/23
acetaminophen 325 mg tablet 650 mg (2 x 325 mg) PO Q4HPRN PRN LAGOS, mild pain, or temp >100.4F #0 tabs 03/05/24
allopurinol 100 mg tablet 50 mg (1/2 x 100 mg) PO DAILY Gout #0 tabs 03/05/24
saxagliptin 5 mg tablet 5 mg PO HS Diabetes #0 tabs 03/05/24
calcium 500 mg (as carbonate)-vitamin D3 3.125 mcg (125 unit) tablet 1 tab PO DAILY supplement #0 tabs 03/19/24
cholecalciferol (vitamin D3) 50 mcg (2,000 unit) tablet 50 mcg PO DAILY supplement 30 days #30 tabs 03/19/24
tiotropium bromide 2.5 mcg/actuation mist for inhalation (Spiriva Respimat) 2 puff inhalation R DAILY Lung/breathing issues-can substitute comparable 30 days #1 container 03/19/24
amiodarone 200 mg tablet 200 mg PO DIRECTED #60 tabs 11/21/24
furosemide 20 mg tablet 20 mg PO DAILY #30 tabs 11/21/24
metoprolol succinate 50 mg tablet,extended release 24 hr 50 mg PO BID #60 tabs 11/21/24
midodrine 5 mg tablet 10 mg (2 x 5 mg) PO TID@0800,1300,1800 #90 tabs 11/21/24
Review of Systems
-
A 12 point ROS was completed and negative except as noted: Yes
Constitutional: Reports Fatigue; Denies Fever, Weight Gain, Weight Loss or Sleep Disturbance
EENT: Denies Tearing, Sore Throat, Mouth Pain, Mouth Swelling or Runny Nose
Respiratory: Denies Cough, Hemoptysis or Trouble Breathing
Cardiac: Denies Chest Pain, Diaphoresis, Palpitations or Syncope
Abdomen/GI: Reports Nausea, Vomiting and Diarrhea; Denies Abdominal Pain, Constipated, Bloody Stools or Black Stools
: Denies Dysuria, Frequency, Flank Pain, Incontinence, Difficulty Voiding, Urgency, Bleeding or Dark Urine
Musculoskeletal: Denies Joint Pain, Joint Swelling, Muscle Pain, Muscle Stiffness or Edema
Skin: Denies Itching or Rash
Neurological: Denies Dizzy, Headache, Weakness or Numbness
Endocrine: Denies Polyuria, Polydipsia or Temp Intolerance
Hematologic/Lymphatic: Denies Bleeding, Swollen Glands or Bruising
Psych: Reports Calm; Denies Depression, Anxiety or Panic Disorder
Physical Exam
Vital Signs
Vital Signs
Temp Pulse Resp BP Pulse Ox
97.7 F 63 11 131/74 100
12/23/24 08:04 12/23/24 09:15 12/23/24 09:15 12/23/24 09:00 12/23/24 09:15
Physical Exam
General: Well Developed, Well Nourished, No Apparent Distress, Comfortable and Good Appetite; No Pain, Chills or Sweats
HEENT: NormoCephalic, Moist mucous membranes, Atraumatic, Good Dentition, PERRLA, Nose Appears Normal and Ears Appear Normal
Respiratory: Clear
Cardiac: S1/S2 and Regular Rhythm
Breast: Deferred by me
GI: Soft, Non Tender, Non Distended and Normal Bowel Sounds
Genito-urinary: Deferred by me
Musculoskeletal: No Clubbing, No Cyanosis and No Edema
Skin: Warm; No Rash, Jaundice, Ulcers, Lesions or Decubitus Ulcers
Neuro: Awake, Alert, Oriented, AO x 3, No Motor Deficits, Nonfocal/grossly intact and Cranial Nerves Intact
Hematologic/Lymphatic: No Lymphadenopathy
Psych: Calm
Laboratory Results
-
12/23/24 08:13
12/23/24 08:42
Laboratory Results
Total Bilirubin 1.0 mg/dl (0.2-1.3) 12/23/24 08:42
AST 30 U/L (14-36) 12/23/24 08:42
ALT 20 U/L (0-35) 12/23/24 08:42
Alkaline Phosphatase 91 U/L (38-126) 12/23/24 08:42
Data Reviewed
-
Diagnostic Radiology: Report Reviewed by me
CT Scan: Report Reviewed by me
Medical Tests (Nuc Med, Echo, EKG etc): Report Reviewed by me
Lab Data: Labs Reviewed by me
Old Records: Reviewed
Impression/Plan
-
IMPRESSION:
89-year-old female with a medical history of bioprosthetic aortic valve replacement, moderate mitral regurgitation, severe tricuspid regurgitation, paroxysmal A-fib (on low-dose Eliquis), HFpEF, CVA (December 2015), chronic hypotension (on midodrine),
and vri-[id number] diabetes mellitus who presented who presented with generalized weakness, frequent falls, and nausea with vomiting and diarrhea, Patient was recently admitted to our facility and discharged on November 21 to rehab [facility],
she was recently got out of rehab on Tuesday back to [facility]. Patient was feeling weak but today morning she was not able to get out of bed.
Assessment/plan:
Generalized weakness.
Decreased oral intake (low appetite)
Nausea/vomiting/diarrhea
Patient admitted recently with similar symptoms on November 11 and discharged on November 21 to rehab.
Left rehab on Tuesday to [facility] and was getting weaker and cannot get off the bed, came to the ER.
Patient will be admitted under hospitalist service.
Telemetry.
PT/OT consult.
Social service for discharge planning.
Patient used to be on Remeron 7.5 mg nightly will resume.
Blood pressure stable in the ER, continue midodrine
Acute renal failure.
Creatinine 1.6.
Previous creatinine on discharge was 0.9.
Will hold Lasix.
IV fluid hydration overnight and if creatinine improved tomorrow will discontinue IV fluid
Hyperkalemia.
Secondary to renal failure.
Repeat BMP tonight
Cortisol level and aldosterone level in a.m.
Hyponatremia
Possible hypovolemic hyponatremia secondary to decreased oral intake.
Lasix on hold.
IV fluid overnight
Repeat BMP tonight
Paroxysmal A-fib.
Currently sinus rhythm.
Continue amiodarone currently 200 mg daily.
Continue metoprolol 50 mg twice a day.
Continue Eliquis 2.5 mg twice daily.
Chronic HFpEF:
- Chronic, no acute exacerbation, currently more toward hypovolemic
- For now Lasix on hold but will restarted home Lasix once renal function has recovered.
-Consider change Lasix to be as needed for shortness of breath and weight gain more than 3 pound on discharge.
-Continue Beta-blockade with metoprolol succinate 50 mg p.o. twice daily
GERD.
Patient on omeprazole at home.
Since patient has history of hypomagnesemia we will switch omeprazole to pantoprazole
History of COPD.
Remote smoking history, patient quit 25 years ago.
Continue Spiriva.
DuoNebs as needed.
No evidence of acute exacerbation.
History of diabetes mellitus
Hold metformin for
Insulin sliding scale
Diabetic diet
Hemoglobin A1c on November 12, 2024 is 6.3.
Severe protein calorie malnutrition:
- Dietary supplements as tolerated
CODE STATUS: DNI/DNR
DVT prophylaxis: Eliquis
Diet: Diabetic diet
Total time spent on today's encounter was 65 minutes which included time spent in counseling the patient/family regarding diagnosis and treatment plan as listed above, goals of care, and symptom management. Case was discussed with nursing staff,
specialists, and care coordinators/case management. All labs and imaging personally reviewed by me. Remainder the time spent in detailed review of previous records, lab data, imaging, and other medical provider documentation.
[2024-12-23 11:32] LABS: Urine Albumin 2+ (Neg - Trace); Urine Bilirubin Negative (Negative); Urine Character Clear (Clear); Urine Color Yellow; Urine Glucose Negative (Negative); Urine Ketone 1+ (Negative); Urine Leukocyte 1+ (Negative); Urine Nitrite Negative (Negative); Urine Occult Blood Negative (Negative); Urine Urobilinogen Negative (Neg - 1+)
[2024-12-23 11:58] LABS: Urine Bacteria Few (Negative); Urine Red Blood Cell 0-2 /HPF (0-2)
--- NOTE | 2024-12-23 12:10 | CM ---
CM left VM for nursing staff at [facility]
Awaiting call back to confirm PLOF
Bedside meeting with pt and valentin/Waylon
[facility]
She is AxO 4x
She ambulates indep with a WW
She receives 1 person assist for personal care tasks
No O2 at baseline
Pt notes she has s econdary plan and Rx plan, unknown providers as cards not on person
Pt eliud
PCP- Semaj Machuca or Ricardo Alcantara
Rx- Lizbeth Esquivel
Pt admitted to [facility] from 11/11-11/21
Discharged to [facility] for STR
Discharged from SNF on 12/19 and set up with Martha/Melvin
Pt will require therapy evals once medically appropriate to determine dc dispo
Discharge Disposition- anticipate return to [facility] with [facility] Martha/Melvin, watch for higher needs
[2024-12-23] MEDS: NSS 1000 IV (14:08)
[2024-12-23] MEDS: ProAmatine 10 MG PO ×2 (14:08→17:26)
[2024-12-23] MEDS: PACERONE 200 MG PO (14:08)
[2024-12-23 16:10] LABS: Urine Albumin 2+ (Neg - Trace); Urine Bilirubin Negative (Negative); Urine Character Clear (Clear); Urine Color Yellow; Urine Glucose Negative (Negative); Urine Ketone 1+ (Negative); Urine Leukocyte 1+ (Negative); Urine Nitrite Negative (Negative); Urine Occult Blood Negative (Negative); Urine Urobilinogen Negative (Neg - 1+)
[2024-12-23 16:20] LABS: Urine Hyaline Cast 0-2 /LPF (0-2); Urine Squamous Cell 0-2 /LPF (Few)
[2024-12-23 16:22] LABS: Urine Bacteria Few (Negative); Urine Red Blood Cell 0-2 /HPF (0-2)
[2024-12-23 16:38] LABS: Glucose - Point of Care 148 mg/dl (70-99)
[2024-12-23] MEDS: NOVOLOG FLEXPEN-LOW RESISTANCE SC (16:39)
--- NOTE | 2024-12-23 20:00 | PTCARENOTE ---
Patient ordered labs from previous shift at 1800. Patient refused lab draw, education provided by this RN. Patient refused and stated she would allow blood work in am after she slept. Will continue to monitor.
[2024-12-23] MEDS: ELIQUIS 2.5 MG PO (20:28)
[2024-12-23] MEDS: TOPROL XL 50 MG PO (20:43)
[2024-12-23 21:34] LABS: Glucose - Point of Care 251 mg/dl (70-99)
[2024-12-23] MEDS: JANUVIA 25 MG PO (23:07)
[2024-12-23] MEDS: MAGNESIUM OXIDE 500 MG PO (23:07)
[2024-12-23] MEDS: NSS IV (23:26)
[2024-12-23] MEDS: MELATONIN 5 MG PO (23:40)
[2024-12-24 03:00] VITALS: BP 127/65
[2024-12-24 06:31] LABS: Hematocrit 29.3 % (37.0-47.0); Hemoglobin 9.7 g/dL (12.0-16.0); Mean Corp Hgb Conc. 33.1 g/dL (33.0-37.0); Mean Corpuscular Hgb 33.3 pg (27.0-31.0); Mean Corpuscular Volume 100.7 fL (81.0-99.0); Mean Platelet Volume 10.4 fL (7.4-10.4); Platelet Count 164 10^3/uL (130-400); Red Blood Cell Count 2.91 10^6/uL (4.20-5.40); Red Cell Dist. Width 17.1 % (11.5-14.5); White Blood Cell Count 5.6 10^3/uL (4.8-10.8)
[2024-12-24 07:04] LABS: NT-proBNP 9090 pg/ml
[2024-12-24 07:06] LABS: Blood Urea Nitrogen 62 mg/dl (7-17); Calcium 8.7 mg/dl (8.4-10.2); Carbon Dioxide 29 mmol/L (22-30); Chloride 95 mmol/L (98-107); Estimated Creatinine Clearance 18 ml/min; Glucose 118 mg/dl (70-99); Potassium 4.5 mmol/L (3.5-5.1); Sodium 131 mmol/L (135-145); eGFR 36.41
[2024-12-24 07:27] LABS: Cortisol, Random 22.6 ug/dl
[2024-12-24 07:34] LABS: Glucose - Point of Care 142 mg/dl (70-99)
[2024-12-24 07:40] VITALS: BP 128/77
[2024-12-24] MEDS: SPIRIVA RESPIMAT 2.5 MCG INH (07:41)
[2024-12-24 08:06] LABS: Magnesium 1.6 mg/dl (1.6-2.3)
[2024-12-24] MEDS: NOVOLOG FLEXPEN-LOW RESISTANCE SC (08:41)
[2024-12-24] MEDS: PROTONIX 40 MG PO (08:42)
[2024-12-24] MEDS: ELIQUIS 2.5 MG PO ×2 (08:44→20:51)
[2024-12-24] MEDS: PACERONE 200 MG PO (08:44)
[2024-12-24] MEDS: TOPROL XL 50 MG PO ×2 (08:46→20:50)
[2024-12-24] MEDS: FEOSOL 325 MG PO (08:47)
[2024-12-24] MEDS: ZYLOPRIM 50 MG PO (08:47)
[2024-12-24] MEDS: VITAMIN D3 (cholecalciferol) 50 MCG PO (08:47)
[2024-12-24] MEDS: ProAmatine 10 MG PO ×3 (08:57→17:27)
[2024-12-24 09:40] VITALS: BMI 18.3
[2024-12-24 11:10] VITALS: BP 132/74; PULSE 65; O2SAT 100
[2024-12-24 11:21] LABS: Glycohemoglobin (HgbA1c) 6.2 % (4.0-5.6)
[2024-12-24] MEDS: NOVOLOG FLEXPEN-LOW RESISTANCE 2 UNITS SC (11:44)
[2024-12-24 11:46] LABS: Glucose - Point of Care 210 mg/dl (70-99)
[2024-12-24 13:00] VITALS: BMI 18.3
--- NOTE | 2024-12-24 13:31 | W.PN.HOSP.TC ---
Today's Communication/Plan
-
abx
f/u cultures
f/u bmp
stop fluids
Assessment / Plan
Assessment / Plan
Physical Exam
General: Well Developed, Well Nourished, No Apparent Distress, Comfortable and Good Appetite; No Pain, Chills or Sweats
HEENT: NormoCephalic, Moist mucous membranes, Atraumatic, Good Dentition, PERRLA, Nose Appears Normal and Ears Appear Normal
Respiratory: Clear
Cardiac: S1/S2 and Regular Rhythm
Breast: Deferred by me
GI: Soft, Non Tender, Non Distended and Normal Bowel Sounds
Genito-urinary: Deferred by me
Musculoskeletal: No Clubbing, No Cyanosis and No Edema
Skin: Warm; No Rash, Jaundice, Ulcers, Lesions or Decubitus Ulcers
Neuro: Awake, Alert, Oriented, AO x 3, No Motor Deficits, Nonfocal/grossly intact and Cranial Nerves Intact
Hematologic/Lymphatic: No Lymphadenopathy
Psych: Calm
89-year-old female with a medical history of bioprosthetic aortic valve replacement, moderate mitral regurgitation, severe tricuspid regurgitation, paroxysmal A-fib (on low-dose Eliquis), HFpEF, CVA (December 2015), chronic hypotension (on midodrine),
and trb-usbfmtu-ewcnkhytw diabetes mellitus who presented who presented with generalized weakness, frequent falls, and nausea with vomiting and diarrhea, Patient was recently admitted to our facility and discharged on November 21 to rehab [facility],
she was recently got out of rehab on Tuesday back to [facility]. Patient was feeling weak but today morning she was not able to get out of bed.
Assessment/plan:
Generalized weakness.
Decreased oral intake (low appetite)
Nausea/vomiting/diarrhea
-possibly worse with ?UTI
Patient admitted recently with similar symptoms on November 11 and discharged on November 21 to rehab.
Left rehab on Tuesday to [facility] and was getting weaker and cannot get off the bed, came to the ER.
Patient will be admitted under hospitalist service.
Telemetry.
PT/OT consult.
Social service for discharge planning.
Patient used to be on Remeron 7.5 mg nightly will resume.
Blood pressure stable in the ER, continue midodrine
Acute renal failure.
Creatinine 1.6.
Previous creatinine on discharge was 0.9.
Will hold Lasix.
IV fluid hydration PRN
UTI
-cont abx
f/u cultures
Hyperkalemia.
Secondary to renal failure.
Repeat BMP tonight
Cortisol level and aldosterone level in a.m.
Hyponatremia
Possible hypovolemic hyponatremia secondary to decreased oral intake.
Lasix on hold.
IV fluid overnight
Repeat BMP t
Paroxysmal A-fib.
Currently sinus rhythm.
Continue amiodarone currently 200 mg daily.
Continue metoprolol 50 mg twice a day.
Continue Eliquis 2.5 mg twice daily.
Chronic HFpEF:
- Chronic, no acute exacerbation, currently more toward hypovolemic
- For now Lasix on hold but will restarted home Lasix once renal function has recovered.
-Consider change Lasix to be as needed for shortness of breath and weight gain more than 3 pound on discharge.
-Continue Beta-blockade with metoprolol succinate 50 mg p.o. twice daily
GERD.
Patient on omeprazole at home.
Since patient has history of hypomagnesemia we will switch omeprazole to pantoprazole
History of COPD.
Remote smoking history, patient quit 25 years ago.
Continue Spiriva.
DuoNebs as needed.
No evidence of acute exacerbation.
History of diabetes mellitus
Hold metformin for
Insulin sliding scale
Diabetic diet
Hemoglobin A1c on November 12, 2024 is 6.3.
Severe protein calorie malnutrition:
- Dietary supplements as tolerated
CODE STATUS: DNI/DNR
DVT prophylaxis: Eliquis
Diet: Diabetic diet
Anticipated Discharge: 24 - 48 hours
Subjective/Interval History
-
Date of Service: December 24, 2024
Sitting in chair, resting comfortably
Objective Data
-
Labs:
Laboratory Results
12/24/24
06:09
WBC 5.6
Hgb 9.7 L
Hct 29.3 L
Plt Count 164
Sodium 131 L
Potassium 4.5
Chloride 95 L
Carbon Dioxide 29
BUN 62 H
Creatinine 1.4 H
Glucose 118 H
Calcium 8.7
Vital Signs:
Vital Signs
Temp Pulse Resp BP Pulse Ox
97.7 F 65 18 132/74 97
12/24/24 11:10 12/24/24 11:10 12/24/24 11:10 12/24/24 11:10 12/24/24 11:10
I&O
12/23/24 12/24/24 12/25/24
06:59 06:59 06:59
Intake Total 480 / 480
Balance 480 / 480
Review of Systems
-
History Source: Patient
All other systems: Not reviewed unless documented
Data Reviewed
-
Diagnostic Radiology: Report Reviewed by me
Labs: Labs Reviewed by me
[2024-12-24] MEDS: SENOKOT-S 1 TABLET PO (14:11)
[2024-12-24] MEDS: ROCEPHIN 1000 MG IV (14:12)
[2024-12-24] MEDS: STERILE WATER FOR INJECTION 10 ML IV (14:12)
[2024-12-24 15:15] VITALS: BP 129/71
[2024-12-24 16:25] LABS: Glucose - Point of Care 197 mg/dl (70-99)
[2024-12-24] MEDS: NOVOLOG FLEXPEN-LOW RESISTANCE 1 UNITS SC (17:28)
[2024-12-24 19:53] VITALS: BP 145/84
[2024-12-24] MEDS: JANUVIA 25 MG PO (21:48)
[2024-12-24] MEDS: MELATONIN 5 MG PO (21:49)
[2024-12-24] MEDS: MAGNESIUM OXIDE 500 MG PO (21:49)
[2024-12-24 21:59] LABS: Glucose - Point of Care 278 mg/dl (70-99)
[2024-12-24 23:35] VITALS: BP 106/51
[2024-12-25 03:45] VITALS: BP 99/55
[2024-12-25] MEDS: SENOKOT-S 1 TABLET PO ×3 (04:47→21:52)
[2024-12-25] MEDS: MYLICON 80 MG PO (04:47)
[2024-12-25 06:46] LABS: Hematocrit 31.1 % (37.0-47.0); Hemoglobin 10.2 g/dL (12.0-16.0); Mean Corp Hgb Conc. 32.8 g/dL (33.0-37.0); Mean Corpuscular Hgb 33.2 pg (27.0-31.0); Mean Corpuscular Volume 101.3 fL (81.0-99.0); Mean Platelet Volume 10.6 fL (7.4-10.4); Platelet Count 171 10^3/uL (130-400); Red Blood Cell Count 3.07 10^6/uL (4.20-5.40); Red Cell Dist. Width 16.9 % (11.5-14.5); White Blood Cell Count 6.4 10^3/uL (4.8-10.8)
[2024-12-25 07:11] LABS: ALT (SGPT) 16 U/L (0-35); AST (SGOT) 22 U/L (14-36); Albumin 3.6 g/dl (3.5-5.0); Alkaline Phosphatase 83 U/L (38-126); Blood Urea Nitrogen 45 mg/dl (7-17); Calcium 8.6 mg/dl (8.4-10.2); Carbon Dioxide 27 mmol/L (22-30); Chloride 96 mmol/L (98-107); Estimated Creatinine Clearance 24 ml/min; Glucose 153 mg/dl (70-99); Potassium 4.7 mmol/L (3.5-5.1); Sodium 130 mmol/L (135-145); Total Bilirubin 0.8 mg/dl (0.2-1.3); Total Protein 6.3 g/dl (6.3-8.2); eGFR 48.63
[2024-12-25] MEDS: SPIRIVA RESPIMAT 2.5 MCG 2 PUFF INH (07:22)
[2024-12-25] MEDS: ELIQUIS 2.5 MG PO ×2 (07:51→19:49)
[2024-12-25] MEDS: FEOSOL 325 MG PO (07:51)
[2024-12-25] MEDS: ZYLOPRIM 50 MG PO (07:51)
[2024-12-25] MEDS: PROTONIX 40 MG PO (07:51)
[2024-12-25] MEDS: TOPROL XL 50 MG PO ×2 (07:51→19:48)
[2024-12-25] MEDS: ProAmatine 10 MG PO ×3 (07:51→16:49)
[2024-12-25] MEDS: PACERONE 200 MG PO (07:51)
[2024-12-25] MEDS: VITAMIN D3 (cholecalciferol) 50 MCG PO (07:52)
[2024-12-25] MEDS: MIRALAX 17 GRAMS PO (07:53)
[2024-12-25] MEDS: NOVOLOG FLEXPEN-LOW RESISTANCE 1 UNITS SC (07:56)
[2024-12-25 07:58] LABS: Glucose - Point of Care 174 mg/dl (70-99)
[2024-12-25 08:10] VITALS: BP 153/74
--- NOTE | 2024-12-25 10:00 | CM ---
Addendum entered by Sylvia Pineda 12/25/24 11:19:
Patient continues with oxygen requirements.
Will continue to follow for medical clearance for d/c.
Original Note:
Spoke with patient bedside.
Patient unsure if she wants skilled vs back to [facility] with therapy and requested this CM call her daughter Waylon.
Spoke with Waylon, she would prefer back to [facility], feels her mom is baseline. Waylon would like her to go back as soon as possible.
Patients daughter or son will transport.
Watch for home oxygen needs.
Daughter agreeable to [facility] with [facility]
Referral for [facility] placed.
Daughter requested TC from today.
Clinicals faxed to Sarah- sql database administrator at [facility] [phone]
Plan: [facility] (watch for home oxygen needs)
[facility]
Report- Sally Amusement Ride Operator [phone]
--- NOTE | 2024-12-25 11:23 | PN.CDI ---
CDI
- -
CDI:
Physician Documentation Request
Admit Date: 12/23/24 11:43
Dear Doctor Africa,
Clinical Indicators:
Patient admitted with generalized weakness and DEVANG.
12/23, 12/24 RN skin wound assessments: Buttock Stage 1 Pressure Injury, POA
Treatment: Silicone border foam dressing
Physician documentation of the type and location of wounds is required for compliant documentation. Based on the above clinical findings and your assessment, please provide the following in your progress note:
1. Location of the ulcer/wound, including laterality.
2. Type (etiology) of ulcer/wound:
- Pressure (decubitus) ulcer
- Other
3. If a pressure ulcer, please also include the stage* of the ulcer:
- Stage 1 - Skin intact, non-blanchable redness
- Stage 2 - Partial thickness loss of dermis, includes intact or open blister
- Stage 3 - Full thickness tissue not including bone, tendon or muscle
- Stage 4 - Full thickness tissue loss, including exposed bone, tendon or muscle
- Unstageable - Full thickness loss in which the base of the ulcer is covered by slough (yellow, burgos, ackerman, green or brown) and/or eschar (burgos, brown or black) in the wound bed.
- Unable to determine
Use of terms such as suspected, likely, concern for, or probable (associated with a specific diagnosis that is being evaluated, monitored, or treated as if it exists) are acceptable and can be coded in the inpatient setting, when documented at the
time of discharge.
Thank you,
KELLI Green RN
CDI Specialist
available via tiger text
Please use your independent medical judgment in providing your response.
*Source: National Pressure Ulcer Advisory Panel (NPUAP)
[2024-12-25 11:30] VITALS: BP 115/58
[2024-12-25 12:22] LABS: Glucose - Point of Care 246 mg/dl (70-99)
[2024-12-25] MEDS: NOVOLOG FLEXPEN-LOW RESISTANCE 2 UNITS SC ×2 (12:22→16:45)
--- NOTE | 2024-12-25 12:32 | W.PN.HOSP.TC ---
Today's Communication/Plan
-
hypoxia work up
pt/ot
stop abx
monitor renal function
Assessment / Plan
Assessment / Plan
Physical Exam
General: Well Developed, Well Nourished, No Apparent Distress, Comfortable and Good Appetite; No Pain, Chills or Sweats
HEENT: NormoCephalic, Moist mucous membranes, Atraumatic, Good Dentition, PERRLA, Nose Appears Normal and Ears Appear Normal
Respiratory: Clear
Cardiac: S1/S2 and Regular Rhythm
Breast: Deferred by me
GI: Soft, Non Tender, Non Distended and Normal Bowel Sounds
Genito-urinary: Deferred by me
Musculoskeletal: No Clubbing, No Cyanosis and No Edema
Skin: Warm; No Rash, Jaundice, Ulcers, Lesions or Decubitus Ulcers
Neuro: Awake, Alert, Oriented, AO x 3, No Motor Deficits, Nonfocal/grossly intact and Cranial Nerves Intact
Hematologic/Lymphatic: No Lymphadenopathy
Psych: Calm
89-year-old female with a medical history of bioprosthetic aortic valve replacement, moderate mitral regurgitation, severe tricuspid regurgitation, paroxysmal A-fib (on low-dose Eliquis), HFpEF, CVA (December 2015), chronic hypotension (on midodrine),
and ibu-kbjvqtz-milgdjaqx diabetes mellitus who presented who presented with generalized weakness, frequent falls, and nausea with vomiting and diarrhea, Patient was recently admitted to our facility and discharged on November 21 to rehab [facility],
she was recently got out of rehab on Tuesday back to [facility]. Patient was feeling weak but today morning she was not able to get out of bed.
Assessment/plan:
Generalized weakness.
Decreased oral intake (low appetite)
Nausea/vomiting/diarrhea
Patient admitted recently with similar symptoms on November 11 and discharged on November 21 to rehab.
Noot vomiting or having diarrhea inpatient
Symptoms may be related to depression
Left rehab on Tuesday to [facility] and was getting weaker and cannot get off the bed, came to the ER.
Patient will be admitted under hospitalist service.
Telemetry.
PT/OT consult.
Social service for discharge planning.
Patient used to be on Remeron 7.5 mg nightly will resume.
Blood pressure stable in the ER, continue midodrine
Acute renal failure.
most likely pre-renal
Improving
Previous creatinine on discharge was 0.9.
Will hold Lasix.
IV fluid hydration PRN
#Hypoxia
-unclear etiology
F/u CXR
-add on probnp
-wean off o2 as tolerated; goal o2 >88%
Hyperkalemia.
Secondary to renal failure.
improved
Hyponatremia
Possible hypovolemic hyponatremia secondary to decreased oral intake.
Lasix on hold.
IV fluid overnight
Repeat BMP
Paroxysmal A-fib.
Currently sinus rhythm.
Continue amiodarone currently 200 mg daily.
Continue metoprolol 50 mg twice a day.
Continue Eliquis 2.5 mg twice daily.
Chronic HFpEF:
- Chronic, no acute exacerbation, currently more toward hypovolemic
- For now Lasix on hold but will restarted home Lasix once renal function has recovered.
-Consider change Lasix to be as needed for shortness of breath and weight gain more than 3 pound on discharge.
-Continue Beta-blockade with metoprolol succinate 50 mg p.o. twice daily
GERD.
Patient on omeprazole at home.
Since patient has history of hypomagnesemia we will switch omeprazole to pantoprazole
History of COPD.
Remote smoking history, patient quit 25 years ago.
Continue Spiriva.
DuoNebs as needed.
No evidence of acute exacerbation.
History of diabetes mellitus
Hold metformin for
Insulin sliding scale
Diabetic diet
Hemoglobin A1c on November 12, 2024 is 6.3.
Severe protein calorie malnutrition:
- Dietary supplements as tolerated
CODE STATUS: DNI/DNR
DVT prophylaxis: Eliquis
Diet: Diabetic diet
Anticipated Discharge: Within 24 hours
Subjective/Interval History
-
Date of Service: December 25, 2024
pt with no acute changes; mildly hypoxic
Objective Data
-
Labs:
Laboratory Results
12/25/24
06:12
WBC 6.4
Hgb 10.2 L
Hct 31.1 L
Plt Count 171
Sodium 130 L
Potassium 4.7
Chloride 96 L
Carbon Dioxide 27
BUN 45 H
Creatinine 1.1 H
Glucose 153 H
Calcium 8.6
Total Bilirubin 0.8
AST 22
ALT 16
Alkaline Phosphatase 83
Vital Signs:
Vital Signs
Temp Pulse Resp BP Pulse Ox
97.8 F 65 18 115/58 99
12/25/24 11:30 12/25/24 11:30 12/25/24 11:30 12/25/24 11:30 12/25/24 11:30
I&O
12/24/24 12/25/24 12/26/24
06:59 06:59 06:59
Intake Total 480 / 480 780 / 780
Balance 480 / 480 780 / 780
Review of Systems
-
History Source: Patient
All other systems: Not reviewed unless documented
Physical Exam
-
General: No Apparent Distress
HEENT: Normocephalic
Respiratory: Clear to Auscultation
GI: Soft, Nontender and Nondistended
Musculoskeletal: No Clubbing, No Cyanosis and No Edema
Neuro: Awake, Alert, Oriented and AO x 3
Psych: Calm
Data Reviewed
-
Diagnostic Radiology: Report Reviewed by me
Labs: Labs Reviewed by me
[2024-12-25 15:08] VITALS: BP 121/58
[2024-12-25 16:29] LABS: Glucose - Point of Care 241 mg/dl (70-99)
[2024-12-25 19:00] VITALS: BP 129/72
[2024-12-25] MEDS: MAGNESIUM OXIDE 500 MG PO (21:52)
[2024-12-25] MEDS: MELATONIN 5 MG PO (21:52)
[2024-12-25] MEDS: JANUVIA 25 MG PO (21:52)
[2024-12-25 21:54] LABS: Glucose - Point of Care 192 mg/dl (70-99)
[2024-12-25 23:00] VITALS: BP 122/75
--- NOTE | 2024-12-26 00:28 | PTCARENOTE ---
patient was offered oral care multiple times, but refused. She said she will do it in the morning.
[2024-12-26 03:00] VITALS: BP 116/67
[2024-12-26 06:37] LABS: Hemoglobin 9.7 g/dL (12.0-16.0); Mean Corp Hgb Conc. 33.4 g/dL (33.0-37.0); Mean Corpuscular Hgb 33.3 pg (27.0-31.0); Mean Corpuscular Volume 99.7 fL (81.0-99.0); Mean Platelet Volume 10.3 fL (7.4-10.4); Platelet Count 139 10^3/uL (130-400); Red Blood Cell Count 2.91 10^6/uL (4.20-5.40); Red Cell Dist. Width 16.4 % (11.5-14.5)
[2024-12-26 07:13] LABS: ALT (SGPT) 14 U/L (0-35); AST (SGOT) 20 U/L (14-36); Albumin 3.3 g/dl (3.5-5.0); Alkaline Phosphatase 72 U/L (38-126); Blood Urea Nitrogen 30 mg/dl (7-17); Calcium 8.4 mg/dl (8.4-10.2); Carbon Dioxide 27 mmol/L (22-30); Chloride 97 mmol/L (98-107); Estimated Creatinine Clearance 29 ml/min; Glucose 149 mg/dl (70-99); Potassium 4.5 mmol/L (3.5-5.1); Sodium 131 mmol/L (135-145); Total Bilirubin 0.8 mg/dl (0.2-1.3); Total Protein 5.7 g/dl (6.3-8.2); eGFR > 60.00
[2024-12-26] MEDS: SPIRIVA RESPIMAT 2.5 MCG 2 PUFF INH (07:14)
[2024-12-26 07:21] VITALS: BP 118/59
[2024-12-26 07:43] VITALS: BMI 17.4
[2024-12-26 08:01] LABS: Glucose - Point of Care 163 mg/dl (70-99)
[2024-12-26] MEDS: PACERONE 200 MG PO (08:15)
[2024-12-26] MEDS: PROTONIX 40 MG PO (08:15)
[2024-12-26] MEDS: TOPROL XL 50 MG PO (08:15)
[2024-12-26] MEDS: ELIQUIS 2.5 MG PO (08:15)
[2024-12-26] MEDS: OSCAL 500 + D 500 MG PO (08:15)
[2024-12-26] MEDS: VITAMIN D3 (cholecalciferol) 50 MCG PO (08:15)
[2024-12-26] MEDS: ZYLOPRIM 50 MG PO (08:15)
[2024-12-26] MEDS: FEOSOL 325 MG PO (08:15)
[2024-12-26] MEDS: ProAmatine 10 MG PO ×2 (08:15→12:43)
[2024-12-26] MEDS: SENOKOT-S 1 TABLET PO (08:22)
[2024-12-26] MEDS: NOVOLOG FLEXPEN-LOW RESISTANCE 1 UNITS SC (08:24)
[2024-12-26 09:43] VITALS: BMI 17.4
[2024-12-26 10:55] VITALS: BP 149/88
--- NOTE | 2024-12-26 11:05 | WOUNDNOTE ---
[facility] RN Note: Patient seen during prevention rounds. Patient has what looks like a chronic small stage 2 pressure injury with surrounding callus. [facility]. Skin on heels intact. Protective foam applied to heels.
Silicone border foam changed on sacrum. Patient turned to L semi side lying position with help from RN Installment Dealer Katt and [facility] RN student Clari. Heels off bed with air chair cushion. Po intact poor. Patient very thin. Discussed with NITO Petty. Care
plan to be updated. Consult as needed.
[2024-12-26] MEDS: MIRALAX 17 GRAMS PO (12:12)
[2024-12-26] MEDS: NOVOLOG FLEXPEN-LOW RESISTANCE 2 UNITS SC (12:12)
[2024-12-26 12:14] LABS: Glucose - Point of Care 232 mg/dl (70-99)
--- NOTE | 2024-12-26 12:21 | CM ---
Addendum entered by Suzy Nayak 12/26/24 14:28:
Spoke with Jennifer from [facility] & updated her on the rec by [facility] of hospital bed & gel overlay
Original Note:
Patient chart reviewed
spoke with patient daughter Waylon
IMM explained & in chart
discharge today to [facility] care
Spoke with Jennifer at [facility] and updated
family will transport
Referral in [facility] for [facility] - updated of dc
PLAN:[facility] with [facility]
Report- Sally, Outbound Supervisor [phone]
--- NOTE | 2024-12-26 12:35 | WOUNDNOTE ---
[facility] RN Note: Patient seen during prevention rounds around 11:05. Patient has what looks like a chronic small stage 2 pressure injury with surrounding callus. Patient is on a [facility] Wide air bed. Skin on heels intact. Protective foam applied
to heels. Silicone border foam changed on sacrum. Patient turned to L semi side lying position with help from RN Corporate Sales Representative Katt and [facility] RN student Clari. Heels off bed with air chair cushion. Po intake poor. Non Destructive Tester following. Patient very
thin. Discussed with NITO Petty. Updated Dr. Leger who approved local care. Care plan updated. Consult as needed.
[2024-12-26] MEDS: PEPCID 20 MG PO (12:41)
[2024-12-26] MEDS: ZOFRAN 4 MG IV (12:52)
[2024-12-26] MEDS: FLUSH (NSS) 1 FLUSH IV (12:52)
--- NOTE | 2024-12-26 13:01 | W.PN.HOSP.TC ---
Addendum entered and electronically signed by Kana Leger MD 12/28/24 15:14:
Buttock Stage 1 Pressure Injury, POA
Addendum entered and electronically signed by Kana Leger MD 12/26/24 15:21:
[id number]
Original Note:
Today's Communication/Plan
-
BM regimen
resume lasix at 10mg daily
f/u bmp in 3-5 days with pcp
Assessment / Plan
Assessment / Plan
Physical Exam
General: Well Developed, Well Nourished, No Apparent Distress, Comfortable and Good Appetite; No Pain, Chills or Sweats
HEENT: NormoCephalic, Moist mucous membranes, Atraumatic, Good Dentition, PERRLA, Nose Appears Normal and Ears Appear Normal
Respiratory: Clear
Cardiac: S1/S2 and Regular Rhythm
Breast: Deferred by me
GI: Soft, Non Tender, Non Distended and Normal Bowel Sounds
Genito-urinary: Deferred by me
Musculoskeletal: No Clubbing, No Cyanosis and No Edema
Skin: Warm; No Rash, Jaundice, Ulcers, Lesions or Decubitus Ulcers
Neuro: Awake, Alert, Oriented, AO x 3, No Motor Deficits, Nonfocal/grossly intact and Cranial Nerves Intact
Hematologic/Lymphatic: No Lymphadenopathy
Psych: Calm
89-year-old female with a medical history of bioprosthetic aortic valve replacement, moderate mitral regurgitation, severe tricuspid regurgitation, paroxysmal A-fib (on low-dose Eliquis), HFpEF, CVA (December 2015), chronic hypotension (on midodrine),
and ceh-hgbwsit-sattseihg diabetes mellitus who presented who presented with generalized weakness, frequent falls, and nausea with vomiting and diarrhea, Patient was recently admitted to our facility and discharged on November 21 to rehab [facility],
she was recently got out of rehab on Tuesday back to [facility]. Patient was feeling weak but today morning she was not able to get out of bed.
Assessment/plan:
Generalized weakness.
Decreased oral intake (low appetite)
Nausea/vomiting/diarrhea
-possibly worsened with DEVANG
Patient admitted recently with similar symptoms on November 11 and discharged on November 21 to rehab.
today with vomiting, one occurence
Symptoms may be related to depression along with constipation
-Abdomen non distended
XR abd with constipation, assess improvement iwth zack chung with BM regimen
Patient will be admitted under hospitalist service.
Telemetry.
PT/OT consult.
Social service for discharge planning.
Patient used to be on Remeron 7.5 mg nightly will resume.
Blood pressure stable in the ER, continue midodrine
Acute renal failure.
most likely pre-renal
Improving
Previous creatinine on discharge was 0.9.
Resume lasix at 10mg daily, and monitor bmp in 3-5 days for renal function and continuation
#Hypoxia, resolved
-atelectasis
Hyperkalemia.
Secondary to renal failure.
improved
Hyponatremia
Possible hypovolemic hyponatremia secondary to decreased oral intake.
Lasix on hold.
IV fluid overnight
Repeat BMP
Paroxysmal A-fib.
Currently sinus rhythm.
Continue amiodarone currently 200 mg daily.
Continue metoprolol 50 mg twice a day.
Continue Eliquis 2.5 mg twice daily.
Pulmonary Hypertension
Chronic HFpEF
- Chronic, no acute exacerbation, currently more toward hypovolemic
- -Continue Beta-blockade with metoprolol succinate 50 mg p.o. twice daily
-Reduce lasix dosing to 10mg daily, f/u bmp outpatient
GERD.
Patient on omeprazole at home.
Since patient has history of hypomagnesemia we will switch omeprazole to pantoprazole
History of COPD.
Remote smoking history, patient quit 25 years ago.
Continue Spiriva.
DuoNebs as needed.
No evidence of acute exacerbation.
History of diabetes mellitus
Hold metformin for
Insulin sliding scale
Diabetic diet
Hemoglobin A1c on November 12, 2024 is 6.3.
Severe protein calorie malnutrition:
- Dietary supplements as tolerated
CODE STATUS: DNI/DNR
DVT prophylaxis: Eliquis
Diet: Diabetic diet
More than 30 minutes spent in discharge including
Final examination of the patient
Summarizing hospital stay
Instructions for continuing care to all relevant caregivers
Preparation of discharge records, prescriptions, and referral forms
Total time spent (in minutes): 37
Anticipated Discharge: Today
Subjective/Interval History
-
Date of Service: December 26, 2024
weaned off o2
some vomiting today, constipation. cxr with constipation; belly non distended. Miralax given
Objective Data
-
Labs:
Laboratory Results
12/26/24
06:09
WBC 5.0
Hgb 9.7 L
Hct 29.0 L
Plt Count 139
Sodium 131 L
Potassium 4.5
Chloride 97 L
Carbon Dioxide 27
BUN 30 H
Creatinine 0.9
Glucose 149 H
Calcium 8.4
Total Bilirubin 0.8
AST 20
ALT 14
Alkaline Phosphatase 72
Vital Signs:
Vital Signs
Temp Pulse Resp BP Pulse Ox
98.0 F 73 18 104/57 98
12/26/24 10:55 12/26/24 12:43 12/26/24 10:55 12/26/24 12:43 12/26/24 10:55
I&O
12/25/24 12/26/24 12/27/24
06:59 06:59 06:59
Intake Total 780 / 780 600 / 600
Balance 780 / 780 600 / 600
Review of Systems
-
History Source: Patient
All other systems: Not reviewed unless documented
Physical Exam
-
General: No Apparent Distress
HEENT: Normocephalic
Respiratory: Clear to Auscultation
GI: Soft, Nontender and Nondistended
Musculoskeletal: No Clubbing, No Cyanosis and No Edema
Neuro: Awake, Alert, Oriented and AO x 3
Psych: Calm
--- NOTE | 2024-12-26 13:06 | W.DS.TRANS ---
DC Summary - Tar Leveler
-
Discharge Instructions:
Sleep Apnea Risk Low
Discharge Diagnosis/Procedures Generalized weakness.
Decreased oral intake (low appetite)
Nausea/vomiting/diarrhea
Acute renal failure.
Diet Restrict fluids to 48 oz,Low Fat,Low Cholesterol
Activity As tolerated
Blood Work cbc and bmp in 3-5 days
Instructions:
Stand-Alone Forms:
Changes to Home Medications: Yes
Discharge Medications:
DC Medications w/original date entered in [facility]
omeprazole 20 mg capsule,delayed release 20 mg PO DAILY Gastrointestinal issue 08/27/15
apixaban 2.5 mg tablet (Eliquis) 2.5 mg PO BID Arrhythmia 07/28/22
metformin 1,000 mg tablet 1,000 mg PO BID Diabetes 07/28/22
ferrous sulfate 325 mg (65 mg iron) tablet (FeroSul) 325 mg PO DAILY Supplement 12/02/23
saxagliptin 5 mg tablet 5 mg PO HS Diabetes #0 tabs 03/05/24
cholecalciferol (vitamin D3) 50 mcg (2,000 unit) tablet 50 mcg PO DAILY supplement 30 days #30 tabs 03/19/24
metoprolol succinate 50 mg tablet,extended release 24 hr 50 mg PO BID #60 tabs 11/21/24
amino ac-protein hydro-whey protein 10 gram-100 kcal/30 mL oral liquid (ProSource) 1 ea PO BID Supplement 12/23/24
amiodarone 200 mg tablet 200 mg PO DAILY Arrhythmia 12/23/24
arginine 7 gram-glutamine 7 gram-calcium HMB 1.5 gram oral powder pack (Ephraim) 1 ea PO BID Supplement 12/23/24
loperamide 2 mg capsule 2 mg PO Q6HPRN PRN diarrhea 12/23/24
magnesium hydroxide 400 mg/5 mL oral suspension (Milk of Magnesia) 30 ml PO DAILYPRN PRN if no bm in 2 days 12/23/24
magnesium oxide 400 mg PO HS Supplement 12/23/24
melatonin 5 mg tablet 5 mg PO HS Sleep 12/23/24
midodrine 5 mg tablet 10 mg PO TID orthostatic hypotension 12/23/24
ondansetron HCl 4 mg tablet 4 mg PO Q6H PRN nausea/vomiting 12/23/24
tiotropium bromide 2.5 mcg/actuation mist for inhalation (Spiriva Respimat) 2 puff inhalation R DAILY Lung/Breathing Issues 12/23/24
calcium 500 mg (as carbonate)-vitamin D3 5 mcg (200 unit) tablet (Oyster Shell Calcium-Vitamin D3) 1 tab PO DAILY #0 tabs 12/26/24
furosemide 20 mg tablet 10 mg (1/2 x 20 mg) PO DAILY #30 tabs 12/26/24
polyethylene glycol 3350 17 gram oral powder packet 17 g PO DAILYPRN PRN constipation #100 ea 12/26/24
Home Medication Changes
furosemide 20 mg tablet 10 mg (1/2 x 20 mg) PO DAILY #30 tabs 12/26/24
polyethylene glycol 3350 17 gram oral powder packet 17 g PO DAILYPRN PRN constipation #100 ea 12/26/24
Pending Results: No
--- NOTE | 2024-12-26 14:20 | WOUNDNOTE ---
[facility] Rn note: Rolf Nayak re: patient has a small stage 2 sacral pressure injury. Recommend hospital bed with air or gel overlay and VN.
[2024-12-26 15:16] VITALS: BP 107/61; BP 135/75
[2024-12-27 03:41] LABS: Aldosterone, Serum 10.9 ng/dL
== END 2024-12-26 15:52 | disposition home health service (06) | DRG 682 ==
LOC: 3 WEST ACU 11:43
PROVIDERS: Nurse Practitioner; ADMITTING PHYSICIAN General Practice; ATTENDING PHYSICIAN Internal Medicine; EMERGENCY PHYSICIAN Emergency Medicine; FAMILY PHYSICIAN Internal Medicine
DX: N17.9 Acute kidney failure, unspecified (principal); E43 Unspecified severe protein-calorie malnutrition; I50.32 Chronic diastolic (congestive) heart failure; Z68.1 Body mass index [BMI] 19.9 or less, adult; J98.11 Atelectasis; N39.0 Urinary tract infection, site not specified; E87.1 Hypo-osmolality and hyponatremia; R19.7 Diarrhea, unspecified; R11.2 Nausea with vomiting, unspecified; E11.9 Type 2 diabetes mellitus without complications; Z66 Do not resuscitate; E87.5 Hyperkalemia; J44.9 Chronic obstructive pulmonary disease, unspecified; I48.0 Paroxysmal atrial fibrillation; K21.9 Gastro-esophageal reflux disease without esophagitis; L89.301 Pressure ulcer of unspecified buttock, stage 1; K59.00 Constipation, unspecified; R09.02 Hypoxemia; Z63.4 Disappearance and death of family member; Z87.891 Personal history of nicotine dependence; Z79.01 Long term (current) use of anticoagulants; Z79.84 Long term (current) use of oral hypoglycemic drugs; Z79.899 Other long term (current) drug therapy; E86.0 Dehydration; I11.0 Hypertensive heart disease with heart failure
CPT/HCPCS: 71046; 74018; 80048; 80053; 81003; 81015; 82088; 82533; 82962; 83036; 83735; 83880; 85025; 85027; 87086; 93005; 94640; 96360; 97163; 97167; 99285